=== PATIENT | male | born 1960 | race Caucasian/White ===

== ENCOUNTER 2018-06-04 06:25 | Emergency (ER) | payer OTHER, SELFPAY ==
[2018-06-04 06:26] VITALS: BP 178/87; PULSE 70; RESP 20; TEMP 36.3; O2SAT 98; BMI 39.2
--- NOTE | 2018-06-04 06:38 | RAD_ITS ---
STUDY: X-RAY CHEST REASON FOR EXAM: Male, 57 years old. Cough. TECHNIQUE: PA and lateral views of the chest. COMPARISON: Prior comparison studies are not available for review at this time. FINDINGS: There is a small dense nodule in the left upper lobe likely due to granuloma. No focal infiltrate is seen. There is mild elevation of the right hemidiaphragm. There is no demonstrated pleural abnormality. Normal size heart. Normal mediastinum and ok. Normal visualized pulmonary arteries. Normal visualized aortic arch and descending thoracic aorta. Normal visualized thoracic spine. Normal visualized ribs, clavicles, and shoulders. There is no demonstrated abnormality of the visualized soft tissue structures of the upper abdomen. RAD/Chest PA and Lateral IMPRESSION: No active pulmonary disease. Electronically Signed: Darrel Quinones MD at 8:14 EST Tel , Service support ,
--- NOTE | 2018-06-04 06:38 | EKG12_ITS ---
Test Reason : SOB Blood Pressure : / mmHG Vent. Rate : 082 BPM Atrial Rate : 082 BPM P-R Int : 144 ms QRS Dur : 100 ms QT Int : 380 ms P-R-T Axes : 060 -60 048 degrees QTc Int : 443 ms Normal sinus rhythm Left anterior fascicular block Abnormal ECG Confirmed by CLOVIS GERARDO, EVANGELINA ([id number]), editor index MARY CAMEJO ([id number]) on 06/07/2018 8:26:03 AM Referred By: EDUARD Confirmed By:EVANGELINA BRANNON MD
--- NOTE | 2018-06-04 06:42 | ED.VISSUMM ---
- ER Visit Summary Date of Service: 06/04/18 Chief Complaint: Cough, fever, drainage History of Present Illness: The patient is a 57 M presents to the emergency department with 3-4 weeks of upper respiratory infection. The patient states that he gets this almost every winter. He states that he thought it was just a virus and thought that he would be able to kick it on his own. He states on Wednesday, he went to urgent care because he was having productive sputum, chills, and sweats. He states that they placed him on doxycycline. He is been using his nebulizer with little improvement. He states that he has had no chest pain. He denies orthopnea. He has no history of pulmonary embolus. He denies any history of heart failure. His symptoms are not made worse with exertion or with laying flat. He states it is mostly just the cough that seems to make him worse. Physical Examination: Vital signs reviewed General: Well-nourished, well-developed Head: Normocephalic, atraumatic Eyes: Pupils equal and reactive, extraocular muscles intact Neck, supple, no lymphadenopathy Heart: Regular rate and rhythm Respiratory: No distress, wheezing in all mabry Abdomen: Soft, nontender, nondistended, no peritoneal signs Back: Nontender Extremities: Nontender, no edema, no cords Skin: Normal color no rash Neuro: Alert and oriented, no focal or lateralizing deficits Test Results: [] Emergency Department Course and Treatment: The patient has persistent bronchospasm and infectious symptoms. He denies any underlying history of lung disease and does not smoke. My suspicion is that this is continued inflammation and I do feel that the patient would likely benefit from steroids. Screening labs and chest x-ray will be obtained. The patient is ordered nebulized breathing treatments. I do feel that as long as his labs are unremarkable, the patient can be safely discharged with prednisone and I will change his antibiotic coverage. If there is any other abnormalities that need to be addressed, addendum will be added. Treatment Plan: [] Disposition: Pending Impression: 1. Bronchitis with bronchospasm This note was generated with [employer] software. It may contain incorrect words, spelling, and punctuation that were not noted in review of the chart prior to signing ED Disposition - Plan for ED Patient: Instructions: ED Upper Resp Infec Abx Tx Prescriptions: Prednisone [Deltasone] 40 mg PO DAILY #10 tab Cefuroxime Axetil [Cefuroxime] 500 mg PO BID #14 tab Referrals: Anette Romo MD [Primary Care Provider] -
[2018-06-04] MEDS: MethylPREDNISolone 125 MG/2 ML Vial IV (06:49)
[2018-06-04] MEDS: 0.9% Normal Saline 1,000 ML 150 ML IV (06:51)
[2018-06-04 06:55] LABS: Absolute Lymphocyte Count 1.93 X10^3/ul (0.83-4.51); Absolute Neutrophil Count 3.5 X10^3/uL (2.0-7.7); Basophil# 0.02 X10^3/uL; Basophil% 0.3 % (0-1); Eosinophil# 0.12 X10^3/uL; Eosinophils% 1.7 % (0-5); Hematocrit 48.1 % (40-54); Hemoglobin 16.3 g/dl (13.0-16.5); Lymphocyte # 1.93 X10^3/ul (4.0); Mean Corp Hgb Conc 33.9 g/gl (32-36); Mean Corpuscular Hgb 30.8 pg (27.0-32.0); Mean Corpuscular Volume 90.8 fL (80-94); Mean Platelet Vol. 11.9 fl (6.2-12.0); Monocyte# 1.31 X10^3/uL; Neutrophil # 3.49 X10^3/uL (2.7-7.7); Neutrophil % 50.7 % (47-70); Platelet Count 198 K/mm3 (150-450); RBC Distribution Width CV 13.6 % (11.6-14.6); RBC Distribution Width SD 44.4 fl (35.1-43.9); White Blood Count 6.9 K/mm3 (4.4-11.0)
[2018-06-04 06:56] LABS: POSITIVE COUNT NO; POSITIVE DIFFERENTIAL NO; POSITIVE MORPHOLOGY NO
[2018-06-04 06:59] VITALS: PULSE 84; RESP 16
[2018-06-04] MEDS: Ipratropium/Albuterol Sulfate 3 ML AMPUL.NEB INHALATION (06:59)
[2018-06-04] MEDS: Albuterol 2.5 MG/3 ML VIAL.NEB. INHALATION ×4 (06:59→08:11)
[2018-06-04 07:05] LABS: Anion Gap 10 (5-15); BUN 17 mg/dL (7-18); BUN/Creat Ratio 13.6 RATIO (10-20); Calcium,Total 8.8 mg/dL (8.5-10.1); Chloride 105 mmol/L (98-107); Creatinine, Serum 1.25 mg/dL (0.70-1.30); EST Glomerular Filtration Rate 63 mL/min (>60); Est Glom Filt Rate - Afr Amer 76 mL/min (>60); Estimated Creatinine Clearance 73.69 ml/min; Glucose 133 mg/dL (74-106); Potassium 3.9 mmol/L (3.5-5.1); Sodium Level 142 mmol/L (136-145)
[2018-06-04 07:11] VITALS: PULSE 86; RESP 13; TEMP 36.3; O2SAT 95
[2018-06-04 08:11] VITALS: PULSE 88; RESP 14
[2018-06-04 09:13] VITALS: BP 134/99; PULSE 86; RESP 14; O2SAT 94
== END 2018-06-04 09:15 | disposition home or self-care (01) ==
PROVIDERS: Emergency Provider Emergency Medicine; Family Provider Internal Medicine; PCP Internal Medicine
DX: J40 Bronchitis, not specified as acute or chronic (principal); J98.01 Acute bronchospasm; I10 Essential (primary) hypertension
CPT/HCPCS: 71046; 80048; 85025; 93005; 94640; 96361; 96374; 99285; J7030; A4216

== ENCOUNTER 2019-11-05 08:17 | Inpatient (IN) | payer OTHER, SELFPAY ==
[2019-11-05] VITALS (10 sets, daily range): BP systolic 131–152; BP diastolic 77–116; PULSE 67–138; RESP 14–26; TEMP 36.2–36.9; O2SAT 92–99; BMI 36.2; BMI 36.0
--- NOTE | 2019-11-05 08:31 | RAD_ITS ---
STUDY: X-RAY CHEST REASON FOR EXAM: Male, 59 years old. fever, cough x 3 days TECHNIQUE: Single AP portable view of the chest. COMPARISON: None. FINDINGS: The lungs are clear and expanded. There is no demonstrated pleural abnormality. Normal size heart. Normal mediastinum and ok. Normal visualized pulmonary arteries. Normal visualized aortic arch and descending thoracic aorta. Normal visualized thoracic spine. Normal visualized ribs, clavicles, and shoulders. There is no demonstrated abnormality of the visualized soft tissue structures of the upper abdomen. RAD/Chest 1 View (Portable) IMPRESSION: Normal x-ray examination of the chest. Electronically Signed: Ed Dixon MD at 9:31 EDT Tel , Service support ,
--- NOTE | 2019-11-05 08:32 | ED.DCSUM_ITS ---
History of Present Illness Chief Complaint: Cough Informant: Patient, Significant Other Onset: Days Context: Sudden Onset Timing: Continuous Quality: Upper respiratory symptoms with cough and altered taste Location: Upper respiratory Current Severity: Mild Maximum Severity: Moderate Worsened by: Nothing Relieved by: Nothing Associated Symptoms: Dyspnea, diaphoresis, subjective fever, decreased appetite Narrative: Patient is a 59-year-old male with history of hypertension, hypothyroidism, pulmonary disease and gout who presents with upper respiratory symptoms started 3 to 4 days ago. He denies rhinorrhea, congestion postnasal drainage. Denies sore throat. Does report altered taste. Cough is productive. He does report shortness of breath. He denies increased shortness of breath with activity. He does report sweats and night sweats. He reports decreased appetite. He denies vomiting or diarrhea. He denies dysuria, frequency, urgency or hematuria. He denies myalgias or arthralgias. He has not noted a rash. He does report aches. Patient denies any recent ill contacts. States he is a non-smoker. Prior similar symptoms: Yes - 1 year ago with upper respiratory infection Recent Illness/Hospitalization: No - Past Medical History (1) Hypertension Status: Chronic (2) History of gout Status: Chronic (3) History of hypothyroidism Status: Chronic (4) History of asthma Status: Chronic Past Medical History - Allergies and Home Meds Allergies/Adverse Reactions: Allergies Penicillins [PCN] Allergy (Verified 11/05/19 08:19) PT UNSURE OF REACTION Primary Care Physician: Anette Romo MD [Primary Care Provider] - Prior records reviewed: Yes Surgical History: noncontributory Lives: Spouse/ Significant Other Smoking Status: Never smoker Alcohol: None Drugs: None Review of Systems General: Reports: Chills, Malaise, Sweats. Denies: Fever Eyes: Denies: Visual changes - bilaterally ENT: Reports: Bilateral ear pain, - - Altered taste. Denies: Rhinorrhea, Sore throat Cardiovascular: Denies: Chest pain, Palpitations, Heart racing Respiratory: Reports: Dyspnea, Cough, Sputum. Denies: Dyspnea on exertion, Orthopnea, Paroxysmal nocturnal dyspnea Gastrointestinal: Denies: Abdominal pain, Nausea, Vomiting, Diarrhea Genitourinary: Denies: Dysuria, Hematuria, Frequency Musculoskeletal: Denies: Myalgias, Arthralgias, Neck pain, Back pain, Swelling, Extremity Pain Skin: Denies: Rash, Wounds Neurological: Reports: Weakness. Denies: Headache, Parasthesia, Numbness Hematologic: Denies: Easy bruising, Easy bleeding Physical Exam Vital Signs/Narrative: Vital Signs Temp Pulse Resp BP Pulse Ox 11/05/19 08:19 98.2 F 99 24 H 136/116 H 95 Inital Vital Signs reviewed: Yes General: Well nourished, Well developed, Acute Distress Eyes: Perrl, EOMI. Negative for: Pale conjunctiva, Scleral icterus ENT: Moist mucous membranes, No rhinorrhea, TM's clear Neck: Supple, Nontender, No lymphadenopathy Cardiovascular: Regular rate, Regular rhythm, No murmurs, Normal S1, Normal S2 Respiratory: Chest nontender, Rales - Scattered rales right and left with egophony on the right.. Negative for: No distress, CTA bilaterally Abdomen: Soft, Nontender, Nondistended, Normal bowel sounds, No masses Back: Nontender, Normal Inspection Extremities: Nontender, No edema Skin: Normal color, No rash, Diaphoresis. Negative for: Cyanosis, Jaundice, Pallor, Rash Neurological: Alert, Oriented x3, Cranial nerves II-XII grossly intact, Normal Strength, Normal Sensation, Normal Gait Psychological: Normal affect Diagnostic/Tx/Re-eval - EKG Follow-up EKG Interpretation: Atrial Fibrillation - Atrial fibrillation with ventricular rate of 128.. QRS duration 104 ms. QT duration 3 and 26 ms. [place] to left. There is evidence of left intrafascicular block. - Medical Decision Making With respiratory symptoms loss of taste concern patient has COVID. Patient has abnormal auscultatory findings. Chest x-ray was obtained to assess for infiltrate. Since there is egophony rales and wheezing only with forced expiration he was treated with albuterol. The COVID order set was initiated. Differential diagnosis include acute viral upper restaurant infection with exacerbation asthma, pneumonia, COVID infection Monitor reveals a fast and irregular heartbeat. Repeat EKG confirms atrial fibrillation with RVR. There is evidence of a left anterior fascicular block. QRS duration 204 ms. QT durations 326 ms with a QTC of 475 ms. [place] to left. Because there is concern for COVID head waiter/waitress was contacted regarding antidysrhythmic. Will discuss use of amiodarone and anticoagulation with Lovenox. Dr. Cronel Espinoza is on-call for cardiology. Once case discussed with head waiter/waitress will call hospitalist for admission. Case was discussed with head waiter/waitress. Recommended Cardizem IV push. Agrees with Lovenox. Hospitalist was paged for admission. 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
[2019-11-05 08:58] LABS: Absolute Lymphocyte Count 1.46 X10^3/uL (0.83-4.51); Absolute Neutrophil Count 5.2 X10^3/uL (2.0-7.7); Basophil# 0.02 X10^3/uL; Basophil% 0.3 % (0-1); Eosinophil# 0.02 X10^3/uL; Eosinophils% 0.3 % (0-5); Hematocrit 46.8 % (40-54); Hemoglobin 15.7 g/dL (13.0-16.5); Lymphocyte # 1.46 X10^3/ul (4.0); Lymphocyte % 19.9 % (19-41); Mean Corp Hgb Conc 33.5 g/dL (32-36); Mean Corpuscular Hgb 30.5 pg (27.0-32.0); Mean Corpuscular Volume 91.1 fL (80-94); Mean Platelet Vol. 11.9 fl (6.2-12.0); Monocyte# 0.63 X10^3/uL; Monocyte% 8.6 % (0-10); NRBC Flagged by Analyzer 0 % (0-5); Neutrophil # 5.18 X10^3/uL (2.7-7.7); Neutrophil % 70.5 % (47-70); Platelet Count 155 K/mm3 (150-450); RBC Distribution Width CV 12.9 % (11.6-14.6); RBC Distribution Width SD 43.3 fl (35.1-43.9); Red Blood Count 5.14 M/mm3 (4.6-6.2); White Blood Count 7.3 K/mm3 (4.4-11.0)
[2019-11-05 09:16] LABS: ALB/GLOB Ratio 0.9 RATIO (0.9-2.4); AST(SGOT) 23 U/L (15-37); Alanine Aminotransfer ALT/SGPT 33 U/L (16-61); Albumin, Serum 3.3 g/dL (3.2-5.0); Alkaline Phosphatase 51 U/L (45-117); Anion Gap 6 (5-15); BUN 19 mg/dL (7-18); BUN/Creat Ratio 15.1 RATIO (10-20); Calcium,Total 8.2 mg/dL (8.5-10.1); Chloride 104 mmol/L (98-107); Creatinine, Serum 1.26 mg/dL (0.70-1.30); EST Glomerular Filtration Rate 62 mL/min (>60); Est Glom Filt Rate - Afr Amer 75 mL/min (>60); Estimated Creatinine Clearance 75.45 ml/min; Globulin 3.6 g/dL (2.2-4.2); Glucose 103 mg/dL (74-106); Potassium 4.5 mmol/L (3.5-5.1); Protein, Total 6.9 g/dL (6.4-8.2); Sodium Level 137 mmol/L (136-145)
[2019-11-05 09:29] LABS: Lactic Acid 1.4 mmol/L (0.4-1.9)
--- NOTE | 2019-11-05 10:15 | ED.RN ---
pt rapid heart rate possible a-fib. dr aware and ekg ordered.
--- NOTE | 2019-11-05 10:15 | EKG12_ITS ---
Test Reason : Blood Pressure : / mmHG Vent. Rate : 128 BPM Atrial Rate : 258 BPM P-R Int : 000 ms QRS Dur : 104 ms QT Int : 326 ms P-R-T Axes : 000 -67 059 degrees QTc Int : 475 ms Atrial fibrillation with rapid ventricular response Left anterior fascicular block Abnormal ECG Confirmed by CLOVIS GERARDO, EVANGELINA ([id number]), newspaper editor PADMINI LINK ([id number]) on 11/06/2019 1:16:18 PM Referred By: HUEY Confirmed By:EVANGELINA BRANNON MD
[2019-11-05] MEDS: dilTIAZem 25 MG/5 ML Vial 20 MG IV BOLUS (10:55)
[2019-11-05] MEDS: Enoxaparin 120 MG/0.8 ML Syringe SC (10:55)
--- NOTE | 2019-11-05 11:02 | HP.PCM_ITS ---
Problem List (1) Gout Status: Chronic (2) Hypothyroidism Status: Chronic (3) Asthma Status: Chronic (4) Hypertension Status: Chronic (5) Atrial fibrillation with rapid ventricular response Status: Acute (6) Bronchospasm, acute Status: Acute History of Present Illness Date of Admission: 11/05/19 Chief Complaint: Low-grade fever, cough, shortness of breath. The patient is a 59 year old M with past medical history as mentioned above presented to the emergency room because of low-grade fever, cough and shortness of breath. His symptoms started 2 days ago with low-grade fever, anywhere between 99-100 Fahrenheit, intermittent, started having cough with minimal amount of yellow sputum, associated with exertional shortness of breath as well as occasional wheezing and without aggravating or relieving factors. He mentioned that the cough and the shortness of breath has been getting worse and today, he decided to come to the emergency department. He denied recent travel or sick contacts. He denied chest pain, palpitation, dizziness, lig htheadedness, syncope or presyncope. In the emergency department, patient was afebrile, he was in A. fib with RVR, blood pressure was stable, pulse ox was 95% on room air. His routine blood work was unremarkable. LFT was normal. Lactic acid was normal. PCR for COVID-19 came back positive. Chest x-ray showed no acute infiltrate or consolidation. EKG revealed A. fib with RVR, heart rate has been in 120s, no acute segment changes. He is being admitted for new onset A. fib with RVR and COVID-19. Past Medical History Past Medical History (Chronic Problems): Chronic Problems Gout (Chronic) Hypothyroidism (Chronic) Asthma (Chronic) Hypertension (Chronic) Allergies Penicillins [PCN] Allergy (Verified 11/05/19 08:19) PT UNSURE OF REACTION Home Medications: Ambulatory Orders Medication Instructions Recorded Albuterol IH (ProAir) [Proair Hfa 1 - 2 puff INHALATION Q4H PRN PRN 11/05/19 (SP)Vent Pts] Allopurinol [Zyloprim] 300 mg PO DAILY 11/05/19 Budesonide/Formoterol Fumarate 1 puff IH DAILY 11/05/19 [Symbicort 80-4.5 Mcg Inhaler] Esomeprazole Magnesium 40 mg PO DAILY 11/05/19 Levothyroxine Sodium [Levoxyl] 175 mcg PO DAILY 11/05/19 Losartan Potassium 50 mg PO DAILY 11/05/19 Surgical History: noncontributory Lives: Spouse/ Significant Other Smoking Status: Never smoker Alcohol: None, Occasional Drugs: None - *Family History Maternal History Items: No pertinent history Paternal History Items: No pertinent history Review of Systems Constitutional: Reports: Fever, Malaise. Denies: Anorexia, Chills, Weakness, Fatigue Eyes: Denies: Blurred vision, Double vision, Drainage, Redness HEENT: Denies: Difficulty Hearing, Ear Pain, Eye Pain, Nasal Congestion, Sore Throat Cardiovascular: Denies: Chest Pain, Chest Pressure, Chest Tightness, Edema, Light Headedness, Palpitations, Syncope Respiratory: Reports: Cough, Shortness of Breath, Sputum production, Wheezing Gastrointestinal: Denies: Abdominal Pain, Constipation, Diarrhea, Nausea, Vomiting Genitourinary: Denies: Dysuria, Frequency, Hematuria Musculoskeletal: Denies: Arm Pain, Back Pain, Foot Pain Skin: Denies: Dryness, Rash Neurological: Denies: Balance problems, Double vision, Change in Speech, Slurred speech, Confusion, Headaches, Incoordination, Numbness Psychiatric: Denies: Anxiety, Depression Endocrine: Denies: Change in Body Habitus, Polydipsia, Polyuria VTE Information - Inpt Only VTE Present on Admission: No VTE Mechan Device Prophylaxis: None VTE Pharm Prophylaxis ordered?: Yes Patient Problems: Active and Suspected Problems Suspected COVID-19 virus infection (Acute) Atrial fibrillation with rapid ventricular response (Acute) Bronchospasm, acute (Acute) - Physical Exam Vitals/I&O's: Vital Signs Temp Pulse Resp BP Pulse Ox 98.2 F 138 H 26 H 142/82 H 99 11/05/19 08:19 11/05/19 10:18 11/05/19 10:18 11/05/19 10:18 11/05/19 10:18 Oxygen Delivery Method Room Air Weight: 290 lb Body Mass Index (BMI) 36.2 General: Alert, Oriented x3, Cooperative, No apparent distress HEENT: Atraumatic, PERRLA, EOMI, Normocephalic Oral: Moist Mucosa, No Gingival or Mucosal Lesions/ Ulcerations Neck: Supple, No JVD, Negative Carotid Bruits, Trachea Midline, Thyroid Normal Size and Texture Lungs: No rales, Diminished, Rhonchi, Wheezes, - - Decreased breath sounds bilateral, bilateral rhonchi, occasional wheeze. Cardiovascular: Normal S1, Normal S2, No murmurs, PMI Normal, Irregular Rate, Tachycardic Abdomen: Bowel Sounds Present, Soft, Non Tender, Non-Distended, No Hepato- splenomegaly Extremities: No clubbing, No cyanosis, No edema Skin: No rashes, No breakdown Lymphatic: No Cervical, Supraclavicular, or Inguinal Adenopathy Neurological: Cranial nerves II-XII grossly intact, Motor Exam 5/5 strength throughout Psych/Mental Status: Normal Affect, Appropriate, Alert and oriented to time, place, person, mood and affect Laboratory Results 11/05/19 08:48: WBC 7.3, RBC 5.14, Hgb 15.7, Hct 46.8, MCV 91.1, MCH 30.5, MCHC 33.5, RDW Std Deviation 43.3, RDW Coeff of Geraldine 12.9, Plt Count 155, MPV 11.9, Immature Gran % (Auto) 0.400, Neut % (Auto) 70.5 H, Lymph % (Auto) 19.9, [place] % (Auto) 8.6, Eos % (Auto) 0.3, Baso % (Auto) 0.3, Absolute Neuts (auto) 5.2, Absolute Lymphs (auto) 1.46, Nucleated RBC % 0 11/05/19 08:48: Sodium 137, Potassium 4.5, Chloride 104, Carbon Dioxide 27.0, Anion Gap 6, BUN 19 H, Creatinine 1.26, Estim Creat Clear Calc 75.45, Est GFR (MDRD) Af Amer 75, Est GFR (MDRD) Non-Af 62, BUN/Creatinine Ratio 15.1, Glucose 103, Calcium 8.2 L, Total Bilirubin 0.60, AST 23, ALT 33, Alkaline Phosphatase 51, Total Protein 6.9, Albumin 3.3, Globulin 3.6, Albumin/Globulin Ratio 0.9 11/05/19 08:48: Lactic Acid 1.4 11/05/19 09:56: COVID-19 (ANALY) Pending Clinical Impression(s) from Imaging Studies Chest X-Ray 11/05/19 08:31 IMPRESSION: Normal x-ray examination of the chest. Electronically Signed: Ed Dixon MD at 9:31 EDT Tel , Service support , Assessment/Plan All Active Problems Suspected COVID-19 virus infection (Acute) Atrial fibrillation with rapid ventricular response (Acute) Bronchospasm, acute (Acute) This is a 59 years old male patient presented to the emergency because of low- grade fever, cough, sputum production and shortness of breath, found to have new onset A. fib with RVR and he is being admitted for evaluation and treatment. #1 new onset A. fib with RVR: EKG reviewed, revealed A. fib with RVR, no acute segment changes. Troponin was not done. Chest x-ray showed no acute findings. Patient denied any past cardiac history. Patient received 1 dose of IV Cardizem bolus in the ED as well as 1 dose of therapeutic Lovenox. His [id number]- VASc score for atrial fibrillation is one-point, he is at low to moderate risk for stroke and recommendation is to start antiplatelets or anticoagulation. Plan: Admit to PCU, cardiac monitoring, serial cardiac enzymes, check serum magnesium, TSH, 2D echocardiogram, start IV Cardizem drip if heart rate remained high, start therapeutic Lovenox twice daily, cardiology consult, repeat CBC and BMP tomorrow morning. #2 URTI/COVID-19: Chest x-ray showed no acute findings. Pulses maintain pulse ox on room air. Plan: Tylenol PRN, Robitussin as needed, check ESR, CRP, ferritin, d-dimer, troponin, LDH, CPK, albuterol inhaler as needed, Symbicort twice daily, infectious disease consult. #3 hypertension: Blood pressure stable, continue losartan. #4 hypothyroidism: Continue levothyroxine, will check TSH. #5 asthma: Although patient complained of shortness of breath and wheezing, his pulse ox is maintained on room air. Chest x-ray reviewed as above. Plan for albuterol inhaler as needed, Symbicort twice daily. #6 gout: Continue allopurinol. #7 DVT prophylaxis: Patient will be on therapeutic Lovenox twice daily. This note was generated with [employer] software. It may contain incorrect words, spelling, and punctuation that were not noted in checking the note before signing. Inpatient E&M: 75949 Init Hosp L3
[2019-11-05] MEDS: MethylPREDNISolone 125 MG/2 ML Vial IV (11:30)
[2019-11-05 11:33] LABS: Probe Check PASS; Specimen Processing Control PASS
--- NOTE | 2019-11-05 12:05 | ED.RN ---
pt spontaneously converted to nsr hr 82
[2019-11-05] MEDS: dilTIAZem CD 120 MG Capsule PO (12:26)
--- NOTE | 2019-11-05 12:47 | ECHOCS_ITS ---
Reason For Study: A. fib Procedure This was a 2D Doppler, Color Flow transthoracic echocardiogram. The study was technically difficult. Patient profusely coughing during test. Exam performed portable in ICU/CCU. Left Ventricle Normal LV size. Mild concentric left ventricular hypertrophy. Left ventricular systolic function is normal. The estimated ejection fraction is 65 %. Normal diastology for age. No regional wall motion abnormalities noted. Right Ventricle Normal RV size. Normal systolic function. Atria Normal left atrium. Normal right atrium. Mitral Valve Normal mitral valve. Tricuspid Valve Normal tricuspid valve. Aortic Valve The aortic valve is not well visualized. Pulmonic Valve Normal pulmonic valve. Great Vessels Normal aortic root. Pericardium/Pleural No pericardial effusion. Medication Diluted definity 2ml given slow IV push to enhance endocardial definition. MMode/2D Measurements & Calculations LVIDd: 5.2 cm IVSd: 1.3 cm Ao root diam: 3.6 cm LVIDs: 3.3 cm LVPWd: 1.3 cm FS: 35.7 % LAV(MOD-sp4): 37.0 ml LA A4 area: 15.5 cm2 LA dimension(2D): 4.2 cm RA A4 area: 14.9 cm2 Doppler Measurements & Calculations MV E max victor manuel: 80.7 cm/sec Lat Peak E' Victor Manuel: 10.3 cm/sec Med Peak E' Victor Manuel: 7.6 cm/sec MV A max victor manuel: 47.0 cm/sec E/E' lat: 7.8 E/E' med: 10.7 MV E/A: 1.7 Ao V2 max: 151.8 cm/sec LV V1 max: 101.0 cm/sec PA V2 max: 110.7 cm/sec Ao max P.2 mmHg LV V1 max P.1 mmHg Interpretation Summary Normal LV size. Mild concentric left ventricular hypertrophy. Left ventricular systolic function is normal. The estimated ejection fraction is 65 %. Contrast injection was performed. Ordering Physician: Demetri Patel Referring Physician: Anette Romo Performed By: Genesis Mcmanus RDCS
[2019-11-05] MEDS: 0.9% Normal Saline 1,000 ML 75 ML IV (13:25)
[2019-11-05 14:18] LABS: Erythrocyte Sedimentation Rate 14 mm/hr (0-20)
[2019-11-05 14:40] LABS: CPK Total, Creatine Kinase 257 U/L (39-308); Ferritin 570 ng/mL (26-388); LDH 232 U/L (87-241); Magnesium 2.2 mg/dL (1.6-2.6); Thyroid Stim Hormone (TSH) 3.34 uIU/mL (0.358-3.74)
[2019-11-05] MEDS: Enoxaparin 150 MG/ML Syringe 130 MG SC (21:46)
[2019-11-06] VITALS (8 sets, daily range): BP systolic 133–140; BP diastolic 74–84; PULSE 57–77; RESP 11–18; TEMP 35.1–37.2; O2SAT 93–97
[2019-11-06] MEDS: 0.9% Saline Lock 10 ML Syringe IV (03:05)
[2019-11-06 04:29] LABS: Absolute Lymphocyte Count 1.09 X10^3/uL (0.83-4.51); Basophil# 0.01 X10^3/uL; Basophil% 0.1 % (0-1); Eosinophil# 0.17 X10^3/uL; Eosinophils% 1.9 % (0-5); Hematocrit 47.1 % (40-54); Hemoglobin 15.7 g/dL (13.0-16.5); Lymphocyte # 1.09 X10^3/ul (4.0); Lymphocyte % 12.5 % (19-41); Mean Corp Hgb Conc 33.3 g/dL (32-36); Mean Corpuscular Hgb 30.8 pg (27.0-32.0); Mean Corpuscular Volume 92.5 fL (80-94); Mean Platelet Vol. 11.9 fl (6.2-12.0); Monocyte% 4.6 % (0-10); NRBC Flagged by Analyzer 0 % (0-5); Neutrophil # 7.04 X10^3/uL (2.7-7.7); Neutrophil % 80.4 % (47-70); POSITIVE MORPHOLOGY YES; Platelet Count 172 K/mm3 (150-450); RBC Distribution Width CV 13.1 % (11.6-14.6); RBC Distribution Width SD 44.1 fl (35.1-43.9); Red Blood Count 5.09 M/mm3 (4.6-6.2); White Blood Count 8.8 K/mm3 (4.4-11.0)
[2019-11-06 04:30] LABS: Differential Indicated SCAN CRITERIA MET
[2019-11-06 04:43] LABS: Anion Gap 9 (5-15); BUN 26 mg/dL (7-18); BUN/Creat Ratio 23.6 RATIO (10-20); Calcium,Total 8.2 mg/dL (8.5-10.1); Chloride 105 mmol/L (98-107); EST Glomerular Filtration Rate 73 mL/min (>60); Est Glom Filt Rate - Afr Amer 88 mL/min (>60); Estimated Creatinine Clearance 86.42 ml/min; Glucose 172 mg/dL (74-106); Potassium 4.4 mmol/L (3.5-5.1); Sodium Level 138 mmol/L (136-145)
[2019-11-06 04:47] LABS: Differential Comment SCANNED; Reactive Lymphocyte RARE
[2019-11-06] MEDS: Losartan Potassium 50 MG Tablet PO (08:38)
[2019-11-06] MEDS: Levothyroxine 175 MCG Tablet PO (08:38)
[2019-11-06] MEDS: Allopurinol 300 MG Tablet PO (08:38)
[2019-11-06] MEDS: Pantoprazole Sodium 40 MG Tablet PO (08:38)
[2019-11-06] MEDS: Enoxaparin 150 MG/ML Syringe 130 MG SC (08:39)
--- NOTE | 2019-11-06 11:33 | CASEMGMT ---
RN CM Assessment Note Intro role of CM to patient via phone to room. Pt is awake, alert and able to participate in assessment. States he is independent @ home and no concerns at this time re: dc planning. COVID-19 DC Planning -pt has area in home to self isolate -pt is independent at this time and able to care for self -states his has not exhibited any symptoms and has not been tested. Discussed that if this continues, pt will need to self isolate from at home and discussed she will need to wear mask, handwashing and notify her physician if any symptoms begin. -Family is available to assist with bringing groceries, medications. -Patient is currently on RA. IF oxygen needed, will discuss with patient Presentation: fever, cough, shortness of breath. Diagnosis: Afib RVR, COVID + PCP: Dr. Romo Specialists: none Insurance: [employer] Preferred Pharmacy: [facility] Prescription Benefit: yes LNOK: Living Arrangements: lives independently in home. No care needs at this time. Tranportation: family DME: none.. If oxygen is needed, [facility] Goals: Home on discharge DC Plan: anticipte home. Will follow for any home oxygen needs. Contact CM for any concerns/needs that may arise. Chiquis CARDONA RN ACM
--- NOTE | 2019-11-06 13:53 | DCINST_ITS ---
- Discharge Diagnoses Current Active Problems: Current Active and Chronic Problems Suspected COVID-19 virus infection (Acute) COVID-19 (Acute) Gout (Chronic) Hypothyroidism (Chronic) Asthma (Chronic) Atrial fibrillation with rapid ventricular response (Acute) Bronchospasm, acute (Acute) You will use the following diet at home:: No restrictions Your food should be the consistency of: Regular Your liquids should be the consistency of: Regular/Thin Discharge Activity: - - do not work for two weeks Return to work on:: 11/20/19 Weight Bearing Status: Full weight bearing Additional Instructions: maintain social distancing at home for two weeks-wear mask if possible Allergies/Adverse Reactions: Allergies Penicillins [PCN] Allergy (Verified 11/05/19 08:19) PT UNSURE OF REACTION Medications to take at Discharge Albuterol IH (ProAir) [Proair Hfa] 1 - 2 puff INHALATION Q4H PRN PRN 11/05/19 Allopurinol [Zyloprim] 300 mg PO DAILY 11/05/19 Budesonide/Formoterol Fumarate [Symbicort 80-4.5 Mcg Inhaler] 1 puff IH DAILY 11/05/19 Esomeprazole Magnesium 40 mg PO DAILY 11/05/19 Levothyroxine Sodium [Levoxyl] 175 mcg PO DAILY 11/05/19 Losartan Potassium 50 mg PO DAILY 11/05/19 Benzonatate [Tessalon Perle] 200 mg PO 4X/DAY PRN PRN #40 cap 11/06/19 Metoprolol Succinate [Toprol Xl] 25 mg PO DAILY #30 tab.er.24h 11/06/19 The following prescriptions were given: Benzonatate [Tessalon Perle] 200 mg PO 4X/DAY PRN PRN #40 cap PRN Reason: Cough Transmission Status: Pending to [facility] #30 Metoprolol Succinate [Toprol Xl] 25 mg PO DAILY #30 tab.er.24h Transmission Status: Pending to [facility] Primary Care Physician: Anette Romo MD [Primary Care Provider] - Please follow up with your Primary Care Physician in: in 2-3 weeks or sooner if having problems Test Results: Test results from this visit will be discussed in further detail at your follow- up appointment, if applicable. Please Follow Up With: Cornel Espinoza MD When: in 4 weeks
--- NOTE | 2019-11-06 16:57 | PCM.DC.SUM ---
Discharge Date and Diagnosis - Problem List Patient Problems: Active and Suspected Problems COVID-19 (Acute) Date of Admission: 11/05/19 Date of Discharge: 11/06/19 - Primary Discharge Diagnosis Acute Problems: Active Problems #1 new onset atrial fibrillation with RVR and converted to sinus rhythm #2 COVID-19 (Acute) #3 essential hypertension #4 chronic asthma - Secondary Discharge Diagnosis Chronic Problems: Chronic Problems Gout (Chronic) Hypothyroidism (Chronic) Asthma (Chronic) Hypertension (Chronic) Hospital Course and Treatment Operations: None Procedures: 2-D Echocardiogram Summary of Care Provided: The patient is a 59 year old M was seen in the emergency room at [facility] with chief complaint of cough and altered taste sensation. He also complained of rhinorrhea and nasal congestion. Work-up in the emergency room showed the patient to be in atrial fib with a rapid ventricular response at 128 bpm. Patient had a COVID test performed which was positive. Patient's chest x-ray showed no evidence of active infiltrates. Patient was given a dose of Cardizem IV in the emergency room, shortly after that he converted to normal sinus rhythm. Patient was admitted to PCU on MedSurg 2, he remained in sinus rhythm, echocardiogram was performed which showed a normal EF. No evidence of valvular disease was noted to be present. On 11/06/2019, patient was seen and examined: On examination he appeared in good health and spirits. Vital signs as documented. Skin warm and dry and without overt rashes. Neck without JVD, neck was supple, trachea midline, thyroid was normal. Lungs clear bilaterally, normal air movement was noted. Heart exam notable for regular rhythm, normal sounds and absence of murmurs, rubs or gallops. Abdomen unremarkable and without evidence of organomegaly, masses, or abdominal aortic enlargement. Bowel sounds are present, abdomen is not distended. Extremities nonedematous, no cyanosis was noted, no clubbing was noted. Neuro: Cranial nerves II through XII are grossly intact, no focal motor deficits were noted, sensation to light touch and pinprick intact, motor exam 5/5 throughout. Psych: Patient is alert and oriented x3, he does not appear anxious or depressed, he does not appear agitated. Patient was felt to be stable for discharge on 11/06/2019. Further note, I discussed the case with cardiology (Dr. Espinoza ), he did not feel that he needed to evaluate the patient and instead recommended that the patient be placed on a beta-wilberto and he recommended further that the patient follow-up with him for an office visit in approximately 3 to 4 weeks. I did not feel it was necessary for the patient be placed on anticoagulation at the time of discharge. Patient had no symptoms of thromboembolic disease such as shortness of breath or swelling of the lower extremity. Patient Problems: Active and Suspected Problems COVID-19 (Acute) - Physical Exam Vitals/I&O's: Vital Signs Temp Pulse Resp BP Pulse Ox 98.9 F 68 18 133/74 H 97 11/06/19 09:07 11/06/19 11:51 11/06/19 09:07 11/06/19 09:07 11/06/19 09:07 Oxygen Delivery Method Room Air Weight: 131.5 kg Body Mass Index (BMI) 36.0 Intake and Output for Last 24 Hours 11/04/19 11/05/19 11/06/19 23:59 23:59 23:59 Intake Total 1390.00 / 1390.00 Balance 1390.00 / 1390.00 Microbiology Past 72 Hours 11/05/19 09:56 Mucosa - Nose Respiratory Panel (PCR) - Final Laboratory Results 11/05/19 17:29: Troponin I < 0.015 11/05/19 21:15: Troponin I < 0.015 11/06/19 04:20: Sodium 138, Potassium 4.4, Chloride 105, Carbon Dioxide 24.0, Anion Gap 9, BUN 26 H, Creatinine 1.10, Estim Creat Clear Calc 86.42, Est GFR (MDRD) Af Amer 88, Est GFR (MDRD) Non-Af 73, BUN/Creatinine Ratio 23.6 H, Glucose 172 H, Calcium 8.2 L 11/06/19 04:20: WBC 8.8, RBC 5.09, Hgb 15.7, Hct 47.1, MCV 92.5, MCH 30.8, MCHC 33.3, RDW Std Deviation 44.1 H, RDW Coeff of Geraldine 13.1, Plt Count 172, MPV 11.9, Immature Gran % (Auto) 0.500, Neut % (Auto) 80.4 H, Lymph % (Auto) 12.5 L, Daniels % (Auto) 4.6, Eos % (Auto) 1.9, Baso % (Auto) 0.1, Absolute Neuts (auto) 7.0, Absolute Lymphs (auto) 1.09, Nucleated RBC % 0, Differential Comment SCANNED, Reactive Lymphocytes RARE Discharge Activity: - - do not work for two weeks Return to work on:: 11/20/19 Weight Bearing Status: Full weight bearing Home Medications: Medications to take at Discharge Albuterol IH (ProAir) [Proair Hfa] 1 - 2 puff INHALATION Q4H PRN PRN 11/05/19 Allopurinol [Zyloprim] 300 mg PO DAILY 11/05/19 Budesonide/Formoterol Fumarate [Symbicort 80-4.5 Mcg Inhaler] 1 puff IH DAILY 11/05/19 Esomeprazole Magnesium 40 mg PO DAILY 11/05/19 Levothyroxine Sodium [Levoxyl] 175 mcg PO DAILY 11/05/19 Losartan Potassium 50 mg PO DAILY 11/05/19 Benzonatate [Tessalon Perle] 200 mg PO 4X/DAY PRN PRN #40 cap 11/06/19 Metoprolol Succinate [Toprol Xl] 25 mg PO DAILY #30 tab.er.24h 11/06/19 Following Prescrptions Were Given to Patient: Benzonatate [Tessalon Perle] 200 mg PO 4X/DAY PRN PRN #40 cap PRN Reason: Cough Transmission Status: Received by [employer] [facility] Metoprolol Succinate [Toprol Xl] 25 mg PO DAILY #30 tab.er.24h Transmission Status: Received by [employer] [facility] Primary Care Physician: Anette Romo MD [Primary Care Provider] - Please follow up with your Primary Care Physician in: in 2-3 weeks or sooner if having problems Please Follow Up With: Cornel Espinoza MD When: in 4 weeks Disposition: Home Minutes spent on discharge:: 31 Patient Condition:: Stable Medical Necessity - Tobacco Use Smoking Status: Never smoker Tobacco Use: Non-smoker Meaningful Use Info Meaningful Use Diagnoses (Choose all that apply): None applicable Inpatient E&M: 08088 Disch Hosp
--- NOTE | 2019-11-08 12:59 | CASEMGMT ---
DC DATE: 11/06/2019 DC DISPOSITION: Home DC DIAGNOSIS: SARS COVID 2 Attempted call to patient's phone, no answer but messaging did have name identifier. Message left with call back information if patient had questions re: prescriptions, follow up or instructions given on discharge. Chiquis CARMICHAELN RN ACM
== END 2019-11-06 14:50 | disposition home or self-care (01) | DRG 308 ==
LOC: ED 10:27 → ICU 12:02
PROVIDERS: Admitting Provider Hospitalist; Emergency Provider Emergency Medicine; PCP Internal Medicine; Visit Provider Internal Medicine
DX: I48.91 Unspecified atrial fibrillation (principal); U07.1 COVID-19; E03.9 Hypothyroidism, unspecified; M1A.9XX0 Chronic gout, unspecified, without tophus (tophi); J06.9 Acute upper respiratory infection, unspecified; I10 Essential (primary) hypertension; J45.909 Unspecified asthma, uncomplicated; Z79.51 Long term (current) use of inhaled steroids; Z79.890 Hormone replacement therapy
CPT/HCPCS: 71045; 80048; 80053; 82550; 82728; 83605; 83615; 83735; 84443; 84484; 85025; 85379; 85652; 86140; 87633; 87635; 93005; 93306; 99283; G2023; J7030; Q9957; A4216; C8929; U0003

== ENCOUNTER → 2022-07-03 | Outpatient (CLI) | payer OTHER, SELFPAY ==
[2022-07-03 08:12] LABS: ALB/GLOB Ratio 1.2 RATIO (0.9-2.4); AST(SGOT) 36 U/L (15-37); Alanine Aminotransfer ALT/SGPT 72 U/L (16-61); Albumin, Serum 3.9 g/dL (3.2-5.0); Alkaline Phosphatase 53 U/L (45-117); Anion Gap 5 (5-15); BUN 19 mg/dL (7-18); BUN/Creat Ratio 14.5 RATIO (10-20); Calcium,Total 9.4 mg/dL (8.5-10.1); Chloride 107 mmol/L (98-107); Creatinine, Serum 1.31 mg/dL (0.70-1.30); EST Glomerular Filtration Rate 59 mL/min (>60); Est Glom Filt Rate - Afr Amer 71 mL/min (>60); Globulin 3.3 g/dL (2.2-4.2); Glucose 114 mg/dL (74-106); Potassium 4.9 mmol/L (3.5-5.1); Protein, Total 7.2 g/dL (6.4-8.2); Sodium Level 140 mmol/L (136-145); Thyroid Stim Hormone (TSH) 2.94 uIU/mL (0.358-3.74)
== END | disposition home or self-care (01) ==
LOC: LAB 07:09
PROVIDERS: PCP Internal Medicine; Referring Provider Internal Medicine; Visit Provider Internal Medicine
DX: E03.9 Hypothyroidism, unspecified (principal); I10 Essential (primary) hypertension
CPT/HCPCS: 36415; 80053; 84443

== ENCOUNTER → 2022-08-18 | Outpatient (CLI) | payer OTHER, SELFPAY ==
--- NOTE | 2022-08-18 06:20 | ECHOCS_ITS ---
Reason For Study: Abnormal EKG Procedure This was a 2D Doppler, Color Flow transthoracic echocardiogram. The study was technically difficult. Contrast injection was performed. Exam performed in department. Left Ventricle Normal LV size. Left ventricular systolic function is normal. The estimated ejection fraction is 55 %. No regional wall motion abnormalities noted. Right Ventricle Normal RV size. Normal systolic function. Atria Normal left atrium. Normal right atrium. Mitral Valve Normal mitral valve. Tricuspid Valve Normal tricuspid valve. Aortic Valve The aortic valve is not well visualized. Pulmonic Valve The pulmonic valve is not well visualized. Great Vessels Normal aortic root. The pulmonary artery is normal size. Normal inferior vena cava. Pericardium/Pleural No pericardial effusion. Medication 22 gauge I.V. with prn adaptor inserted into right arm. Diluted definity 2ml given slow IV push to enhance endocardial definition. MMode/2D Measurements & Calculations LVIDd: 5.0 cm IVSd: 1.3 cm Ao root diam: 3.8 cm LVIDs: 4.4 cm LVPWd: 1.1 cm LA dimension: 4.6 cm RVDd: 3.5 cm FS: 12.2 % LAV(MOD-bp): 70.8 ml LA A4 area: 24.1 cm2 RA A4 area: 16.0 cm2 LAV(MOD-bp) Indexed: 27.8 ml/m2 LAV(MOD-sp2): 58.4 ml LAV(MOD-sp4): 72.4 ml Doppler Measurements & Calculations MV E max janna: 90.2 cm/sec MV V2 max: 89.9 cm/sec Ao V2 max: 101.8 cm/sec MV max P.3 mmHg Ao max P.2 mmHg MV V2 mean: 49.0 cm/sec MV mean P.2 mmHg MV V2 VTI: 20.7 cm AI max janna: 463.7 cm/sec LV V1 max: 75.4 cm/sec PA V2 max: 79.3 cm/sec AI max P.0 mmHg LV V1 max P.3 mmHg PA V2 mean: 59.0 cm/sec AI dec slope: 64.6 cm/sec2 AI P1/2t: 2103 msec TR max janna: 272.7 cm/sec TR max P.7 mmHg ECHO/Echo Complete W/ Contrast Interpretation Summary Normal LV size. Left ventricular systolic function is normal. The estimated ejection fraction is 55 %. Contrast injection was performed. The study was technically difficult. Ordering Physician: Patti Dowd Referring Physician: Anette Romo Performed By: Zana Mack RCS
--- NOTE | 2022-08-19 18:13 | STRESSREP_ITS ---
Stress Test Report Exercise myocardial perfusion stress test. 62-year-old man with a history of abnormal EKG Stress protocol: Resting EKG demonstrates atrial fibrillation with a rate of 87 bpm resting blood pressure is 130/86 mmHg. The patient exercised according to the regular Fernie protocol for a total duration of 7 minutes and 30 seconds attaining a maximum heart rate of 150 bpm which was 94% of maximum predicted heart rate; the maximum workload was 10.1 metabolic equivalents. At rest there were no ST or T wave changes noted to suggest ischemia and at peak exercise upsloping ST changes only were noted which did not meet the criteria for ischemia. No clinical angina was noted the test was terminated due to the target heart rate being achieved/fat igue. The peak blood pressure was 170/74 mmHg. Rate-pressure product was 23,200. Myocardial perfusion protocol. 14.8 mCi of technetium 99m sestamibi was injected at rest. The patient exercised according to regular Fernie protocol for total duration of 7 minutes and 30 seconds and at peak exercise 44.9 mCi of technetium 99m sestamibi was injected stress images were obtained stress and rest images were reconstructed in comparing the short axis vertical long and horizontal long axis. Gated images were also obtained. Perfusion SPECT analysis: Review of the stress images demonstrate normal uptake of tracer noted in all areas of the myocardium. The resting images similarly demonstrate normal uptake of tracer noted in all areas of the myocardium. No areas of reversibility are noted to suggest ischemia no previous infarct was noted. Gated SPECT analysis: The gated ejection fraction is 57%. Conclusion: Normal exercise myocardial perfusion stress test at a high workload Preserved ejection fraction. Atrial fibrillation
== END | disposition home or self-care (01) ==
PROVIDERS: PCP Internal Medicine; Referring Provider Physician Assistant Medical; Visit Provider Physician Assistant Medical
DX: I48.91 Unspecified atrial fibrillation (principal); R94.31 Abnormal electrocardiogram [ECG] [EKG]; I10 Essential (primary) hypertension
CPT/HCPCS: 78452; 93017; 93306; A9500; Q9957; A4216; C8929

== ENCOUNTER 2022-08-31 10:34 | Day surgery (SDC) | payer OTHER, SELFPAY ==
[2022-08-26 16:39] LABS: Anion Gap 4 (5-15); BUN 22 mg/dL (7-18); BUN/Creat Ratio 17.6 RATIO (10-20); Calcium,Total 9.3 mg/dL (8.5-10.1); Chloride 107 mmol/L (98-107); Creatinine, Serum 1.25 mg/dL (0.70-1.30); EST Glomerular Filtration Rate 62 mL/min (>60); Est Glom Filt Rate - Afr Amer 75 mL/min (>60); Glucose 90 mg/dL (74-106); Potassium 5.2 mmol/L (3.5-5.1); Sodium Level 140 mmol/L (136-145)
[2022-08-28 09:51] VITALS: BMI 35.1
--- NOTE | 2022-08-31 11:01 | PCM.HP.BLA ---
History and Physical Arian Hall is a 62-year-old gentleman that presents here today for a cardioversion for persistent Afib. He was diagnosed with Afib with RVR following COVID in 2020. More recently, he was in the process of being scheduled for knee meniscus surgery.? He was initially cleared by his PCP.? He then when back to the Orthopedics and was told he needs to be seen by cardiology.? He notes that his initial EKG was done in May of 2022,? He was noted to be in Afib at that time. He was started on atenolol and ASA by his PCP.? He does not feel his Afib. Although he does feel fatigued.? He does not have any chest pain/heaviness.? He does sometimes has lightheadedness/dizziness.? He does not have any swelling.? He is still active with lifting weights and going to the gym. Did undergo a nuclear stress test which was negative for ischemia at a high workload. He was noted to be in persistent atrial fibrillation. Hedid have an echocardiogram done which demonstrated a normal ejection fraction of 55%. He was started on anticoagulation. It has been greater than 30 days since he has been anticoagulated. He will proceed with a cardioversion today. Medications albuterol sulfate 90 mcg/actuation aerosol inhaler 1 - 2 puff inhalation Q4H PRN PRN Sob &/Or Wheezing 11/05/19 [History Confirmed 07/29/22] allopurinol 300 mg tablet 300 mg PO DAILY 11/05/19 [History Confirmed 07/29/22] budesonide-formoterol HFA 80 mcg-4.5 mcg/actuation aerosol inhaler 1 puff IH DAILY 11/05/19 [History Confirmed 07/29/22] esomeprazole magnesium 40 mg capsule,delayed release 40 mg PO DAILY 11/05/19 [History Confirmed 07/29/22] levothyroxine 175 mcg tablet 175 mcg PO DAILY 11/05/19 [History Confirmed 07/29/22] losartan 50 mg tablet 50 mg PO DAILY 11/05/19 [History Confirmed 07/29/22] Blood pressure cuff #1 ea 04/30/20 [Rx Confirmed 04/30/20] apixaban 5 mg tablet (Eliquis) 5 mg PO BID #60 tabs 07/29/22 [Rx Confirmed 07/29/22] aspirin 81 mg tablet,delayed release (Adult Low Dose Aspirin) 81 mg PO DAILY 07/29/22 [History Confirmed 07/29/22] atenolol 25 mg tablet 25 mg PO DAILY 07/29/22 [History Confirmed 07/29/22] PFSH Medical History?(Updated 07/29/22 @ 12:05 by Patti CHRISTIANSON, PA) Asthma Atrial fibrillation with rapid ventricular response (11/05/19) Bronchospasm, acute COVID-19 virus detected (11/05/19) Essential hypertension Gout Hypothyroidism Vitamin D deficiency Surgical History? History of arthroscopy of right shoulder History of radial keratotomy History of vasectomy Family History? Mother Diabetes Heart disease FibromyalgiaFather Heart disease Hyperlipidemia Thyroid disorder CAD (coronary artery disease) ?? ? CABG Myocardial infarction,? Onset Age: 62 ?? ? [place]-CABGGrandfather Cancer ?? ? prostate Social History? Smoking Status:? Never smoker alcohol intake:? current substance use type:? does not use ROS Const Const: Positive for fatigue; Negative for weakness, fever(s) or headache(s) Eyes Eyes: Negative for blind spots, loss of peripheral vision or transient loss of vision ENT ENT: Negative for headache(s), dizziness, tinnitus, Nosebleed/epistaxis or balance problems Cardio Chest Pain: No Palpitations: No Edema: None Muscle aches with walking: None Resp Respiratory: Negative for SOB with activity, SOB at rest, SOB orthopnea\SOB lying down or Cough GI GI: Negative nausea, vomiting, heartburn or vomiting blood/hematemesis : Negative for hematuria Musc Musc: Positive for muscle aches/ myalgia; Negative for muscle weakness, joint pain or balance problems Neuro Neuro: Negative for dizziness, lightheadedness, near syncope, syncope, orthostatic symptoms, headache(s) or weakness Alexander Hematologic/Lymphatic: Negative for easy bleeding Endo Endo: Positive for fatigue Cardiology Exam Const Appearance: cooperative, no acute distress and well developed Orientation: alert, awake and oriented x3 Head Head: normocephalic and atraumatic Mouth: moist mucous membranes Eyes General: appearance normal, both eyes and all related structures Conjunctivae: conjunctivae normal Pupils: PERRL EOM: EOM intact bilaterally Neck Neck: normal visual inspection, no lymphadenopathy and no JVD Carotids: Negative bruit Neck Mass: Negative Neck mass Chest Chest inspection: normal inspection of the chest and symmetric chest movement Auscultation: Bilateral: Clear to Auscultation Cardio Palpation: normal PMI Rate: regular rate Rhythm: irregularly irregular Heart sounds: S1 normal and S2 normal; Negative rub, gallop or murmur GI GI: normal to inspection, soft, no hepatosplenomegaly and bowel sounds present; Negative tender Neuro General: patient alert, patient awake, patient oriented x3, CN's II-XI intact bilaterally and moves all extremities Extremities Pulses: Normal: Right Posterior Tibial Pulse, Left Posterior Tibial Pulse, Right Radial Pulse and Left Radial Pulse Lower Extremity Edema: None: Bilateral Psych Psychological: normal affect Assessment & Plan Assessment/Plan (1) Persistent atrial fibrillation: (2) Essential hypertension: PLAN: Plan Patient will undergo a cardioversion today. Follow-up will be based upon this.
--- NOTE | 2022-08-31 11:15 | HP.PCM_ITS ---
History and Physical Date of Admission: 08/31/22 Arian Hall is a 62-year-old gentleman that presents here today for a cardioversion.? He was seen in our office in April 2020 for a follow-up of post COVID atrial fibrillation with RVR.? His echocardiogram at that time demonstrated preserved ejection fraction.? It was not felt that he needed to be anticoagulated at that time.? He does have a history of hypertension. Pt is in the process of being scheduled for knee meniscus surgery.? He was initially cleared by his PCP.? He then when back to the Orthopedics and was told he needs to be seen by cardiology.? He notes that his initial EKG was done in May of 2022. He was noted to be in Afib at that time. He was started on at enolol and ASA by his PCP.? He does not feel his Afib. Although he does feel fatigued.? He does not have any chest pain/heaviness.? He does sometimes has lightheadedness/dizziness.? He does not have any swelling.? He is still active with lifting weights and going to the gym. Intake Vital Signs: See EMR Intake Visit Reasons:?[facility] Employee Relations Assistant Required: No Is patient in pain?: No Allergies Penicillins [PCN] Allergy (Verified 07/29/22 11:30) PT UNSURE OF REACTION Medications See EMR [facility] Medical History?(Updated 07/29/22 @ 12:05 by Patti CHRISTIANSON, PA) Asthma Atrial fibrillation with rapid ventricular response (11/05/19) Bronchospasm, acute COVID-19 virus detected (11/05/19) Essential hypertension Gout Hypothyroidism Vitamin D deficiency Surgical History? History of arthroscopy of right shoulder History of radial keratotomy History of vasectomy Family History? Mother Diabetes Heart disease FibromyalgiaFather Heart disease Hyperlipidemia Thyroid disorder CAD (coronary artery disease) ?? ? CABG Myocardial infarction,? Onset Age: 62 ?? ? [place]-CABGGrandfather Cancer ?? ? prostate Social History? Smoking Status:? Never smoker alcohol intake:? current substance use type:? does not use ROS Const Const: Positive for fatigue; Negative for weakness, fever(s) or headache(s) Eyes Eyes: Negative for blind spots, loss of peripheral vision or transient loss of vision ENT ENT: Negative for headache(s), dizziness, tinnitus, Nosebleed/epistaxis or balance problems Cardio Chest Pain: No Palpitations: No Edema: None Muscle aches with walking: None Resp Respiratory: Negative for SOB with activity, SOB at rest, SOB orthopnea\SOB lying down or Cough GI GI: Negative nausea, vomiting, heartburn or vomiting blood/hematemesis : Negative for hematuria Musc Musc: Positive for muscle aches/ myalgia; Negative for muscle weakness, joint pain or balance problems Neuro Neuro: Negative for dizziness, lightheadedness, near syncope, syncope, orthostatic symptoms, headache(s) or weakness Alexander Hematologic/Lymphatic: Negative for easy bleeding Endo Endo: Positive for fatigue Cardiology Exam Const Appearance: cooperative, no acute distress and well developed Orientation: alert, awake and oriented x3 Head Head: normocephalic and atraumatic Mouth: moist mucous membranes Eyes General: appearance normal, both eyes and all related structures Conjunctivae: conjunctivae normal Pupils: PERRL EOM: EOM intact bilaterally Neck Neck: normal visual inspection, no lymphadenopathy and no JVD Carotids: Negative bruit Neck Mass: Negative Neck mass Chest Chest inspection: normal inspection of the chest and symmetric chest movement Auscultation: Bilateral: Clear to Auscultation Cardio Palpation: normal PMI Rate: regular rate Rhythm: irregularly irregular Heart sounds: S1 normal and S2 normal; Negative rub, gallop or murmur GI GI: normal to inspection, soft, no hepatosplenomegaly and bowel sounds present; Negative tender Neuro General: patient alert, patient awake, patient oriented x3, CN's II-XI intact bilaterally and moves all extremities Extremities Pulses: Normal: Right Posterior Tibial Pulse, Left Posterior Tibial Pulse, Right Radial Pulse and Left Radial Pulse Lower Extremity Edema: None: Bilateral Psych Psychological: normal affect Assessment and Plan Assessment and Plan (1) Atrial fibrillation with rapid ventricular response: ?Status:?Resolved ?Plan: Patient's atrial fibrillation has returned.? He might be somewhat symptomatic with this with his fatigue.? His rate is controlled on his atenolol.? His aspirin has been changed to Eliquis.? He does currently have a [id number] of 1.? With plans of a cardioversion after he has been anticoagulated for 30 days.? He underwent stress test on 08/19/2022 that was negative at a high workload of 10.1 METS. Atrial fibrillation was noted and peak blood pressure was noted be 170/74. Echocardiogram on 08/18/2022 showed ejection unction of 55%, normal left atrium size, and normal right atrium size. He will proceed with cardioversion, depending on results, further recommendation will be made. (2) Essential hypertension: ?Status:?Chronic ?Plan: For now we will continue to monitor blood pressure.? He will continue with his atenolol and losartan.? May need to adjust based on blood pressure readings. (3) Abnormal EKG: ?Status:?Acute ? ? He will proceed with cardioversion and office follow-up.
== END 2022-08-31 13:40 | disposition home or self-care (01) ==
PROVIDERS: Physician Assistant Medical; PCP Internal Medicine; Referring Provider Internal Medicine Cardiovascular Disease; Visit Provider Internal Medicine Cardiovascular Disease
DX: I48.19 Other persistent atrial fibrillation (principal); R53.83 Other fatigue; I10 Essential (primary) hypertension; Z86.16 Personal history of COVID-19; J45.909 Unspecified asthma, uncomplicated; E03.9 Hypothyroidism, unspecified; Z82.49 Family history of ischemic heart disease and other diseases of the circulatory system
CPT/HCPCS: 36415; 80048; 84132; 92960; 93005; J7040

== ENCOUNTER → 2022-10-16 | Outpatient (CLI) | payer OTHER, SELFPAY ==
[2022-10-16 16:14] LABS: Absolute Lymphocyte Count 3.92 X10^3/uL (0.83-4.51); Absolute Neutrophil Count 4.7 X10^3/uL (2.0-7.7); Basophil# 0.05 X10^3/uL; Basophil% 0.5 % (0-1); Hematocrit 47.6 % (40-54); Hemoglobin 15.5 g/dL (13.0-16.5); Lymphocyte # 3.92 X10^3/ul (0.83-4.51); Lymphocyte % 38.7 % (19-41); Mean Corp Hgb Conc 32.6 g/dL (32-36); Mean Corpuscular Hgb 30.8 pg (27.0-32.0); Mean Corpuscular Volume 94.4 fL (80-94); Monocyte# 1.22 X10^3/uL; Monocyte% 12.1 % (0-10); NRBC Flagged by Analyzer 0 % (0-5); Neutrophil # 4.69 X10^3/uL (2.7-7.7); Neutrophil % 46.3 % (47-70); Platelet Count 194 K/mm3 (150-450); RBC Distribution Width CV 13.5 % (11.6-14.6); RBC Distribution Width SD 46.6 fl (35.1-43.9); Red Blood Count 5.04 M/mm3 (4.6-6.2); White Blood Count 10.1 K/mm3 (4.4-11.0)
[2022-10-16 16:52] LABS: Anion Gap 3 (5-15); BUN 22 mg/dL (7-18); Calcium,Total 8.7 mg/dL (8.5-10.1); Chloride 106 mmol/L (98-107); Creatinine, Serum 1.16 mg/dL (0.70-1.30); EST Glomerular Filtration Rate 68 mL/min (>60); Est Glom Filt Rate - Afr Amer 82 mL/min (>60); Glucose 96 mg/dL (74-106); Potassium 4.1 mmol/L (3.5-5.1); Sodium Level 139 mmol/L (136-145)
== END | disposition home or self-care (01) ==
LOC: LAB 15:51
PROVIDERS: PCP Internal Medicine; Visit Provider Orthopaedic Surgery
DX: Z01.818 Encounter for other preprocedural examination (principal)
CPT/HCPCS: 36415; 80048; 85025

== ENCOUNTER → 2023-06-29 | Outpatient (CLI) | payer OTHER, SELFPAY ==
--- OUTSIDE RECORDS SUMMARY | 2023-06-29 07:28 | XMS RPT_ITS | CCD ---
Author Name Unknown Address [address] [place] [address] Organization [facility] Care Team Providers Care 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 Name Role Phone Jocelyn GERARDO, Sammie Primary Care Provider JOCELYN GERARDO, DR SAMMIE Grijalva Primary Care Physician Jocelyn GERARDO, Sammie Primary Care Provider NELL GERARDO, GABRIEL Attending Unavailable JOCELYN GERARDO, DR SAMMIE Grijalva Primary Care Unavailjovi CAMEJO MD, GABRIEL Attending Unavailable JOCELYN GERARDO, DR SAMMIE Grijalva Primary Care Unavailjovi Banks MD, Sammie Grijalva Primary Care Provider GANTA, SAMMIE Primary Care Unavailable NIESHA BIGGS Attending Unavailjovi e JOCELYN, SAMMIE Primary Care Unavailable LATONYA HARDY Attending Unavailable WILLIAMS MCNAAMRA Referring Unavailable GANTA, SAMMIE Primary Care Unavailable WILLIAMS MCNAMARA Attending Unavailable GANTA, SAMMIE Primary Care Unavailable WILLIAMS MCNAMARA Admitting Unavailable WILLIAMS MCNAMARA Attending Unavailable GANTA, SAMMIE Primary Care Unavailable WILLIAMS MCNAMARA Attending Unavailable GANTA, SAMMIE Primary Care Unavailable DUDLEY DHALIWAL Attending Unavailable GANTA, SAMMIE Primary Care Unavailable GANTA, SAMMIE Primary Care Unavailable GANTA, SAMMIE Attending Unavailable GANTA, SAMMIE Primary Care Unavailable Allergies Allergy Classification Reported Allergen(s) Allergy Type Date of Onset Reaction(s) Facility (4 sources) Penicillins; Translations: [PENICILLINS] Propensity to adverse reactions 07-21-2005 [facility] Work Phone: (18 sources) Sertraline; Translations: [SERTRALINE HCL] Drug Allergy 04-20-2014 Intolerance [facility] (14 sources) Penicillins Propensity to adverse reactions 07-21-2005 [facility] Work Phone: (10 sources) Penicillins Drug Allergy 07-21-2005 [facility] (10 sources) Sertraline Drug Allergy 04-20-2014 [facility] Medications Current Medications Medication Drug Class(es) Dates Sig (Normalized) Sig (Original) apixaban 5 mg oral tablet (12 sources) Factor Xa Inhibitor Start: 07-29-2022 End: 12-05-2022 take 1 tablet by mouth twice daily apixaban (Eliquis) 5 MG tablet Take 5 mg by mouth 2 times daily. 0 07/29/2022 Active benzonatate 100 mg oral capsule (4 sources) Non-narcotic Antitussive Start: 02-21-2023 End: 03-12-2023 take 2 capsules by mouth three times daily as needed benzonatate (TESSALON PERLE) 100 mg capsule Indications: Lower resp. tract infection Take 2 capsules by mouth three times a day as needed for up to 10 days. 60 capsule 0 03/02/2023 03/12/2023 Active Completed/Discontinued Medications Medication Drug Class(es) Dates Sig (Normalized) Sig (Original) acetaminophen 325 mg oral tablet (2 sources) Start: 12-04-2022 End: 12-05-2022 take 1 tablet by mouth every four hours as needed for pain 650 mg, Oral, Every 4 hours PRN, mild pain (1-3), Fever > 100.5 F (38 C), Starting on Wed12/04/22 at 1344, [facility] Maximum dose of acetaminophen is 4000 mg from all sources in 24 hours. [id number] 200 actuat albuterol 0.09 mg/actuat metered dose inhaler (17 sources) beta2-Adrenergic Agonist Start: 11-15-2020 take 2 puff(s) by inhalation every four hours as needed for wheezing albuterol HFA (VENTOLIN HFA) 90 mcg/actuation inhaler Indications: Acute bronchitis, unspecified organism Inhale 2 Puffs as instructed every 4 hours as needed for wheezing/shortness of breath. 18 g 2 11/15/2020 Active Problems Active Problems Problem Classification Problem Date Documented Date Episodic/Chronic Asthma (20 sources) Uncomplicated mild persistent asthma; Translations: [Mild persistent asthma, uncomplicated] Onset: 09-05-2018 09-05-2018 Chronic Cardiac dysrhythmias (20 sources) Paroxysmal atrial fibrillation; Translations: [Paroxysmal atrial fibrillation] Onset: 11-05-2019 Resolved: 11-19-2022 Chronic Chronic obstructive pulmonary disease and bronchiectasis (1 source) Bronchitis; Translations: [Bronchitis, not specified as acute or chronic] Episodic Disorders of lipid metabolism (20 sources) Hyperlipidemia; Translations: [Hyperlipidemia, unspecified] Onset: 03-29-2016 03-29-2016 Chronic Esophageal disorders (20 sources) Gastroesophageal reflux disease without esophagitis; Translations: [Gastro-esophageal reflux disease without esophagitis] Onset: 10-09-2014 Chronic Essential hypertension (19 sources) Essential hypertension; Translations: [Essential (primary) hypertension] Onset: 07-09-2022 Chronic Gout and other crystal arthropathies (19 sources) Gout; Translations: [Gout, unspecified] Onset: 09-07-2008 04-21-2021 Chronic Other aftercare (1 source) Patient encounter status; Translations: [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] Episodic Other lower respiratory disease (2 sources) Lower respiratory tract infection; Translations: [Unspecified acute lower respiratory infection] 02-21-2023 Episodic Other male genital disorders (18 sources) Male erectile dysfunction, unspecified; Translations: [Impotence of organic origin] Onset: 07-28-2010 07-28-2010 Chronic Other non-traumatic joint disorders (2 sources) Pain in right knee; Translations: [Pain in joint, lower leg] Episodic Other nutritional; endocrine; and metabolic disorders (20 sources) Body mass index 30+ - obesity; Translations: [Obesity, unspecified] Onset: 10-09-2014 06-29-2018 Chronic Other nutritional; endocrine; and metabolic disorders (2 sources) Obesity, unspecified; Translations: [Obesity, unspecified] Onset: 03-11-2023 Chronic Otitis media and related conditions (1 source) Acute transudative otitis media; Translations: [Other acute nonsuppurative otitis media, bilateral] Episodic Residual codes; unclassified (14 sources) Obstructive sleep apnea syndrome; Translations: [Obstructive sleep apnea (adult) (pediatric)] Onset: 11-18-2022 11-19-2022 Chronic Residual codes; unclassified (2 sources) Obstructive sleep apnea (adult) (pediatric); Translations: [Obstructive sleep apnea (adult) (pediatric)] Onset: 11-16-2023 Chronic Sprains and strains (1 source) Sprain of knee; Translations: [Sprain of other specified parts of right knee, initial encounter] Episodic Thyroid disorders (20 sources) Hypothyroidism; Translations: [Hypothyroidism, unspecified] Onset: 11-17-2013 04-21-2021 Chronic Unclassified (2 sources) Other persistent atrial fibrillation; Translations: [Other persistent atrial fibrillation (HCC)] Onset: 12-04-2022 Past or Other Problems Problem Classification Problem Date Documented Da te Episodic/Chronic Residual codes; unclassified (18 sources) Insomnia; Translations: [Insomnia, unspecified] Onset: 09-09-2008 04-21-2021 Episodic Results Test Name Value Interpretation Reference Range Facil ity Vital Signs Date Time Vital Sign Value Performing Clinician Chantelle robles 03-24-2023 13:47-0500 Body mass index (BMI) [Ratio] 35.12 kg/m2 Latonya O'Shell CLEAT FEEDER - REGISTERED NURSE MATERNAL CHILD Work Phone: [email or web address] 03-24-2023 13:47-0500 Body weight 127.46 kg Latonya O'Shell CLEAT FEEDER - REGISTERED NURSE MATERNAL CHILD Work Phone: [email or web address] 03-24-2023 13:47-0500 Diastolic blood pressure 80 mm[Hg] Latonya O'Shell CLEAT FEEDER - REGISTERED NURSE MATERNAL CHILD Work Phone: [email or web address] 03-24-2023 13:47-0500 Heart rate 71 /min Latonya O'Shell CLEAT FEEDER - REGISTERED NURSE MATERNAL CHILD Work Phone: [email or web address] 03-24-2023 13:47-0500 SaO2% (BldA) [Mass fraction] 96 % Latonya O'Shell CLEAT FEEDER - REGISTERED NURSE MATERNAL CHILD Work Phone: [email or web address] 03-24-2023 13:47-0500 Systolic blood pressure 120 mm[Hg] Latonya O'Shell CLEAT FEEDER - REGISTERED NURSE MATERNAL CHILD Work Phone: [email or web address] 03-02-2023 15:44-0500 Body weight 126.55 kg Dudley Dhaliwal CLEAT FEEDER.CN P Work Phone: [facility] 03-02-2023 15:44-0500 Diastolic blood pressure 50 mm[Hg] Dudley Dhaliwal CLEAT FEEDER.REGISTERED NURSE MATERNAL CHILD Work Phone: [facility] 03-02-2023 15:44-0500 Heart rate 76 /min Dudley Madhuri CLEAT FEEDER.CN P Work Phone: [facility] 03-02-2023 15:44-0500 SaO2% (BldA) [Mass fraction] 96 % Dudley Madhuri CLEAT FEEDER.REGISTERED NURSE MATERNAL CHILD Work Phone: [facility] 03-02-2023 15:44-0500 Systolic blood pressure 100 mm[Hg] Dudley Madhuri CLEAT FEEDER.REGISTERED NURSE MATERNAL CHILD Work Phone: [facility] 02-21-2023 11:10-0400 Body temperature 97.5 [degF] Harriett Praisler-Wood CLEAT FEEDER.REGISTERED NURSE MATERNAL CHILD Work Phone: [facility] 02-21-2023 11:10-0400 Body weight 127.73 kg Harriett Praisler-Wood CLEAT FEEDER.REGISTERED NURSE MATERNAL CHILD Work Phone: [facility] 02-21-2023 11:10-0400 Diastolic blood pressure 80 mm[Hg] Harriett Praisler-Wood CLEAT FEEDER.REGISTERED NURSE MATERNAL CHILD Work Phone: [facility] 02-21-2023 11:10-0400 Heart rate 60 /min Harriett Praisler-Wood CLEAT FEEDER.REGISTERED NURSE MATERNAL CHILD Work Phone: [facility] 02-21-2023 11:10-0400 Respiratory rate 21 /min Harriett Praisler-Wood CLEAT FEEDER.REGISTERED NURSE MATERNAL CHILD Work Phone: [facility] 02-21-2023 11:10-0400 SaO2% (BldA) [Mass fraction] 98 % Harriett Praisler-Wood CLEAT FEEDER.REGISTERED NURSE MATERNAL CHILD Work Phone: [facility] 02-21-2023 11:10-0400 Systolic blood pressure 126 mm[Hg] Harriett Praisler-Wood CLEAT FEEDER.REGISTERED NURSE MATERNAL CHILD Work Phone: [facility] 12-17-2022 07:54-0400 Body height 190.5 cm Niesha Biggs CLEAT FEEDER - REGISTERED NURSE MATERNAL CHILD Work Phone: [facility] [email or web address] 12-17-2022 07:54-0400 Body mass index (BMI) [Ratio] 35.5 kg/m2 Niesha Biggs APRN - BRANDON Work Phone: [email or web address] 12-17-2022 07:54-0400 Body weight 128.82 kg Niesha Biggs APRN - REGISTERED NURSE MATERNAL CHILD Work Phone: [facility] [email or web address] 12-17-2022 07:54-0400 Diastolic blood pressure 88 mm[Hg] Niesha Biggs APRN - REGISTERED NURSE MATERNAL CHILD Work Phone: [facility] [email or web address] 12-17-2022 07:54-0400 Heart rate 50 /min Niesha Biggs APRN - REGISTERED NURSE MATERNAL CHILD Work Phone: [email or web address] 12-17-2022 07:54-0400 SaO2% (BldA) [Mass fraction] 98 % Niesha Biggs APRN - BRANDON Work Phone: [facility] [email or web address] 12-17-2022 07:54-0400 Systolic blood pressure 136 mm[Hg] Niesha Bgigs APRN - BRANDON Work Phone: [facility] [email or web address] 12-05-2022 05:32-0400 Body temperature 98.2 [degF] Williams Mcnamara MD Work Phone: [facility] [email or web address] 12-05-2022 05:32-0400 Diastolic blood pressure 66 mm[Hg] Williams Mcnamara MD Work Phone: [facility] [email or web address] 12-05-2022 05:32-0400 Heart rate 60 /min Williams Mcnamara MD Work Phone: [email or web address] 12-05-2022 05:32-0400 Respiratory rate 16 /min Williams Mcnamara MD Work Phone: [email or web address] 12-05-2022 05:32-0400 SaO2% (BldA) [Mass fraction] 94 % Williams Mcnamara MD Work Phone: [email or web address] 12-05-2022 05:32-0400 Systolic blood pressure 112 mm[Hg] Williams Mcnamara MD Work Phone: [email or web address] 12-04-2022 08:23-0400 Body height 190.5 cm Williams Mcnamara MD Work Phone: [facility] 12-04-2022 08:23-0400 Body mass index (BMI) [Ratio] 35 kg/m2 Williams Mcnamara MD Work Phone: [facility] 12-04-2022 08:23-0400 Body weight 127.01 kg Williams Mcnamara MD Work Phone: [facility] 11-19-2022 09:56-0400 Body weight 130.36 kg Williams Mcnamara MD Work Phone: [facility] 11-19-2022 09:56-0400 Diastolic blood pressure 90 mm[Hg] Williams Mcnamara MD Work Phone: [facility] 11-19-2022 09:56-0400 Heart rate 89 /min Williams Mcnamara MD Work Phone: [facility] 11-19-2022 09:56-0400 SaO2% (BldA) [Mass fraction] 97 % Williams Mcnamara MD Work Phone: [facility] 11-19-2022 09:56-0400 Systolic blood pressure 120 mm[Hg] Williams Mcnamara MD Work Phone: [facility] 06-18-2022 10:25-0500 Diastolic blood pressure 87 mm[Hg] Sammie Banks MD Work Phone: [facility] 06-18-2022 10:25-0500 Heart rate 65 /min Sammie Banks MD Work Phone: [facility] 06-18-2022 10:25-0500 Systolic blood pressure 143 mm[Hg] Sammie Banks MD Work Phone: [facility] 06-18-2022 10:12-0500 Body weight 132 kg Sammie Banks MD Work Phone: [facility] 06-18-2022 10:12-0500 Respiratory rate 16 /min Sammie Banks MD Work Phone: [facility] 06-18-2022 10:12-0500 SaO2% (BldA) [Mass fraction] 97 % Sammie Banks MD Work Phone: [facility] Encounters Encounter Date Encounter Type Care Provider Facility Start: 06-28-2023 Telephone encounter Sammie rust MD Work Phone: [facility] Procedures Date Procedure Procedure Detail Performing Clinician Start: 03-24-2023 Ecg routine ecg w/least 12 lds w/i&r Williams Mcnamara MD Work Phone: Start: 12-17-2022 Ecg routine ecg w/least 12 lds w/i&r Williams Mcnamara MD Work Phone: Start: 12-05-2022 Basic metabolic panel calcium total Nieshapatito Biggs CLEAT FEEDER - REGISTERED NURSE MATERNAL CHILD Work Phone: Start: 12-04-2022 Ecg routine ecg w/least 12 lds trcg only w/o i&r Niesha Biggs CLEAT FEEDER - REGISTERED NURSE MATERNAL CHILD Work Phone: Start: 12-04-2022 Electrophysiology study Wliliams Mcnamara MD Work Phone: Start: 12-04-2022 End: 12-04-2022 POCT ACT Williams Mcnamara MD Work Phone: Start: 11-19-2022 Ecg routine ecg w/least 12 lds w/i&r Williams Mcnamara MD Work Phone: Start: 10-24-2021 Radiologic exam knee complete 4/more views John Barba DO Work Phone: Start: 07-01-2021 Lipid 1996 panel - Serum or Plasma Harriett Mcgarry CLEAT FEEDER.REGISTERED NURSE MATERNAL CHILD Work Phone: Start: 03-03-2021 Colonoscopy Sammie Banks MD Work Phone: Start: 10-09-2020 Adult depression screening assessment Sammie Banks MD Work Phone: Plan of Treatment Date Care Activity Detail Author Start: 03-03-2031 Colonoscopy COLONOSCOPY [facility] Start: 03-03-2031 COLORECTAL CANCER SCREENING COLORECTAL CANCER SCREENING [facility] Start: 03-03-2031 Screening for malign ant neoplasm of colon [facility] Start: 07-01-2026 Lipid 1996 panel - S galo or Plasma Lipid Screening [facility] Start: 07-01-2026 Lipid panel Lipid Screening [facility] Start: 07-01-2026 LIPID SCREEN LIPID SCREEN [facility] Start: 03-28-2026 PROSTATE CANCER SCRE ENING DISCUSSION PROSTATE CANCER SCREENING DISCUSSION [facility] Start: 03-28-2026 Prostate specific an tigen measurement Prostate Cancer Screening Discussion [facility] Start: 12-05-2025 Diabetes Screening Diabetes Screenin g [facility] Start: 04-07-2024 BP Controlled (<130/80) BP Controlle d (<130/80) [facility] Start: 03-28-2024 DIABETES SCREEN DIABETES SCREEN [facility] Start: 03-28-2024 Diabetes Screening Diabetes Screenin g [facility] Start: 03-02-2024 Annual PCP Team Bottled Beverage Inspector roni Disease Visit Annual PCP Team Chronic Disease Visit [facility] Start: 03-02-2024 BP Controlled (<130/80) BP Controlle d (<130/80) [facility] Start: 07-10-2023 Annual PCP Team Bottled Beverage Inspector roni Disease Visit Annual PCP Team Chronic Disease Visit [facility] Start: 06-18-2023 ANNUAL PCP TEAM SAFEKEEPING CLERK RONI DISEASE VISIT ANNUAL PCP TEAM CHRONIC DISEASE VISIT [facility] Start: 06-18-2023 COVID-19 VACCINE (3 - Booster for Pfizer series) COVID-19 VACCINE (3 - Booster for Pfizer series) [facility] Immunizations Immunization Date Immunization Notes Care Provider Fa cili 02-19-2021 influenza, seasonal, injectable Sammie Banks MD Work Phone: [facility] Work Phone: 02-19-2021 influenza virus vaccine, unspecified formulation Williams Mcnamara MD Work Phone: [facility] 02-25-2016 influenza, injectabl e, quadrivalent, contains preservative Sammie Banks MD Work Phone: [facility] Work Phone: 02-24-2010 influenza virus vaccine, unspecified formulation Sammie Banks MD Work Phone: [facility] Work Phone: 01-24-2009 influenza virus vaccine, unspecified formulation Sammie Banks MD Work Phone: [facility] Work Phone: 03-08-2008 influenza virus vaccine, unspecified formulation Sammie Banks MD Work Phone: [facility] 07-21-2005 tetanus toxoid, redu taylor diphtheria toxoid, and acellular pertussis vaccine, adsorbed Sammie Banks MD Work Phone: [facility] Work Phone: Payers Date Payer Category Payer Unknown [id number] 2021 Unknown [id number] 2021 Unknown [employer] [id number] 2021-Present [phone] [address] [place] [address] PPO [id number] 1960 Unknown [id number] 1960 Unknown [id number] Social History Date Type Detail Facility Start: 01-29-2011 End: 06-18-2022 Tobacco smoking status NHIS Never smoked tobacco [facility] Work Phone: Start: 01-29-2011 End: 06-18-2022 Tobacco use and exposure Former smokeless tobacco user [facility] Work Phone: End: 04-26-2014 History of tobacco use Chews Tobacco [facility] Work Phone: Start: 07-11-2021 End: 04-07-2023 Alcohol intake Current drinker of alcohol (finding) [facility] Start: 07-11-2021 End: 05-10-2022 Alcohol intake [facility] Start: 04-10-2020 History SDOH Alcohol Frequency 4 [facility] Start: 04-10-2020 End: 04-09-2021 History SDOH Alcohol Std Drinks 2 [facility] Start: 02-17-2021 History SDOH Alcohol Comment per week [facility] Start: 04-10-2020 End: 04-09-2021 History SDOH Social Connections Druze 1 [facility] Start: 04-10-2020 History SDOH Social Connections Meetings 3 [facility] Start: 04-10-2020 History SDOH Physica l Activity DPW 5 [facility] Start: 04-10-2020 History SDOH Physica l Activity MPS 6 [facility] Start: 04-10-2020 Education 21 [facility] Start: 1960 Sex Assigned At Not on file [facility] Start: 07-01-2021 End: 12-17-2022 Exposure to SARS-CoV-2 (event) Not sure [facility] Work Phone: Tobacco smoking status No Smokin g Status Entered [facility] Sex Assigned At Male [facility] Start: 06-18-2022 Tobacco Comment none [facility] Start: 05-10-2022 End: 11-19-2022 Tobacco use panel [facility] Start: 11-19-2022 Alcohol Comment 3 or 4 days a week S [facility] Within the last year , have you been afraid of your partner or ex-partner? No [facility] Do you belong to any clubs or organizations such as nondenominational groups, unions, fraternal or athletic groups, or school groups? Yes [facility] Are you now , , , , never or living with a partner? [facility] How often to you hav e a drink containing alcohol? 4 or more times a week [facility] How many standard dr inks containing alcohol do you have on a typical day? 3 or 4 [facility] How often do you hav e 6 or more drinks on 1 occasion? Less than monthly [facility] How hard is it for y ou to pay for the very basics like food, housing, medical care, and heating Not hard at all [facility] Do you feel stress - tense, restless, nervous, or anxious, or unable to sleep at night because your mind is troubled all the time - these days [OSQ] Not at all [facility] (I/We) worried wheth er (my/our) food would run out before (I/we) got money to buy more. Never true [facility] How often to you hav e a drink containing alcohol? 2-3 time sa week [facility] Do you feel stress - tense, restless, nervous, or anxious, or unable to sleep at night because your mind is troubled all the time - these days [OSQ] To some extent [facility] Clinical Notes 03-03-2021 to 06-28-2023 Telephone Encounter - Sharla Rose RN - 06/28/2023 9:10 AM ESTAssessment & Plan Note - KEITH Clark CNP - 03/24/2023 2:30 PM KEITH Calloway CNP - 03/24/2023 2:00 PM EST Note Date & Type Note Facility 06-28-2023 Miscellaneous Notes Faxed lab orders to [facility] lab, per pt request. documented in this encounter [facility] 04-07-2023 Note HNO ID: [id number] Author: Alfredo Wolfe APRN.BRANDON Service: ? Author Type: Nurse Practitioner Type: Progress Notes Filed: 04/07/2023 5:59 PM Note Text: Subjective HPI HPI Venkat Hall is a 62 year old male who presents today for CC of cough. This started few days ago. Has tried otc medication and inhalers. Symptoms are worsened by nothing. Risk factors hx of copd. Had cough for multiple weeks, did multiple atb and steroids. .Patient presents with: Chest Congestion: cough x 6 weeks PAST MEDICAL HISTORY Diagnosis Date COPD (chronic obstructive pulmonary disease) (HCC) Esophageal reflux Gastroesophageal reflux Essential hypertension Gout High cholesterol Hypothyroidism Unspecified asthma(493.90) PAST SURGICAL HISTORY Procedure Laterality Date COLONOSCOPY FLX DX W/COLLJ SPEC WHEN PFRMD 03/04/2011 Colonoscopy-repeat in COLONOSCOPY FLX DX W/COLLJ SPEC WHEN PFRMD 03/03/2021 ESOPHAGOGASTRODUODENOSCOPY TRANSORAL DIAGNOSTIC 03/04/2011 EGD EYE SURGERY HX PAST SURGICAL HISTORY OF SHOULDER ARTHROSCOPY right RADIAL KERATOTOMY VASECTOMY UNI/BI SPX W/POSTOP SEMEN EXAMS ALLERGIES Penicillins and Zoloft [Sertraline Hcl] MEDICATIONS losartan (COZAAR) 50 mg tablet Take 0.5 tablets by mouth once daily. fluticasone (FLONASE) 50 mcg/actuation nasal spray Use 1 [place] in each nostril once daily. levothyroxine (LEVOXYL) 175 mcg tablet Take 1 tablet by mouth once daily. Take on empty stomach. For thyroid. allopurinol (ZYLOPRIM) 300 mg tablet TAKE ONE TABLET BY MOUTH EVERY DAY FOR FOR GOUT esomeprazole (NEXIUM) 40 mg capsule Take 1 capsule by mouth once daily. atenolol (TENORMIN) 25 mg tablet Take 1 tablet by mouth once daily. budesonide-formoterol (SYMBICORT) 80-4.5 mcg/actuation inhaler Inhale 2 Puffs as instructed twice daily. CPAP Initiate Auto PAP @ 5-20 cm of water with humidification. Mask (per patient preference) optional chin strap (if indicated) , filters, tubing, humidifier and lifetime supplies. albuterol HFA (VENTOLIN HFA) 90 mcg/actuation inhaler Inhale 2 Puffs as instructed every 4 hours as needed for wheezing/shortness of breath. predniSONE (DELTASONE) 10 mg tablet Take 4 tabs daily x 3 days, then 3 tabs x 3 days, 2 tabs x 3 days, then 1 tab x3 days with food. predniSONE (DELTASONE) 10 mg tablet Take 2 tabs po BID for 2 days then 1 tab po BID for 2 days then 1/2 tab po BID for 2 days then 1/2 tab daily for 2 days then stop (Patient not taking: Reported on 04/07/2023) sildenafil (VIAGRA) 50 mg tablet Take 1 to 2 pills one hour prior to sexual activity aspirin, enteric coated (ASPIRIN, ENTERIC COATED) 81 mg EC tablet Take 1 tablet by mouth once daily. (Patient not taking: Reported on 03/02/2023) FAMILY HISTORY Problem Relation Age of Onset Diabetes Mother Heart Mother other (fibramylgia) Mother Heart Father Lipids Father Thyroid Father Prostate Cancer Paternal Grandfather age 92 Social History Tobacco Use Smoking status: Never Smokeless tobacco: Former Types: Chew Quit date: 04/26/2014 Tobacco comments: none Substance Use Topics Alcohol use: Yes Alcohol/week: 10.0 standard drinks of alcohol Types: 10 Cans of Beer (12oz) per week Comment: per week Drug use: No Review of Systems Constitutional: Negative for fever. HENT: Positive for congestion. Negative for ear pain, nosebleeds and sore throat. Respiratory: Positive for cough. Negative for shortness of breath and wheezing. Musculoskeletal: Negative for neck pain. Objective Blood pressure 122/68, pulse 68, temperature 36.4 ?C (97.5 ?F), resp. rate 16, weight 129.7 kg (286 lb), SpO2 96%. Physical Exam Constitutional: General: He is not in acute distress. Appearance: He is not toxic-appearing or diaphoretic. HENT: Head: Normocephalic and atraumatic. Cardiovascular: Rate and Rhythm: Normal rate and regular rhythm. Heart sounds: Normal heart sounds, S1 normal and S2 normal. Pulmonary: Effort: Pulmonary effort is normal. Breath sounds: Normal breath sounds. Lymphadenopathy: Cervical: No cervical adenopathy. Right cervical: No superficial cervical adenopathy. Left cervical: No superficial cervical adenopathy. Neurological: Mental Status: He is alert and oriented to person, place, and time. Gait: Gait is intact. ASSESSMENT/PLAN: 1. History of COPD - ICD9: V12.69, ICD10: Z87.09 (primary diagnosis) Try steroid F/u for continued s/s - PREDNISONE 10 MG TABLET 2. Subacute cough - ICD9: 786.2, ICD10: R05.2 Suspect post viral F/u for continued or worsening s/s. Alfredo Wolfe APRN.REGISTERED NURSE MATERNAL CHILD [facility] 03-24-2023 Evaluation + Plan note Associated Problem(s): Obesity (BMI 35.0-39.9 without comorbidity) He is exercising on a regular basis. [facility] 03-24-2023 Miscellaneous Notes Associated Problem(s): Obesity (BMI 35.0-39.9 without comorbidity) He is exercising on a regular basis. Associated Problem(s): Atrial fibrillation with RVR (HCC) He is status post cryo PVI on December 04, 2022. He has had 2 episodes that he feels are likely A-fib although his rate was only in the 70s. He has a watch but it only monitors his heart rate. He is going to continue to monitor for A-fib and I have advised if he senses that he is out of rhythm and it lasts longer than 12 hours to give us a call. He wishes to follow in [facility] unless EP services are needed. Associated Problem(s): JENIFER (obstructive sleep apnea) Compliant with his CPAP. documented in this encounter [facility] 03-24-2023 Evaluation + Plan note Associated Problem(s): Atrial fibrillation with RVR (HCC) He is status post cryo PVI on December 04, 2022. He has had 2 episodes that he feels are likely A-fib although his rate was only in the 70s. He has a watch but it only monitors his heart rate. He is going to continue to monitor for A-fib and I have advised if he senses that he is out of rhythm and it lasts longer than 12 hours to give us a call. He wishes to follow in [facility] unless EP services are needed. [facility] 03-24-2023 Evaluation + Plan note Associated Problem(s): JENIFER (obstructive sleep apnea) Compliant with his CPAP. [facility] 03-24-2023 History of Presen t illness Narrative Images from the original note were not included. [facility] [address] [facility] [id number] Dept: [phone] Dept Visit type: Established : 1960 Reason for Visit: 3 Month Follow Up (PAF/PVI Cryo) Assessment and Plan 1. Atrial fibrillation with RVR (HCC) Assessment & Plan: He is status post cryo PVI on December 04, 2022. He has had 2 episodes that he feels are likely A-fib although his rate was only in the 70s. He has a watch but it only monitors his heart rate. He is going to continue to monitor for A-fib and I have advised if he senses that he is out of rhythm and it lasts longer than 12 hours to give us a call. He wishes to follow in [facility] unless EP services are needed. Orders: - ECG 12 lead - CLINIC PERFORMED 2. Essential hypertension 3. JENIFER (obstructive sleep apnea) Assessment & Plan: Compliant with his CPAP. 4. Obesity (BMI 35.0-39.9 without comorbidity) Assessment & Plan: He is exercising on a regular basis. Follow up if symptoms worsen or fail to improve. Subjective Venkat Hall is a 62 y.o. male known to Dr Mcnamara when referred for treatment of his atrial fibrillation. In 2019 he had atrial fibrillation with Covid. He tried to have knee surgery in April this year but it was canceled because of atrial fibrillation. In retrospect he had symptoms of fatigue and exercise intolerance for couple weeks prior to that diagnosis. He has been followed at the [facility]. He was placed on Eliquis and atenolol. In August he underwent cardioversion. He said he stayed in sinus rhythm about 2 weeks and then had recurrence of atrial fibrillation. When he is in atrial fibrillation he has symptoms of fatigue and shortness of breath. He had a normal stress test and echocardiogram in July. In addition he has obstructive sleep apnea and has been compliant with his CPAP for 2 years. On 12/04/2022 he underwent successful cryo PVI ablation with Dr. Mcnamara. He was seen in November by Niesha Biggs and he postprocedure and was maintaining a normal sinus rhythm. He is also had follow-up in [place] with his insole and outsole splitter. He presents today for a 3-month post procedure follow-up Venkat Hall presents for his follow-up post PVI I in November. He states that he has had 2 episodes since his ablation where his heart rate has gone from normally in the 50s up to in the 70s and he states he thought he was likely in A-fib. He states they lasted for about a day and resolved. He states the first episode was definitely related to alcohol and the second 1 he is unsure why. Otherwise he states he has been doing well. He denies chest pain, palpitations, dizziness, syncope, near syncope or shortness of breath. He is off anticoagulation and is compliant with his CPAP. His blood pressure has been well-controlled. Review of Systems Constitutional: Negative for chills, diaphoresis and fever. HENT: Negative for nosebleeds. Eyes: Negative for visual disturbance. Respiratory: Negative for chest tightness, shortness of breath and wheezing. Cardiovascular: Negative for chest pain, palpitations and leg swelling. Gastrointestinal: Negative for abdominal pain, blood in stool and diarrhea. Genitourinary: Negative for hematuria. Musculoskeletal: Negative for myalgias. Neurological: Negative for dizziness and syncope. Hematological: Does not bruise/bleed easily. Allergies Allergen Reactions Sertraline Other reaction(s): Intolerance, Other Sleepiness Penicillins Other reaction(s): PT UNSURE OF REACTION, Unknown Outpatient Medications Prior to Visit Medication Sig Dispense Refill allopurinol (Zyloprim) 300 MG tablet TAKE ONE TABLET BY MOUTH EVERY DAY FOR FOR GOUT atenolol (Tenormin) 50 MG tablet Take 50 mg by mouth in the morning. budesonide-formoterol (Symbicort) 80-4.5 MCG/ACT inhaler Inhale 2 puffs in the morning and 2 puffs in the evening. esomeprazole (NexIUM) [address] capsule Take 40 mg by mouth in the morning. fluticasone (Flonase) 50 MCG/ACT nasal spray Administer 2 sprays into each nostril Daily as needed. levothyroxine (Synthroid, Levoxyl) 175 MCG tablet Take 175 mcg by mouth in the morning. losartan (Cozaar) 50 MG tablet Take 25 mg by mouth in the morning. Misc. Devices misc Initiate Auto PAP @ 5-20 cm of water with humidification. Mask (per patient preference) optional chin strap (if indicated) , filters, tubing, humidifier and lifetime supplies. sildenafil (Viagra) 50 MG tablet Take 50 mg by mouth. apixaban (Eliquis) 5 MG tablet Take 5 mg by mouth 2 times daily. No facility-administered medications prior to visit. Past Medical History: Diagnosis Date Erectile dysfunction 07/28/2010 Essential hypertension 10/08/2022 Gastroesophageal reflux disease without esophagitis 10/09/2014 Dx: 25 years ago. Takes the ranitidine does well Had 2 upper gi. Last Assessment & Plan: Dx: 25 years ago. Takes the ranitidine does well Had 2 upper gi. Gout, unspecified 09/07/2008 Dx:20 years ago. He takes xyloric for gout, He usually stays on a good diet and does well. Last Assessment & Plan: Dx:20 years ago. He takes xyloric for gout, He usually stays on a good diet and does well. He has not stopped taking the gout medication Hypothyroidism 11/17/2013 Dx; 2013, Patient was not loosing weight, Exercising and eating well and tsh was mildly elevated, He was started on the smallest dose and then stopped when he ran out, 3 weeks ago Last Assessment & Plan: Dx; 2013, Patient was not loosing weight, Exercising and eating well Mild persistent asthma without complication 09/05/2018 JENIFER (obstructive sleep apnea) 11/18/2022 Reports CPAP compliant Persistent atrial fibrillation (HCC) Social History Tobacco Use Smoking status: Never Smokeless tobacco: Former Types: Chew Quit date: 04/26/2014 Substance Use Topics Alcohol use: Yes Alcohol/week: 10.0 standard drinks of alcohol Types: 10 Cans of beer per week Past Surgical History: Procedure Laterality Date CARDIAC ELECTROPHYSIOLOGY PROCEDURE N/A 12/04/2022 Cryoablation Performed by Williams Mcnamara MD at [facility] Cardiac Cath/EP Lab CARDIAC ELECTROPHYSIOLOGY PROCEDURE N/A 12/04/2022 Performed by Williams Mcnamara MD at [facility] Cardiac Cath/EP Lab CARDIOVERSION 08/2022 Done at [facility]; AFib recurrence 2 wks post-op; referral to [facility] IMX FL ABLATION N/A A fib paroxysmal KNEE SURGERY Right 10/2022 SHOULDER SURGERY Right Family History Problem Relation Name Age of Onset Diabetes Mother Heart disease Mother Fibromyalgia Mother Heart disease Father Hyperlipidemia Father Thyroid disease Father Coronary artery disease Father Heart Surgery Father Heart attack Father 62 Prostate cancer Paternal Grandfather Objective Vitals: 03/24/23 1347 BP: 120/80 BP Location: Right arm Patient Position: Sitting BP Cuff Size: Large adult Pulse: 71 SpO2: 96% Weight: 281 lb (127 kg) Physical Exam Constitutional: General: He is not in acute distress. Appearance: He is not diaphoretic. HENT: Head: Normocephalic. Nose: Nose normal. Mouth/Throat: Mouth: Mucous membranes are moist. Pharynx: No oropharyngeal exudate. Eyes: General: No scleral icterus. Right eye: No discharge. Left eye: No discharge. Neck: Thyroid: No thyromegaly. Vascular: No carotid bruit or JVD. Cardiovascular: Rate and Rhythm: Normal rate and regular rhythm. Pulses: Normal pulses. Heart sounds: Normal heart sounds. Pulmonary: Effort: Pulmonary effort is normal. Breath sounds: Normal breath sounds. Abdominal: General: Bowel sounds are normal. There is no distension. Palpations: There is no hepatomegaly. Tenderness: There is no abdominal tenderness. Musculoskeletal: General: Normal range of motion. Cervical back: Normal range of motion. Right lower leg: No edema. Left lower leg: No edema. Skin: General: Skin is warm and dry. Neurological: Mental Status: He is oriented to person, place, and time. Psychiatric: Mood and Affect: Mood normal. Behavior: Behavior normal. Data Reviewed and Summarized No results found for: EFBP , PLVEF , LVEFPHYS , LVEF2D , EF Review of tests/labs done/ordered within my specialty: EKG in office: NSR at 71 BPM Review of tests/labs done/ordered outside my specialty: Independent interpretation of tests: KEITH Clark CNP documented in this encounter [facility] 03-24-2023 Instructions KEITH Clark CNP - 03/24/2023 2:00 PM EST Follow with [facility] documented in this encounter [facility] 03-02-2023 Note HNO ID: [id number] Author: Dudley Dhaliwal APRN.CNP Service: ? Author Type: Nurse Practitioner Type: Progress Notes Filed: 03/02/2023 4:43 PM Note Text: SUBJECTIVE Venkat Hall is a 62 year old male here today for acute concern. Chief Complaint Patient presents with: Cough: was seen in [facility] on 02/21/2023 and treated with doxycycline and benzonatate. Had some improvement but cough had worsened in the last 2 days HPI Venkat Hall is a 62 year old male. Here today for follow up from [facility]. He was seen in our [facility] 02/21/2023 and diagnosed with lower resp tract infection. Started on tessalon and doxycycline. Symptoms of cough, some shortness of breath. History of asthma. Done with doxy but still having symptoms. Increased sputum, some shortness of breath but no chest pain or chest tightness. His medications were reviewed today and his list is now up to date. Medications Current Outpatient Medications Medication Sig losartan (COZAAR) 50 mg tablet Take 0.5 tablets by mouth once daily. fluticasone (FLONASE) 50 mcg/actuation nasal spray Use 1 [place] in each nostril once daily. levothyroxine (LEVOXYL) 175 mcg tablet Take 1 tablet by mouth once daily. Take on empty stomach. For thyroid. allopurinol (ZYLOPRIM) 300 mg tablet TAKE ONE TABLET BY MOUTH EVERY DAY FOR FOR GOUT esomeprazole (NEXIUM) 40 mg capsule Take 1 capsule by mouth once daily. sildenafil (VIAGRA) 50 mg tablet Take 1 to 2 pills one hour prior to sexual activity atenolol (TENORMIN) 25 mg tablet Take 1 tablet by mouth once daily. budesonide-formoterol (SYMBICORT) 80-4.5 mcg/actuation inhaler Inhale 2 Puffs as instructed twice daily. albuterol HFA (VENTOLIN HFA) 90 mcg/actuation inhaler Inhale 2 Puffs as instructed every 4 hours as needed for wheezing/shortness of breath. predniSONE (DELTASONE) 10 mg tablet Take 2 tabs po BID for 2 days then 1 tab po BID for 2 days then 1/2 tab po BID for 2 days then 1/2 tab daily for 2 days then stop benzonatate (TESSALON PERLE) 100 mg capsule Take 2 capsules by mouth three times a day as needed for up to 10 days. levoFLOXacin (LEVAQUIN) 500 mg tablet Take 1 tablet by mouth once daily for 7 days. aspirin, enteric coated (ASPIRIN, ENTERIC COATED) 81 mg EC tablet Take 1 tablet by mouth once daily. (Patient not taking: Reported on 03/02/2023) CPAP Initiate Auto PAP @ 5-20 cm of water with humidification. Mask (per patient preference) optional chin strap (if indicated) , filters, tubing, humidifier and lifetime supplies. No current facility-administered medications for this visit. ALLERGIES Allergen Reactions Penicillins Zoloft [Sertraline * Intolerance Sleepiness ACTIVE PROBLEM LIST Mild Persistent Asthma Without Complication - 09/05/2018 Hyperlipidemia - 03/29/2016 Gastroesophageal Reflux Disease Without Esophagitis - 10/09/2014 Comment: Dx: 25 years ago. Takes the ranitidine does well Had 2 upper gi. Obesity (Bmi 35.0-39.9 Without Comorbidity) - 10/09/2014 Hypothyroidism - 11/17/2013 Comment: Dx; 2013, Patient was not loosing weight, Exercising and eating well and tsh was mildly elevated, He was started on the smallest dose and then stopped when he ran out, 3 weeks ago Erectile Dysfunction - 07/28/2010 Insomnia, Unspecified - 09/09/2008 Comment: [facility] report reviewed August 17, 2011 Mitchell Jiang MD GOUT NOS - 09/07/2008 Comment: Dx:20 years ago. He takes xyloric for gout, He usually stays on a good diet and does well. Social History Tobacco Use Smoking status: Never Smokeless tobacco: Former Types: Chew Quit date: 04/26/2014 Tobacco comments: none Substance Use Topics Alcohol use: Yes Alcohol/week: 10.0 standard drinks of alcohol Types: 10 Cans of Beer (12oz) per week Comment: per week Drug use: No Review of Systems Respiratory: Positive for cough. Negative for chest tightness, shortness of breath and wheezing. Cardiovascular: Negative. OBJECTIVE BP 100/50 Pulse 76 Wt 279 lb (126.6kg) SpO2 96% Physical Exam Vitals and nursing note reviewed. Constitutional: General: He is awake. He is not in acute distress. Appearance: Normal appearance. He is well-developed and well-groomed. He is not ill-appearing, toxic-appearing or diaphoretic. HENT: Head: Normocephalic. Right Ear: External ear normal. Left Ear: External ear normal. Nose: Nose normal. Eyes: General: Vision grossly intact. Conjunctiva/sclera: Conjunctivae normal. Pupils: Pupils are equal, round, and reactive to light. Neck: Vascular: No JVD. Trachea: Trachea normal. Cardiovascular: Rate and Rhythm: Normal rate and regular rhythm. Pulses: Normal pulses. Heart sounds: Normal heart sounds. No murmur heard. Pulmonary: Effort: Pulmonary effort is normal. No accessory muscle usage, prolonged expiration or respiratory distress. Breath sounds: No stridor. Examination of the right-lower field reveals dec (more content not included)... [facility] 03-02-2023 History of Presen t illness Narrative SUBJECTIVE Venkat Hall is a 62 year old male here today for acute concern. Chief Complaint Patient presents with: Cough: was seen in [facility] on 02/21/2023 and treated with doxycycline and benzonatate. Had some improvement but cough had worsened in the last 2 days HPI Venkat Hall is a 62 year old male. Here today for follow up from [facility]. He was seen in our 02/21/2023 and diagnosed with lower resp tract infection. Started on tessalon and doxycycline. Symptoms of cough, some shortness of breath. History of asthma. Done with doxy but still having symptoms. Increased sputum, some shortness of breath but no chest pain or chest tightness. His medications were reviewed today and his list is now up to date. Medications Current Outpatient Medications Medication Sig losartan (COZAAR) 50 mg tablet Take 0.5 tablets by mouth once daily. fluticasone (FLONASE) 50 mcg/actuation nasal spray Use 1 [place] in each nostril once daily. levothyroxine (LEVOXYL) 175 mcg tablet Take 1 tablet by mouth once daily. Take on empty stomach. For thyroid. allopurinol (ZYLOPRIM) 300 mg tablet TAKE ONE TABLET BY MOUTH EVERY DAY FOR FOR GOUT esomeprazole (NEXIUM) 40 mg capsule Take 1 capsule by mouth once daily. sildenafil (VIAGRA) 50 mg tablet Take 1 to 2 pills one hour prior to sexual activity atenolol (TENORMIN) 25 mg tablet Take 1 tablet by mouth once daily. budesonide-formoterol (SYMBICORT) 80-4.5 mcg/actuation inhaler Inhale 2 Puffs as instructed twice daily. albuterol HFA (VENTOLIN HFA) 90 mcg/actuation inhaler Inhale 2 Puffs as instructed every 4 hours as needed for wheezing/shortness of breath. predniSONE (DELTASONE) 10 mg tablet Take 2 tabs po BID for 2 days then 1 tab po BID for 2 days then 1/2 tab po BID for 2 days then 1/2 tab daily for 2 days then stop benzonatate (TESSALON PERLE) 100 mg capsule Take 2 capsules by mouth three times a day as needed for up to 10 days. levoFLOXacin (LEVAQUIN) 500 mg tablet Take 1 tablet by mouth once daily for 7 days. aspirin, enteric coated (ASPIRIN, ENTERIC COATED) 81 mg EC tablet Take 1 tablet by mouth once daily. (Patient not taking: Reported on 03/02/2023) CPAP Initiate Auto PAP @ 5-20 cm of water with humidification. Mask (per patient preference) optional chin strap (if indicated) , filters, tubing, humidifier and lifetime supplies. No current facility-administered medications for this visit. ALLERGIES Allergen Reactions Penicillins Zoloft [Sertraline * Intolerance Sleepiness ACTIVE PROBLEM LIST Mild Persistent Asthma Without Complication - 09/05/2018 Hyperlipidemia - 03/29/2016 Gastroesophageal Reflux Disease Without Esophagitis - 10/09/2014 Comment: Dx: 25 years ago. Takes the ranitidine does well Had 2 upper gi. Obesity (Bmi 35.0-39.9 Without Comorbidity) - 10/09/2014 Hypothyroidism - 11/17/2013 Comment: Dx; 2013, Patient was not loosing weight, Exercising and eating well and tsh was mildly elevated, He was started on the smallest dose and then stopped when he ran out, 3 weeks ago Erectile Dysfunction - 07/28/2010 Insomnia, Unspecified - 09/09/2008 Comment: OARRS report reviewed August 17, 2011 Mitchell Jiang MD GOUT NOS - 09/07/2008 Comment: Dx:20 years ago. He takes xyloric for gout, He usually stays on a good diet and does well. Social History Tobacco Use Smoking status: Never Smokeless tobacco: Former Types: Chew Quit date: 04/26/2014 Tobacco comments: none Substance Use Topics Alcohol use: Yes Alcohol/week: 10.0 standard drinks of alcohol Types: 10 Cans of Beer (12oz) per week Comment: per week Drug use: No Review of Systems Respiratory: Positive for cough. Negative for chest tightness, shortness of breath and wheezing. Cardiovascular: Negative. OBJECTIVE BP 100/50 Pulse 76 Wt 279 lb (126.6kg) SpO2 96% Physical Exam Vitals and nursing note reviewed. Constitutional: General: He is awake. He is not in acute distress. Appearance: Normal appearance. He is well-developed and well-groomed. He is not ill-appearing, toxic-appearing or diaphoretic. HENT: Head: Normocephalic. Right Ear: External ear normal. Left Ear: External ear normal. Nose: Nose normal. Eyes: General: Vision grossly intact. Conjunctiva/sclera: Conjunctivae normal. Pupils: Pupils are equal, round, and reactive to light. Neck: Vascular: No JVD. Trachea: Trachea normal. Cardiovascular: Rate and Rhythm: Normal rate and regular rhythm. Pulses: Normal pulses. Heart sounds: Normal heart sounds. No murmur heard. Pulmonary: Effort: Pulmonary effort is normal. No accessory muscle usage, prolonged expiration or respiratory distress. Breath sounds: No stridor. Examination of the right-lower field reveals decreased breath sounds. Examination of the left-lower field reveals decreased breath sounds. Decreased breath sounds present. No wheezing, rhonchi or rales. Musculoskeletal: Cervical back: Neck supple. Skin: General: Skin is warm and dry. Capillary Refill: Capillary refill takes less than 2 seconds. Neurological: General: No focal deficit present. Mental Status: He is alert and oriented to person, place, and time. Mental status is at baseline. Psychiatric: Attention and Perception: Attention and perception normal. Mood and Affect: Mood and affect normal. Speech: Speech normal. Behavior: Behavior normal. Behavior is cooperative. Thought Content: Thought content normal. Cognition and Memory: Cognition and memory normal. Judgment: Judgment normal. ASSESSMENT/PLAN: 1. Lower resp. tract infection - ICD9: 519.8, ICD10: J22 (primary diagnosis) Start prednisone taper, ok to refill tessalon, Levaquin for bacterial coverage since doxy not helpful in improving symptoms. - PREDNISONE 10 MG TABLET - BENZONATATE 100 MG CAPSULE - LEVOFLOXACIN 500 MG TABLET 2. Mild persistent asthma with acute exacerbation - ICD9: 493.92, ICD10: J45.31 - Mild persistent asthma acute excacerbation without status and no respiratory distress - Albuterol 2 puffs prn - Avoidance of triggers recommended 3. Essential hypertension - ICD9: 401.9, ICD10: I10 - Controlled - Decrease losartan - Recommend home blood pressure monitoring, to bring results to next visit - Encouraged sodium restriction, DASH or Mediterranean diet - Recommend regular aerobic exercise - LOSARTAN 50 MG TABLET Portions of this note have been entered by ancillary staff. I have reviewed and when necessary edited, so that they are an adequate record of my encounter with this patient Please note that parts of this document were created using voice recognition software and therefore may contain grammatical errors. Patient verbalizes understanding of instructions from today's visit and in agreement with treatment plan. Questions answered. Agrees to call the office if questions, concerns of issues with acute symptoms not improving or if they worsen. See diagnoses and orders for additional plan(s). Allergies and medications were reviewed, list was updated, and refills given if needed. Past medical, surgical, social, and family history reviewed and updated as appropriate. Encouraged proper diet & exercise as well as compliance with taking medications. Age-appropriate health preventative measures were discussed. Return in about 4 months (around 07/01/2023) for Follow up on chronic conditions and medications.. LARRY Dee documented in this encounter [facility] 03-02-2023 Miscellaneous Notes Noted. Patient calls and states that he has been on antibiotics since 2 Sundays ago. Patient states that normally when he gets like this Dr. Banks normally orders him a steroid. Patient was seen in [facility] on 02/21/2023. Patient asking if provider can order a steroid? Patient scheduled with Dudley today to discuss. Amanda Jon RN documented in this encounter [facility] 02-21-2023 Note HNO ID: [id number] Author: Harriett Mcgarry APRN.REGISTERED NURSE MATERNAL CHILD Service: ? Author Type: Nurse Practitioner Type: Progress Notes Filed: 02/21/2023 11:46 AM Note Text: Subjective Cough Associated symptoms include shortness of breath. Pertinent negatives include no chills and no myalgias. Venkat Hall is a 62 year old male who presents with cough x 2 weeks. He has a history of asthma and has been using his inhalers. He denies fever or night sweats or fatigue. He states he gets this once or twice a year and if it is not treated he ends up in ER. Cough is slightly productive. Review of Systems Constitutional: Negative for chills and fever. HENT: Negative. Respiratory: Positive for cough, sputum production and shortness of breath. Cardiovascular: Negative. Musculoskeletal: Negative for myalgias. BP 126/80 Pulse 60 Temp 36.4 ?C (97.5 ?F) Resp 21 Wt 127.7 kg (281 lb 9.6 oz) SpO2 98% BMI 35.20 kg/m? PAST MEDICAL HISTORY Diagnosis Date COPD (chronic obstructive pulmonary disease) (HCC) Esophageal reflux Gastroesophageal reflux Essential hypertension Gout High cholesterol Hypothyroidism Unspecified asthma(493.90) PAST SURGICAL HISTORY Procedure Laterality Date COLONOSCOPY FLX DX W/COLLJ SPEC WHEN PFRMD 03/04/2011 Colonoscopy-repeat in COLONOSCOPY FLX DX W/COLLJ SPEC WHEN PFRMD 03/03/2021 ESOPHAGOGASTRODUODENOSCOPY TRANSORAL DIAGNOSTIC 03/04/2011 EGD EYE SURGERY HX PAST SURGICAL HISTORY OF SHOULDER ARTHROSCOPY right RADIAL KERATOTOMY VASECTOMY UNI/BI SPX W/POSTOP SEMEN EXAMS ALLERGIES Penicillins and Zoloft [Sertraline Hcl] MEDICATIONS fluticasone (FLONASE) 50 mcg/actuation nasal spray Use 1 [place] in each nostril once daily. levothyroxine (LEVOXYL) 175 mcg tablet Take 1 tablet by mouth once daily. Take on empty stomach. For thyroid. losartan (COZAAR) 50 mg tablet Take 1 tablet by mouth once daily. allopurinol (ZYLOPRIM) 300 mg tablet TAKE ONE TABLET BY MOUTH EVERY DAY FOR FOR GOUT esomeprazole (NEXIUM) 40 mg capsule Take 1 capsule by mouth once daily. sildenafil (VIAGRA) 50 mg tablet Take 1 to 2 pills one hour prior to sexual activity atenolol (TENORMIN) 25 mg tablet Take 1 tablet by mouth once daily. budesonide-formoterol (SYMBICORT) 80-4.5 mcg/actuation inhaler Inhale 2 Puffs as instructed twice daily. aspirin, enteric coated (ASPIRIN, ENTERIC COATED) 81 mg EC tablet Take 1 tablet by mouth once daily. CPAP Initiate Auto PAP @ 5-20 cm of water with humidification. Mask (per patient preference) optional chin strap (if indicated) , filters, tubing, humidifier and lifetime supplies. albuterol HFA (VENTOLIN HFA) 90 mcg/actuation inhaler Inhale 2 Puffs as instructed every 4 hours as needed for wheezing/shortness of breath. doxycycline hyclate (VIBRAMYCIN) 100 mg capsule Take 1 capsule by mouth two times a day for 10 days. benzonatate (TESSALON PERLE) 100 mg capsule Take 2 capsules by mouth three times a day as needed for up to 10 days. FAMILY HISTORY Problem Relation Age of Onset Diabetes Mother Heart Mother other (fibramylgia) Mother Heart Father Lipids Father Thyroid Father Prostate Cancer Paternal Grandfather age 92 Social History Tobacco Use Smoking status: Never Smokeless tobacco: Former Types: Chew Quit date: 04/26/2014 Tobacco comments: none Substance Use Topics Alcohol use: Yes Alcohol/week: 10.0 standard drinks of alcohol Types: 10 Cans of Beer (12oz) per week Comment: per week Drug use: No Objective Physical Exam Vitals and nursing note reviewed. Constitutional: General: He is not in acute distress. Appearance: Normal appearance. He is not ill-appearing. Cardiovascular: Rate and Rhythm: Normal rate and regular rhythm. Heart sounds: Normal heart sounds. Pulmonary: Effort: Pulmonary effort is normal. No respiratory distress. Breath sounds: Wheezing (few, scattered) present. No rales. Skin: General: Skin is warm and dry. Findings: No erythema or rash. Neurological: Mental Status: He is alert. ASSESSMENT/PLAN: 1. Lower resp. tract infection - ICD9: 519.8, ICD10: J22 - DOXYCYCLINE HYCLATE 100 MG CAPSULE - BENZONATATE 100 MG CAPSULE - may also take mucinex - continue asthma medications as prescribed. - Follow-up with your PCP in 3-5 days if symptoms have not improved or sooner if symptoms worsen - Discussed red flags and need for immediate medical evaluation if any occur. - Discussed supportive care treatment with fluids, rest and analgesia. - Discussed expected course of illness Harriett Mcgarry APRN.[facility] 02-21-2023 History of Presen t illness Narrative Subjective Cough Associated symptoms include shortness of breath. Pertinent negatives include no chills and no myalgias. Venkat Hall is a 62 year old male who presents with cough x 2 weeks. He has a history of asthma and has been using his inhalers. He denies fever or night sweats or fatigue. He states he gets this once or twice a year and if it is not treated he ends up in ER. Cough is slightly productive. Review of Systems Constitutional: Negative for chills and fever. HENT: Negative. Respiratory: Positive for cough, sputum production and shortness of breath. Cardiovascular: Negative. Musculoskeletal: Negative for myalgias. BP 126/80 Pulse 60 Temp 36.4 C (97.5 F) Resp 21 Wt 127.7 kg (281 lb 9.6 oz) SpO2 98% BMI 35.20 kg/m PAST MEDICAL HISTORY Diagnosis Date COPD (chronic obstructive pulmonary disease) (HCC) Esophageal reflux Gastroesophageal reflux Essential hypertension Gout High cholesterol Hypothyroidism Unspecified asthma(493.90) PAST SURGICAL HISTORY Procedure Laterality Date COLONOSCOPY FLX DX W/COLLJ SPEC WHEN PFRMD 03/04/2011 Colonoscopy-repeat in COLONOSCOPY FLX DX W/COLLJ SPEC WHEN PFRMD 03/03/2021 ESOPHAGOGASTRODUODENOSCOPY TRANSORAL DIAGNOSTIC 03/04/2011 EGD EYE SURGERY HX PAST SURGICAL HISTORY OF SHOULDER ARTHROSCOPY right RADIAL KERATOTOMY VASECTOMY UNI/BI SPX W/POSTOP SEMEN EXAMS ALLERGIES Penicillins and Zoloft [Sertraline Hcl] MEDICATIONS fluticasone (FLONASE) 50 mcg/actuation nasal spray Use 1 [place] in each nostril once daily. levothyroxine (LEVOXYL) 175 mcg tablet Take 1 tablet by mouth once daily. Take on empty stomach. For thyroid. losartan (COZAAR) 50 mg tablet Take 1 tablet by mouth once daily. allopurinol (ZYLOPRIM) 300 mg tablet TAKE ONE TABLET BY MOUTH EVERY DAY FOR FOR GOUT esomeprazole (NEXIUM) 40 mg capsule Take 1 capsule by mouth once daily. sildenafil (VIAGRA) 50 mg tablet Take 1 to 2 pills one hour prior to sexual activity atenolol (TENORMIN) 25 mg tablet Take 1 tablet by mouth once daily. budesonide-formoterol (SYMBICORT) 80-4.5 mcg/actuation inhaler Inhale 2 Puffs as instructed twice daily. aspirin, enteric coated (ASPIRIN, ENTERIC COATED) 81 mg EC tablet Take 1 tablet by mouth once daily. CPAP Initiate Auto PAP @ 5-20 cm of water with humidification. Mask (per patient preference) optional chin strap (if indicated) , filters, tubing, humidifier and lifetime supplies. albuterol HFA (VENTOLIN HFA) 90 mcg/actuation inhaler Inhale 2 Puffs as instructed every 4 hours as needed for wheezing/shortness of breath. doxycycline hyclate (VIBRAMYCIN) 100 mg capsule Take 1 capsule by mouth two times a day for 10 days. benzonatate (TESSALON PERLE) 100 mg capsule Take 2 capsules by mouth three times a day as needed for up to 10 days. FAMILY HISTORY Problem Relation Age of Onset Diabetes Mother Heart Mother other (fibramylgia) Mother Heart Father Lipids Father Thyroid Father Prostate Cancer Paternal Grandfather age 92 Social History Tobacco Use Smoking status: Never Smokeless tobacco: Former Types: Chew Quit date: 04/26/2014 Tobacco comments: none Substance Use Topics Alcohol use: Yes Alcohol/week: 10.0 standard drinks of alcohol Types: 10 Cans of Beer (12oz) per week Comment: per week Drug use: No Objective Physical Exam Vitals and nursing note reviewed. Constitutional: General: He is not in acute distress. Appearance: Normal appearance. He is not ill-appearing. Cardiovascular: Rate and Rhythm: Normal rate and regular rhythm. Heart sounds: Normal heart sounds. Pulmonary: Effort: Pulmonary effort is normal. No respiratory distress. Breath sounds: Wheezing (few, scattered) present. No rales. Skin: General: Skin is warm and dry. Findings: No erythema or rash. Neurological: Mental Status: He is alert. ASSESSMENT/PLAN: 1. Lower resp. tract infection - ICD9: 519.8, ICD10: J22 - DOXYCYCLINE HYCLATE 100 MG CAPSULE - BENZONATATE 100 MG CAPSULE - may also take mucinex - continue asthma medications as prescribed. - Follow-up with your PCP in 3-5 days if symptoms have not improved or sooner if symptoms worsen - Discussed red flags and need for immediate medical evaluation if any occur. - Discussed supportive care treatment with fluids, rest and analgesia. - Discussed expected course of illness Harriett Mcgarry APRN.CNP documented in this encounter [facility] 02-21-2023 Instructions Harriett Mcgarry APRN.CNP - 02/21/2023 11:22 AM EDT ASSESSMENT/PLAN: 1. Lower resp. tract infection - ICD9: 519.8, ICD10: J22 - DOXYCYCLINE HYCLATE 100 MG CAPSULE - BENZONATATE 100 MG CAPSULE - may also take mucinex - continue asthma medications as prescribed. - Follow-up with your PCP in 3-5 days if symptoms have not improved or sooner if symptoms worsen - Discussed red flags and need for immediate medical evaluation if any occur. - Discussed supportive care treatment with fluids, rest and analgesia. - Discussed expected course of illness Harriett Mcgarry APRN.REGISTERED NURSE MATERNAL CHILD documented in this encounter [facility] 12-17-2022 History of Presen t illness Narrative Images from the original note were not included. [facility] [address] [address] Dept: [phone] Dept Visit type: Established : 1960 Reason for Visit: Follow-up (Ablation 2 weeks ago) Assessment and Plan 1. Persistent atrial fibrillation (HCC) - ECG 12 lead - CLINIC PERFORMED 2. JENIFER (obstructive sleep apnea) - ECG 12 lead - CLINIC PERFORMED 3. Essential hypertension - ECG 12 lead - CLINIC PERFORMED He is status post successful cryoablation on 12/04/[address] Mcnamara. He will continue Eliquis 5 mg twice a day for anticoagulation for stroke for two months post procedure. Continue atenolol and losartan daily. He is compliant with CPAP therapy. Blood pressure stable. He was seen by his [facility] outsole splitter last week and following up in a year. He is contacting his insurance to inquire if a smart watch is covered. Follow-up [address] Mcnamara. Follow up in about 11 weeks (around 03/04/2023) for Follow up three months Dr Mcnamara. Tiffanie Hall is a 62 y.o. male was referred to Dr Mcnamara for treatment of his atrial fibrillation. In 2019 he had atrial fibrillation with Covid.He tried to have knee surgery this year and couldn't because of atrial fibrillation in April. In retrospect he had symptoms of fatigue and exercise intolerance for couple weeks prior to that diagnosis. He has been followed at the [facility] since that time and seen last week. He was placed on Eliquis and atenolol. In August he underwent cardioversion. He said he stayed in sinus rhythm about 2 weeks and then had recurrence of atrial fibrillation. When the A-fib comes back he still noticed the fatigue and shortness of breath again. He did have a normal stress test and echocardiogram in July. He does wear his CPAP for sleep apnea for the last 2 years. Two weeks ago, he underwent successful cryoablation with Dr. Mcnamara on 12/04/22 who presents for two week follow up SIGNIFICANT DIAGNOSTIC STUDIES: Successful pulmonary vein isolation procedure. Successful cardioversion of atrial fibrillation and the patient remained in sinus rhythm after the ablation was completed He monitors via [employer] with heart rates 50-60s. He is walking daily about 10,000 steps per day. He reports no recurrence of atrial fibrillation. Denies any signs of bleeding Venkat Hall Review of Systems Constitutional: Negative for activity change, chills, fatigue and fever. HENT: Negative for congestion, nosebleeds, sore throat and trouble swallowing. Eyes: Negative for visual disturbance. Respiratory: Negative for cough, chest tightness, shortness of breath and wheezing. Cardiovascular: Negative for chest pain, palpitations and leg swelling. Gastrointestinal: Negative for abdominal distention, blood in stool, nausea and vomiting. Genitourinary: Negative for difficulty urinating and hematuria. Musculoskeletal: Negative for arthralgias and gait problem. Neurological: Negative for dizziness, syncope, speech difficulty and headaches. Hematological: Does not bruise/bleed easily. Psychiatric/Behavioral: Negative for agitation and confusion. The patient is not nervous/anxious. Allergies Allergen Reactions Sertraline Other reaction(s): Intolerance, Other Sleepiness Penicillins Other reaction(s): PT UNSURE OF REACTION, Unknown Outpatient Medications Prior to Visit Medication Sig Dispense Refill allopurinol (Zyloprim) 300 MG tablet TAKE ONE TABLET BY MOUTH EVERY DAY FOR FOR GOUT apixaban (Eliquis) 5 MG tablet Take 5 mg by mouth 2 times daily. atenolol (Tenormin) 25 MG tablet Take 50 mg by mouth in the morning. budesonide-formoterol (Symbicort) 80-4.5 MCG/ACT inhaler Inhale 2 puffs in the morning and 2 puffs in the evening. esomeprazole (NexIUM) [address] capsule Take 40 mg by mouth in the morning. fluticasone (Flonase) 50 MCG/ACT nasal spray Administer 2 sprays into each nostril Daily as needed. levothyroxine (Synthroid, Levoxyl) 175 MCG tablet Take 175 mcg by mouth in the morning. losartan (Cozaar) 50 MG tablet Take 50 mg by mouth in the morning. Misc. Devices misc Initiate Auto PAP @ 5-20 cm of water with humidification. Mask (per patient preference) optional chin strap (if indicated) , filters, tubing, humidifier and lifetime supplies. sildenafil (Viagra) 50 MG tablet Take 50 mg by mouth. No facility-administered medications prior to visit. Past Medical History: Diagnosis Date JENIFER on CPAP Persistent atrial fibrillation (HCC) Primary hypertension Social History Tobacco Use Smoking status: Never Smokeless tobacco: Former Types: Chew Substance Use Topics Alcohol use: Yes Comment: 3 or 4 days a week Past Surgical History: Procedure Laterality Date CARDIAC ELECTROPHYSIOLOGY PROCEDURE N/A 12/04/2022 Performed by Williams Mcnamara MD at [facility] Cardiac Cath/EP Lab CARDIAC ELECTROPHYSIOLOGY PROCEDURE N/A 12/04/2022 Performed by Williams Mcnamara MD at [facility] Cardiac Cath/EP Lab IMGHX FL ABLATION N/A A fib paroxysmal KNEE SURGERY Right 10/2022 SHOULDER SURGERY Right Family History Problem Relation Name Age of Onset Diabetes Mother Heart disease Mother Fibromyalgia Mother Heart disease Father Hyperlipidemia Father Thyroid disease Father Coronary artery disease Father Heart Surgery Father Heart attack Father 62 Prostate cancer Paternal Grandfather Objective Vitals: 12/17/22 0754 BP: 136/88 BP Location: Right arm Patient Position: Sitting BP Cuff Size: Adult Pulse: 50 SpO2: 98% Weight: 284 lb (129 kg) Height: 6' 3 (1.905 m) Physical Exam Vitals reviewed. Constitutional: General: He is not in acute distress. Appearance: Normal appearance. He is obese. He is not ill-appearing. HENT: Head: Normocephalic and atraumatic. Eyes: General: No scleral icterus. Right eye: No discharge. Left eye: No discharge. Cardiovascular: Rate and Rhythm: Normal rate and regular rhythm. Heart sounds: No murmur heard. No gallop. Pulmonary: Effort: Pulmonary effort is normal. No respiratory distress. Breath sounds: Normal breath sounds. No wheezing or rales. Abdominal: General: Bowel sounds are normal. Palpations: Abdomen is soft. Musculoskeletal: General: No deformity. Normal range of motion. Cervical back: Normal range of motion and neck supple. Skin: General: Skin is warm and dry. Findings: No bruising. Comments: Bilateral groins no hematomas, but ecchymosis bilaterally. Neurological: General: No focal deficit present. Mental Status: He is alert and oriented to person, place, and time. Gait: Gait normal. Psychiatric: Mood and Affect: Mood normal. Behavior: Behavior normal. Data Reviewed and Summarized No results found for: EFBP, PLVEF, LVEFPHYS, LVEF2D, EF Review of tests/labs done/ordered within my specialty: EKG in office: [id number] Score for Atrial Fibrillation Stroke Risk Risk Factors C CHF No, 0 H HTN Yes, 1 A2 Age >= 75 No, 0 D DM No, 0 S2 Prior Stroke/TIA No, 0 V Vascular Disease No, 0 A Age 65-74 No, 0 Sc Sex Male, 0 [id number] Score 1 Calculator: [id number] risk stratification score for estimation of stroke risk for nonvalvular atrial fibrillation in adults - UpToDate Atrial fibrillation in adults: Use of oral anticoagulants - UpToDate Review of tests/labs done/ordered outside my specialty: Independent interpretation of tests: NieshaKEITH Gutierrez CNP documented in this encounter [facility] 12-05-2022 Note Discharge Summary Venkat Hall : 1960 ADMIT DATE: 12/04/2022 DISCHARGE DATE: 12/05/2022 PRIMARY CARE PHYSICIAN: Sammie Banks VISIT STATUS: Observation CODE STATUS: Full Code DISCHARGE DIAGNOSES: Principal Problem: Atrial fibrillation with RVR (CMS/HCC) (HCC) Active Problems: Atrial fibrillation (CMS/HCC) (HCC) HOSPITAL COURSE: Venkat Hall is a 62 y.o. male was referred for treatment of his atrial fibrillation. About 3 years ago he had knee surgery and afterwards they noted atrial fibrillation that converted spontaneously. Since that time he had no recurrence until April. In April he was in for routine visit and noted to be in atrial fibrillation. In retrospect he had symptoms of fatigue and exercise intolerance for couple weeks prior to that diagnosis. He has been followed at the [facility] since that time. He was placed on Eliquis and atenolol. In August he underwent cardioversion. He said he stayed in sinus rhythm about 2 weeks and then had recurrence of atrial fibrillation. When the A-fib comes back he still noticed the fatigue and shortness of breath again. He has had no chest pain, dizziness or syncope. He did have a normal stress test and echocardiogram in July. He does wear his CPAP for sleep apnea for thelast 2 years. He states his blood pressures at home have been controlled well. He has had no other bleeding issues on the anticoagulation. He underwent successful cryoablation with Dr. Mcnamara on 12/04/22. Today, telemetry shows sinus rhythm. Bilateral groins stable without hematoma. Sutures removed. Labs stable. He feels well without complaints this morning and has ambulated without issue. No changes to medications. He is stable and appropriate for discharge home. SIGNIFICANT DIAGNOSTIC STUDIES: Successful pulmonary vein isolation procedure. Successful cardioversion of atrial fibrillation and the patient remained in sinus rhythm after the ablation was completed. CONSULTANTS: None RECOMMENDED NEXT STEPS: Follow up with Niesha Biggs APRN, 12/17/22 DISCHARGE MEDICATIONS: Medication List CONTINUE taking these medications allopurinol 300 MG tablet Commonly known as: Zyloprim apixaban 5 MG tablet Commonly known as: Eliquis atenolol 25 MG tablet Commonly known as: Tenormin budesonide-formoterol 80-4.5 MCG/ACT inhaler Commonly known as: Symbicort esomeprazole [address] capsule Commonly known as: NexIUM fluticasone 50 MCG/ACT nasal spray Commonly known as: Flonase levothyroxine 175 MCG tablet Commonly known as: Synthroid, Levoxyl losartan 50 MG tablet Commonly known as: Cozaar Misc. Devices misc sildenafil 50 MG tablet Commonly known as: Viagra DIET: Adult diet Regular ACTIVITY: No heavy lifting x 7 days. COMPLEXITY OF FOLLOW UP: [x] Moderate Complexity: follow up within 7-14 calendar days (93011) [] Severe Complexity: follow up within 7 calendar days (14848) FOLLOW UP TESTING, PENDING RESULTS OR REFERRALS AT TRANSITIONAL CARE VISIT: [] Yes [] No PENDING STUDIES: NOne DISPOSITION: Home FACILITY/HOME CARE AGENCY NAME: N/A Follow up with KEITH Casiano CNP [address] [place] [address] Follow up on 12/17/2022 Time 8:00 INSTRUCTIONS TO MA/SW: Please call patient on day after discharge (must document patient contacted within 2 business days of discharge). FOLLOW UP QUESTIONS FOR MA/SW: 1. Did you get medications filled and taking them as instructed from discharge? 2. Are you following your discharge instructions from your hospital stay? 3. Please confirm patient is scheduled for a follow up appointment within the above time frame. DISCHARGE TIME: < 30 minutes SIGNED: KEITH Bryant CNP 12/05/2022, 8:08 AM [facility] 12-05-2022 Nurse Note Discharge paperwork reviewed with pt. [place] miguel is on the way. [facility] 12-05-2022 Nurse Note Discharge paperwork reviewed with pt. Pt lamont is on the way. documented in this encounter [facility] 12-05-2022 Hospital course Narrative Discharge Summary Venkat Hall : 1960 ADMIT DATE: 12/04/2022 DISCHARGE DATE: 12/05/2022 PRIMARY CARE PHYSICIAN: Sammie Banks VISIT STATUS: Observation CODE STATUS: Full Code DISCHARGE DIAGNOSES: Principal Problem: Atrial fibrillation with RVR (CMS/HCC) (HCC) Active Problems: Atrial fibrillation (CMS/HCC) (HCC) HOSPITAL COURSE: Venkat Hall is a 62 y.o. male was referred for treatment of his atrial fibrillation. About 3 years ago he had knee surgery and afterwards they noted atrial fibrillation that converted spontaneously. Since that time he had no recurrence until April. In April he was in for routine visit and noted to be in atrial fibrillation. In retrospect he had symptoms of fatigue and exercise intolerance for couple weeks prior to that diagnosis. He has been followed at the [facility] since that time. He was placed on Eliquis and atenolol. In August he underwent cardioversion. He said he stayed in sinus rhythm about 2 weeks and then had recurrence of atrial fibrillation. When the A-fib comes back he still noticed the fatigue and shortness of breath again. He has had no chest pain, dizziness or syncope. He did have a normal stress test and echocardiogram in July. He does wear his CPAP for sleep apnea for the last 2 years. He states his blood pressures at home have been controlled well. He has had no other bleeding issues on the anticoagulation. He underwent successful cryoablation with Dr. Mcnamara on 12/04/22. Today, telemetry shows sinus rhythm. Bilateral groins stable without hematoma. Sutures removed. Labs stable. He feels well without complaints this morning and has ambulated without issue. No changes to medications. He is stable and appropriate for discharge home. SIGNIFICANT DIAGNOSTIC STUDIES: Successful pulmonary vein isolation procedure. Successful cardioversion of atrial fibrillation and the patient remained in sinus rhythm after the ablation was completed. CONSULTANTS: None RECOMMENDED NEXT STEPS: Follow up with Niesha Biggs APRN, 12/17/22 DISCHARGE MEDICATIONS: Medication List CONTINUE taking these medications allopurinol 300 MG tablet Commonly known as: Zyloprim apixaban 5 MG tablet Commonly known as: Eliquis atenolol 25 MG tablet Commonly known as: Tenormin budesonide-formoterol 80-4.5 MCG/ACT inhaler Commonly known as: Symbicort esomeprazole [address] capsule Commonly known as: NexIUM fluticasone 50 MCG/ACT nasal spray Commonly known as: Flonase levothyroxine 175 MCG tablet Commonly known as: Synthroid, Levoxyl losartan 50 MG tablet Commonly known as: Cozaar Misc. Devices misc sildenafil 50 MG tablet Commonly known as: Viagra DIET: Adult diet Regular ACTIVITY: No heavy lifting x 7 days. COMPLEXITY OF FOLLOW UP: [x] Moderate Complexity: follow up within 7-14 calendar days (32013) [] Severe Complexity: follow up within 7 calendar days (27663) FOLLOW UP TESTING, PENDING RESULTS OR REFERRALS AT TRANSITIONAL CARE VISIT: [] Yes [] No PENDING STUDIES: NOne DISPOSITION: Home FACILITY/HOME CARE AGENCY NAME: N/A Follow up with Niesha Biggs APRN - [place] [phone] Follow up on 12/17/2022 Time 8:00 INSTRUCTIONS TO MA/SW: Please call patient on day after discharge (must document patient contacted within 2 business days of discharge). FOLLOW UP QUESTIONS FOR MA/SW: 1. Did you get medications filled and taking them as instructed from discharge? 2. Are you following your discharge instructions from your hospital stay? 3. Please confirm patient is scheduled for a follow up appointment within the above time frame. DISCHARGE TIME: < 30 minutes SIGNED: KEITH Bryant CNP 12/05/2022, 8:08 AM documented in this encounter [facility] 12-04-2022 Note Successful pulmonary vein isolation procedure. Successful cardioversion of atrial fibrillation and the patient remained in sinus rhythm after the ablation was completed. Procedure Details Following informed consent the patient was prepped and draped in usual sterile manner. He was sedated by anesthesia. An esophageal temperature probe was placed. 2% lidocaine with 0.5% bupivacaine used for local anesthesia. Using the modified Seldinger technique an 8 and a 7 Niuean sheath were placed in the right femoral vein and a 6 and long 9 Niuean sheath in the left femoral vein. A decapolar cath was placed in the coronary sinus. A quadripolar cath was placed in the RV apex. An intracardiac echocardiography catheter was advanced through the 9 Niuean sheath into the right atrium. A versa cross wire was advanced through the 8 Niuean sheath into the superior vena cava. Half the heparin bolus was given and the second half was given after the transseptal. The ACT was kept greater than 300 seconds. The versa cross transseptal dilator was advanced over the wire. This was withdrawn until prolapsed into the fossa ovalis was visualized on fluoroscopy and ice imaging. The wire was inserted across the septum into the left superior pulmonary vein. The versa cross transseptal sheath was exchanged for the cryoablation sheath. A Penta ray cath was advanced through the sheath and used to obtain a three-dimensional electroanatomic map of the left atrium and pulmonary veins. The Penta ray was removed. The cryoablation catheter was advanced through the sheath with and achieve spiral catheter in place. The achieve catheter would cannulate the pulmonary vein and allow access of the cryoablation catheter. The balloon was inflated and contrast injected to ensure proper positioning of the balloon. Cryoablation lesions were performed while continuously monitoring the esophageal temperature. 1 ablation was performed in the right-sided pulmonary veins continuous pacing of the phrenic nerve was performed and the CMAP recorded. Following the final lesion the patient was cardioverted to sinus rhythm. At the completion of the procedure the spiral was placed into all the pulmonary veins and exit and entrance block confirmed. The sheath was withdrawn into the right atrium. Heparin was reversed with protamine. Sheaths were removed and hemostasis obtained with manual compression and the use of a pursestring suture. The patient left the lab in stable condition. Ablation 1 Maximum temperature achieved: 36 C Average temperature maintained: -37 C Maximum power delivered: 0 w Average power delivered: 0 w Maximum impedance: 0 ohms Average impedance: 0 ohms Duration of energy delivered: 179 s Ablation 2 Maximum temperature achieved: 34 C Average temperature maintained: -40 C Maximum power delivered: 0 w Average power delivered: 0 w Maximum impedance: 0 ohms Average impedance: 0 ohms Duration of energy delivered: 178 s Ablation 3 Maximum temperature achieved: 31 C Average temperature maintained: -40 C Maximum power delivered: 0 w Average power delivered: 0 w Maximum impedance: 0 ohms Average impedance: 0 ohms Duration of energy delivered: 179 s Ablation 4 Maximum temperature achieved: 31 C Average temperature maintained: -46 C Maximum power delivered: 0 w Average power delivered: 0 w Maximum impedance: 0 ohms Average impedance: 0 ohms Duration of energy delivered: 238 s Ablation 5 Maximum temperature achieved: 32 C Average temperature maintained: -44 C Maximum power delivered: 0 w Average power delivered: 0 w Maximum impedance: 0 ohms Average impedance: 0 ohms Duration of energy delivered: 141 s Ablation 6 Maximum temperature achieved: 30 C Average temperature maintained: -39 C Maximum power delivered: 0 w Average power delivered: 0 w Maximum impedance: 0 ohms Average impedance: 0 ohms Duration of energy delivered: 179 s Ablation 7 Maximum temperature achieved: 32 C Average temperature maintained: -38 C Maximum power delivered: 0 w Average power delivered: 0 w Maximum impedance: 0 ohms Average impedance: 0 ohms Duration of energy delivered: 218 s Ablation 8 Maximum temperature achieved: 35 C Average temperature maintained: -35 C Maximum power delivered: 0 w Average power delivered: 0 w Maximum impedance: 0 ohms Average impedance: 0 ohms Duration of energy delivered: 179 s Ablation 9 Maximum temperature achieved: 33 C Average temperature maintained: -33 C Maximum power delivered: 0 w Average power delivered: 0 w Maximum impedance: 0 ohms Average impedance: 0 ohms Duration of energy delivered: 179 s Ablation 10 Maximum temperature achieved: 32 C Average temperature maintained: -43 C Maximum power delivered: 0 w Average power delivered: 0 w Maximum impedance: 0 ohms Average impedance: 0 ohms Duration of energy delivered: 178 s Ablation 11 Maximum temperature achieved: 32 C Average (more content not included)... CV [facility]EMO 12-04-2022 Note Patient: Venkat harrington Procedure Summary Date: 12/04/22 Room / Location: [facility] EP LAB 1 / [facility] Cardiac Cath Labs Anesthesia Start: 951 Anesthesia Stop: 1206 Procedures: Ablation a-fib paroxysmal Cardioversion Diagnosis: Atrial fibrillation with RVR (CMS/HCC) (HCC) (Atrial fibrillation with RVR (CMS/HCC) (HCC) [I48.91]) Providers: Williams Mcnamara MD Responsible Provider: Peter Barrera MD Anesthesia Type: general ASA Status: 3 Anesthesia Type: general Vitals Value Taken Time BP 116/75 12/04/22 1300 Temp 36.1 ?C (97 ?F) 12/04/22 1205 Pulse 69 12/04/22 1303 Resp 16 12/04/22 1205 SpO2 98 % 12/04/22 1303 Vitals shown include unvalidated device data. Anesthesia Post Evaluation Patient location during evaluation: PACU Patient participation: complete - patient participated Level of consciousness: awake and alert Pain management: satisfactory to patient Airway patency: patent Dental Injury: no Cardiovascular status: acceptable, blood pressure returned to baseline and hemodynamically stable Respiratory status: acceptable and spontaneous ventilation Hydration status: euvolemic Nausea/Vomiting: controlled No notable events documented. Patient can be discharged once all PACU criteria has been met. [facility] 12-04-2022 Note Patient: Venkat harrington Procedure Summary Date: 12/04/22 Room / Location: [facility] EP LAB / [facility] Cardiac Cath Labs Anesthesia Start: 951 Anesthesia Stop: 1206 Procedures: Ablation a-fib paroxysmal Cardioversion Diagnosis: Atrial fibrillation with RVR (CMS/HCC) (HCC) (Atrial fibrillation with RVR (CMS/HCC) (HCC) [I48.91]) Providers: Williams Mcnamara MD Responsible Provider: Peter Barrera MD Anesthesia Type: general ASA Status: 3 Anesthesia Type: general Vitals Value Taken Time BP 116/75 12/04/22 1300 Temp 36.1 ?C (97 ?F) 12/04/22 1205 Pulse 69 12/04/22 1303 Resp 16 12/04/22 1205 SpO2 98 % 12/04/22 1303 Vitals shown include unvalidated device data. Anesthesia Post Evaluation Patient location during evaluation: PACU Patient participation: complete - patient participated Level of consciousness: awake and alert Pain management: satisfactory to patient Multimodal analgesia pain management approach Airway patency: patent Two or more strategies used to mitigate risk of obstructive sleep apnea Cardiovascular status: acceptable and hemodynamically stable Respiratory status: acceptable Hydration status: acceptable Comments: Patient received an inhalational anesthetic Patient exhibits three or more risk factors for PONV Patient received at leaset 2 prophylactic Rx PONV anti-emetic agents of different classes preop and/or intraop Anesthesia time was 60 minutes or longer Anesthesai administered was General (inhalational or TIVA) or Neuraxial block At least one body temperature greater than 95.8F/35.5C achieved within the 30 mins immediately prior to or the 15 minutes immediately following anesthesia end time Patient was administered multimodal pain management (two or more drugs and/or interventions excluding systemic opioids) in the periopeartive period occurring at some time between 6 hours prior to anesthesia start time until discharged from PACU No notable events documented. MIPS #[id number] PONV Patient received an inhalational anesthetic (4554F) MIPS # [id number] Perioperative Temperature Management Anesthesia time was 60 minutes or longer (4255F) MIPS #477 Multimodal Pain Management Not emergent case MIPS #404 Anesthesiology Smoking Abstinence The patient is not a current smoker (e.g. cigarette, cigar, pipe, e-cigarette/vaping/marijuana) If no stop here (G9644) I completed my handoff to the receiving clinician during which we: 1. Identified the patient 2. Identified the responsible provider 3. Reviewed the pertinent medical history 4. Discussed the surgical course 5. Reviewed intra-op anesthesia management and issues during anesthesia 6. Set expectations for post-procedure period 7. Allowed opportunity for questions and acknowledgement of understanding. [facility] [email or web address] [facility] 12-04-2022 Miscellaneous Notes Updated documented in this encounter [facility] 12-04-2022 Note Formatting of this n ote might be different from the original. Updated [facility] 12-04-2022 Note Formatting of this n ote might be different from the original. Updated [facility] 12-04-2022 Note Airway Date/Time: 12/04/2022 10:11 AM Urgency: scheduled General Information and Staff Patient location during procedure: Procedural Resident/DIRECTOR OF MATERIALS MANAGEMENT: KEITH Morales CRNA Performed: DIRECTOR OF MATERIALS MANAGEMENT Performed by: KEITH Morales CRNA Authorized by: KEITH Morales CRNA Indications and Patient Condition Indications for airway management: anesthesia Sedation level: Asleep and Modify RSI Preoxygenated: yes Patient position: sniffing Mask difficulty assessment: 0 - not attempted Final Airway Details Final airway type: endotracheal airway Successful airway: ETT Cuffed: yes Successful intubation technique: direct laryngoscopy Facilitating devices/methods: intubating stylet Endotracheal tube insertion site: oral Blade: Camejo Blade size: #2 ETT size (mm): 8.0 Cormack-Lehane Classification: grade I - full view of glottis Placement verified by: chest auscultation and capnometry Measured from: lips ETT to lips (cm): 23 Number of attempts at approach: 1 Additional Comments Atraumatic placement of ETT, dentition intact [facility] 12-04-2022 Hospital Discharg e instructions KEITH Bryant CNP - 12/04/2022 11:50 AM EDT Post Pulmonary Vein Isolation Ablation Discharge Instructions Observe groin site for swelling, redness, warmth, or bleeding. If these occur, notify your doctor. 2. If you develop shortness of breath, cough and/or swelling please call you doctor's office or seek emergency care for severe symptoms. 3. You may develop mild chest discomfort with taking a deep breath post procedure which typically peaks after 3 days and then improves. If discomfort worsens please call the office. If it becomes severe please seek emergency care. 4. No driving for the next 3 days. 5. Do not lift anything over 10 pounds for the next 7 days. You may resume your usual exercise routine after your two week follow up appointment. 6. Slight swelling or bruising is expected. For oozing, apply pressure for 10-15 minutes 7. For brisk bleeding that does not stop, or if your foot or leg becomes cold, come to the Emergency department 8. Keep groin site covered for 5 days. Change bandage daily. 9. No soaking in water. Showers only for the next 5 days. 10. Resume pre-procedure diet 11. Take all medications as prescribed by your doctor documented in this encounter [facility] [email or web address] 12-04-2022 Note Patient: Venkat harrington Procedure Information Date/Time: 12/04/22 1000 Procedure: Ablation a-fib paroxysmal Location: [facility] EP LAB / [facility] Cardiac Cath Labs Providers: Williams Mcnamara MD per HPI: About 3 years ago he had knee surgery and afterwards they noted atrial fibrillation that converted spontaneously. Since that time he had no recurrence until April. In April he was in for routine visit and noted to be in atrial fibrillation. In retrospect he had symptoms of fatigue and exercise intolerance for couple weeks prior to that diagnosis. He has been followed at the [facility] since that time. He was placed on Eliquis and atenolol. In August he underwent cardioversion. He said he stayed in sinus rhythm about 2 weeks and then had recurrence of atrial fibrillation. When the A-fib comes back he still noticed the fatigue and shortness of breath again. He has had no chest pain, dizziness or syncope. He did have a normal stress test and echocardiogramin July. He does wear his CPAP for sleep apnea for the last 2 years. He states his blood pressures at home have been controlled well. He has had no other bleeding issues on the anticoagulation. Relevant Problems Anesthesia (+) JENIFER (obstructive sleep apnea) Cardio neg strees test in july echo-ef55% (+) Atrial fibrillation with RVR (CMS/HCC) (HCC) (+) Essential hypertension (+) Hyperlipidemia Endo (+) Hypothyroidism Pulmonary (+) JENIFER (obstructive sleep apnea) Past Medical History: Past Medical History: No date: JENIFER on CPAP No date: Persistent atrial fibrillation (HCC) No date: Primary hypertension Past Surgical History: Past Surgical History: 10/2022: KNEE SURGERY; Right No date: SHOULDER SURGERY; Right Social History: TOBACCO: reports that he has never smoked. He has quit using smokeless tobacco. His smokeless tobacco use included chew. ETOH: reports current alcohol use. Social History Substance and Sexual Activity Drug Use Never Comment: 2 cups of coffee a day Family History: Family History Problem Relation Name Age of Onset ? Diabetes Mother ? Heart disease Mother ? Fibromyalgia Mother ? Heart disease Father ? Hyperlipidemia Father ? Thyroid disease Father ? Coronary artery disease Father ? Heart Surgery Father ? Heart attack Father 62 ? Prostate cancer Paternal Grandfather Screening: unknown Clinical information reviewed: Allergies Meds Physical Exam Airway Mallampati: III TM distance: >3 FB Neck ROM: full Mouth Open: within normal limits Cardiovascular - normal exam Dental dentition normal Pulmonary - normal exam Abdominal - normal exam Anesthesia Plan patient is NPO appropriate Any family history or previous problems with anesthesia no ASA 3 general Any family history or previous problems with anesthesia no The patient is not a current smoker. Anesthetic plan and risks discussed with patient. JENIFER Screening Labs: Lab Results Component Value Date WBC 12.3 (H) 11/19/2022 HGB 17.0 11/19/2022 HCT 52.1 (H) 11/19/2022 MCV 94.9 11/19/2022 PLT 208 11/19/2022 Lab Results Component Value Date NA 135 11/19/2022 K 4.6 11/19/2022 CL 101 11/19/2022 CO2 28 11/19/2022 BUN 23 (H) 11/19/2022 CREATININE 1.00 11/19/2022 GLUCOSE 92 11/19/2022 CALCIUM 9.3 11/19/2022 EGFR 85.1 11/19/2022 No echocardiogram results found for the past 14 days 11/19/22 ECG 12-LEAD 11/19/2022 10:39 AM (Final) Narrative Atrial fibrillation -irregular conduction -Left axis -anterior fascicular block. -Nonspecific T-abnormality. ABNORMAL Signed by: Williams Mcnamara MD on 11/19/2022 10:39 AM [facility] 11-24-2022 Note Office Visit 11/19/2022 [facility] Cardiology Williams Mcnamara MD Cardiology JENIFER (obstructive sleep apnea) +2 more Dx New Patient Reason for Visit Progress Notes Williams Mcnamara MD (Physician) Cardiology Expand All Collapse All [facility] Cardiology [facility] CARDIOLOGY [address] [facility] [address] Dept: [phone] Dept Visit type: Established : 1960 Chief Complaint: Chief Complaint Patient presents with New Patient History of Present Illness: Venkat Hall is a 62 y.o. male was referred for treatment of his atrial fibrillation. About 3 years ago he had knee surgery and afterwards they noted atrial fibrillation that converted spontaneously. Since that time he had no recurrence until April. In April he was in for routine visit and noted to be in atrial fibrillation. In retrospect he had symptoms of fatigue and exercise intolerance for couple weeks prior to that diagnosis. He has been followed at the [facility] since that time. He was placed on Eliquis and atenolol. In August he underwent cardioversion. He said he stayed in sinus rhythm about 2 weeks and then had recurrence of atrial fibrillation. When the A-fib comes back he still noticed the fatigue and shortness of breath again. He has had no chest pain, dizziness or syncope. He did have a normal stress test and echocardiogram in July. He does wear his CPAP for sleep apnea for thelast 2 years. He states his blood pressures at home have been controlled well. He has had no other bleeding issues on the anticoagulation. Past Medical History: Medical History No past medical history on file. Past Surgical History Surgical History Past Surgical History: Procedure Laterality Date KNEE SURGERY Right 10/2022 SHOULDER SURGERY Right Family History Family History Family History Problem Relation Name Age of Onset Diabetes Mother Heart disease Mother Fibromyalgia Mother Heart disease Father Hyperlipidemia Father Thyroid disease Father Coronary artery disease Father Heart Surgery Father Heart attack Father 62 Prostate cancer Paternal Grandfather Social History Social History Tobacco Use Smoking status: Never Smokeless tobacco: Former Types: Chew Substance Use Topics Alcohol use: Yes Comment: 3 or 4 days a week Drug use: Never Comment: 2 cups of coffee a day Allergies: Allergies Allergen Reactions Sertraline Other reaction(s): Intolerance, Other Sleepiness Penicillins Other reaction(s): PT UNSURE OF REACTION, Unknown Medications: Current Outpatient Medications: allopurinol (Zyloprim) 300 MG tablet, TAKE ONE TABLET BY MOUTH EVERY DAY FOR FOR GOUT, Disp: , Rfl: apixaban (Eliquis) 5 MG tablet, Take 5 mg by mouth 2 times daily., Disp: , Rfl: atenolol (Tenormin) 25 MG tablet, Take 50 mg by mouth in the morning., Disp: , Rfl: budesonide-formoterol (Symbicort) 80-4.5 MCG/ACT inhaler, Inhale 2 puffs in the morning and 2 puffs in the evening., Disp: , Rfl: esomeprazole (NexIUM) [address] capsule, Take 40 mg by mouth in the morning., Disp: , Rfl: fluticasone (Flonase) 50 MCG/ACT nasal spray, Administer 2 sprays into each nostril Daily as needed., Disp: , Rfl: levothyroxine (Synthroid, Levoxyl) 175 MCG tablet, Take 175 mcg by mouth in the morning., Disp: , Rfl: losartan (Cozaar) 50 MG tablet, Take 50 mg by mouth in the morning., Disp: , Rfl: Misc. Devices misc, Initiate Auto PAP @ 5-20 cm of water with humidification. Mask (per patient preference) optional chin strap (if indicated) , filters, tubing, humidifier and lifetime supplies., Disp: , Rfl: sildenafil (Viagra) 50 MG tablet, Take 50 mg by mouth., Disp: , Rfl: Review of Systems: Review of Systems Constitutional: Positive for fatigue. Negative for activity change and unexpected weight change. HENT: Negative. Eyes: Negative. Respiratory: Positive for apnea (compliant with cpap). Negative for shortness of breath. Cardiovascular: Positive for palpitations (no awareness). Negative for chest pain and leg swelling. DCC 2 months ago Endocrine: Positive for cold intolerance (cold and clammy). Genitourinary: Negative. Musculoskeletal: Recent right knee surgery - torn meniscus 7.21 held Eliquis x 3 days Allergic/Immunologic: Negative. Neurological: Positive for light-headedness (tunnel vision at times). Negative for dizziness and syncope. Hematological: Bruises/bleeds easily. Psychiatric/Behavioral: Negative. Physical Examination: Vitals: Vitals Vitals: 11/19/22 0956 BP: (!) 120/90 BP Location: Right arm Patient Position: Sitting BP Cuff Size: Large adult Pulse: 89 SpO2: 97% Weight: 287 lb 6.4 oz (130 kg) There is no height or weight on file to calculate BMI. Physical Exam Constitutional: General: He is not in acute distress. Appearance: Normal appearance. He is obese. He (more content not included)... [facility] 11-24-2022 Note Office Visit 11/19/2022 [facility] Cardiology Williams Mcnamara MD Cardiology JENIFER (obstructive sleep apnea) +2 more Dx New Patient Reason for Visit Progress Notes Williams Mcnamara MD (Physician) Cardiology Expand All Collapse All [facility] Cardiology [facility] CARDIOLOGY [address] [facility] [address] Dept: [phone] Dept Visit type: Established : 1960 Chief Complaint: Chief Complaint Patient presents with New Patient History of Present Illness: Venkat Hall is a 62 y.o. male was referred for treatment of his atrial fibrillation. About 3 years ago he had knee surgery and afterwards they noted atrial fibrillation that converted spontaneously. Since that time he had no recurrence until April. In April he was in for routine visit and noted to be in atrial fibrillation. In retrospect he had symptoms of fatigue and exercise intolerance for couple weeks prior to that diagnosis. He has been followed at the [facility] since that time. He was placed on Eliquis and atenolol. In August he underwent cardioversion. He said he stayed in sinus rhythm about 2 weeks and then had recurrence of atrial fibrillation. When the A-fib comes back he still noticed the fatigue and shortness of breath again. He has had no chest pain, dizziness or syncope. He did have a normal stress test and echocardiogram in July. He does wear his CPAP for sleep apnea for thelast 2 years. He states his blood pressures at home have been controlled well. He has had no other bleeding issues on the anticoagulation. Past Medical History: Medical History No past medical history on file. Past Surgical History Surgical History Past Surgical History: Procedure Laterality Date KNEE SURGERY Right 10/2022 SHOULDER SURGERY Right Family History Family History Family History Problem Relation Name Age of Onset Diabetes Mother Heart disease Mother Fibromyalgia Mother Heart disease Father Hyperlipidemia Father Thyroid disease Father Coronary artery disease Father Heart Surgery Father Heart attack Father 62 Prostate cancer Paternal Grandfather Social History Social History Tobacco Use Smoking status: Never Smokeless tobacco: Former Types: Chew Substance Use Topics Alcohol use: Yes Comment: 3 or 4 days a week Drug use: Never Comment: 2 cups of coffee a day Allergies: Allergies Allergen Reactions Sertraline Other reaction(s): Intolerance, Other Sleepiness Penicillins Other reaction(s): PT UNSURE OF REACTION, Unknown Medications: Current Outpatient Medications: allopurinol (Zyloprim) 300 MG tablet, TAKE ONE TABLET BY MOUTH EVERY DAY FOR FOR GOUT, Disp: , Rfl: apixaban (Eliquis) 5 MG tablet, Take 5 mg by mouth 2 times daily., Disp: , Rfl: atenolol (Tenormin) 25 MG tablet, Take 50 mg by mouth in the morning., Disp: , Rfl: budesonide-formoterol (Symbicort) 80-4.5 MCG/ACT inhaler, Inhale 2 puffs in the morning and 2 puffs in the evening., Disp: , Rfl: esomeprazole (NexIUM) [address] capsule, Take 40 mg by mouth in the morning., Disp: , Rfl: fluticasone (Flonase) 50 MCG/ACT nasal spray, Administer 2 sprays into each nostril Daily as needed., Disp: , Rfl: levothyroxine (Synthroid, Levoxyl) 175 MCG tablet, Take 175 mcg by mouth in the morning., Disp: , Rfl: losartan (Cozaar) 50 MG tablet, Take 50 mg by mouth in the morning., Disp: , Rfl: Misc. Devices misc, Initiate Auto PAP @ 5-20 cm of water with humidification. Mask (per patient preference) optional chin strap (if indicated) , filters, tubing, humidifier and lifetime supplies., Disp: , Rfl: sildenafil (Viagra) 50 MG tablet, Take 50 mg by mouth., Disp: , Rfl: Review of Systems: Review of Systems Constitutional: Positive for fatigue. Negative for activity change and unexpected weight change. HENT: Negative. Eyes: Negative. Respiratory: Positive for apnea (compliant with cpap). Negative for shortness of breath. Cardiovascular: Positive for palpitations (no awareness). Negative for chest pain and leg swelling. DCC 2 months ago Endocrine: Positive for cold intolerance (cold and clammy). Genitourinary: Negative. Musculoskeletal: Recent right knee surgery - torn meniscus 7.21 held Eliquis x 3 days Allergic/Immunologic: Negative. Neurological: Positive for light-headedness (tunnel vision at times). Negative for dizziness and syncope. Hematological: Bruises/bleeds easily. Psychiatric/Behavioral: Negative. Physical Examination: Vitals: Vitals Vitals: 11/19/22 0956 BP: (!) 120/90 BP Location: Right arm Patient Position: Sitting BP Cuff Size: Large adult Pulse: 89 SpO2: 97% Weight: 287 lb 6.4 oz (130 kg) There is no height or weight on file to calculate BMI. Physical Exam Constitutional: General: He is not in acute distress. Appearance: Normal appearance. He is obese. He (more content not included)... [employer] [facility] 11-24-2022 Telephone encounter Note Prep Proc Done [employer] Work Phone: 11-24-2022 Miscellaneous Notes Prep Proc Done I will work on this. Thanks PVI scheduled 12/04/22 at 8:30 with [facility] Case # [id number] Auth started 2 wk post 12/17 at 8:00 with SM Procedure: PVI Date: 12.04.22 NKA to Iodine base contrast Hold 2 doses of Eliquis Last dose on 8.10 AM Pre-procedure instructions provided @ OV with [facility] 11.19.22 NPO at midnight prior to procedure Hold all AM medications day of procedure Use [employer] parking or [address] Deck Enter the hospital @ [address] Take E Elevators to the Central Lounge to check in Designated wheat combine driver needed post procedure Be prepared to spend the night Bring CPAP machine Will need a designated wheat combine driver at next day discharge. Pending: CBC & BMP to be completed today at [address] Prep/proc orders 2 week FU with Niesha 12.17.22 @ 8 am documented in this encounter [facility] 11-24-2022 History and physical note Images from the original note were not included. Office Visit 11/19/2022 [facility] Cardiology Williams Mcnamara MD Cardiology JENIFER (obstructive sleep apnea) +2 more Dx New Patient Reason for Visit Progress Notes Williams Mcnamara MD (Physician) Cardiology Expand All Collapse All [facility] Cardiology [facility] C[facility]IOLOG[facility] [address] [facility] [address] Dept: [phone] Dept Visit type: Established : 1960 Chief Complaint: Chief Complaint Patient presents with New Patient History of Present Illness: Venkat Hall is a 62 y.o. male was referred for treatment of his atrial fibrillation. About 3 years ago he had knee surgery and afterwards they noted atrial fibrillation that converted spontaneously. Since that time he had no recurrence until April. In April he was in for routine visit and noted to be in atrial fibrillation. In retrospect he had symptoms of fatigue and exercise intolerance for couple weeks prior to that diagnosis. He has been followed at the [facility] since that time. He was placed on Eliquis and atenolol. In August he underwent cardioversion. He said he stayed in sinus rhythm about 2 weeks and then had recurrence of atrial fibrillation. When the A-fib comes back he still noticed the fatigue and shortness of breath again. He has had no chest pain, dizziness or syncope. He did have a normal stress test and echocardiogram in July. He does wear his CPAP for sleep apnea for the last 2 years. He states his blood pressures at home have been controlled well. He has had no other bleeding issues on the anticoagulation. Past Medical History: Medical History No past medical history on file. Past Surgical History Surgical History Past Surgical History: Procedure Laterality Date KNEE SURGERY Right 10/2022 SHOULDER SURGERY Right Family History Family History Family History Problem Relation Name Age of Onset Diabetes Mother Heart disease Mother Fibromyalgia Mother Heart disease Father Hyperlipidemia Father Thyroid disease Father Coronary artery disease Father Heart Surgery Father Heart attack Father 62 Prostate cancer Paternal Grandfather Social History Social History Tobacco Use Smoking status: Never Smokeless tobacco: Former Types: Chew Substance Use Topics Alcohol use: Yes Comment: 3 or 4 days a week Drug use: Never Comment: 2 cups of coffee a day Allergies: Allergies Allergen Reactions Sertraline Other reaction(s): Intolerance, Other Sleepiness Penicillins Other reaction(s): PT UNSURE OF REACTION, Unknown Medications: Current Outpatient Medications: allopurinol (Zyloprim) 300 MG tablet, TAKE ONE TABLET BY MOUTH EVERY DAY FOR FOR GOUT, Disp: , Rfl: apixaban (Eliquis) 5 MG tablet, Take 5 mg by mouth 2 times daily., Disp: , Rfl: atenolol (Tenormin) 25 MG tablet, Take 50 mg by mouth in the morning., Disp: , Rfl: budesonide-formoterol (Symbicort) 80-4.5 MCG/ACT inhaler, Inhale 2 puffs in the morning and 2 puffs in the evening., Disp: , Rfl: esomeprazole (NexIUM) [address] capsule, Take 40 mg by mouth in the morning., Disp: , Rfl: fluticasone (Flonase) 50 MCG/ACT nasal spray, Administer 2 sprays into each nostril Daily as needed., Disp: , Rfl: levothyroxine (Synthroid, Levoxyl) 175 MCG tablet, Take 175 mcg by mouth in the morning., Disp: , Rfl: losartan (Cozaar) 50 MG tablet, Take 50 mg by mouth in the morning., Disp: , Rfl: Misc. Devices misc, Initiate Auto PAP @ 5-20 cm of water with humidification. Mask (per patient preference) optional chin strap (if indicated) , filters, tubing, humidifier and lifetime supplies., Disp: , Rfl: sildenafil (Viagra) 50 MG tablet, Take 50 mg by mouth., Disp: , Rfl: Review of Systems: Review of Systems Constitutional: Positive for fatigue. Negative for activity change and unexpected weight change. HENT: Negative. Eyes: Negative. Respiratory: Positive for apnea (compliant with cpap). Negative for shortness of breath. Cardiovascular: Positive for palpitations (no awareness). Negative for chest pain and leg swelling. DCC 2 months ago Endocrine: Positive for cold intolerance (cold and clammy). Genitourinary: Negative. Musculoskeletal: Recent right knee surgery - torn meniscus 7.21 held Eliquis x 3 days Allergic/Immunologic: Negative. Neurological: Positive for light-headedness (tunnel vision at times). Negative for dizziness and syncope. Hematological: Bruises/bleeds easily. Psychiatric/Behavioral: Negative. Physical Examination: Vitals: Vitals Vitals: 11/19/22 0956 BP: (!) 120/90 BP Location: Right arm Patient Position: Sitting BP Cuff Size: Large adult Pulse: 89 SpO2: 97% Weight: 287 lb 6.4 oz (130 kg) There is no height or weight on file to calculate BMI. Physical Exam Constitutional: General: He is not in acute distress. Appearance: Normal appearance. He is obese. He is not ill-appearing. HENT: Head: Normocephalic and atraumatic. Nose: Nose normal. Eyes: General: No scleral icterus. Conjunctiva/sclera: Conjunctivae normal. Neck: Vascular: No carotid bruit or JVD. Cardiovascular: Rate and Rhythm: Normal rate and regular rhythm. Heart sounds: Normal heart sounds. No murmur heard. Pulmonary: Effort: Pulmonary effort is normal. Breath sounds: No wheezing or rales. Musculoskeletal: General: No deformity. Right lower leg: No edema. Left lower leg: No edema. Skin: General: Skin is warm and dry. Neurological: General: No focal deficit present. Mental Status: He is alert. Motor: No weakness. Gait: Gait normal. Psychiatric: Mood and Affect: Mood normal. Thought Content: Thought content normal. Nuclear stress test July 2022 was normal Transthoracic echocardiogram July 2022 showed no valvular heart disease and normal left ventricular function Assessment and Plan: 1. Atrial fibrillation with RVR (CMS/HCC) (HCC) 2. Essential hypertension The patient has persistent atrial fibrillation. He is symptomatic despite rate control. We discussed the options of antiarrhythmic drug versus pulmonary vein isolation. He would prefer the pulmonary vein isolation. I emphasized the need for him to continue to monitor his blood pressure, wear his CPAP and set a goal for minimum of 10% weight loss. I informed him this would help reduce the recurrence rate after the ablation. The risk and benefits of the pulmonary vein isolation were discussed and he agrees to proceed. H+ P copied to chart from Dr Williams Mcnamara progress note dated 11/19/[address] Williams Mcnamara [facility] [email or web address] Work Phone: 11-24-2022 History and physical note Images from the original note were not included. Office Visit 11/19/2022 [facility] Cardiology Williams Mcnamara MD Cardiology JENIFER (obstructive sleep apnea) +2 more Dx New Patient Reason for Visit Progress Notes Williams Mcnamara MD (Physician) Cardiology Expand All Collapse All [facility] Cardiology [facility] CARDIOLOGY [address] [place] [address] Dept: [phone] Dept Visit type: Established : 1960 Chief Complaint: Chief Complaint Patient presents with New Patient History of Present Illness: Venkat Hall is a 62 y.o. male was referred for treatment of his atrial fibrillation. About 3 years ago he had knee surgery and afterwards they noted atrial fibrillation that converted spontaneously. Since that time he had no recurrence until April. In April he was in for routine visit and noted to be in atrial fibrillation. In retrospect he had symptoms of fatigue and exercise intolerance for couple weeks prior to that diagnosis. He has been followed at the [facility] since that time. He was placed on Eliquis and atenolol. In August he underwent cardioversion. He said he stayed in sinus rhythm about 2 weeks and then had recurrence of atrial fibrillation. When the A-fib comes back he still noticed the fatigue and shortness of breath again. He has had no chest pain, dizziness or syncope. He did have a normal stress test and echocardiogram in July. He does wear his CPAP for sleep apnea for the last 2 years. He states his blood pressures at home have been controlled well. He has had no other bleeding issues on the anticoagulation. Past Medical History: Medical History No past medical history on file. Past Surgical History Surgical History Past Surgical History: Procedure Laterality Date KNEE SURGERY Right 10/2022 SHOULDER SURGERY Right Family History Family History Family History Problem Relation Name Age of Onset Diabetes Mother Heart disease Mother Fibromyalgia Mother Heart disease Father Hyperlipidemia Father Thyroid disease Father Coronary artery disease Father Heart Surgery Father Heart attack Father 62 Prostate cancer Paternal Grandfather Social History Social History Tobacco Use Smoking status: Never Smokeless tobacco: Former Types: Chew Substance Use Topics Alcohol use: Yes Comment: 3 or 4 days a week Drug use: Never Comment: 2 cups of coffee a day Allergies: Allergies Allergen Reactions Sertraline Other reaction(s): Intolerance, Other Sleepiness Penicillins Other reaction(s): PT UNSURE OF REACTION, Unknown Medications: Current Outpatient Medications: allopurinol (Zyloprim) 300 MG tablet, TAKE ONE TABLET BY MOUTH EVERY DAY FOR FOR GOUT, Disp: , Rfl: apixaban (Eliquis) 5 MG tablet, Take 5 mg by mouth 2 times daily., Disp: , Rfl: atenolol (Tenormin) 25 MG tablet, Take 50 mg by mouth in the morning., Disp: , Rfl: budesonide-formoterol (Symbicort) 80-4.5 MCG/ACT inhaler, Inhale 2 puffs in the morning and 2 puffs in the evening., Disp: , Rfl: esomeprazole (NexIUM) [address] capsule, Take 40 mg by mouth in the morning., Disp: , Rfl: fluticasone (Flonase) 50 MCG/ACT nasal spray, Administer 2 sprays into each nostril Daily as needed., Disp: , Rfl: levothyroxine (Synthroid, Levoxyl) 175 MCG tablet, Take 175 mcg by mouth in the morning., Disp: , Rfl: losartan (Cozaar) 50 MG tablet, Take 50 mg by mouth in the morning., Disp: , Rfl: Misc. Devices misc, Initiate Auto PAP @ 5-20 cm of water with humidification. Mask (per patient preference) optional chin strap (if indicated) , filters, tubing, humidifier and lifetime supplies., Disp: , Rfl: sildenafil (Viagra) 50 MG tablet, Take 50 mg by mouth., Disp: , Rfl: Review of Systems: Review of Systems Constitutional: Positive for fatigue. Negative for activity change and unexpected weight change. HENT: Negative. Eyes: Negative. Respiratory: Positive for apnea (compliant with cpap). Negative for shortness of breath. Cardiovascular: Positive for palpitations (no awareness). Negative for chest pain and leg swelling. DCC 2 months ago Endocrine: Positive for cold intolerance (cold and clammy). Genitourinary: Negative. Musculoskeletal: Recent right knee surgery - torn meniscus 7.21 held Eliquis x 3 days Allergic/Immunologic: Negative. Neurological: Positive for light-headedness (tunnel vision at times). Negative for dizziness and syncope. Hematological: Bruises/bleeds easily. Psychiatric/Behavioral: Negative. Physical Examination: Vitals: Vitals Vitals: 11/19/22 0956 BP: (!) 120/90 BP Location: Right arm Patient Position: Sitting BP Cuff Size: Large adult Pulse: 89 SpO2: 97% Weight: 287 lb 6.4 oz (130 kg) There is no height or weight on file to calculate BMI. Physical Exam Constitutional: General: He is not in acute distress. Appearance: Normal appearance. He is obese. He is not ill-appearing. HENT: Head: Normocephalic and atraumatic. Nose: Nose normal. Eyes: General: No scleral icterus. Conjunctiva/sclera: Conjunctivae normal. Neck: Vascular: No carotid bruit or JVD. Cardiovascular: Rate and Rhythm: Normal rate and regular rhythm. Heart sounds: Normal heart sounds. No murmur heard. Pulmonary: Effort: Pulmonary effort is normal. Breath sounds: No wheezing or rales. Musculoskeletal: General: No deformity. Right lower leg: No edema. Left lower leg: No edema. Skin: General: Skin is warm and dry. Neurological: General: No focal deficit present. Mental Status: He is alert. Motor: No weakness. Gait: Gait normal. Psychiatric: Mood and Affect: Mood normal. Thought Content: Thought content normal. Nuclear stress test July 2022 was normal Transthoracic echocardiogram July 2022 showed no valvular heart disease and normal left ventricular function Assessment and Plan: 1. Atrial fibrillation with RVR (CMS/HCC) (HCC) 2. Essential hypertension The patient has persistent atrial fibrillation. He is symptomatic despite rate control. We discussed the options of antiarrhythmic drug versus pulmonary vein isolation. He would prefer the pulmonary vein isolation. I emphasized the need for him to continue to monitor his blood pressure, wear his CPAP and set a goal for minimum of 10% weight loss. I informed him this would help reduce the recurrence rate after the ablation. The risk and benefits of the pulmonary vein isolation were discussed and he agrees to proceed. H+ P copied to chart from Dr Williams Mcnamara progress note dated 11/19/[address] Williams Mcnamara documented in this encounter [facility] 11-20-2022 Telephone encounter Note I will work on this. Thanks [facility] 11-20-2022 Telephone encounter Note PVI scheduled 12/04/22 at 8:30 with [facility] Case # [id number] Auth started 2 wk post 12/17 at 8:00 with SM [facility] 11-19-2022 Note Procedure: PVI Date: 12.04.22 NKA to Iodine base contrast Hold 2 doses of Eliquis Last dose on 8.10 AM Pre-procedure instructions provided @ OV with [facility] 7.27.23 NPO at midnight prior to procedure Hold all AM medications day of procedure Use [employer] parking or [address] Deck Enter the hospital @ [address] Take E Elevators to the Central Lounge to check in Designated wheat combine driver needed post procedure Be prepared to spend the night Bring CPAP machine Will need a designated wheat combine driver at next day discharge. 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 Pending: CBC & BMP to be completed today at [address] Prep/proc orders 2 week FU with Niesha 8.24.23 @ 8 am [facility] 11-19-2022 History of Presen t illness Narrative [facility] Cardiology [facility] CARDIOLOGY [address] [facility] [address] Dept: [phone] Dept Visit type: Established : 1960 Chief Complaint: Chief Complaint Patient presents with New Patient History of Present Illness: Venkat Hall is a 62 y.o. male was referred for treatment of his atrial fibrillation. About 3 years ago he had knee surgery and afterwards they noted atrial fibrillation that converted spontaneously. Since that time he had no recurrence until April. In April he was in for routine visit and noted to be in atrial fibrillation. In retrospect he had symptoms of fatigue and exercise intolerance for couple weeks prior to that diagnosis. He has been followed at the [facility] since that time. He was placed on Eliquis and atenolol. In August he underwent cardioversion. He said he stayed in sinus rhythm about 2 weeks and then had recurrence of atrial fibrillation. When the A-fib comes back he still noticed the fatigue and shortness of breath again. He has had no chest pain, dizziness or syncope. He did have a normal stress test and echocardiogram in July. He does wear his CPAP for sleep apnea for the last 2 years. He states his blood pressures at home have been controlled well. He has had no other bleeding issues on the anticoagulation. Past Medical History: No past medical history on file. Past Surgical History Past Surgical History: Procedure Laterality Date KNEE SURGERY Right 10/2022 SHOULDER SURGERY Right Family History Family History Problem Relation Name Age of Onset Diabetes Mother Heart disease Mother Fibromyalgia Mother Heart disease Father Hyperlipidemia Father Thyroid disease Father Coronary artery disease Father Heart Surgery Father Heart attack Father 62 Prostate cancer Paternal Grandfather Social History Social History Tobacco Use Smoking status: Never Smokeless tobacco: Former Types: Chew Substance Use Topics Alcohol use: Yes Comment: 3 or 4 days a week Drug use: Never Comment: 2 cups of coffee a day Allergies: Allergies Allergen Reactions Sertraline Other reaction(s): Intolerance, Other Sleepiness Penicillins Other reaction(s): PT UNSURE OF REACTION, Unknown Medications: Current Outpatient Medications: allopurinol (Zyloprim) 300 MG tablet, TAKE ONE TABLET BY MOUTH EVERY DAY FOR FOR GOUT, Disp: , Rfl: apixaban (Eliquis) 5 MG tablet, Take 5 mg by mouth 2 times daily., Disp: , Rfl: atenolol (Tenormin) 25 MG tablet, Take 50 mg by mouth in the morning., Disp: , Rfl: budesonide-formoterol (Symbicort) 80-4.5 MCG/ACT inhaler, Inhale 2 puffs in the morning and 2 puffs in the evening., Disp: , Rfl: esomeprazole (NexIUM) [address] capsule, Take 40 mg by mouth in the morning., Disp: , Rfl: fluticasone (Flonase) 50 MCG/ACT nasal spray, Administer 2 sprays into each nostril Daily as needed., Disp: , Rfl: levothyroxine (Synthroid, Levoxyl) 175 MCG tablet, Take 175 mcg by mouth in the morning., Disp: , Rfl: losartan (Cozaar) 50 MG tablet, Take 50 mg by mouth in the morning., Disp: , Rfl: Misc. Devices misc, Initiate Auto PAP @ 5-20 cm of water with humidification. Mask (per patient preference) optional chin strap (if indicated) , filters, tubing, humidifier and lifetime supplies., Disp: , Rfl: sildenafil (Viagra) 50 MG tablet, Take 50 mg by mouth., Disp: , Rfl: Review of Systems: Review of Systems Constitutional: Positive for fatigue. Negative for activity change and unexpected weight change. HENT: Negative. Eyes: Negative. Respiratory: Positive for apnea (compliant with cpap). Negative for shortness of breath. Cardiovascular: Positive for palpitations (no awareness). Negative for chest pain and leg swelling. DCC 2 months ago Endocrine: Positive for cold intolerance (cold and clammy). Genitourinary: Negative. Musculoskeletal: Recent right knee surgery - torn meniscus 7.21 held Eliquis x 3 days Allergic/Immunologic: Negative. Neurological: Positive for light-headedness (tunnel vision at times). Negative for dizziness and syncope. Hematological: Bruises/bleeds easily. Psychiatric/Behavioral: Negative. Physical Examination: Vitals: Vitals: 11/19/22 0956 BP: (!) 120/90 BP Location: Right arm Patient Position: Sitting BP Cuff Size: Large adult Pulse: 89 SpO2: 97% Weight: 287 lb 6.4 oz (130 kg) There is no height or weight on file to calculate BMI. Physical Exam Constitutional: General: He is not in acute distress. Appearance: Normal appearance. He is obese. He is not ill-appearing. HENT: Head: Normocephalic and atraumatic. Nose: Nose normal. Eyes: General: No scleral icterus. Conjunctiva/sclera: Conjunctivae normal. Neck: Vascular: No carotid bruit or JVD. Cardiovascular: Rate and Rhythm: Normal rate and regular rhythm. Heart sounds: Normal heart sounds. No murmur heard. Pulmonary: Effort: Pulmonary effort is normal. Breath sounds: No wheezing or rales. Musculoskeletal: General: No deformity. Right lower leg: No edema. Left lower leg: No edema. Skin: General: Skin is warm and dry. Neurological: General: No focal deficit present. Mental Status: He is alert. Motor: No weakness. Gait: Gait normal. Psychiatric: Mood and Affect: Mood normal. Thought Content: Thought content normal. Nuclear stress test July 2022 was normal Transthoracic echocardiogram July 2022 showed no valvular heart disease and normal left ventricular function Assessment and Plan: 1. Atrial fibrillation with RVR (CMS/HCC) (HCC) 2. Essential hypertension The patient has persistent atrial fibrillation. He is symptomatic despite rate control. We discussed the options of antiarrhythmic drug versus pulmonary vein isolation. He would prefer the pulmonary vein isolation. I emphasized the need for him to continue to monitor his blood pressure, wear his CPAP and set a goal for minimum of 10% weight loss. I informed him this would help reduce the recurrence rate after the ablation. The risk and benefits of the pulmonary vein isolation were discussed and he agrees to proceed. documented in this encounter [facility] 07-09-2022 Note HNO ID: [id number] Author: Sammie Banks MD Service: ? Author Type: Physician Type: Progress Notes Filed: 07/09/2022 1:21 PM Note Text: Reason for Visit Patient presents with: Recheck: Pre-op clearance Venkat Hall is a 62 year old male who presents here today for Above Complaints.. Health Maintenance PNEUMOCOCCAL(1 - PCV) SPIROMETRY BP CONTROLLED (<130/80) SHINGRIX VACCINE(1 of 2) DTAP,TDAP,TD(2 - Td or Tdap) HPI Patient is here for preop clearance and seems anxious to get his meniscal arthroscopic surgery done. This is because he is unable to move and it is not helping his overall activity and weight. He saw me at 2 3 weeks ago for preoperative clearance. Afib: His CHADS VASC 2 has a score of 1 for hypertension. The score of 1 is not for age so the benefits of anticoagulation are not very clear. He prefers not to be anticoagulated at this point, his risk is only 0.6 percent to have embolic event. We did start him on beta-wilberto for paroxysmal afib.today he notes he is he is tired and sleepy with the atenolol , takes it at night and gets a good 9 hour sleep. Has been compliant with the sleep machine. We have repeat labs because of minor abnormalities in his lab last time and he had lab work done at [facility] I have the records. Tsh is normal, his glucose is a little on the higher side. After stopping the creatinine supplements his creatinine is better a little and the potassium is in the normal range. Last visit we also started him on blood pressure medication because his blood pressure tended to be a little bit on the higher side and today his true BP was at 131 x 83. Walk indoors, such as around the house (1.75 METs): YES Do light work around the house, such as dusting or washing dishes (2.70 METs): YES Take care of self; that is eating, dressing, bathing, using the toilet (2.75 METs): YES Walk a block or two on level ground (2.75 METs): YES Do moderate work around the house such as vacuuming, sweeping floors, or carrying in groceries (3.50 METs): YES Do yardwork, such as raking leaves, weeding,or pushing a power mower (4.50 METs): YES Climb a flight of stairs or walk up a hill (5.50 METs): YES Participate in moderate recreational activities, such as golf, bowling, dancing, doubles tennis, or throwing a baseball or football (6.00 METs): yes. No problem-specific Assessment AND Plan notes found for this encounter. PAST MEDICAL HISTORY Diagnosis Date COPD (chronic obstructive pulmonary disease) (HCC) Esophageal reflux Gastroesophageal reflux Essential hypertension Gout High cholesterol Hypothyroidism Unspecified asthma(493.90) PAST SURGICAL HISTORY Procedure Laterality Date COLONOSCOPY FLX DX W/COLLJ SPEC WHEN PFRMD 03/04/2011 Colonoscopy-repeat in COLONOSCOPY FLX DX W/COLLJ SPEC WHEN PFRMD 03/03/2021 ESOPHAGOGASTRODUODENOSCOPY TRANSORAL DIAGNOSTIC 03/04/2011 EGD EYE SURGERY HX PAST SURGICAL HISTORY OF SHOULDER ARTHROSCOPY right RADIAL KERATOTOMY VASECTOMY UNI/BI SPX W/POSTOP SEMEN EXAMS FAMILY HISTORY Problem Relation Age of Onset Diabetes Mother Heart Mother other (fibramylgia) Mother Heart Father Lipids Father Thyroid Father Prostate Cancer Paternal Grandfather age 92 Social History Tobacco Use Smoking status: Never Smokeless tobacco: Former Types: Chew Quit date: 04/26/2014 Tobacco comments: none Substance Use Topics Alcohol use: Yes Alcohol/week: 10.0 standard drinks Types: 10 Cans of Beer (12oz) per week Comment: per week Drug use: No Past medical history, appointments, medications, allergies reviewed. Pertinent Lab/Diagnostic Studies are reviewed and discussed today Current Outpatient Medications: fluticasone (FLONASE) 50 mcg/actuation nasal spray levothyroxine (LEVOXYL) 175 mcg tablet losartan (COZAAR) 50 mg tablet allopurinol (ZYLOPRIM) 300 mg tablet esomeprazole (NEXIUM) 40 mg capsule sildenafil (VIAGRA) 50 mg tablet atenolol (TENORMIN) 25 mg tablet budesonide-formoterol (SYMBICORT) 80-4.5 mcg/actuation inhaler aspirin, enteric coated (ASPIRIN, ENTERIC COATED) 81 mg EC tablet CPAP albuterol HFA (VENTOLIN HFA) 90 mcg/actuation inhaler Review of Systems CONSTITUTIONAL: No fevers, chills night sweats, unintended weight loss CARDIOVASCULAR: No chest pain, dyspnea, palpitations, orthopnea, PND, ankle edema. PULM: No dyspnea, unexplained cough. GI: No dysphagia/odynophagia, problematic reflux, constipation, diarrhea, changes in stool habits, hematochezia, melena. : No new urinary complaints, including dysuria, gross hematuria or pyuria. NEURO: No new balance problems, peripheral weakness/paresthesias or numbness of concern. Physical Exam BP 144/92 Pulse (!) 59 Temp 36.7 ?C (98 ?F) (Temporal) Resp 16 Wt 132.9 kg (293 lb) SpO2 97% BMI 36.62 kg/m? General appearance: Well appearing, alert, in no acute distress, well nouris (more content not included)... [facility] 07-03-2022 Note HNO ID: [id number] Author: Grace Esqueda LPN Service: ? Author Type: ? Type: Progress Notes Filed: 07/03/2022 11:25 AM Note Text: Scan on 07/03/2022 8:20 AM by External Provider: Miscellaneous Lab Erendira Esqueda LPN [facility] 07-03-2022 History of Presen t illness Narrative Scan on 07/03/2022 8:20 AM by External Provider: Miscellaneous Lab Erendira Esqueda LPN documented in this encounter [facility] 06-19-2022 Miscellaneous Notes Spouse (Akila) calls to request labs be faxed to [facility]. Faxed to [phone] per request. Kristie Ward RN documented in this encounter [facility] 06-18-2022 History of Presen t illness Narrative Reason for Visit Patient presents with: Pre-Op Exam: Right knee Arthroscopy medial meniscus repair. Surgery date to be determined Venkat Hall is a 61 year old male who presents here today for Above Complaints.. Health Maintenance PNEUMOCOCCAL(1 - PCV) SPIROMETRY SHINGRIX VACCINE(1 of 2) DTAP,TDAP,TD(2 - Td or Tdap) DEPRESSION ASSESSMENT HPI Here for pre op Surgery: meniscal tear: he played golf 2 years ago [place], he started having pain after that , it since resolved recurred as he continued to play. Had 2 cortisone shot and it did not work well. Dr Gabriel Camejo is doing it. His labs and ekg was concerning. His creat was high and so his gfr was low, also had potassium elevation. Patient takes daily creatinine supplements. Stop supplements for 2 weeks and get blood work Ekg showed afib. His CHADS2 had only 1 point for Hypertension. Not based on age, he prefers not to be anticoagulated at this point, his risk is only 0.6 percent. He would benefit from a bblocker Pre operative clearance. Cardiac: Pulm: METS: Walk indoors, such as around the house (1.75 METs): YES Do light work around the house, such as dusting or washing dishes (2.70 METs): YES Take care of self; that is eating, dressing, bathing, using the toilet (2.75 METs): YES Walk a block or two on level ground (2.75 METs): YES Do moderate work around the house such as vacuuming, sweeping floors, or carrying in groceries (3.50 METs): YES Do yardwork, such as raking leaves, weeding,or pushing a power mower (4.50 METs): YES Climb a flight of stairs or walk up a hill (5.50 METs): YES Participate in moderate recreational activities, such as golf, bowling, dancing, doubles tennis, or throwing a baseball or football (6.00 METs): yes. No problem-specific Assessment & Plan notes found for this encounter. PAST MEDICAL HISTORY Diagnosis Date COPD (chronic obstructive pulmonary disease) (HCC) Esophageal reflux Gastroesophageal reflux Essential hypertension Gout High cholesterol Hypothyroidism Unspecified asthma(493.90) PAST SURGICAL HISTORY Procedure Laterality Date COLONOSCOPY FLX DX W/COLLJ SPEC WHEN PFRMD 03/04/2011 Colonoscopy-repeat in COLONOSCOPY FLX DX W/COLLJ SPEC WHEN PFRMD 03/03/2021 ESOPHAGOGASTRODUODENOSCOPY TRANSORAL DIAGNOSTIC 03/04/2011 EGD EYE SURGERY HX PAST SURGICAL HISTORY OF SHOULDER ARTHROSCOPY right RADIAL KERATOTOMY VASECTOMY UNI/BI SPX W/POSTOP SEMEN EXAMS FAMILY HISTORY Problem Relation Age of Onset Diabetes Mother Heart Mother other (fibramylgia) Mother Heart Father Lipids Father Thyroid Father Prostate Cancer Paternal Grandfather age 92 Social History Tobacco Use Smoking status: Never Smokeless tobacco: Former Types: Chew Quit date: 04/26/2014 Tobacco comments: none Substance Use Topics Alcohol use: Yes Alcohol/week: 10.0 standard drinks Types: 10 Cans of Beer (12oz) per week Comment: per week Drug use: No Past medical history, appointments, medications, allergies reviewed. Pertinent Lab/Diagnostic Studies are reviewed and discussed today Current Outpatient Medications: CPAP sildenafil (VIAGRA) 50 mg tablet esomeprazole (NEXIUM) 40 mg capsule allopurinol (ZYLOPRIM) 300 mg tablet losartan (COZAAR) 50 mg tablet levothyroxine (LEVOXYL) 175 mcg tablet fluticasone (FLONASE) 50 mcg/actuation nasal spray budesonide-formoterol (SYMBICORT) 80-4.5 mcg/actuation inhaler albuterol HFA (VENTOLIN HFA) 90 mcg/actuation inhaler Review of Systems CONSTITUTIONAL: No fevers, chills night sweats, unintended weight loss CARDIOVASCULAR: No chest pain, dyspnea, palpitations, orthopnea, PND, ankle edema. PULM: No dyspnea, unexplained cough. GI: No dysphagia/odynophagia, problematic reflux, constipation, diarrhea, changes in stool habits, hematochezia, melena. : No new urinary complaints, including dysuria, gross hematuria or pyuria. NEURO: No new balance problems, peripheral weakness/paresthesias or numbness of concern. Physical Exam BP 143/87 (BP Site: Right Arm) Pulse 65 Resp 16 Wt 132 kg (291 lb) SpO2 97% BMI 36.37 kg/m General appearance: Well appearing, alert, in no acute distress, well nourished. Skin: Skin color, texture, turgor normal, no suspicious rashes or lesions Head: Normocephalic, no masses, lesions, tenderness or abnormalities Eyes: Anicteric sclera. Pupils are equally round and reactive to light. Extraocular movements are intact. Lungs: Lungs clear to auscultation. No wheezing, rhonchi, rales Heart: RRR without murmur, gallop, or rubs. Extremities: No deformities, edema, skin discoloration, clubbing or cyanosis. Good capillary refill. ASSESSMENT/PLAN: 1. Pre-operative clearance - ICD9: V72.84, ICD10: Z01.818 (primary diagnosis) Started b wilberto due to afib and uncontrolled Hypertension, patient is hesitant and as his age is not really not in the 1 point , in 4 years he needs to start on the medication Stop the creat supplementss and recheck gfr Also recheck potassium 2. Acute LUCILLE (middle ear effusion), bilateral - ICD9: 381.00, ICD10: H65.193 - FLUTICASONE PROPIONATE 50 MCG/ACTUATION NASAL SPRAY,SUSPENSION 3. Hypothyroidism, unspecified type - ICD9: 244.9, ICD10: E03.9 - LEVOTHYROXINE 175 MCG TABLET - TSH BLD 4. Essential hypertension - ICD9: 401.9, ICD10: I10 Uncontrolled - LOSARTAN 50 MG TABLET - COMP METABOLIC PANEL 5. Gout, unspecified cause, unspecified chronicity, unspecified site - ICD9: 274.9, ICD10: M10.9 - ALLOPURINOL 300 MG TABLET 6. Gastroesophageal reflux disease without esophagitis - ICD9: 530.81, ICD10: K21.9 - ESOMEPRAZOLE MAGNESIUM 40 MG CAPSULE,DELAYED RELEASE 7. Moderate persistent asthma with exacerbation - ICD9: 493.92, ICD10: J45.41 For cost reason wants to quit this medication but would stagger start as he has other medication changes. - BUDESONIDE-FORMOTEROL HFA 80 MCG-4.5 MCG/ACTUATION AEROSOL INHALER 8. Paroxysmal A-fib (HCC) - ICD9: 427.31, ICD10: I48.0 - ECG COMPLETE - ASPIRIN 81 MG TABLET,DELAYED RELEASE Spent 40 mins with patient face to face coming up with the plan, reviewing previous documentation etc Sammie Banks MD documented in this encounter [facility] 06-17-2022 Miscellaneous Notes Noted Bethany Fragoso APRN.CNP Phoned patient and advised him that he is needing an appointment. Patient stated that he needs EKG for surgery with Christos Rey. Patient was then advised that we need an appointment for a preop clearance to be cleared for surgery. Patient has h/o afib. Appt made for tomorrow at 06/18/22 at 9:40 am with . Pricila Meier LPN Please request EKG from [facility] and place on providers desk for review. Lso patient has not been seen in almost a year needs appointment scheduled. Thank you Bethany Fragoso APRN.BRANDON EKG results not received at this time. Patient calls to request EKG results. Patient reports completed at [facility]. No orders noted from PCP. Patient didn't specify who ordered the EKG just that Christos Rey was sending results for PCP to review. Kristie Ward RN Pt reports he was supposed to have ortho surgery tomorrow but is was cancelled by Christos Rey because of something seen on EKG. Pt reports he had EKG done at [facility] in [place]. Pt reports Christos Rey said they were going to fax EKG to pcp. Pt is asking what the EKG results are. Please review and advise. [place] LPN documented in this encounter [facility] 04-08-2022 Miscellaneous Notes Faxed as requested. I printed order Please fax as requested Regards, Sammie Banks MD Patient's calling to say she spoke with [facility] and was told that patient can order his CPAP equipment/supplies from [facility]. Please fax CPAP script, test results, and clinical notes to . Usha Graham RN Pt's Mara calling. Mara states pt previously had [place] [employer], he now has [employer] [place]. Pt had home sleep test & got supplies while he had [place]. He is now getting charged the full amount for the monthly use of CPAP use since his insurance changed. Pt told by [employer] that he did not have a prior auth for the cpap supplies. Pt was told to have his pcp call [employer], the company that handles prior auths & such. [employer]: [phone] or [phone] ID# [id number] Group # [id number] Insurance is under pt's spouse Sara Hall. Latonya Zuniga LPN documented in this encounter [facility] 10-24-2021 Instructions John Barba V, DO - 10/24/2021 11:51 AM EDT Thank you for choosing the [facility] for your acute care needs. [facility] treats minor infections, rashes and injuries. It is our mission for our patients to be healthy. A primary care relationship with the physician allows for continuity of care, counseling, and maintenance of preventive health care needs. [facility] does not replace the relationship or need for a primary care physician. For information about establishing with a primary care physician or booking an appointment, please call [phone] or speak with any Patient Rn Enterostomal. Hours: Wednesday through Wednesday 7:30 am to 7:00 pm. Wednesday and Wednesday: 8:00 am to 2:30 pm. documented in this encounter [facility] 10-24-2021 History of Presen t illness Narrative Venkat Hall presents with pain, swelling and painful movement in the right knee. Associated symptoms are, stiffness. Symptoms began 3 weeks ago and since then have been present daily. Denies specific mechanism of injury, but does play golf and notices symptoms with golf swing, walking. Similar injury 5 yrs ago, responded well to cortisone injection. PAST MEDICAL HISTORY Diagnosis Date COPD (chronic obstructive pulmonary disease) (HCC) Esophageal reflux Gastroesophageal reflux Essential hypertension Gout High cholesterol Hypothyroidism Unspecified asthma(493.90) PAST SURGICAL HISTORY Procedure Laterality Date COLONOSCOPY FLX DX W/COLLJ SPEC WHEN PFRMD 03/04/2011 Colonoscopy-repeat in COLONOSCOPY FLX DX W/COLLJ SPEC WHEN PFRMD 03/03/2021 ESOPHAGOGASTRODUODENOSCOPY TRANSORAL DIAGNOSTIC 03/04/2011 EGD EYE SURGERY HX PAST SURGICAL HISTORY OF SHOULDER ARTHROSCOPY right RADIAL KERATOTOMY VASECTOMY UNI/BI SPX W/POSTOP SEMEN EXAMS Current Outpatient Medications on File Prior to Visit Medication Sig sildenafil (VIAGRA) 50 mg tablet Take 1 to 2 pills one hour prior to sexual activity esomeprazole (NEXIUM) 40 mg capsule Take 1 capsule by mouth once daily. allopurinol (ZYLOPRIM) 300 mg tablet TAKE ONE TABLET BY MOUTH EVERY DAY FOR FOR GOUT losartan (COZAAR) 50 mg tablet Take 1 tablet by mouth once daily. levothyroxine (LEVOXYL) 175 mcg tablet Take 1 tablet by mouth once daily. Take on empty stomach. For thyroid. fluticasone (FLONASE) 50 mcg/actuation nasal spray Use 1 [place] in each nostril once daily. CPAP Initiate Auto PAP @ 5-20 cm of water with humidification. Mask (per patient preference) optional chin strap (if indicated) , filters, tubing, humidifier and lifetime supplies. budesonide-formoterol (SYMBICORT) 80-4.5 mcg/actuation inhaler Inhale 2 Puffs as instructed twice daily. albuterol HFA (VENTOLIN HFA) 90 mcg/actuation inhaler Inhale 2 Puffs as instructed every 4 hours as needed for wheezing/shortness of breath. No current facility-administered medications on file prior to visit. Physical Exam Findings: General exam: Normal, Extremeties right knee effusion. TTP over medial joint line. Pain with Amina. No laxity with varus, valgus or drawer test. Assessment: medial knee sprain Plan: 1. Patient Instructions: apply ice and elevate 2. Physical exam reviewed there are no apparent changes since last visit. Risks, benefits, alternatives and personnel discussed with patient who consents to proceed. Patient wished to proceed. 6mg celestone with 4cc, 1% lidocaine and 4cc .5% marcaine was injected. Injection was carried out under sterile conditions through a LATERAL PARAPATELLAR site into the knee joint. Patient had no immediate complications and tolerated the procedure well. documented in this encounter [facility] 10-24-2021 History of Presen t illness Narrative Radiology Service Progress Note PATIENT NAME: Venkat Hall DATE OF SERVICE: October 24, 2021 TIME: 10:56 AM PATIENT IDENTITY VERIFICATION COMPLETED USING TWO (2) IDENTIFIERS: Name and Date of confirmed by patient verbally. FALL SCREENING: Has the patient had 2 falls in the last year or 1 fall with injury or currently using an Ambulatory Assistive Device (Walker, Cane, Wheelchair, Crutches, etc.)? No PATIENT GENDER DATA: Male PATIENT RELEVANT IMPLANT DATA REVIEWED: Not Applicable RADIOLOGY DEPARTMENT: General X-ray: Exam(s) Completed: Lower Extremity X-Ray(s): Knee, AP / Lat / Tunne / Merchant Right and Wt. Bearing PERIPHERAL IV DATA: Not applicable SIGNED BY: RT Joaquina(R) October 24, 2021 10:56 AM documented in this encounter [facility] 10-02-2021 Miscellaneous Notes Patient has been identified by name and date of : Yes Spouse phones for refill(s): Pending Prescriptions Disp Refills SILDENAFIL 50 MG TABLET 30 tablet 2 Sig: Take 1 to 2 pills one hour prior to sexual activity LAURO: No Date of last office visit in primary care: 07/01/2021, has appt 01/16/2022 Last 2 Encounter Wt Readings: Date: Wt: 07/11/2021 133.4 kg (294 lb) 07/01/2021 135 kg (297 lb 9.6 oz) Previous labs/tests for medication: Not applicable Please advise. Thank you. Gaby Syed LPN documented in this encounter [facility] 08-27-2021 Miscellaneous Notes Patient's called they filled the medication already. A Pharmacy can fill less but not more; quantity will be banked. Last seen pcp 07/01/21 Next appt with pcp 01/16/22. 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 LAURO: No RX INSTRUCTIONS: Patient aware RX will be sent to pharmacy. No need to notify patient. Mary Ellen Mello Pss documented in this encounter [facility] 07-31-2021 Miscellaneous Notes Noted and thanks Patient returned call and went over notes below from Dr Banks with understanding. Patient had picked up the rx's already. Patient has chosen [facility] for DME. Patient said he will call back after he completes rx's to get lung testing appts set up. Called and left a voicemail for the Patient to call back and ask for a nurse to receive the providers message. Rachelle Babulski, RN Which DME did he choose for his cpap? Last year I had asked him to get xome lung volumes and spirometry. He did not get them done, I would like for him to get them done For now I will give some prednisone and doxy Patient reports pcp treated him with AB a month ago for cough and advised him to call her if symptoms return. Reports he is having a productive cough- green in the morning, white in the afternoon. Reports the last AB helped for a short time, then cough returned. Never completely went away. Reports he is using a house humidifier, taking nyquil at night, which helps him sleep. Reports he has not received his CPAP yet. Using nebulizer, which helps. States these symptoms are probably r/t his COPD. Noted patient had constant nagging cough while talking to this nurse. Asking pcp to advise. Should he take another AB or prednisone? AILEEN Sher documented in this encounter [facility] documented as of this encounter (statuses as of 08/27/2021) [facility] History of Past illness Narrative* Problem Noted Date Resolved Date Screening for colon cancer 03/03/202103/03 Esophageal reflux 07/21/2005 04/10/2020 HYPERLIPIDEMIA NEC/NOS 07/21/2005 5 documented as of this encounter (statuses as of 10/03/2021) [facility] History of Past illness Narrative* Problem Noted Date Resolved Date Screening for colon cancer 03/03/202103/03 Esophageal reflux 07/21/2005 04/10/2020 HYPERLIPIDEMIA NEC/NOS 07/21/2005 5 documented as of this encounter (statuses as of 10/10/2021) [facility] History of Past illness Narrative* Problem Noted Date Resolved Date Screening for colon cancer 03/03/202103/03 Esophageal reflux 07/21/2005 04/10/2020 HYPERLIPIDEMIA NEC/NOS 07/21/2005 5 documented as of this encounter (statuses as of 10/21/2021) [facility] History of Past illness Narrative* Problem Noted Date Resolved Date Screening for colon cancer 03/03/202103/03 Esophageal reflux 07/21/2005 04/10/2020 HYPERLIPIDEMIA NEC/NOS 07/21/2005 5 documented as of this encounter (statuses as of 10/24/2021) [facility] History of Past illness Narrative* Problem Noted Date Resolved Date Screening for colon cancer 03/03/202103/03 Esophageal reflux 07/21/2005 04/10/2020 HYPERLIPIDEMIA NEC/NOS 07/21/2005 5 documented as of this encounter (statuses as of 10/25/2021) [facility] History of Past illness Narrative* Problem Noted Date Resolved Date Screening for colon cancer 03/03/202103/03 Esophageal reflux 07/21/2005 04/10/2020 HYPERLIPIDEMIA NEC/NOS 07/21/2005 5 documented as of this encounter (statuses as of 04/08/2022) [facility] History of Past illness Narrative* Problem Noted Date Resolved Date Screening for colon cancer 03/03/202103/03 Esophageal reflux 07/21/2005 04/10/2020 HYPERLIPIDEMIA NEC/NOS 07/21/2005 5 documented as of this encounter (statuses as of 06/18/2022) [facility] History of Past illness Narrative* Problem Noted Date Resolved Date Screening for colon cancer 03/03/202103/03 Esophageal reflux 07/21/2005 04/10/2020 HYPERLIPIDEMIA NEC/NOS 07/21/2005 5 documented as of this encounter (statuses as of 06/18/2022) [facility] History of Past illness Narrative* Problem Noted Date Resolved Date Screening for colon cancer 03/03/202103/03 Esophageal reflux 07/21/2005 04/10/2020 HYPERLIPIDEMIA NEC/NOS 07/21/2005 5 documented as of this encounter (statuses as of 06/19/2022) [address]08-2021 History of Past illness Narrative* Problem Noted Date Resolved Date Screening for colon cancer 03/03/202103/03 Esophageal reflux 07/21/2005 04/10/2020 HYPERLIPIDEMIA NEC/NOS 07/21/2005 5 documented as of this encounter (statuses as of 06/26/2022) [facility] History of Past illness Narrative* Problem Noted Date Resolved Date Screening for colon cancer 03/03/202103/03 Esophageal reflux 07/21/2005 04/10/2020 HYPERLIPIDEMIA NEC/NOS 07/21/2005 5 documented as of this encounter (statuses as of 07/03/2022) [facility] History of Past illness Narrative* Problem Noted Date Diagnosed Date Resolved Date Screening for colon cancer 03/03/2021 1 05/03/2020 Esophageal reflux 07/21/2005 04/10/2020 HYPERLIPIDEMIA NEC/NOS 07/21/200510/09 documented as of this encounter (statuses as of 02/21/2023) [facility] History of Past illness Narrative* Problem Noted Date Diagnosed Date Resolved Date Screening for colon cancer 03/03/2021 1 05/03/2020 Esophageal reflux 07/21/2005 04/10/2020 HYPERLIPIDEMIA NEC/NOS 07/21/200510/09 documented as of this encounter (statuses as of 03/03/2023) [facility] History of Past illness Narrative* Problem Noted Date Diagnosed Date Resolved Date Screening for colon cancer 03/03/2021 1 05/03/2020 Esophageal reflux 07/21/2005 04/10/2020 HYPERLIPIDEMIA NEC/NOS 07/21/200510/09 documented as of this encounter (statuses as of 03/03/2023) [address] [address] History of Past illness Narrative* Problem Noted Date Diagnosed Date Resolved Date Screening for colon cancer 03/03/2021 1 05/03/2020 Esophageal reflux 07/21/2005 04/10/2020 HYPERLIPIDEMIA NEC/NOS 07/21/200510/09 documented as of this encounter (statuses as of 04/10/2023) [facility]11-08-2021 History of Past illness Narrative* Problem Noted Date Diagnosed Date Resolved Date Screening for colon cancer 03/03/2021 1 05/03/2020 Esophageal reflux 07/21/2005 04/10/2020 HYPERLIPIDEMIA NEC/NOS 07/21/200510/09 documented as of this encounter (statuses as of 06/28/2023) [facility] + Plan note No data available for this section [facility] Evaluation note* Diagnosis Gastroesophageal reflux disease without esophagitis Esophageal reflux documented in this encounter [facility] note* Diagnosis Bronchitis- Primary Bronchitis, not specified as acute or chronic documented in this encounter [facility] note* Diagnosis Right knee pain, unspecified chronicity- Primary documented in this encounter [facility] note* Diagnosis Sprain of medial meniscus of right knee, initial encounter- Primary documented in this encounter [facility] note* Diagnosis Right knee pain, unspecified chronicity documented in this encounter [facility] note* Diagnosis Pre-operative clearance- Primary Preoperative examination, unspecified Acute LUCILLE (middle ear effusion), bilateral Hypothyroidism, unspecified type Essential hypertension Unspecified essential hypertension Gout, unspecified cause, unspecified chronicity, unspecified site Gastroesophageal reflux disease without esophagitis Esophageal reflux Moderate persistent asthma with exacerbation Unspecified asthma, with exacerbation Paroxysmal A-fib (HCC) Atrial fibrillation documented in this encounter [facility] note* Diagnosis Obesity (BMI 35.0-39.9 without comorbidity) Obesity, unspecified Hyperlipidemia Other and unspecified hyperlipidemia Medication management Encounter for long-term (current) use of other medications documented in this encounter [facility] note* Diagnosis JENIFER (obstructive sleep apnea)- Primary Obstructive sleep apnea (adult) (pediatric) Atrial fibrillation with RVR (CMS/HCC) (HCC) Essential hypertension Unspecified essential hypertension documented in this encounter [facility] note* Diagnosis Preop cardiovascular exam- Primary Pre-operative cardiovascular examination Atrial fibrillation with RVR (CMS/HCC) (HCC) Atrial fibrillation with RVR (CMS/HCC) (HCC)- Primary Atrial fibrillation with RVR (CMS/HCC) (HCC) documented in this encounter [facility] note* Diagnosis Atrial fibrillation with RVR (CMS/HCC) (HCC)- Primary Atrial fibrillation (CMS/HCC) (HCC) Atrial fibrillation Atrial fibrillation with RVR (CMS/HCC) (HCC) documented in this encounter [facility] note* Diagnosis Persistent atrial fibrillation (HCC)- Primary Atrial fibrillation JENIFER (obstructive sleep apnea) Obstructive sleep apnea (adult) (pediatric) Essential hypertension Unspecified essential hypertension documented in this encounter [facility] note* Diagnosis Encounter for preprocedural cardiovascular examination- Primary Unspecified atrial fibrillation (HCC) documented in this encounter [facility] note* Diagnosis Lower resp. tract infection- Primary Other diseases of respiratory system, not elsewhere classified documented in this encounter [facility] note* Diagnosis Lower resp. tract infection- Primary Other diseases of respiratory system, not elsewhere classified Mild persistent asthma with acute exacerbation Unspecified asthma, with exacerbation Essential hypertension Unspecified essential hypertension documented in this encounter [facility] note* Diagnosis Atrial fibrillation with RVR (HCC)- Primary Essential hypertension Unspecified essential hypertension JENIFER (obstructive sleep apnea) Obstructive sleep apnea (adult) (pediatric) Obesity (BMI 35.0-39.9 without comorbidity) documented in this encounter [facility] Discharge instructions No data available for this section [facility] Progress note No data available for this section [facility] Reason for referral (narrative)* Diagnostic Procedure Only (Routine) - Pending Review Specialty Diagnoses / Procedures Referred By Maribell t Referred To Contact XR IMAGING Diagnoses Right knee pain, unspecified chronicity Procedures XR KNEE GENERAL 4V AP BOTH/PA BOTH/LAT/MERC RIGHT RADIOLOGIC EXAM KNEE COMPLETE 4/MORE VIEWS John Barba V, DO [address] [place] [address] Xr Imaging Referral ID Status Reason Start Date Expiration Date Visits Requested Visits Authorized [id number] Pending Review Auto-Generat ed Referral 10/21/2021 11/20/2022 1 1 [facility] for referral (narrative)* Diagnostic Procedure Only (Routine) - Closed Specialty Diagnoses / Procedures Referred By Contac t Referred To Contact XR IMAGING Diagnoses Right knee pain, unspecified chronicity Procedures XR KNEE GENERAL 4V AP BOTH/PA BOTH/LAT/MERC RIGHT RADIOLOGIC EXAM KNEE COMPLETE 4/MORE VIEWS John Barba V DO [address] [place] [address] Xr Imaging Referral ID Status Reason Start Date Expiration Date V isits Requested Visits Authorized [id number] Closed Auto-Generate d Referral 10/21/2021 11/20/2022 1 1 [facility] for referral (narrative)* Outpatient Procedure (Routine) - Pending Review Specialty Diagnoses / Procedures Referred By Contac t Referred To Contact [facility] Diagnoses Paroxysmal A-fib (HCC) Procedures ECG COMPLETE ECG ROUTINE ECG W/LEAST 12 LDS W/I&R Sammie Banks MD [address] [place] [address] [facility] [address] [place] [address] Referral ID Status Reason Start Date Expiration Date Visits Requested Visits Authorized [id number] Pending Review Auto-Generat ed Referral 06/18/2022 06/18/2023 1 1 [facility] for visit Narrative* Diagnostic Procedure Only (Routine) - Closed Specialty Diagnoses / Procedures Referred By Contac t Referred To Contact XR IMAGING Diagnoses Right knee pain, unspecified chronicity Procedures XR KNEE GENERAL 4V AP BOTH/PA BOTH/LAT/MERC RIGHT RADIOLOGIC EXAM KNEE COMPLETE 4/MORE VIEWS John Barba V DO [address] [place] [address] Xr Imaging Referral ID Status Reason Start Date Expiration Date V isits Requested Visits Authorized [id number] Closed Auto-Generate d Referral 10/21/2021 11/20/2022 1 1 [facility] Advance Directives No Advanced Directives Records FoundDocuments on File Type Date 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 Advance Directive(s) Advance Directive(s) 02/19/2021 9:23 AM Documents on File Type Date Recorded 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 Advance Directive(s) Advance Directive(s) 02/19/2021 9:23 AM Latest Code Status on File Code Status Date Activated Date Inactivated Comments Full Code 12/04/2022 8:16 AM 12/05/2022 12:56 PM Latest Code Status on File Code Status Date Activated Date Inactivated Comments Full Code 12/04/2022 8:16 AM 12/05/2022 12:56 PM Medications Administered Section Inactive Administered Medications - up to 3 most recent administrations Medication Order MAR Action Action Date Dose Rate Site betamethasone acetate-betamethasone sodium phosphate 6 mg injection (CELESTONE) 6 mg, OTHER, ONCE, 1 dose, On Wed10/24/21 at 1200, Intra-Articular Protect From Light. Given 10/24/2021 11:48 AM EDT 6 mg Summary Purpose Family History No Family History Records FoundNo Family History Records FoundNo Family History Records Found Additional Source Comments Source Comments (unrecognize d section and content) In the event this informatio n is protected by the Federal Confidentiality of Alcohol and Drug Abuse Patient Records regulations: The Federal rules restrict any use of the information to criminally investigate or prosecute any alcohol or drug abuse patient.[facility] the event this information is protected by the Federal Confidentiality of Alcohol and Drug Abuse Patient Records regulations: The Federal rules restrict any use of the information to criminally investigate or prosecute any alcohol or drug abuse patient.[facility] System[facility] the event this information is protected by the Federal Confidentiality of Alcohol and Drug Abuse Patient Records regulations: The Federal rules restrict any use of the information to criminally investigate or prosecute any alcohol or drug abuse patient.[facility] System[facility] the event this information is protected by the Federal Confidentiality of Alcohol and Drug Abuse Patient Records regulations: The Federal rules restrict any use of the information to criminally investigate or prosecute any alcohol or drug abuse patient.[facility] System[facility] the event this information is protected by the Federal Confidentiality of Alcohol and Drug Abuse Patient Records regulations: The Federal rules restrict any use of the information to criminally investigate or prosecute any alcohol or drug abuse patient.[facility] System[facility] the event this information is protected by the Federal Confidentiality of Alcohol and Drug Abuse Patient Records regulations: The Federal rules restrict any use of the information to criminally investigate or prosecute any alcohol or drug abuse patient.[facility] System[facility] the event this information is protected by the Federal Confidentiality of Alcohol and Drug Abuse Patient Records regulations: The Federal rules restrict any use of the information to criminally investigate or prosecute any alcohol or drug abuse patient.[facility] System[facility] the event this information is protected by the Federal Confidentiality of Alcohol and Drug Abuse Patient Records regulations: The Federal rules restrict any use of the information to criminally investigate or prosecute any alcohol or drug abuse patient.[facility] System[facility] the event this information is protected by the Federal Confidentiality of Alcohol and Drug Abuse Patient Records regulations: The Federal rules restrict any use of the information to criminally investigate or prosecute any alcohol or drug abuse patient.[facility] System[facility] the event this information is protected by the Federal Confidentiality of Alcohol and Drug Abuse Patient Records regulations: The Federal rules restrict any use of the information to criminally investigate or prosecute any alcohol or drug abuse patient.[facility] System[facility] the event this information is protected by the Federal Confidentiality of Alcohol and Drug Abuse Patient Records regulations: The Federal rules restrict any use of the information to criminally investigate or prosecute any alcohol or drug abuse patient.[facility] System[facility] the event this information is protected by the Federal Confidentiality of Alcohol and Drug Abuse Patient Records regulations: The Federal rules restrict any use of the information to criminally investigate or prosecute any alcohol or drug abuse patient.[facility] System[facility] the event this information is protected by the Federal Confidentiality of Alcohol and Drug Abuse Patient Records regulations: The Federal rules restrict any use of the information to criminally investigate or prosecute any alcohol or drug abuse patient.[facility] System[facility] the event this information is protected by the Federal Confidentiality of Alcohol and Drug Abuse Patient Records regulations: The Federal rules restrict any use of the information to criminally investigate or prosecute any alcohol or drug abuse patient.[facility] System[facility] the event this information is protected by the Federal Confidentiality of Alcohol and Drug Abuse Patient Records regulations: The Federal rules restrict any use of the information to criminally investigate or prosecute any alcohol or drug abuse patient.[facility] SystemIn the event this information is protected by the Federal Confidentiality of Alcohol and Drug Abuse Patient Records regulations: The Federal rules restrict any use of the information to criminally investigate or prosecute any alcohol or drug abuse patient.[facility] System[facility] the event this information is protected by the Federal Confidentiality of Alcohol and Drug Abuse Patient Records regulations: The Federal rules restrict any use of the information to criminally investigate or prosecute any alcohol or drug abuse patient.[facility] Reason for Visit (unrecogniz ed section and content) Reason Onset Date Comments Refill Request 10/02/2021 Reason Comments Advice on returning symptoms Reason Comments New Patient Right Knee Pain Reason Comments Insurance Problem Reason Comments EKG results Reason Comments Pre-Op Exam Right knee Arthrosco py medial meniscus repair. Surgery date to be determined Reason Comments Orders Reason Comments Outside Labs-[facility] Ordered Reason Comments New Patient Reason Onset Date Comments Procedure 11/19/2022 PVI pre-procedur e instructions Specialty Diagnoses / Procedures Referred By Maribell t Referred To Contact Diagnoses Atrial fibrillation with RVR (CMS/HCC) (HCC) Atrial fibrillation with RVR (CMS/HCC) (HCC) [I48.91] Procedures Ablation a-fib paroxysmal Williams Mcnamara MD [address] [address] [facility] Cardiac Cath/Ep Lab [address] [place] [address] Referral ID Status Reason Start Date Expiration Date Visits Re quested Visits Authorized [id number] 1 1 Reason Comments Follow-up Ablation 2 weeks ago Reason Comments Cough X 2 weeks Reason Comments Patient Update Reason Comments Cough was seen in [facility] on 02/21/2023 and treated with doxycycline and benzonatate. 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 Start Date End Date Sammie Banks MD [address] [place] [address] PCP - General Internal Medicine 10/09/14 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 Start Date End Date Sammie Banks MD [address] [place] [address] PCP - General Internal Medicine 10/09/14 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 Start Date End Date Sammie Banks MD [address] [place] [address] PCP - General Internal Medicine 10/09/14 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 Start Date End Date Sammie Banks MD [address] [place] [address] PCP - General Internal Medicine 10/09/14 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 Start Date End Date Sammie Banks MD [address] [place] [address] PCP - General Internal Medicine 10/09/14 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 Start Date End Date Sammie Banks MD [address] [place] [address] PCP - General Internal Medicine 10/09/14 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 Start Date End Date Sammie Banks MD [address] [place] [address] PCP - General Internal Medicine 10/09/14 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 Start Date End Date Sammie Banks MD [address] [place] [address] PCP - General Internal Medicine 11/19/22 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 Start Date End Date Sammie Banks MD [address] [place] [address] PCP - General Internal Medicine 11/19/22 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 Start Date End Date Sammie Banks MD [address] [place] [address] PCP - General Internal Medicine 11/19/22 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 Start Date End Date Sammie Banks MD [address] [facility] [place] [address] PCP - General Internal Medicine 11/19/22 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 Start Date End Date Sammie Banks MD [address] [facility] [place] [address] PCP - General Internal Medicine 11/19/22 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 Start Date End Date Sammie Banks MD [address] [facility] [place] [address] PCP - General Internal Medicine 11/19/22 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 Start Date End Date Sammie Banks MD [address] [facility] [place] [address] PCP - General Internal Medicine 11/19/22 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 Start Date End Date Sammie Banks MD [address] [facility] [place] [address] PCP - General Internal Medicine 10/09/14 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 Start Date End Date Sammie Banks MD [address] [facility] [place] [address] PCP - General Internal Medicine 10/09/14 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 Start Date End Date Sammie Banks MD [address] [facility] [place] [address] PCP - General Internal Medicine 10/09/14 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 Start Date End Date Sammie aBnks MD [address] [facility] [place] [address] PCP - General Internal Medicine 11/19/22 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 Start Date End Date Sammie Banks MD [address] [place] [address] PCP - General Internal Medicine 10/09/14 Care Team (unrecognized sect ion and content) Care Team Personnel Name: SAMMIE BANKS MD Member Role: Primary Care Physician Address: Address: [address] [place] [address]- [place] (unrecognized sect ion and content) No Status Records FoundNo Status Records FoundNo Status Records Found INFORMATION SOURCE (unrecogn ized section and content) DATE CREATED AUTHOR AUTHOR'S ORGANIZ ATION 03/27/2023 [facility] DATE CREATED AUTHOR AUTHOR'S ORGANIZ ATION 06/28/2023 [facility] Scheduled Active and Recently Administ ered Medications (unrecognized section and content) PRN Medication Order 12/03/2022 12/04/2022 12/05/2022 acetaminophen (Tylenol) tablet 650 mg 650 mg, Oral, Every 4 hours PRN, mild pain (1-3), Fever > 100.5 F (38 C), Starting on Wed12/04/22 at 1344, Recovery & On Unit, Maximum dose of acetaminophen is 4000 mg from all sources in 24 hours. bupivacaine PF (Marcaine) 0.5 % injection (CANCELED) As needed, Starting on Wed12/04/22 at 1015, Intraprocedure 1015 (Given - Provider: Williams Mcnamara MD) bupivacaine PF (Marcaine) 0.5 % injection (CANCELED) As needed, Starting on Wed12/04/22 at 1016, Intraprocedure 1016 (Given - Provider: Williams Mcnamara MD) heparin injection (CANCELED) IntraVENous, As needed, Starting on Wed12/04/22 at 1028, Intraprocedure 1028 (Given - Provider: Brigid Aviles)1031 (Given - Provider: Brigid Aviles)1137 (Given - Provider: Brigid Aviles) heparin injection (CANCELED) IntraVENous, As needed, Starting on Wed12/04/22 at 1104, Intraprocedure 1104 (Given - Provider: Latasha Herr RN) HYDROmorphone (Dilaudid) injection 0.25 mg (CANCELED) 0.25 mg, IntraVENous, Every 5 min PRN, moderate pain (4-6), Starting on Wed12/04/22 at 1208, For 4 doses, Recovery (only), Phase I and Phase II- Initial therapy for moderate pain (4-6). Restricted to a 90 minute time frame starting when the patient can verbally state their pain score. If after 2 doses the pain score does not decrease by more than one point, then call the provider. If oral meds are utilized, do not return to initial therapy medications. 1232 (Given - Provider: Chanelle Moreno, RN)1243 (Given - Provider: Chanelle Moreno RN) iopamidol (Isovue-300) 61 % injection (CANCELED) As needed, Starting on Wed12/04/22 at 1151, Intraprocedure 1151 (Given - Provider: Williams Mcnamara MD) lidocaine (Xylocaine) 1 % injection (CANCELED) Infiltration, As needed, Starting on Wed12/04/22 at 1015, Intraprocedure 1015 (Given - Provider: Williams Mcnamara MD) lidocaine (Xylocaine) 1 % injection (CANCELED) Infiltration, As needed, Starting on Wed12/04/22 at 1017, Intraprocedure 1017 (Given - Provider: Williams Mcnamara MD) sodium chloride 0.9 % infusion (CANCELED) 5-250 mL/hr, IntraVENous, PRN, if patient receiving piggyback infusions and maintenance fluids are not ordered OR KVO fluids to protect IV site / prevent frequent line interruptions / long duration, Starting on Wed12/04/22 at 0816, Preprocedure, For piggyback infusion, administer at same rate as piggyback for a total of 25 mL. Enter 25 mL into dose field and piggyback rate into rate field of order. If piggyback is infusing at a rate less than 100 mL/hr, enter 25 mL into dose field and 100 mL/hr into rate field of order. For KVO fluids, enter rate of 20 mL/hr or less into rate field of order. 0951 (New Bag - Provider: Eyal Archer APRN - JULIAN)1115 (Anesthesia Volume Adjustment - Provider: Eyal Siesel, CLEAT FEEDER - DIRECTOR OF MATERIALS MANAGEMENT)1149 (Anesthesia Volume Adjustment - Provider: Eyal Archer, CLEAT FEEDER - JULIAN) FOR RECORDS PERTAINING TO PATIENTS WHO ARE OR HAVE BEEN ENROLLED IN A CHEMICAL DEPENDENCY/SUBSTANCEABUSE PROGRAM, SOME INFORMATION MAY BE OMITTED. This clinical summary was aggregated from multiple sources. Caution should be exercised in using it in the provision of clinical care. This summary normalizes information from multiple sources, and as a consequence, information in this document may materially change the coding, format and clinical context of patient data. In addition, data may be omitted in some cases. CLINICAL DECISIONS SHOULD BE BASED ON THE PRIMARY CLINICAL RECORDS. [facility] [facility]. provides no warranty or guarantee of the accuracy or completeness of information in this document.
[2023-06-29 08:19] LABS: Absolute Lymphocyte Count 2.33 X10^3/uL (0.83-4.51); Absolute Neutrophil Count 3.8 X10^3/uL (2.0-7.7); Basophil# 0.03 X10^3/uL; Basophil% 0.4 % (0-1); Eosinophil# 0.17 X10^3/uL; Eosinophils% 2.4 % (0-5); Hematocrit 47.8 % (40-54); Lymphocyte # 2.33 X10^3/ul (0.83-4.51); Lymphocyte % 33.2 % (19-41); Mean Corp Hgb Conc 33.5 g/dL (32-36); Mean Corpuscular Hgb 31.3 pg (27.0-32.0); Mean Corpuscular Volume 93.5 fL (80-94); Mean Platelet Vol. 12.2 fl (6.2-12.0); Monocyte# 0.68 X10^3/uL; Monocyte% 9.7 % (0-10); NRBC Flagged by Analyzer 0 % (0-5); Neutrophil # 3.78 X10^3/uL (2.7-7.7); Platelet Count 187 K/mm3 (150-450); RBC Distribution Width CV 12.7 % (11.6-14.6); RBC Distribution Width SD 43.9 fl (35.1-43.9); Red Blood Count 5.11 M/mm3 (4.6-6.2)
[2023-06-29 09:07] LABS: ALB/GLOB Ratio 1.2 RATIO (0.9-2.4); AST(SGOT) 31 U/L (15-37); Alanine Aminotransfer ALT/SGPT 45 U/L (16-61); Albumin, Serum 3.7 g/dL (3.2-5.0); Alkaline Phosphatase 43 U/L (45-117); Anion Gap 3 (5-15); BUN 21 mg/dL (7-18); BUN/Creat Ratio 19.4 RATIO (10-20); Calcium,Total 9.4 mg/dL (8.5-10.1); Chloride 107 mmol/L (98-107); Cholesterol 243 mg/dL (200); Creatinine, Serum 1.08 mg/dL (0.70-1.30); EST Glomerular Filtration Rate 73 mL/min (>60); Est Glom Filt Rate - Afr Amer 89 mL/min (>60); Globulin 3.2 g/dL (2.2-4.2); Glucose 112 mg/dL (74-106); High Density Lipoprotein 55 mg/dL; Potassium 4.5 mmol/L (3.5-5.1); Protein, Total 6.9 g/dL (6.4-8.2); Sodium Level 138 mmol/L (136-145); Triglycerides 118 mg/dL; Very Low Density Lipoprotein 24 mg/dL (5-40)
[2023-06-29 09:49] LABS: Hemoglobin A1c 5.6 % (3.8-5.6)
== END | disposition home or self-care (01) ==
LOC: LAB 07:17
PROVIDERS: PCP Internal Medicine; Referring Provider Pharmacist Pharmacist Clinician (PhC)/ Clinical Pharmacy Specialist; Visit Provider Pharmacist Pharmacist Clinician (PhC)/ Clinical Pharmacy Specialist
DX: R73.01 Impaired fasting glucose (principal); I48.0 Paroxysmal atrial fibrillation; E78.2 Mixed hyperlipidemia; G47.33 Obstructive sleep apnea (adult) (pediatric); R74.8 Abnormal levels of other serum enzymes
CPT/HCPCS: 36415; 80053; 80061; 83036; 84443; 85025

== ENCOUNTER 2025-03-31 09:12 | Emergency (ER) | payer OTHER, SELFPAY ==
[2025-03-31 09:13] VITALS: BP 141/82; PULSE 64; RESP 16; TEMP 36.9; O2SAT 98; BMI 35.2
--- NOTE | 2025-03-31 09:35 | RAD_ITS ---
PROCEDURE: CHEST 1 VIEW (PORTABLE) 03/31/2025 REASON FOR EXAM: COUGH. Feels like plastic stuck in throat. TECHNIQUE: Frontal view of the chest. COMPARISON: 11/05/2019 FINDINGS: LUNGS AND PLEURA: The lungs are clear. No pleural effusion or pneumothorax. HEART AND MEDIASTINUM: The heart size and mediastinal contours are normal. BONES: No acute osseous abnormality. RAD/Chest 1 View (Portable) IMPRESSION: No Acute Findings. Reading Location: [id number]
--- NOTE | 2025-03-31 09:36 | EX.ED.DYSGE1 ---
HPI History of Present Illness Chief Complaint: Sore Throat Detail of Chief Complaint: Foreign body sensation in sore Informant: patient Narrative Narrative: Patient presents with foreign body sensation in his throat. States he ate a waterski in the about a week ago and after taking the recreation officer with a candy in his mouth and felt like something scratched the back of his throat and that he may be swallowed a wrapper piece of plastic. Started having a cough 2 days later. Has had some sinus congestion. Cough is productive of some clear phlegm. Today he had some sweats. He is able to eat and drink normally. [facility] Medical History (Updated 03/31/25 @ 10:[address] Jacinto Villatoro, DO) Paroxysmal atrial fibrillation Chondromalacia patellae of right knee Synovial cyst of popliteal space [Fofana], right knee Unilateral primary osteoarthritis, right knee Complex tear of medial meniscus as current injury Right knee pain Obesity (BMI 35.0-39.9 without comorbidity) Erectile dysfunction Insomnia Hyperlipidemia Hypothyroidism Sleep apnea Gout COPD (chronic obstructive pulmonary disease) Asthma GERD without esophagitis COVID-19 virus detected (11/05/19) Vitamin D deficiency Essential hypertension Gout Hypothyroidism Asthma Bronchospasm, acute Atrial fibrillation with rapid ventricular response (11/05/19) Home Medications ?Medication ?Instructions ?Recorded ?Last Taken ?Type esomeprazole magnesium 40 mg 40 mg PO DAILY 06/04/18 03/30/25 History capsule,delayed release (Nexium) losartan 50 mg tablet 50 mg PO DAILY 06/04/18 03/31/25 History albuterol sulfate 90 mcg/actuation 1 - 2 puff inhalation Q4H PRN PRN 11/05/19 Unknown History aerosol inhaler Sob &/Or Wheezing allopurinol 300 mg tablet 300 mg PO DAILY 11/05/19 03/30/25 History levothyroxine 175 mcg tablet 175 mcg PO MOTUWETHFRSA 11/05/19 03/30/25 History Blood pressure cuff #1 ea 04/30/20 Unknown Rx budesonide-formoterol HFA 80 2 puff inhalation BID PRN 07/20/22 03/30/25 History mcg-4.5 mcg/actuation aerosol Shortness Of Breath inhaler (Symbicort) fluticasone propionate 50 2 spray intranasal DAILY 07/20/22 03/30/25 History mcg/actuation nasal spray,suspension sildenafil 50 mg tablet (Viagra) 50 mg PO DAILY PRN ED 02/03/24 Unknown History atenolol 50 mg tablet 50 mg PO DAILY #90 tabs 11/20/24 03/30/25 Rx acetaminophen 500 mg capsule 1,000 mg PO Q6H PRN fever or pain 03/31/25 03/30/25 History levothyroxine 175 mcg tablet 262.5 mcg PO CHAVEZ 03/31/25 03/25/25 History (Synthroid) Allergy/AdvReac Type Severity Reaction Status Date / Time Penicillins (PCN) Allergy PT UNSURE Verified 03/31/25 09:15 OF REACTION sertraline (From Zoloft) AdvReac Intermediate Other Verified 03/31/25 09:15 Family History Mother Diabetes Heart disease Fibromyalgia Father Heart disease Hyperlipidemia Thyroid disorder CAD (coronary artery disease) CABG Myocardial infarction, Onset Age: 62 CT-CABG Grandfather Cancer prostate Father Arthritis Hypertension Mother Diabetes Arthritis Surgical History History of cardiac radiofrequency ablation (12/04/22) History of arthroscopy of knee History of arthroscopy of left shoulder (~1999) History of arthroscopy of right shoulder History of radial keratotomy History of vasectomy Social History Smoking Status: Never smoker Smokeless tobacco user: chewing tobacco how long ago did patient quit smokin alcohol intake: current alcohol intake frequency: a few times a week substance use type: does not use ROS ROS ED Review of Systems ROS Unobtainable: other Constitutional Constitutional ED: Reports lethargy; Denies chills, fever(s), sweats or weight loss Eyes Eyes: Denies blurry vision, change in vision or diplopia ENT ENT ED: Reports sore throat; Denies rhinorrhea Cardiovascular Cardiovascular: Denies chest pain, orthopnea or racing heartbeat Respiratory/Chest Respiratory/Chest: Reports cough, dyspnea and dyspnea on exertion; Denies orthopnea or sputum Gastrointestinal Gastrointestinal: Denies abdominal pain, diarrhea, nausea or vomiting Genitourinary Genitourinary ED: Denies dysuria, hematuria or urinary frequency Musculoskeletal Musculoskeletal: Denies arthralgias, back pain, myalgias or neck pain Integumentary Denies abscess, Abrasions or rash Neurologic Neurologic: Denies headache(s) or weakness Psychiatric Psychiatric: Denies anxiety, depression or suicidal thoughts Endocrine Endocrinology: Denies polydipsia, polyphagia or polyuria Hematologic/Lymphatic Hematologic/Lymphatic: Denies easy bleeding, easy bruising or lymphadenopathy Allergic/Immunologic Allergic/Immunologic ED: Denies mouth swelling, tongue swelling or urticaria EXAM Physical Exam Const Vital Signs: 03/31/25 09:13 Temperature 98.5 F Temperature Source Oral Pulse Rate 64 Respiratory Rate 16 Blood Pressure 141/82 H Blood Pressure Mean 101 Pulse Ox 98 Oxygen Delivery Method Room Air MDM MDM MDM Narrative Medical decision making narrative: Patient presents with concern for possible foreign body in his throat. Also has a little bit of a cough. He attributes the cough and his symptoms and sinus congestion to possible foreign body in his throat that he thinks may have occurred a week ago. He is able to eat and drink normally. Exam unremarkable. No evidence for strep. I do not see any foreign bodies to the oropharynx on inspection. Patient had a CT scan of the soft tissue neck without contrast that did not show any foreign bodies or abnormalities. 1 view chest x-ray also unremarkable. This point we will refer patient to ENT if symptoms persist. He understands he may also be coming down with a viral upper respiratory infection. He did not want testing for COVID flu or RSV. Lab Data Attestation: I reviewed the patient's lab results. Radiography Diagnostic Testing: Clinical Impression(s) from Imaging Studies Soft Tissue Neck CT 03/31/25 10:00 IMPRESSION: No evidence of acute findings. No foreign bodies. Reading Location: [facility] 1 view chest x-ray obtained interpreted by myself as no evidence of infiltrate or pneumothorax or foreign body or acute process. Discharge Plan Triage Chief Complaint: Sore Throat ED Provider: Jacinto Villatoro Dx/Rx/DC Orders Clinical Impression: Foreign body sensation in throat, Viral URI Instructions: ED Pain, Acute, Uncertain Cause, ED URI, Viral, No Abx (Adult) Prescriptions: No Action (DME) Blood pressure cuff See Rx Instructions .Route .MEDSUPPLY Qty: 1 0RF Rx Instructions: As directed fluticasone propionate 50 mcg/actuation spray,suspension 2 spray intranasal DAILY Rx Instructions: administer into each nostril budesonide-formoterol [Symbicort] 80-4.5 mcg/actuation HFA aerosol inhaler 2 puff inhalation BID PRN (Reason: Shortness Of Breath) sildenafil [Viagra] 50 mg tablet 50 mg PO DAILY PRN (Reason: ED) Rx Instructions: administer 30 minutes to 4 hours before activity losartan 50 MG tablet 50 mg PO DAILY esomeprazole magnesium [Nexium] 40 MG capsule 40 mg PO DAILY levothyroxine 175 MCG tablet 175 mcg PO MOTUWETHFRSA allopurinol 300 MG tablet 300 mg PO DAILY albuterol sulfate 1 PUFF inhaler 1 - 2 puff inhalation Q4H PRN PRN (Reason: Sob &/Or Wheezing) levothyroxine [Synthroid] 175 mcg tablet 262.5 mcg PO CHAVEZ acetaminophen 500 mg capsule 1,000 mg PO Q6H PRN (Reason: fever or pain) atenolol 50 mg tablet 50 mg PO DAILY Qty: 90 3RF Primary Care Provider: Anette Romo Referrals: Anette Romo MD [Primary Care Provider, Internal Medicine] Cristi Espinoza MD [Med Staff - Active Staff, Ear Nose Throat (ENT)] - 5-7 Days Print Language: Slovak Disposition Disposition: Home, Self Care
--- NOTE | 2025-03-31 10:00 | CT_ITS ---
PROCEDURE: SOFT TISSUE NECK WITHOUT CONTR 03/31/2025 REASON FOR EXAM: FOREIGN BODY SENSATION TECHNIQUE: Procedure Code: CTNE Modality: CT Procedure: SOFT TISSUE NECK WITHOUT CONTR CONTRAST: Isovue 370 VOLUME: 75 mL One or more dose reduction techniques were used (e.g., Automated exposure control, adjustment of the mA and/or kV according to patient size, use of iterative reconstruction technique). RADIATION DOSE SUMMARY: CTDlvol: 19.74 mGy DLP: 636.2 mGycm COMPARISON: None. FINDINGS: Airway: Patent. Salivary glands: Unremarkable. Lymph nodes: No lymphadenopathy. Thyroid: Unremarkable. Vasculature: No aneurysm. Orbits: Unremarkable. Paranasal sinuses and mastoids: Clear. Lung apices: Clear. Upper mediastinum: Unremarkable. Bones: No acute bony abnormalities. CT/Soft Tissue Neck without Contr IMPRESSION: No evidence of acute findings. No foreign bodies. Reading Location: [id number]
--- OUTSIDE RECORDS SUMMARY | 2025-03-31 10:13 | XMS RPT_ITS | CCD ---
Author Organization [facility] Care Team Providers Care Shingle Trimmer Name Role Phone Sammie Banks MD Primary Care Provider DR SAMMIE BANKS MD Primary Care Physician Sammie Banks MD Primary Care Provider GABRIEL GIBSON MD Attending Unavailable DR SAMMIE BANKS MD Primary Care UnavailGABRIEL Rhodes MD Attending Unavailable DR SAMMIE BANKS MD Primary Care UnavailDr. Sammie Garcia Primary Care Provider Dr. Sammie Banks Referring Provider SAMMY William Attending Provider Dr. Cornel Espinoza Attending Provider SAMMY William Referring Provider SAMMY William Other Provider Patti Mercado Attending Provider Unavailable Dr. Cornel Espinoza Referring Provider Dr. Cornel Espinoza Other Provider Dr. Fernie Candelaria Attending Provider Dr. Fernie Candelaria Referring Provider Sammie Banks MD Primary Care Provider SAMMIE BANKS Primary Care Unavailable NIESHA BIGGS Attending UnavailSAMMIE Garcia Primary Care Unavailable LATONYA REYES Attending Unavailable WILLIAMS MCNAMARA Referring Unavailable SAMMIE BANKS Primary Care Unavailable WILLIAMS MCNAMARA Attending Unavailable SAMMIE BANKS Primary Care Unavailable WILLIAMS MCNAMARA Admitting Unavailable WILLIAMS MCNAMARA Attending Unavailable GANTA, SAMMIE Primary Care Unavailable WILLIAMS MCNAMARA Attending Unavailable Sammie Banks MD Primary Care Provider Aashish Tanner PA-C Unavailable [phone] 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 Sammie Banks MD Primary Care Physician Dr. Sammie Banks MD Referring Provider Roof FRONT DESK COORDINATORAbhi Lopez Attending Physician GANTA, SAMMIE Attending Unavailable GANTA, SAMMIE Primary Care Unavailable GANTA, SAMMIE Primary Care Unavailable GANTA, SAMMIE Primary Care Unavailable GANTA, SAMMIE Primary Care Unavailable OLDER, BETHANY Referring Unavailable GANTA, SAMMIE Primary Care Unavailable GANTA, SAMMIE Primary Care Unavailable GANTA, SAMMIE Primary Care Unavailable ABEREGG, KRISLYN P Referring Unavailable GANTA, SAMMIE Referring Unavailable GANTA, SAMMIE Primary Care Unavailable GANTA, SAMMIE Primary Care Unavailable MONIQUE GOMEZ Referring Unavailable GANTA, SAMMIE Primary Care Unavailable OLDER, BETHANY Referring Unavailable GANTA, SAMMIE Primary Care Unavailable CRISTI FARRIS Attending Unavailable GANTA, SAMMIE Primary Care Unavailable GANTA, SAMMIE Referring Unavailable OLDER, BETHANY Attending Unavailable GANTA, SAMMIE Primary Care Unavailable OLDER, BETHANY Referring Unavailable GANTA, SAMMIE Primary Care Unavailable OLDER, BETHANY Referring Unavailable GANTA, SAMMIE Primary Care Unavailable ABEREGG, KRISLYN P Referring Unavailable GANTA, SAMMIE Primary Care Unavailable ABEREGG, KRISLYN P Referring Unavailable GANTA, SAMMIE Primary Care Unavailable ABEREGG, KRISLYN P Referring Unavailable MONIQUE GOMEZ Attending Unavailable GANTA, SAMMIE Primary Care Unavailable OLDER, BETHANY Referring Unavailable GANTA, SAMMIE Referring Unavailable GANTA, SAMMIE Primary Care Unavailable Allergies Allergy Classification Reported Allergen(s) Allergy Type Date of Onset Reaction(s) Facility (7 sources) Penicillins; Translations: [PENICILLINS] Propensity to adverse reactions 6 [facility] Work Phone: (20 sources) Sertraline; Translations: [SERTRALINE HCL] Drug Allergy 4 Intolerance [facility] (20 sources) Penicillins Propensity to adverse reactions 6 [facility] Work Phone: (4 sources) Penicillins Allergy to substance 3 PT UNSURE OF REACTION [facility] (14 sources) Sertraline Drug Allergy 4 Other [facility] Comment on above: intolerance (10 sources) Penicillins Drug Allergy 6 [facility] (12 sources) Penicillins Propensity to adverse reactions 6 [facility] Work Phone: (1 source) Penicillins Drug allergy (disorder) 5 [facility] Repository (1 source) Sertraline Drug Allergy 5 [facility] Repository Medications Current Medications Medication Drug Class(es) Dates Sig (Normalized) Sig (Original) [id number] 200 actuat albuterol 0.09 mg/actuat metered dose inhaler (20 sources) beta2-Adrenergic Agonist Start: 07-20-2022 take 1 puff(s) by inhalation every six hours Albuterol Sulfate Active 2 PUFF INHALATION EVERY 6 HOURS July 20, 2022 12:00am Start: 11-15-2020 take 2 puff(s) by in halation every four hours as needed for wheezing albuterol HFA (VENTOLIN HFA) 90 mcg/actuation inhaler Indications: Acute bronchitis, unspecified organism Inhale 2 Puffs as instructed every 4 hours as needed for wheezing/shortness of breath. 18 g 2 11/15/2020 Active Start: 11-05-2019 Albuterol Sulf ate 1 PUFF inhaler Active 1 - 2 NMA INHALATION EVERY 4 HOURS NEEDED as needed for Sob &/Or Wheezing November 05, 2019 12:00am Complies with drug therapy Start: 11-05-2019 take 1 puff(s) by in halation every four hours as needed Albuterol Sulfate Active 1 - 2 PUFF INHALATION EVERY 4 HOURS NEEDED November 04, 2019 11:00pm Comment on above: Inhale 2 Puffs as in structed every 4 hours as needed for wheezing/shortness of breath. allopurinol 300 mg oral tablet (20 sources) Xanthine Oxidase Inhibitor Start: 08-29-19 End: 10-10-19 take 1 tablet by mouth once daily allopurinol (ZYLOPRIM) 100 mg tablet Take 1 tablet by mouth once daily. 90 tablet 1 08/28/2024 10/09/2024 Discontinued Start: 03-10-2015 End: 10-09-2024 take 1 tablet by mouth once daily Allopurinol 300 MG tablet Active 300 mg PO DAILY November 05, 2019 12:00am Complies with drug therapy Comment on above: TAKE ONE TABLET BY M OUTH EVERY DAY FOR FOR GOUT apixaban 5 mg oral tablet (19 sources) Factor Xa Inhibitor Start: 07-29-2022 End: 02-01-2025 take 1 tablet by mouth twice daily as needed Apixaban (Eliquis) 5 mg tablet Active 5 mg PO TWICE A DAY as needed for Fax to [facility] 60 February 01, 2025 3:23pm Complies with drug therapy atenolol 50 mg oral tablet (20 sources) beta-Adrenergic Wilberto Start: 02-28-2024 take 0.5 tablet by mouth once daily atenolol (TENORMIN) 25 mg tablet Take 0.5 tablets by mouth once daily. 45 tablet 3 02/28/2024 Active Start: 06-18-2022 End: 11-20-2024 take 1 tablet by mouth once daily Atenolol 50 mg tablet Active 50 mg PO DAILY 90 3 November 20, 2024 12:05pm Complies with drug therapy Start: 06-18-2022 End: 02-28-2024 take 1 tablet by mouth once daily Atenolol 25 mg tablet Discontinued 25 mg PO DAILY July 29, 2022 12:00am September 11, 2022 11:02am Start: 06-18-2022 take 2 tablets by mo uth in the morning atenolol (Tenormin) 25 MG tablet Take 50 mg by mouth in the morning. 0 06/18/2022 Active Comment on above: Take 1 tablet by damir th once daily. benzonatate 100 mg oral capsule (14 sources) Non-narcotic Antitussive Start: End: take 2 capsules by mouth three times daily as needed benzonatate (TESSALON PERLE) 100 mg capsule Indications: Viral URI with cough Take 2 capsules by mouth three times a day as needed for up to 10 days. 60 capsule 04/20/2024 04/30/2024 Active Start: 02-21-2023 End: 03-12-2023 take 2 capsules by mouth three times daily as needed benzonatate (TESSALON PERLE) 100 mg capsule Indications: Lower resp. tract infection Take 2 capsules by mouth three times a day as needed for up to 10 days. 60 capsule 0 03/02/2023 03/12/2023 Active Start: 11-06-2019 End: 12-27-2019 take 2 capsules by mouth four times daily as needed for cough Benzonatate 100 MG capsule Discontinued 200 mg PO 4 TIMES DAILY NEEDED as needed for Cough 40 0 November 06, 2019 12:00am December 27, 2019 9:42am Start: 11-06-2019 End: 12-27-2019 take 200 mg by mouth four times daily as needed Benzonatate Discontinued 200 MG PO 4 TIMES DAILY NEEDED 40 November 05, 2019 11:00pm December 27, 2019 8:42am Start: 06-04-2018 End: 07-20-2022 take 1 capsule by mouth three times daily as needed for cough Benzonatate 100 MG capsule Discontinued 100 mg PO 3 TIMES DAILY NEEDED as needed for Cough June 04, 2018 1:00am July 20, 2022 5:28pm Comment on above: Take 2 capsules by m outh three times a day as needed for up to 10 days. Blood pressure cuff (4 sources) Start: 04-30-2020 Blood pressure cuff Active 0 .Route .MEDSUPPLY 1 0 April 30, 2020 1:00am hypertension As directed Start: 04-30-2020 Blood pressure cuff Active 0 .Route .MEDSUPPLY April 30, 2020 12:00am As directed Start: 04-30-2020 Blood pressure cuff Active 0 .Route .MEDSUPPLY April 30, 2020 1:00am As directed Budesonide / formoterol (20 sources) Corticosteroid, beta2-Adrenergic Agonist Start: 09-29-2024 take 2 puff(s) by inhalation twice daily budesonide-formoterol (SYMBICORT) 160-4.5 mcg/actuation inhaler Inhale 2 puffs as instructed two times a day. 1 each 09/29/2024 Active Start: 08-28-2024 End: 09-29-2024 take 2 puff(s) by inhalation twice daily budesonide-formoterol (SYMBICORT) 80-4.5 mcg/actuation inhaler Indications: Asthma without acute exacerbation (HCC) Inhale 2 puffs as instructed two times a day. 10.2 g 3 08/28/2024 09/29/2024 Discontinued (Changing Therapy/Dosage Form) Start: 08-28-2024 End: 11-26-2024 take 2 puff(s) by inhalation twice daily budesonide-formoterol (SYMBICORT) 80-4.5 mcg/actuation inhaler Indications: Asthma without acute exacerbation (HCC) Inhale 2 puffs as instructed two times a day. 10.2 g 3 08/28/2024 11/26/2024 Active Start: 02-28-2024 End: 08-28-2024 take 2 puff(s) by inhalation twice daily budesonide-formoterol (SYMBICORT) 80-4.5 mcg/actuation inhaler Indications: Asthma without acute exacerbation (HCC) Inhale 2 Puffs as instructed two times a day. 10.2 g 3 02/28/2024 08/28/2024 Discontinued Start: 02-28-2024 take 2 puff(s) by in halation twice daily budesonide-formoterol (SYMBICORT) 80-4.5 mcg/actuation inhaler Indications: Asthma without acute exacerbation (HCC) Inhale 2 Puffs as instructed two times a day. 10.2 g 3 02/28/2024 Active Start: 02-28-2024 take 2 puff(s) by in halation twice daily budesonide-formoterol (SYMBICORT) 80-4.5 mcg/actuation inhaler Indications: Asthma without acute exacerbation Inhale 2 Puffs as instructed two times a day. 10.2 g 3 02/28/2024 Active Start: 02-28-2024 End: 05-28-2024 take 2 puff(s) by inhalation twice daily budesonide-formoterol (SYMBICORT) 80-4.5 mcg/actuation inhaler Indications: Asthma without acute exacerbation Inhale 2 Puffs as instructed two times a day. 10.2 g 3 02/28/2024 05/28/2024 Active Start: 02-14-2024 End: 02-28-2024 take 2 puff(s) by inhalation twice daily budesonide-formoterol (SYMBICORT) 80-4.5 mcg/actuation inhaler Indications: Moderate persistent asthma with exacerbation Inhale 2 Puffs as instructed two times a day. 10.2 g 5 02/14/2024 02/28/2024 Discontinued Start: 02-14-2024 take 2 puff(s) by in halation twice daily budesonide-formoterol (SYMBICORT) 80-4.5 mcg/actuation inhaler Indications: Moderate persistent asthma with exacerbation Inhale 2 Puffs as instructed two times a day. 10.2 g 5 02/14/2024 Active Start: 07-20-2022 Budesonide-For moterol (Symbicort) 80-4.5 mcg/actuation HFA aerosol inhaler Active 2 NMA INHALATION TWICE A DAY as needed for Shortness Of Breath July 20, 2022 12:00am Complies with drug therapy Start: 07-20-2022 take 1 puff(s) by in halation twice daily Budesonide-Formoterol (Symbicort) 80-4.5 mcg/actuation HFA aerosol inhaler Active 2 PUFF INHALATION TWICE A DAY July 19, 2022 11:00pm Start: 07-20-2022 take 1 puff(s) by in halation twice daily Budesonide-Formoterol (Symbicort) 80-4.5 mcg/actuation HFA aerosol inhaler Active 2 PUFF INHALATION TWICE A DAY July 20, 2022 12:00am Start: 06-18-2022 End: 02-12-2024 take 2 puff(s) by inhalation twice daily budesonide-formoterol (SYMBICORT) 80-4.5 mcg/actuation inhaler Indications: Moderate persistent asthma with exacerbation Inhale 2 Puffs as instructed twice daily. 10.2 g 5 06/18/2022 02/12/2024 Discontinued Start: 06-18-2022 take 2 puff(s) by in halation in the morning budesonide-formoterol (Symbicort) 80-4.5 MCG/ACT inhaler Inhale 2 puffs in the morning and 2 puffs in the evening. 0 06/18/2022 Active Start: 06-18-2022 take 2 puff(s) by in halation twice daily budesonide-formoterol (SYMBICORT) 80-4.5 mcg/actuation inhaler Indications: Moderate persistent asthma with exacerbation Inhale 2 Puffs as instructed twice daily. 10.2 g 5 06/18/2022 Active Start: 04-23-2021 End: 06-18-2022 take 2 puff(s) by inhalation twice daily budesonide-formoterol (SYMBICORT) 80-4.5 mcg/actuation inhaler Indications: Moderate persistent asthma with exacerbation Inhale 2 Puffs as instructed twice daily. 10.2 g 5 04/23/2021 06/18/2022 Discontinued Start: 04-23-2021 take 2 puff(s) by in halation twice daily budesonide-formoterol (SYMBICORT) 80-4.5 mcg/actuation inhaler Indications: Moderate persistent asthma with exacerbation Inhale 2 Puffs as instructed twice daily. 10.2 g 5 04/23/2021 Active Start: 11-05-2019 take 1 puff(s) by in halation once daily Budesonide-Formoterol Active 1 PUFF IH DAILY November 05, 2019 12:00am Comment on above: Inhale 2 Puffs as in structed twice daily. colchicine 0.6 mg oral tablet (3 sources) Start: 10-09-2024 take 1 tablet by mouth twice daily colchicine 0.6 mg tablet Take 1 tablet by mouth two times a day. 6 tablet 1 10/09/2024 Active CPAP (20 sources) Start: 04-02-2022 CPAP Initiate Auto PAP @ 5-20 cm of water with humidification. Mask (per patient preference) optional chin strap (if indicated) , filters, tubing, humidifier and lifetime supplies. 1 Each 1 04/02/2022 Active Start: 07-11-2021 End: 04-02-2022 CPAP Initiate Auto PAP @ 5-2 0 cm of water with humidification. Mask (per patient preference) optional chin strap (if indicated) , filters, tubing, humidifier and lifetime supplies. 1 Each 1 07/11/2021 04/02/2022 Discontinued Start: 07-11-2021 CPAP Initiate Auto PAP @ 5-20 cm of water with humidification. Mask (per patient preference) optional chin strap (if indicated) , filters, tubing, humidifier and lifetime supplies. 1 Each 1 07/11/2021 Active Comment on above: Initiate Auto PAP @ 5-20 cm of water with humidification. Mask (per patient preference) optional chin strap (if indicated) , filters, tubing, humidifier and lifetime supplies. doxycycline hyclate 100 mg oral tablet (11 sources) Tetracycline-class Drug Start: 06-01-19 End: 06-08-19 take 1 tablet by mouth twice daily doxycycline (VIBRA-TABS) 100 mg tablet Take 1 tablet by mouth two times a day for 7 days. 14 tablet 06/01/2024 06/08/2024 Active Start: 04-20-2024 End: 04-27-2024 take 1 tablet by mouth twice daily doxycycline (VIBRA-TABS) 100 mg tablet Indications: Bacterial sinusitis Take 1 tablet by mouth two times a day for 7 days. 14 tablet 04/20/2024 04/27/2024 Active Start: 02-21-2023 End: 03-03-2023 take 1 capsule by mouth twice daily doxycycline hyclate (VIBRAMYCIN) 100 mg capsule Indications: Lower resp. tract infection Take 1 capsule by mouth two times a day for 10 days. 20 capsule 0 02/21/2023 03/02/2023 Discontinued Start: 07-29-2021 End: 08-08-2021 take 1 tablet by mouth twice daily doxycycline (VIBRA-TABS) 100 mg tablet Indications: Bronchitis Take 1 tablet by mouth twice daily for 10 days. 20 tablet 0 07/29/2021 08/08/2021 Start: 06-04-2018 End: 07-20-2022 take 1 capsule by mouth twice daily Doxycycline Monohydrate 100 MG capsule Discontinued 100 mg PO TWICE A DAY June 04, 2018 1:00am July 20, 2022 5:28pm Comment on above: Take 1 tablet by damir twice daily for 10 days. Take 1 capsule by mo [facility] two times a day for 10 days. esomeprazole 40 mg delayed release oral capsule (20 sources) Proton Pump Inhibitor Start: 06-04-19 End: 06-23-19 take 1 capsule by mouth once daily Esomeprazole Magnesium (Nexium) 40 MG capsule Active 40 mg PO DAILY June 04, 2018 1:00am Complies with drug therapy Comment on above: Take 1 capsule by mo [facility] once daily. fluticasone propionate 0.05 mg/actuat metered dose nasal spray (20 sources) Corticosteroid Start: 07-21-19 take 2 spray(s) nasal route once daily as needed fluticasone (Flonase) 50 MCG/ACT nasal spray Administer 2 sprays into each nostril Daily as needed. 0 07/20/2022 Active Start: 07-20-2022 take 1 spray(s) nasa l route once daily Fluticasone Propionate Active 2 SPRAY INTRANASAL DAILY July 19, 2022 11:00pm administer into each nostril Start: 07-11-2021 End: 06-18-2022 take 1 spray(s) nasal route once daily fluticasone (FLONASE) 50 mcg/actuation nasal spray Indications: Acute LUCILLE (middle ear effusion), bilateral Use 1 [place] in each nostril once daily. 16 g 1 06/18/2022 Active Comment on above: Use 1 [place] in each nostril once daily. levoFLOXacin 500 mg oral tablet (1 source) Quinolone Antimicrobial Start: 03-02-20 End: 03-09-20 take 1 tablet by mouth once daily levoFLOXacin (LEVAQUIN) 500 mg tablet Indications: Lower resp. tract infection Take 1 tablet by mouth once daily for 7 days. 7 tablet 0 03/02/2023 03/09/2023 Active Comment on above: Take [address] [facility] once daily for 7 days. levothyroxine sodium 0.175 mg oral tablet (20 sources) l-Thyroxine Start: 07-21-19 take 175 ug by mouth once daily Levothyroxine Active 175 MCG PO DAILY July 20, 2022 12:00am Start: 11-05-2019 End: 04-11-2024 take 1 tablet by mouth once daily Levothyroxine 175 MCG tablet Active 175 ug PO DAILY November 05, 2019 12:00am Complies with drug therapy Start: 06-04-2018 End: 07-20-2022 take 1 tablet by mouth once daily Levothyroxine 50 MCG tablet Discontinued 50 ug PO DAILY June 04, 2018 1:00am July 20, 2022 5:24pm Comment on above: Take 1 tablet by damir th once daily. Take on empty stomach. For thyroid. losartan potassium 50 mg oral tablet (20 sources) Angiotensin 2 Receptor Wilberto Start: End: take 0.5 tablet by mouth once daily losartan (COZAAR) 50 mg tablet Indications: Essential hypertension Take 0.5 tablets by mouth once daily. 45 tablet 3 08/28/2024 Active Start: 03-02-2023 End: 02-12-2024 take 0.5 tablet by mouth once daily losartan (COZAAR) 50 mg tablet Indications: Essential hypertension Take 0.5 tablets by mouth once daily. 90 tablet 09/11/2023 02/12/2024 Discontinued Start: 06-18-2022 losartan (Coza ar) 50 MG tablet Take 25 mg by mouth in the morning. 0 06/18/2022 Active Start: 06-04-2018 End: 03-02-2023 take 1 tablet by mouth once daily Losartan 50 MG tablet Active 50 mg PO DAILY June 04, 2018 1:00am Complies with drug therapy Comment on above: Take 1 tablet by damir th once daily. Take 0.5 tablets by mouth once daily. Misc. Devices misc (10 sources) Start: 04-02-2022 Misc. Devices misc Initiate Auto PAP @ 5-20 cm of water with humidification. Mask (per patient preference) optional chin strap (if indicated) , filters, tubing, humidifier and lifetime supplies. 0 04/02/2022 Active predniSONE 10 mg oral tablet (13 sources) Start: 08-17-2024 End: 08-26-2024 predniSONE (DELTASONE) 10 mg tablet Indications: COPD with exacerbation (HCC) Take 4 tabs daily for 3 days, then 2 tabs daily for 3 days, then 1 tab daily for 3 days with food. 21 tablet 08/17/2024 08/26/2024 Active Start: 06-27-2024 End: 07-06-2024 predniSONE (DELTASONE) 10 mg tablet Take 4 tabs daily for 3 days, then 2 tabs daily for 3 days, then 1 tab daily for 3 days with food. 21 tablet 06/27/2024 07/06/2024 Active Start: 06-01-2024 End: 06-10-2024 predniSONE (DELTASONE) 10 mg tablet Take 4 tabs daily for 3 days, then 2 tabs daily for 3 days, then 1 tab daily for 3 days with food. 21 tablet 06/01/2024 06/10/2024 Active Start: 04-23-2024 End: 04-28-2024 take 1 tablet by mouth twice daily predniSONE (DELTASONE) 20 mg tablet Indications: Persistent cough Take 1 tablet by mouth two times a day for 5 days. 10 tablet 04/23/2024 04/28/2024 Active Start: 04-07-2023 End: 04-19-2023 predniSONE (DELTASONE) 10 mg tablet Indications: History of COPD Take 4 tabs daily x 3 days, then 3 tabs x 3 days, 2 tabs x 3 days, then 1 tab x3 days with food. 30 tablet 0 04/07/2023 04/19/2023 Active Start: 03-02-2023 End: 07-05-2023 predniSONE (DELTASONE) 10 mg tablet Indications: Lower resp. tract infection Take 2 tabs po BID for 2 days then 1 tab po BID for 2 days then 1/2 tab po BID for 2 days then 1/2 tab daily for 2 days then stop 15 tablet 0 03/02/2023 07/05/2023 Discontinued Start: 06-04-2018 End: 07-20-2022 take 2 tablets by mouth once daily at mealtime Prednisone 20 MG tablet Discontinued 40 mg PO DAILY June 04, 2018 1:00am July 20, 2022 5:28pm With food Start: 06-04-2018 End: 07-20-2022 take 40 mg by mouth once daily at mealtime Prednisone Discontinued 40 MG PO DAILY June 04, 2018 12:00am July 20, 2022 4:28pm With food Comment on above: Take 2 tabs po BID f or 2 days then 1 tab po BID for 2 days then 1/2 tab po BID for 2 days then 1/2 tab daily for 2 days then stop Take 4 tabs daily x 3 days, then 3 tabs x 3 days, 2 tabs x 3 days, then 1 tab x3 days with food. Semaglutide (Weight Loss) (1 source) Start: 02-01-2025 Semaglutide (Weight Loss) (Wegovy) 0.25 mg/0.5 mL pen injector Active 0.25 mg SC EVERY WEEK 2 0 February 01, 2025 12:00am administer weeks 1 through 4 of therapy Complies with drug therapy sildenafil 50 mg oral tablet (20 sources) Phosphodiesterase 5 Inhibitor Start: 06-18-2022 End: 02-03-2024 Sildenafil (Viagra) 50 mg tablet Active 50 mg PO DAILY as needed February 03, 2024 3:18pm administer 30 minutes to 4 hours before activity Complies with drug therapy Start: 04-10-2020 End: 08-28-2024 sildenafil (VIAGRA) 50 mg ta blet Take 1 to 2 pills one hour prior to sexual activity 30 tablet 2 08/28/2024 Active Comment on above: Take 1 to 2 pills on e hour prior to sexual activity triamcinolone acetonide 1 mg/ml topical cream (1 source) Corticosteroid Start: 01-28-2024 End: 02-04-2024 triamcinolone acetonide (KENALOG) 0.1 % cream Apply 1 application to affected area two times a day for 7 days. Apply to affected area. Use sparingly. 15 g 01/28/2024 02/04/2024 Active Completed/Discontinued Medications Medication Drug Class(es) Dates [...] mg from all sources in 24 hours. aspirin 81 mg delayed release oral tablet (16 sources) Platelet Aggregation Inhibitor, Nonsteroidal Anti-inflammatory Drug Start: 06-18-2022 End: 07-05-2023 Aspirin (Adult Low Dose Aspirin) 81 mg tablet,delayed release (DR/EC) Discontinued 81 mg PO DAILY July 29, 2022 12:00am September 14, 2022 3:04pm Comment on above: Take 1 tablet by damir once daily. betamethasone 3 mg/ml / betamethasone acetate 3 mg/ml injectable suspension (1 source) Corticosteroid Start: 10-24-2021 End: 10-24-2021 betamethasone acetate-betamethas one sodium phosphate 6 mg injection (CELESTONE) Start: 10-24-2021 End: 10-24-2021 betamethasone acetate-betame thasone sodium phosphate 6 mg injection (CELESTONE) cefuroxime 500 mg oral tablet (4 sources) Cephalosporin Antibacterial Start: 06-04-2018 End: 07-20-2022 take 1 tablet by mouth twice daily Cefuroxime Axetil 500 MG tablet Discontinued 500 mg PO TWICE A DAY 14 0 June 04, 2018 1:00am July 20, 2022 5:28pm cholecalciferol 0.125 mg oral tablet (8 sources) Vitamin D Start: 04-30-2020 End: 07-29-2022 take 1 tablet by mouth once daily Cholecalciferol (Vitamin D3) 125 mcg (5,000 unit) tablet Discontinued 125 ug PO DAILY April 30, 2020 1:00am July 29, 2022 11:35am Start: 12-27-2019 End: 04-30-2020 take 1 capsule by mouth once daily Cholecalciferol (Vitamin D3) 25 mcg (1,000 unit) capsule Discontinued 25 ug PO DAILY December 27, 2019 12:00am April 30, 2020 9:35am flecainide acetate 100 mg oral tablet (3 sources) Antiarrhythmic Start: 09-11-2022 End: 09-11-2022 take 1 tablet by mouth every twelve hours Flecainide 100 mg tablet Discontinued 100 mg PO Q12H 60 September 11, 2022 12:00am September 11, 2022 11:02am 60 actuat formoterol fumarate 0.005 mg/actuat / mometasone furoate 0.1 mg/actuat metered dose inhaler (2 sources) Corticosteroid, beta2-Adrenergic Agonist Start: 12-04-2022 End: 12-05-2022 take 2 puff(s) by mouth twice daily 2 puff, Inhalation, 2 times daily, First dose on Wed12/04/22 at 1500 Rinse mouth with water after use to reduce aftertaste and incidence of candidiasis. Do not swallow. 1 ml HYDROmorphone hydrochloride 1 mg/ml cartridge (2 sources) Opioid Agonist Start: 12-04-2022 End: 12-04-2022 HYDROmorphone (Dilaudid) injection 0.25 mg methylPREDNISolone (1 source) Corticosteroid Start: 07-29-2021 End: 08-04-2021 methylPREDNISolone (MEDROL, KASI,) 4 mg Dose-Pack Indications: Bronchitis Follow dosing instructions, take with food. 1 Package 0 07/29/2021 08/04/2021 Comment on above: Follow dosing instru ctions, take with food. 24 hr metoprolol succinate 25 mg extended release oral tablet (4 sources) beta-Adrenergic Wilberto Start: 11-06-2019 End: 07-29-2022 take 1 tablet by mouth once daily Metoprolol Succinate 25 MG tablet extended release 24 hr Discontinued 25 mg PO DAILY 30 November 06, 2019 12:00am July 29, 2022 11:34am pantoprazole 40 mg delayed release oral tablet (2 sources) Proton Pump Inhibitor Start: 12-05-2022 End: 12-05-2022 take 40 mg by mouth once daily before breakfast 40 mg, Oral, Daily before breakfast, First dose on 12/05/22 at 0700 Substituted for esomeprazole (Nexium). Do not crush, chew, or split. traMADol hydrochloride 50 mg oral tablet (5 sources) Opioid Agonist Start: 07-20-2022 End: 11-19-2022 traMADol (Ultram) 50 MG tablet Take 50 mg by mouth. 0 07/20/2022 11/19/2022 Discontinued Start: 07-20-2022 End: 02-03-2024 take 1-2 tablets by mouth every four to six hours as needed for pain Tramadol 50 mg tablet Discontinued 50 mg PO Q4H as needed for pain July 20, 2022 12:00am February 03, 2024 3:18pm may take 1-2 tabs Q4-6h PRN Problems Active Problems Problem Classification Problem Date Documented Date Episodic/Chronic Asthma (20 sources) Uncomplicated mild persistent asthma; Translations: [Mild persistent asthma, uncomplicated] Onset: 09-05-2018 09-05-2018 Chronic Cardiac dysrhythmias (20 sources) Paroxysmal atrial fibrillation; Translations: [Paroxysmal atrial fibrillation] Onset: 11-05-2019 Resolved: 11-19-2022 Chronic Comment on above: S/p ablation on 12/04 at [facility]; Chronic obstructive pulmonary disease and bronchiectasis (5 sources) Acute exacerbation of chronic obstructive airways disease; Translations: [Chronic obstructive pulmonary disease with (acute) exacerbation] Onset: 08-17-2024 06-01-2024 Chronic Chronic obstructive pulmonary disease and bronchiectasis (1 source) Bronchitis; Translations: [Bronchitis, not specified as acute or chronic] Episodic Diabetes mellitus without complication (3 sources) Increased glucose level; Translations: [Other abnormal glucose] Onset: 03-29-2024 03-09-2024 Episodic Disorders of lipid metabolism (20 sources) Hyperlipidemia; Translations: [Hyperlipidemia, unspecified] Onset: 07-21-2005 Resolved: 10-09-2014 03-29-2016 Chronic Esophageal disorders (20 sources) Gastroesophageal reflux disease without esophagitis; Translations: [Gastro-esophageal reflux disease without esophagitis] Onset: 07-21-2005 Resolved: 04-10-2020 Chronic Essential hypertension (20 sources) Essential hypertension; Translations: [Essential (primary) hypertension] Onset: 10-08-2022 Chronic Gout and other crystal arthropathies (20 sources) Gout; Translations: [Gout, unspecified] Onset: 09-07-2008 04-21-2021 Chronic Immunizations and screening for infectious disease (2 sources) Needs influenza immunization; Translations: [Encounter for immunization] Onset: 02-28-2025 02-28-2024 Episodic Malaise and fatigue (1 source) Other fatigue; Translations: [Fatigue, unspecified type] Onset: 02-28-2025 Episodic Other and unspecified benign neoplasm (1 source) Lipoma of trunk; Translations: [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] 08-28-2024 Episodic Other circulatory disease (1 source) Personal history of other diseases of the circulatory system; Translations: [H/O atrial fibrillation without current medication] Onset: 02-28-2025 Episodic Other connective tissue disease (1 source) H/O: gout; Translations: [Personal history of other diseases of the musculoskeletal system and connective tissue] 08-28-2024 Episodic Other lower respiratory disease (2 sources) Lower respiratory tract infection; Translations: [Unspecified acute lower respiratory infection] 02-21-2023 Episodic Other lower respiratory disease (1 source) Persistent cough; Translations: [Persistent cough] 04-23-2024 Episodic Other lower respiratory disease (2 sources) Cough; Translations: [Subacute cough] 06-27-2024 Episodic Other male genital disorders (20 sources) Male erectile dysfunction, unspecified; Translations: [Impotence of organic origin] Onset: 07-28-2010 07-28-2010 Chronic Other nervous system disorders (1 source) Anesthesia of skin; Translations: [Numbness and tingling] Onset: 02-28-2025 Episodic Other nervous system disorders (1 source) Paresthesia of skin; Translations: [Numbness and tingling] Onset: 02-28-2025 Episodic Other non-traumatic joint disorders (2 sources) Pain in right knee; Translations: [Pain in joint, lower leg] Episodic Other nutritional; endocrine; and metabolic disorders (20 sources) Body mass index 30+ - obesity; Translations: [Obesity, unspecified] Onset: 10-09-2014 06-29-2018 Chronic Other nutritional; endocrine; and metabolic disorders (2 sources) Obesity, unspecified; Translations: [Obesity, unspecified] Onset: 03-11-2023 Chronic Other nutritional; endocrine; and metabolic disorders (1 source) Obese class I; Translations: [Class 1 obesity] 09-29-2024 Chronic Other nutritional; endocrine; and metabolic disorders (2 sources) Obesity; Translations: [Obesity, unspecified] 02-01-2025 Chronic Other nutritional; endocrine; and metabolic disorders (1 source) Abnormal weight gain; Translations: [Weight gain] Onset: 02-28-2025 Episodic Other skin disorders (3 sources) Mass of back; Translations: [Localized swelling, mass and lump, trunk] 08-28-2024 Episodic Other upper respiratory infections (2 sources) Bacterial sinusitis; Translations: [Chronic sinusitis, unspecified] 04-20-2024 Chronic Other upper respiratory infections (1 source) Viral upper respiratory tract infection; Translations: [Acute upper respiratory infection, unspecified] 04-20-2024 Episodic Otitis media and related conditions (1 source) Acute transudative otitis media; Translations: [Other acute nonsuppurative otitis media, bilateral] Episodic Residual codes; unclassified (17 sources) Obstructive sleep apnea syndrome; Translations: [Obstructive sleep apnea (adult) (pediatric)] Onset: 11-18-2022 11-19-2022 Chronic Residual codes; unclassified (3 sources) Obstructive sleep apnea (adult) (pediatric); Translations: [Obstructive sleep apnea (adult) (pediatric)] Onset: 03-11-2023 Chronic Residual codes; unclassified (2 sources) Sleep apnea; Translations: [Sleep apnea, unspecified] 02-01-2025 Chronic Comment on above: CPAP therapy; Sprains and strains (1 source) Sprain of knee; Translations: [Sprain of other specified parts of right knee, initial encounter] Episodic Thyroid disorders (20 sources) Hypothyroidism; Translations: [Hypothyroidism, unspecified] Onset: 11-17-2013 04-21-2021 Chronic Unclassified (2 sources) Other persistent atrial fibrillation; Translations: [Other persistent atrial fibrillation (HCC)] Onset: 12-04-2022 Unclassified (1 source) Class 1 obesity; Translations: [Class 1 obesity] Onset: 09-29-2024 Unclassified (1 source) Subacute cough; Translations: [Subacute cough] Onset: 06-27-2024 Past or Other Problems Problem Classification Problem Date Documented Date Episodic/Chronic Allergic reactions (3 sources) Allergic contact dermatitis caused by plant material; Translations: [Allergic contact dermatitis due to plants, except food] Onset: 09-29-2024 01-28-2024 Episodic Other aftercare (20 sources) Patient encounter status; Translations: [Other bed bug exterminator (current) drug therapy] Onset: 03-03-2021 Resolved: 03-03-2021 Episodic Other and unspecified benign neoplasm (1 source) 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; Translations: [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] Onset: 08-28-2024 Episodic Other connective tissue disease (1 source) Personal history of other diseases of the musculoskeletal system and connective tissue; Translations: [Personal history of gout] Onset: 08-28-2024 Episodic Other lower respiratory disease (3 sources) Chronic cough; Translations: [Chronic cough] Onset: 09-29-2024 09-29-2024 Episodic Other screening for suspected conditions (not mental disorders or infectious disease) (9 sources) Electrocardiogram abnormal; Translations: [Abnormal electrocardiogram [ECG] [EKG]] Onset: 03-29-2024 07-29-2022 Episodic Other skin disorders (1 source) Localized swelling, mass and lump, trunk; Translations: [Mass on back] Onset: 08-28-2024 Episodic Residual codes; unclassified (20 sources) Insomnia; Translations: [Insomnia, unspecified] Onset: 09-09-2008 04-21-2021 Episodic Viral infection (4 sources) COVID-19; Translations: [Severe acute respiratory syndrome coronavirus 2 (SARS-CoV-2) detected] Onset: 11-05-2019 12-26-2019 Episodic Results Test Name Value Interpretation Reference Range Facility CNOVon 02-28-2025 CNOV Office Visit (INTMWS ) NORMA OZUNA ([id number]) 1960 M Date Time Provider Department 02/28/25 8:00 AM SAMMIE BANKS INTSharlaWS During your visit today, we recorded the following information about you: Pulse Respiration Blood pressure Weight 56/minute 16/minute 126/80 131.1 kg Sammie Banks MD 02/28/2025 8:48 AM Signed We discussed your atrial fibrillation (AFib): - You had an ablation procedure about a year ago, which has helped your symptoms and improved your breathing and energy. - You are not currently taking a blood thinner, as your risk for an embolic event is low. Please follow up with your heart doctor to clarify your current medication plan, as discussed. - I have updated your record to reflect your history of atrial fibrillation. We discussed your gout and uric acid levels: - Your uric acid levels have been stable, but you have noticed tingling in your feet and occasional symptoms of gout. - We will increase your allopurinol dose to 300 mg in the morning and 300 mg in the evening. I am sending a prescription for 180 pills for 3 months to your pharmacy. - You should continue to use colchicine for 3 days as needed if you have a gout flare. - We will check your uric acid and vitamin B12 levels today with blood work, and repeat these labs in 3 months. We discussed tingling and burning in your feet: - We will check your vitamin B12 level today, as low B12 can cause nerve symptoms. - If increasing your allopurinol does not help with the tingling, we can discuss further nerve testing at your next visit. We discussed your weight and possible weight loss medication: - Your heart doctor has recommended weight loss medication, and you are interested in starting this. - I support starting semaglutide or a similar medication if your insurance approves it. Please continue to work with your heart doctor and let me know if you need a prescription from me. - If you choose to use a compounding pharmacy, semaglutide can be obtained at a lower cost. We discussed your sleep apnea and CPAP use: - You are using your CPAP machine regularly. Your prescription is active. - Please contact your equipment provider to ensure your machine is collecting data. If it is not, let me know so we can arrange for a new machine if needed. - You may send your home sleep test results to your insurance company if they request it for medication approval. We discussed your exercise routine: - You are walking 8,000 to 10,000 steps a day and doing light weight lifting. Please continue your current exercise routine. We discussed vaccinations: - You will receive a flu shot. Follow-up: - We will repeat your uric acid and vitamin B12 labs in 3 months. - Please follow up with your heart doctor to clarify your medication plan and discuss weight loss medication. - If you have any new or worsening symptoms, or if you have questions about your medications or test results, please contact our office. Sammie Banks MD 03/02/2025 12:15 PM Incomplete Revision Reason for Visit Follow up HPI Elia Ozuna is a 64-year-old male with HTN, pre-diabetes, gout, JENIFER, obesity, asthma, and paroxysmal atrial fibrillation presenting for follow-up. Elia was diagnosed with paroxysmal atrial fibrillation approximately 2 years ago during a pre-op evaluation for knee surgery. He underwent a single cardioversion that maintained sinus rhythm for about 1 week, followed by a catheter ablation just over a year ago. Since the ablation, he reports significant improvement in symptoms, including better sleep, improved breathing, and resolution of previously unexplained dyspnea with exertion. He continues to experience occasional episodes of elevated heart rate lasting about a day, which his train gateman has reassured him are normal. He denies palpitations. He reports two prior episodes of syncope: one while sitting on a barstool with minimal alcohol intake, and another while walking up a steep hill during golf, requiring 30 minutes to recover. He is not currently on anticoagulation and is following up with his train gateman for medication clarification. He was evaluated by pulmonology last winter after 3 urgent care visits for cough requiring steroids. He was diagnosed with asthma and started on a twice-daily inhaler. He reports improved symptoms and has not required urgent care visits this summer. He continues to use CPAP nightly for JENIFER, but his current machine does not collect data. He inquires about newer technologies for JENIFER management. He reports daily tingling and occasional burning in both feet, top and bottom, present upon waking and throughout the day. This has been occurring for the past 6-8 months. He also experiences intermittent severe pain in individual toes. He notes the symptoms are less bothersome with increased a (more content not included)... Normal [facility] Methylmalonate SerPl-sCncon 02-28-2025 Methylmalonate [Moles/Vol] 0.17 umol/L Normal <=0.40 [facility] Comment on above: Order Comment: Nilo roper Type: BLOOD SPECIMEN Ordering Facility: [facility] Address: [address] [place] [address] Result Comment: This test was developed, and its performance characteristics determined by the [facility] Department of Pathology and Laboratory Medicine. It has not been cleared or approved by the FDA. The [facility] Department of Pathology and Laboratory Medicine is regulated under CLIA as qualified to perform high-complexity testing. This test is used for clinical purposes. It should not be regarded as investigational or for research. Performed By: #### 5 5454-3 #### [facility] CLIA [id number] [address] [place] [address] [place] TSH SerPl-aCncon 02-28-2025 TSH Qn 3.250 m[IU]/L Normal 0.270-4.200 [facility] Comment on above: Order Comment: Nilo roper Type: BLOOD SPECIMENOrdering Facility: [facility] Address: [address] [place] [address] Performed By: #### 3 016-3, 2131-12 ####[facility] [id number] [place] [address] [place] Vit B12 [facility] 11-05-2 025 Cobalamin (Vitamin B12) [Mass/Vol] 572 pg/mL Normal 232-1245 [facility] Comment on above: Order Comment: Speci men Type: BLOOD SPECIMENOrdering Facility: [facility] Address: [address] [place] [address] Performed By: #### 3 016-3, 2131-12 ####[facility] LAB[facility]IA [id number] [place] [address] [place] CBC W Auto Differential pane l (Bld)on 02-23-2025 Basophils (Bld) [#/Vol] 0.05 10*3/uL Normal <0.11 [facility] Comment on above: Order Comment: Speci men Type: BLOOD SPECIMEN Ordering Facility: [facility] Address: [address] [place] [address] Performed By: #### 5 5454-3 #### [facility] CLIA [id number] [address] [place] [address] [place] Basophils/100 WBC (Bld) 0.6 % Normal [facility] Comment on above: Order Comment: Speci men Type: BLOOD SPECIMEN Ordering Facility: [facility] Address: [address] [place] [address] Performed By: #### 5 5454-3 #### [facility] CLIA [id number] [address] [place] [address] [place] Differential cell count method Nom (Bld) Auto Normal [facility] Comment on above: Order Comment: Speci men Type: BLOOD SPECIMEN Ordering Facility: [facility] Address: [address] [place] [address] Performed By: #### 5 5454-3 #### [facility] CLIA [id number] [address] [place] [address] [place] Eosinophils (Bld) [#/Vol] 0.27 10*3/uL Normal <0.46 [facility] Comment on above: Order Comment: Speci men Type: BLOOD SPECIMEN Ordering Facility: [facility] Address: [address] [place] [address] Performed By: #### 5 5454-3 #### [facility] CLIA [id number] [address] [place] [address] [place] Eosinophils/100 WBC (Bld) 3.4 % Normal [facility] Comment on above: Order Comment: Speci men Type: BLOOD SPECIMEN Ordering Facility: [facility] Address: [address] [place] [address] Performed By: #### 5 5454-3 #### [facility] CLIA [id number] [address] [place] [address] [place] Erythrocyte distribution width (RBC) [Ratio] 12.9 % Normal 11.5-15.0 [facility] Comment on above: Order Comment: Speci men Type: BLOOD SPECIMEN Ordering Facility: [facility] Address: [address] [place] [address] Performed By: #### 5 5454-3 #### [facility] CLIA [id number] [address] [place] [address] [place] Hematocrit (Bld) [Volume fraction] 48.5 % Normal 39.0-51.0 [facility] Comment on above: Order Comment: Speci men Type: BLOOD SPECIMEN Ordering Facility: [facility] Address: [address] [place] [address] Performed By: #### 5 5454-3 #### [facility] CLIA [id number] [address] [place] [address] [place] Hemoglobin (Bld) [Mass/Vol] 16.4 g/dL Normal 13.0-17.0 [facility] Comment on above: Order Comment: Speci men Type: BLOOD SPECIMEN Ordering Facility: [facility] Address: [address] [place] [address] Performed By: #### 5 5454-3 #### [facility] CLIA [id number] [address] [place] [address] [place] Immature granulocytes (Bld) [#/Vol] 0.05 10*3/uL Normal <0.10 [facility] Comment on above: Order Comment: Speci men Type: BLOOD SPECIMEN Ordering Facility: [facility] Address: [address] [place] [address] Performed By: #### 5 5454-3 #### [facility] CLIA [id number] [address] [place] [address] [place] Immature granulocytes/100 WBC (Bld) 0.6 % Normal [facility] Comment on above: Order Comment: Speci men Type: BLOOD SPECIMEN Ordering Facility: [facility] Address: [address] [place] [address] Performed By: #### 5 5454-3 #### [facility] CLIA [id number] [address] [place] [address] [place] Lymphocytes (Bld) [#/Vol] 2.48 10*3/uL Normal 1.00-4.00 [facility] Comment on above: Order Comment: Speci men Type: BLOOD SPECIMEN Ordering Facility: [facility] Address: [address] [place] [address] Performed By: #### 5 5454-3 #### [facility] CLIA [id number] [address] [place] [address] [place] Lymphocytes/100 WBC (Bld) 31.0 % Normal [facility] Comment on above: Order Comment: Speci men Type: BLOOD SPECIMEN Ordering Facility: [facility] Address: [address] [place] [address] Performed By: #### 5 5454-3 #### [facility] CLIA [id number] [address] [place] [address] [place] MCH (RBC) [Entitic mass] 31.6 pg Normal 26.0-34.0 [facility] Comment on above: Order Comment: Speci men Type: BLOOD SPECIMEN Ordering Facility: [facility] Address: [address] [place] [address] Performed By: #### 5 5454-3 #### [facility] CLIA [id number] [address] [place] [address] [place] MCHC (RBC) [Mass/Vol] 33.8 g/dL Normal 30.5-36.0 [facility] Comment on above: Order Comment: Speci men Type: BLOOD SPECIMEN Ordering Facility: [facility] Address: [address] [place] [address] Performed By: #### 5 5454-3 #### [facility] CLIA [id number] [address] [place] [address] [place] MCV (RBC) [Entitic vol] 93.4 fL Normal 80.0-100.0 [facility] Comment on above: Order Comment: Speci men Type: BLOOD SPECIMEN Ordering Facility: [facility] Address: [address] [place] [address] Performed By: #### 5 5454-3 #### [facility] CLIA [id number] [address] [place] [address] [place] Monocytes (Bld) [#/Vol] 0.75 10*3/uL Normal <0.87 [facility] Comment on above: Order Comment: Speci men Type: BLOOD SPECIMEN Ordering Facility: [facility] Address: [address] [place] [address] Performed By: #### 5 5454-3 #### [facility] CLIA [id number] [address] [place] [address] [place] Monocytes/100 WBC (Bld) 9.4 % Normal [facility] Comment on above: Order Comment: Speci men Type: BLOOD SPECIMEN Ordering Facility: [facility] Address: [address] [place] [address] Performed By: #### 5 5454-3 #### [facility] CLIA [id number] [address] [place] [address] [place] Neutrophils (Bld) [#/Vol] 4.39 10*3/uL Normal 1.45-7.50 [facility] Comment on above: Order Comment: Speci men Type: BLOOD SPECIMEN Ordering Facility: [facility] Address: [address] [place] [address] Performed By: #### 5 5454-3 #### [facility] CLIA [id number] [address] [place] [address] [place] Neutrophils/100 WBC (Bld) 55.0 % Normal [facility] Comment on above: Order Comment: Speci men Type: BLOOD SPECIMEN Ordering Facility: [facility] Address: [address] [place] [address] Performed By: #### 5 5454-3 #### [facility] CLIA [id number] [address] [place] [address] [place] Nucleated RBC (Bld) [#/Vol] 10*3/uL Normal <0.01 [facility] Comment on above: Order Comment: Speci men Type: BLOOD SPECIMEN Ordering Facility: [facility] Address: [address] [place] [address] Performed By: #### 5 5454-3 #### [facility] CLIA [id number] [address] [place] [address] [place] Nucleated RBC/100 WBC (Bld) [Ratio] 0.0 /100 WBC Normal [facility] Comment on above: Order Comment: Speci men Type: BLOOD SPECIMEN Ordering Facility: [facility] Address: [address] [place] [address] Performed By: #### 5 5454-3 #### [facility] CLIA [id number] [address] [place] [address] [place] Platelet mean volume (Bld) [Entitic vol] 12.1 fL Normal 9.0-12.7 [facility] Comment on above: Order Comment: Speci men Type: BLOOD SPECIMEN Ordering Facility: [facility] Address: [address] [place] [address] Performed By: #### 5 5454-3 #### [facility] CLIA [id number] [address] [place] [address] [place] Platelets (Bld) [#/Vol] 194 10*3/uL Normal 150-400 [facility] Comment on above: Order Comment: Speci men Type: BLOOD SPECIMEN Ordering Facility: [facility] Address: [address] [place] [address] Performed By: #### 5 5454-3 #### [facility] CLIA [id number] [address] [place] [address] [place] RBC (Bld) [#/Vol] 5.19 10*6/uL Normal 4.20-6.00 [facility] Comment on above: Order Comment: Speci men Type: BLOOD SPECIMEN Ordering Facility: [facility] Address: [address] [place] [address] Performed By: #### 5 5454-3 #### [facility] CLIA [id number] [address] [place] [address] [place] WBC (Bld) [#/Vol] 7.99 10*3/uL Normal 3.70-11.00 [facility] Comment on above: Order Comment: Speci men Type: BLOOD SPECIMEN Ordering Facility: [facility] Address: [address] [place] [address] Performed By: #### 5 5454-3 #### [facility] CLIA [id number] [address] [place] [address] [place] Comprehensive metabolic 2000 panelon 02-23-2025 Albumin [Mass/Vol] 4.4 g/dL Normal 3.9-4.9 [facility] Comment on above: Order Comment: Speci men Type: BLOOD SPECIMEN Ordering Facility: [facility] Address: [address] [place] [address] Performed By: #### 5 5454-3 #### [facility] CLIA [id number] [address] [place] [address] [place] ALP [Catalytic activity/Vol] 50 U/L Normal 38-113 [facility] Comment on above: Order Comment: Speci men Type: BLOOD SPECIMEN Ordering Facility: [facility] Address: [address] [place] [address] Performed By: #### 5 5454-3 #### [facility] CLIA [id number] [address] [place] [address] [place] ALT [Catalytic activity/Vol] 52 U/L Normal 10-54 [facility] Comment on above: Order Comment: Speci men Type: BLOOD SPECIMEN Ordering Facility: [facility] Address: [address] [place] [address] Performed By: #### 5 5454-3 #### [facility] CLIA [id number] [address] [place] [address] [place] Anion gap [Moles/Vol] 10 mmol/L Normal 8-15 [facility] Comment on above: Order Comment: Speci men Type: BLOOD SPECIMEN Ordering Facility: [facility] Address: [address] [place] [address] Performed By: #### 5 5454-3 #### [facility] CLIA [id number] [address] [place] [address] [place] AST [Catalytic activity/Vol] 34 U/L Normal 14-40 [facility] Comment on above: Order Comment: Speci men Type: BLOOD SPECIMEN Ordering Facility: [facility] Address: [address] [place] [address] Performed By: #### 5 5454-3 #### [facility] CLIA [id number] [address] [place] [address] [place] Bilirubin [Mass/Vol] 0.5 mg/dL Normal 0.2-1.3 [facility] Comment on above: Order Comment: Speci men Type: BLOOD SPECIMEN Ordering Facility: [facility] Address: [address] [place] [address] Performed By: #### 5 5454-3 #### [facility] CLIA [id number] [address] [place] [address] [place] Calcium [Mass/Vol] 9.5 mg/dL Normal 8.5-10.2 [facility] Comment on above: Order Comment: Speci men Type: BLOOD SPECIMEN Ordering Facility: [facility] Address: [address] [place] [address] Performed By: #### 5 5454-3 #### [facility] CLIA [id number] [address] [place] [address] [place] Chloride [Moles/Vol] 102 mmol/L Normal 98-107 [facility] Comment on above: Order Comment: Speci men Type: BLOOD SPECIMEN Ordering Facility: [facility] Address: [address] [place] [address] Performed By: #### 5 5454-3 #### [facility] CLIA [id number] [address] [place] [address] [place] CO2 [Moles/Vol] 25 mmol/L Normal 22-30 [facility] Comment on above: Order Comment: Speci men Type: BLOOD SPECIMEN Ordering Facility: [facility] Address: [address] [place] [address] Performed By: #### 5 5454-3 #### [facility] CLIA [id number] [address] [place] [address] [place] Creatinine [Mass/Vol] 1.12 mg/dL Normal 0.73-1.22 [facility] Comment on above: Order Comment: Speci men Type: BLOOD SPECIMEN Ordering Facility: [facility] Address: [address] [place] [address] Performed By: #### 5 5454-3 #### [facility] CLIA [id number] [address] [place] [address] [place] eGFRcr SerPlBld CKD-EPI 2021 73 mL/min/1.73m??? Normal >=60 [facility] Comment on above: Order Comment: Speci men Type: BLOOD SPECIMEN Ordering Facility: [facility] Address: [address] [place] [address] Result Comment: Evelyn mated Glomerular Filtration Rate (eGFR) is calculated using the 2020 CKD-EPI creatinine equation. This equation utilizes serum creatinine, sex, and age as parameters. The creatinine assay has traceable calibration to isotope dilution-mass spectrometry. Refer to KDIGO guidelines for clinical interpretation. In patients with unstable renal function, e.g. those with acute kidney injury, the eGFR may not accurately reflect actual GFR. Performed By: #### 5 5454-3 #### [facility] CLIA [id number] [address] [place] [address] [place] Glucose [Mass/Vol] 99 mg/dL Normal 74-99 [facility] Comment on above: Order Comment: Nilo roper Type: BLOOD SPECIMEN Ordering Facility: [facility] Address: [address] [place] [address] Result Comment: The [place] Diabetes Association (ADA) provides guidance for cutoff values for fasting glucose and random glucose. The ADA defines fasting as no caloric intake for at least 8 hours. Fasting plasma glucose results between 100 to 125 mg/dL indicate increased risk for diabetes (prediabetes). Fasting plasma glucose results greater than or equal to 126 mg/dL meet the criteria for diagnosis of diabetes. In the absence of unequivocal hyperglycemia, results should be confirmed by repeat testing. In a patient with classic symptoms of hyperglycemia or hyperglycemic crisis, random plasma glucose results greater than or equal to 200 mg/dL meet the criteria for diagnosis of diabetes. Reference: Standards of Medical Care in Diabetes 2016, [place] Diabetes Association. Diabetes Care. 2016.39(Suppl 1). Performed By: #### 5 5454-3 #### [facility] CLIA [id number] [address] [place] [address] [place] Potassium [Moles/Vol] 4.6 mmol/L Normal 3.7-5.1 [facility] Comment on above: Order Comment: Nilo roper Type: BLOOD SPECIMEN Ordering Facility: [facility] Address: [address] [place] [address] Performed By: #### 5 5454-3 #### [facility] CLIA [id number] [address] [place] [address] [place] Protein [Mass/Vol] 6.9 g/dL Normal 6.3-8.0 [facility] Comment on above: Order Comment: Speci men Type: BLOOD SPECIMEN Ordering Facility: [facility] Address: [address] [place] [address] Performed By: #### 5 5454-3 #### [facility] CLIA [id number] [address] [place] [address] [place] Sodium [Moles/Vol] 137 mmol/L Normal 136-144 [facility] Comment on above: Order Comment: Speci men Type: BLOOD SPECIMEN Ordering Facility: [facility] Address: [address] [place] [address] Performed By: #### 5 5454-3 #### [facility] CLIA [id number] [address] [place] [address] [place] Urea nitrogen [Mass/Vol] 15 mg/dL Normal 9-24 [facility] Comment on above: Order Comment: Speci men Type: BLOOD SPECIMEN Ordering Facility: [facility] Address: [address] [place] [address] Performed By: #### 5 5454-3 #### [facility] CLIA [id number] [address] [place] [address] [place] HbA1c (Bld)on 02-23-2025 Average glucose Estimated from glycated hemoglobin (Bld) [Mass/Vol] 117 mg/dL Normal [facility] Comment on above: Order Comment: Speci men Type: BLOOD SPECIMEN Ordering Facility: [facility] Address: [address] [place] [address] Result Comment: eAG: (Estimated average glucose) is a calculated value from HgbA1c and is claims service representative of the average blood glucose level in the last 2-3 month period. Performed By: #### 5 5454-3 #### [facility] CLIA [id number] [address] [place] [address] [place] HbA1c (Bld) [Mass fraction] 5.7 % High 4.3-5.6 [facility] Comment on above: Order Comment: Nilo men Type: BLOOD SPECIMEN Ordering Facility: [facility] Address: [address] [place] [address] Result Comment: [place] Diabetes Association guidelines indicate that patients with HgbA1c in the range 5.7-6.4% are at increased risk for development of diabetes, and intervention by lifestyle modification may be beneficial. HgbA1c greater or equal to 6.5% is considered diagnostic of diabetes. Performed By: #### 5 5454-3 #### [facility] CLIA [id number] [address] [place] [address] [place] Lipid 1996 panelon 5 Cholesterol [Mass/Vol] 249 mg/dL High <200 [facility] Comment on above: Order Comment: Nilo roper Type: BLOOD SPECIMEN Ordering Facility: [facility] Address: [address] [place] [address] Result Comment: <200 mg/dL, Desirable 200-239 mg/dL, Borderline high >239 mg/dL, High Performed By: #### 5 5454-3 #### [facility] CLIA [id number] [address] [place] [address] [place] Cholesterol in HDL [Mass/Vol] 47 mg/dL Normal >39 [facility] Comment on above: Order Comment: Nilo roper Type: BLOOD SPECIMEN Ordering Facility: [facility] Address: [address] [place] [address] Result Comment: 40-5 9 mg/dL, Acceptable >59 mg/dL, High: Negative risk factor for coronary heart disease <40 mg/dL, Low: Positive risk factor for coronary heart disease Performed By: #### 5 5454-3 #### [facility] CLIA [id number] [address] [place] [address] [place] Cholesterol in LDL [Mass/Vol] 181 mg/dL High <100 [facility] Comment on above: Order Comment: Nilo roper Type: BLOOD SPECIMEN Ordering Facility: [facility] Address: [address] [place] [address] Result Comment: <100 mg/dL, Optimal 100-129 mg/dL, Near optimal/above optimal 130-159 mg/dL, Borderline high 160-189 mg/dL, High >189 mg/dL, Very high Secondary prevention optimal LDL Cholesterol levels are recommended to be <70 mg/dL LDL cholesterol is calculated using the Gottlieb-NIH equation. Performed By: #### 5 5454-3 #### [facility] CLIA [id number] [address] [place] [address] [place] Cholesterol in LDL/Cholesterol in HDL [Mass ratio] 3.85 {ratio} High <2.54 [facility] Comment on above: Order Comment: Nilo roper Type: BLOOD SPECIMEN Ordering Facility: [facility] Address: [address] [place] [address] Result Comment: Alex peoples: 1. National Cholesterol Education Program ATP III Guideline At-A-Glance Quick Desk Reference: National Heart, Lung, and Blood [place]. National Institutes of Health. 2001: NIH Publication No. 01-3305. 2. An International Atherosclerosis Society position paper: global recommendations for the management of dyslipidemia: executive summary, Atherosclerosis. 2014: 232(2):410-413. Performed By: #### 5 5454-3 #### [facility] CLIA [id number] [address] [place] [address] [place] Cholesterol in VLDL [Mass/Vol] 24 mg/dL Normal <30 [facility] Comment on above: Order Comment: Nilo roper Type: BLOOD SPECIMEN Ordering Facility: [facility] Address: [address] [place] [address] Performed By: #### 5 5454-3 #### [facility] CLIA [id number] [address] [place] [address] [place] Cholesterol non HDL [Mass/Vol] 202 mg/dL High <130 [facility] Comment on above: Order Comment: Nilo roper Type: BLOOD SPECIMEN Ordering Facility: [facility] Address: [address] [place] [address] Result Comment: <130 mg/dL, Optimal 130-159 mg/dL, Near optimal/above optimal 160-189 mg/dL, Borderline high 190-219 mg/dL, High >219 mg/dL, Very high Secondary prevention optimal non HDL Cholesterol levels are recommended to be <100 mg/dL Performed By: #### 5 5454-3 #### [facility] CLIA [id number] [address] [place] [address] [place] Cholesterol.total/Chol esterol in HDL [Mass ratio] 5.30 {ratio} High <5.10 [facility] Comment on above: Order Comment: Speci men Type: BLOOD SPECIMEN Ordering Facility: [facility] Address: [address] [place] [address] Performed By: #### 5 5454-3 #### [facility] CLIA [id number] [address] [place] [address] [place] FASTING TIME 15 hrs Normal [facility] Comment on above: Order Comment: Speci men Type: BLOOD SPECIMEN Ordering Facility: [facility] Address: [address] [place] [address] Performed By: #### 5 5454-3 #### [facility] CLIA [id number] [address] [place] [address] [place] Triglyceride [Mass/Vol] 119 mg/dL Normal <150 [facility] Comment on above: Order Comment: Speci men Type: BLOOD SPECIMEN Ordering Facility: [facility] Address: [address] [place] [address] Result Comment: <150 mg/dL, Normal 150-199 mg/dL, Borderline high 200-499 mg/dL, High >499 mg/dL, Very high Performed By: #### 5 5454-3 #### [facility] CLIA [id number] [address] [place] [address] [place] Urate SerPl-ncon 5 Urate [Mass/Vol] 5.1 mg/dL Normal 4.0-8.1 [facility] Comment on above: Order Comment: Speci men Type: BLOOD SPECIMEN Ordering Facility: [facility] Address: [address] [place] [address] Performed By: #### 5 5454-3 #### [facility] CLIA [id number] [address] [place] [address] [place] Cardiology Visit Reporton Cardiology Visit Report [facility] [address] [place] [address] OFFICE VISIT Date of Service: 02/01/25 MR#: [id number] Acct: [id number] Name: NORMA OZUNA Rep #: [id number] : 1960 Provider: EDWAR abebe Age/Sex: 64/M Location: [facility] Status: Signed HPI HPI History of Present Illness Details: Arian Ozuna is a 64-year-old gentleman that presents here today for a cardiovascular follow up.??? He has a hx of post COVID atrial fibrillation with RVR (04/2020).??? His echocardiogram at that time demonstrated preserved ejection fraction.??? It was not felt that he needed to be anticoagulated at that time.??? He does have a history of hypertension. In May of 2022, he was in the process of being scheduled for knee meniscus surgery.??? He was initially cleared by his PCP.??? He then when back to the Orthopedics and was told he needs to be seen by cardiology.??? He notes that his initial EKG was done in May of 2022. He was noted to be in Afib at that time. He was started on atenolol and ASA by his PCP.??? He did undergo a stress test in July of 2022 which was negative for ischemia at a high workload. Echocardiogram demonstrated an EF of 55% with normal atrium. He did undergo a cardioversion after he was anticoagulated for 30 days. Unfortunately he did not maintain sinus rhythm. He was seen at [facility] with Dr. Mcnamara and underwent successful pulmonary vein isolation procedure and cardioversion on 12/04/2022. He denies chest, arm, jaw, or neck discomfort. He states palpitations. He denies bilateral lower extremity edema. He denies claudication. He denies shortness of breath with activity, shortness of breath at rest, orthopnea, or PND. He denies chronic cough. He denies significant, sudden weight gain. He denies lightheadedness, dizziness, near-syncope, or syncope. He denies blood in urine, blood in stool, or epistaxis. He denies fever with chills. He denies myalgia. He denies fatigue. His exercise level has remained stable. Intake Vital Signs 02/03/24 15:16 02/01/25 11:33 Height 6 ft 3 in 6 ft 3 in Weight: 290 lb BMI 36.2 BP 156/90 H Blood Pressure Location Lt brachial Position Sitting Respiration 18 Pulse 59 L Pulse Source Monitor Pulse Oximetry (%) 96 Intake Visit Reasons: 1 Y FU Belt Maker Required: No Is patient in pain?: No Allergies Penicillins (PCN) Allergy (Verified 02/01/25 14:42) PT UNSURE OF REACTION sertraline (From Zoloft) Adverse Reaction (Intermediate, Verified 02/01/25 14:42) Other Medications ???Medication ???Instructions ???Recorded ???Confirmed ???Type esomeprazole magnesium 40 mg 40 mg PO DAILY 06/04/18 02/01/25 H istory capsule,delayed release (Nexium) losartan 50 mg tablet 50 mg PO DAILY 06/04/18 02/01/25 H istory albuterol sulfate 90 mcg/actuation 1 - 2 puff inhalation Q4H PRN ND N 11/05/19 02/01/25 History aerosol inhaler Sob /Or Wheezing allopurinol 300 mg tablet 300 mg PO DAILY 11/05/19 02/01/25 History levothyroxine 175 mcg tablet 175 mcg PO DAILY 11/05/19 02/01/25 History Blood pressure cuff #1 ea 04/30/20 02/01/25 Rx budesonide-formoterol HFA 80 2 puff inhalation BID PRN 07/20/22 02/01/25 History mcg-4.5 mcg/actuation aerosol Shortness Of Breath inhaler (Symbicort) fluticasone propionate 50 2 spray intranasal DAILY 07/20/22 02/01/25 History mcg/actuation nasal spray,suspension sildenafil 50 mg tablet (Viagra) 50 mg PO DAILY PRN 02/03/24 History atenolol 50 mg tablet 50 mg PO DAILY #90 tabs 11/20/24 1 Rx apixaban 5 mg tablet (Eliquis) 5 mg PO BID PRN Fax to 02/01/25 Rx Taptica #60 tabs semaglutide (weight loss) 0.25 0.25 mg (0.5 mL) subcut QWEEK #2 m L 02/01/25 02/01/25 Rx mg/0.5 mL subcutaneous pen injector (Wegovy) Ejection fraction %: 55 Have you fallen in the past year?: No [facility] Medical History (Updated 02/01/25 @ 15:34 by Abhi Avalos FRONT DESK COORDINATOR, FRONT DESK COORDINATOR-C) Paroxysmal atrial fibrillation Chondromalacia patellae of right knee Synovial cyst of popliteal space [Fofana], right knee Unilateral primary osteoarthritis, right knee Complex tear of medial meniscus as current injury Right knee pain Obesity (BMI 35.0-39.9 without comorbidity) Erectile dysfunction Insomnia Hyperlipidemia Hypothyroidism Sleep apnea Gout COPD (chronic obstructive pulmonary disease) Asthma GERD without esophagitis COVID-19 virus detected (11/05/19) Vitamin D deficiency Essential hypertension Gout Hypothyroidism Asthma Bronchospasm, acute Atrial fibrillation with rapid ventricular response (11/05/19) Surgical History History of cardiac radiofrequency ablation (12/04/22) (more content not included)... Normal [facility] Urate [facility] 5 Urate [Mass/Vol] 5.6 mg/dL Normal 4.0-8.1 [facility] Comment on above: Order Comment: Speci men Type: BLOOD SPECIMEN Ordering Facility: [facility] Address: [address] [place] [address] Performed By: #### 5 5454-3 #### [facility] CLIA [id number] [address] [place] [address] [place] Leonard 10-09-2024 JEANNA Telephone (INTMWS) NORMA OZUNA ([id number]) 1960 M Date Time Provider Department 10/09/24 SAMMIE BANKS During your visit today, we recorded the following information about you: Ginette Callahan RN 10/09/2024 11:13 AM Signed Pt's called in to report general sx's pt was having. This nurse informed that this nurse would call patient to gain further specific information from him. During call, pt states he believes he is having a gout flare-up in his left foot. Pt takes allopurinol. Pt saw Yun Fragoso CNP on 08/28/24 and due to no recent gout flares and normal recent uric acid level, he was advised to reduce it to a lower dose of 100 mg daily, which he did about 3-4 weeks ago. Reports last week he noticed his left foot exhibiting his usual gout sx's. Reports some of his toes are red and swollen and he can feel the flare into his left ankle as well, which he states is typical of his past gout flare-ups. Pt asking if provider would advise him, and also prescribe other gout medication for his flare. Call patient at [phone] ERIKA Whitley Joy, APRN.BRANDON 10/09/2024 1:38 PM Signed Colchicine ordered. Take 2 tablets received then 1 tablet twice a day until gone. Follow up if no improvement or wrosening symptoms in case this is not gout and something else. Once resolved restart the 300mg dose of allopurinol. He got his answer and needs to continue this medication unfortunately. I reordered for his uric acid to be rechecked. Thank you Bethany Fragoso APRN.ENGINEERING SPECIALIST Susana Duval MA 10/09/2024 4:15 PM Signed Left detailed message on [employer]. Allergies As of Date: 10/09/2024 Noted Allergy Reaction PENICILLINS 07/21/2005 ZOLOFT (SERTRALINE HCL) 04/20/2014 5 - Intolerance Comments: Sleepiness Date Reviewed: 09/29/2024 Reviewed by: Monique Gomez MD - Fully Assessed Reason for Visit: Patient Update [1234] Medication Request [138] Primary Visit Diagnosis:Gout, unspecified cause, unspecified chronicity, unspecified site [M10.9] Order(s):colchicine 0.6 mg tabletTake 1 tablet by mouth two times a day.Disp: 6 tabletRfl: 1 URIC ACID [SQURIC] Order #: [id number] FUTURE allopurinol (ZYLOPRIM) 300 mg tabletTAKE ONE TABLET BY MOUTH EVERY DAY FOR FOR GOUTDisp: 90 tabletRfl: 3 Prescriptions as of 10/09/2024 - colchicine 0.6 mg tablet Take 1 tablet by mouth two times a day. - allopurinol (ZYLOPRIM) 300 mg tablet TAKE ONE TABLET BY MOUTH EVERY DAY FOR FOR GOUT - budesonide-formoterol (SYMBICORT) 160-4.5 mcg/actuation inhaler Inhale 2 puffs as instructed two times a day. - losartan (COZAAR) 50 mg tablet Take 0.5 tablets by mouth once daily. - sildenafil (VIAGRA) 50 mg tablet Take 1 to 2 pills one hour prior to sexual activity - esomeprazole (NEXIUM) 40 mg capsule Take 1 capsule by mouth once daily. - levothyroxine (LEVOXYL) 175 mcg tablet Take 1 tablet by mouth once daily. Except take 1.5 tablets on Sundays. Take on empty stomach. For thyroid. - atenolol (TENORMIN) 25 mg tablet Take 0.5 tablets by mouth once daily. - fluticasone (FLONASE) 50 mcg/actuation nasal spray Use 1 [place] in each nostril once daily. - CPAP Initiate Auto PAP @ 5-20 cm of water with humidification. Mask (per patient preference) optional chin strap (if indicated) , filters, tubing, humidifier and lifetime supplies. - albuterol HFA (VENTOLIN HFA) 90 mcg/actuation inhaler Inhale 2 Puffs as instructed every 4 hours as needed for wheezing/shortness of breath. Problem List As Of Date 10/09/2024 Noted Resolved Esophageal reflux [K21.9] 07/21/2005 04/10/2020 HYPERLIPIDEMIA NEC/NOS [E78.5] 07/21/2005 10/09/2014 GOUT NOS [M10.9] 09/07/2008 Insomnia, unspecified [G47.00] 09/09/2008 Erectile dysfunction [N52.9] 07/28/2010 Hypothyroidism [E03.9] 11/17/2013 Gastroesophageal reflux disease without esophag*10/09/2014 Obesity (BMI 35.0-39.9 without comorbidity) [E6*10/09/2014 Hyperlipidemia [E78.5] 03/29/2016 Mild persistent asthma without complication [J4*09/05/2018 Screening for colon cancer [Z12.11] 03/03/2021 03/03/2021 Prescriptions ordered this encounter Disp Refills Start End COLCHICINE 0.6 MG TABLET 6 ta* 1 10/09/2024 Route: PO Sig: Take 1 tablet by mouth two times a day. ALLOPURINOL 300 MG TABLET 90 t* 3 10/09/2024 Sig: TAKE ONE TABLET BY MOUTH EVERY DAY FOR FOR GOUT Medications Discontinued During This Encounter Prescriptions - allopurinol (ZYLOPRIM) 100 mg tablet (Discontinued) Reported on 09/29/2024 - allopurinol (ZYLOPRIM) 300 mg tablet (Discontinued) Reported on 09/29/2024 Encounter Status:Closed by SUSANA DUVAL on 10/09/24 [facility] CNOVon 09-29-2024 CNOV Office Visit (PULMWS ) NORMA OZUNA ([id number]) 1960 M Date Time Provider Department 09/29/24 8:45 AM MONIQUE GOMEZ PULANT During your visit today, we recorded the following information about you: Pulse Respiration Blood pressure Weight 55/minute 17/minute 118/66 126.1 kg Monique Gomez MD 09/29/2024 9:16 AM [facility] . Respiratory [place] Note Patient name: Norma Ozuna PCP: Sammie Banks MD Referring Physician: Jatin Shaffer PA-C Consultation requested by Jatin Shaffer for an opinion regarding cough. My final recommendations will be communicated back to the requesting physician by way of shared Medical record or letter to requesting physician via US mail. Recording using [employer] software for draft documentation of the visit was discussed with the patient/authorized claims service representative; all questions welcomed and answered. Patient/authorized claims service representative agreed to proceed CC: Cough HPI: Norma Ozuna 64 year old male non-smoker with PMH significant for obesity, history of asthma with COPD (no PFTs on file), GERD, HTN, HLD, AF s/p ablation being seen for evaluation of chronic cough. Elia reports a chronic cough and dyspnea that have been ongoing for several years. He is currently using Symbicort 80/4.5 once daily in the morning. He denies any history of oral thrush. Elia describes his cough as persistent, with increased sputum production in the mornings. He notes that his cough is more pronounced in the mornings and sputum is slightly discolored. He has SOB that is exacerbated by physical exertion. He also experiences occasional wheezing. He denies any nocturnal awakenings due to cough or SOB. He reports that his symptoms worsen during the winter months, particularly when he contracts a URI, stating, I cannot get rid of it. He underwent three courses of steroids this past winter. He denies any exacerbation of symptoms with exposure to cold air, heat, humidity, strong odors, fumes, smoke, or cleaning chemicals. His current respiratory issues worsened after COVID infection. He has a history of allergies and received allergy shots for several years in the remote past. He denies any family history of asthma, allergies, or eczema or personal history of childhood asthma. Patient has known acid reflux disease but reports that his GERD is well-controlled with medication and denies any late-night snacking. DATA: SERVICE DATE: 09/29/2024 SERVICE TIME: 8:18 AM Oral Exhaled Nitric Oxide measurement: 21.0 (ppb) PFT: Mild obstruction that improves with bronchodilator. Diffusion is normal Labs: Component Ref Range AND Units 6 mo ago 3 yr ago 6 yr ago WBC 3.70 - 11.00 k/uL 8.48 10.58 7.97 RBC 4.20 - 6.00 m/uL 4.97 5.78 5.30 Hemoglobin 13.0 - 17.0 g/dL 15.5 17.6 High 15.7 Hematocrit 39.0 - 51.0 % 47.3 53.7 High 48.2 MCV 80.0 - 100.0 fL 95.2 92.9 90.9 MCH 26.0 - 34.0 pg 31.2 30.4 R 29.6 R MCHC 30.5 - 36.0 g/dL 32.8 32.8 32.6 RDW-CV 11.5 - 15.0 % 12.8 12.6 13.0 Platelet Count 150 - 400 k/uL 205 254 234 MPV 9.0 - 12.7 fL 12.3 13.0 High 12.2 Neutrophils % % 55.5 53.0 56.4 Abs Neut 1.45 - 7.50 k/uL 4.70 5.61 4.49 Lymphocytes % % 32.4 33.9 30.4 Abs Lymph 1.00 - 4.00 k/uL 2.75 3.59 2.42 Monocytes % % 8.8 10.6 11.5 Abs Steele <0.87 k/uL 0.75 1.12 High 0.92 High Eosinophils % % 2.2 1.7 1.1 Abs Eosin <0.46 k/uL 0.19 0.18 0.09 Basophils % % 0.7 0.8 0.6 Abs Baso <0.11 k/uL 0.06 0.08 0.05 Immature Granulocytes % % 0.4 Abs Immature Gran <0.10 k/uL 0.03 NRBC /100 WBC 0.0 Absolute nRBC <0.01 k/uL <0.01 <0.01 <0.01 Diff Type Auto Imaging / Diagnostic Studies: DATE OF EXAM: Jun 27 2024 6:15PM WOX 5291 - XR CHEST 2V FRONTAL/LAT / PROCEDURE REASON: Subacute cough EXAM DATE/TIME: 06/27/2024 6:15 PM COMPARISON: No relevant prior studies available. RESULT: Lines, tubes, and devices: None. Lungs and pleura: No consolidation. No lung mass. No pleural effusion. No pneumothorax. Cardiomediastinal silhouette: Normal cardiomediastinal silhouette. Bones and soft tissues: Degenerative changes are present within the thoracic spine. DISH is noted in the thoracic spine. Chest xray reviewed and is unremarkable PAST MEDICAL HISTORY Diagnosis Date COPD (chronic obstructive pulmonary disease) (HCC) Esophageal reflux Gastroesophageal reflux Essential hypertension Gout High cholesterol Hypothyroidism Unspecified asthma(493.90) ALLERGIES Allergen Reactions Penicillins Zoloft [Sertraline * Intolerance Sleepiness budesonide-formoterol (SYMBICORT) 80-4.5 mcg/actuation inhaler Inhale 2 puffs as instructed two times a day. losartan (COZAAR) 50 mg tablet Take 0.5 tablets by mouth once daily. sildenafil (VIAGRA) 50 mg tablet Take 1 to 2 pills one hour prior to sexual (more content not included)... Normal [facility] LUNG DIFFUSION CAPACITY (EVELINE O)on 09-29-2024 LUNG DIFFUSION CAPACITY (DLCO) [facility] [place] [address] [place] [address] Test Date: 2024-09-29 Pat Name: NORMA OZUNA Department: Room: Gender: Male Sports Nutritionist: : 1960 Requested By: Order Number: [id number] Reading MD: Monique Gomez MD Interpretive Statements PRE AND POST BD: Current ATS/ERS acceptability and repeatability standards for spirometry met. Start of test and EOFE criteria met. Medications and Allergies were reviewed for possible drug interactions per policy. No contraindications or sensitivities were noted. Meds taken: Symbicort taken 24 hours before testing. 4 puffs Albuterol (360 mcg) delivered by MDI via holding chamber. HR pre = 57/min, HR post =56/min. Current ATS/ERS acceptability and repeatability standards for DLCO met with 2 acceptable maneuvers.//LC IMPRESSION: Spirometry indicates mild obstruction. Positive bronchodilator response. The diffusion capacity (uncorrected for hemoglobin) is normal. Electronically Signed On 09-29-2024 16:06:08 EDT by Monique Gomez MD ID: [id number] Name: NORMA OZUNA Race: White Ht: 73.54 in Wt: 278.10 lbs Age: 64 Gender: Male : 1960 Dx: Mild persistent asthma, uncomplicated Smoking Hx: Non-smoker Doctor: MONIQUE GOMEZ Test Date: 09/29/2024 Site: WO Tech: German Art PRE-BRONCH POST-BRONCH Ellis LLN Pred ULN %Pred ZScore Ellis %Pred %Chg ZScore SPIROMETRY FVC 4.74 3.62 4.83 6.07 98 -0.12 5.22 108 9 0.52 FEV1 2.91 2.70 3.66 4.57 79 -1.29 3.43 93 14 -0.41 FEV1/FVC 0.61 0.64 0.77 0.87 80 -1.95 0.66 85 7 -1.46 FEFMax 8.28 7.15 9.71 12.26 85 -0.92 8.87 91 7 -0.54 FEF50 1.64 2.76 4.88 7.01 33 -2.51 2.82 57 72 -1.60 FIF50 6.76 6.98 3 FEF50/FIF50 0.24 90-100 0.40 66 FIVC 4.64 5.04 8 YGF08-98 1.34 1.40 2.98 5.17 45 -1.71 2.36 79 75 -0.57 ExpiredTime 14.82 14.78 0 TimeToFEFMax 0.10 0.08 -20 KRIS 0.15 0.11 -27 VolExtrap% 3 2 -33 LUNG DIFFUSION DLCOunc 31.10 22.07 29.67 38.67 104 0.28 DLCOStdPB 30.50 22.07 29.67 38.67 102 0.16 VA 7.39 5.92 7.33 8.85 100 0.08 Kco 4.12 3.06 4.07 5.18 101 0.08 Comments: PRE AND POST BD: Current ATS/ERS acceptability and repeatability standards for spirometry met. Start of test and EOFE criteria met. Medications and Allergies were reviewed for possible drug interactions per policy. No contraindications or sensitivities were noted. Meds taken: Symbicort taken 24 hours before testing. 4 puffs Albuterol (360 mcg) delivered by MDI via holding chamber. HR pre = 57/min, HR post =56/min. Current ATS/ERS acceptability and repeatability standards for DLCO met with 2 acceptable maneuvers.//LC Normal [facility] No Panel Informationon 09-29 German Atr, NAT 09/29/2024 8:18 AM RESPIRATORY THERAPY ORAL EXHALED NITRIC OXIDE SERVICE DATE: 09/29/2024 SERVICE TIME: 8:18 AM Oral Exhaled Nitric Oxide measurement: 21.0 (ppb) Normal: Adult <25 ppb, pediatric (<12 years) <20 ppb High Normal / Increased: Adult 25-50 ppb, pediatric (<12 years) 20-35 ppb Moderately raised exhaled Nitric Oxide may indicate underlying inflammation, but note that: Cold and influenza can raise exhaled Nitric Oxide and some patients have higher baseline exhaled Nitric Oxide levels than others. High: Adult >50 ppb, pediatric (<12 years) >35 ppb Indicative of ongoing eosinophilic inflammation. Symptomatic patient likely to respond to steroids. Possible causes (if already on steroids): Poor compliance, recent allergen exposure, steroid dose inadequate, and steroid resistance. Note that not all patients with high exhaled nitric oxide levels display symptoms. 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 Start of test and EOFE criteria met. Medications and Allergies were reviewed for possible drug interactions per policy. No contraindications or sensitivities were noted. Meds taken: Symbicort taken 24 hours before testing. 4 puffs Albuterol (360 mcg) delivered by MDI via holding chamber. HR pre = 57/min, HR post =56/min. Current ATS/ERS acceptability and repeatability standards for DLCO met with 2 acceptable maneuvers.//LC IMPRESSION: Spirometry indicates mild obstruction. Positive bronchodilator response. The diffusion capacity (uncorrected for hemoglobin) is normal. Electronically Signed On 09-29-2024 16:06:08 EDT by Monique Gomez MD ID: [id number] Name: NORMA OZUNA Race: White Ht: 73.54 in Wt: 278.10 lbs Age: 64 Gender: Male : 1960 Dx: Mild persistent asthma, uncomplicated Smoking Hx: Non-smoker Doctor: MONIQUE GOMEZ Test Date: 09/29/2024 Site: Tech: German Art PRE-BRONCH POST-BRONCH Ellis LLN Pred ULN %Pred ZScore Ellis %Pred %Chg ZScore SPIROMETRY FVC 4.74 3.62 4.83 6.07 98 -0.12 5.22 108 9 0.52 FEV1 2.91 2.70 3.66 4.57 79 -1.29 3.43 93 14 -0.41 FEV1/FVC 0.61 0.64 0.77 0.87 80 -1.95 0.66 85 7 -1.46 FEFMax 8.28 7.15 9.71 12.26 85 -0.92 8.87 91 7 -0.54 FEF50 1.64 2.76 4.88 7.01 33 -2.51 2.82 57 72 -1.60 FIF50 6.76 6.98 3 FEF50/FIF50 0.24 90-100 0.40 66 FIVC 4.64 5.04 8 UQN00-58 1.34 1.40 2.98 5.17 45 -1.71 2.36 79 75 -0.57 ExpiredTime 14.82 14.78 0 TimeToFEFMax 0.10 0.08 -20 KRIS 0.15 0.11 -27 VolExtrap% 3 2 -33 LUNG DIFFUSION DLCOunc 31.10 22.07 29.67 38.67 104 0.28 DLCOStdPB 30.50 22.07 29.67 38.67 102 0.16 VA 7.39 5.92 7.33 8.85 100 0.08 Kco 4.12 3.06 4.07 5.18 101 0.08 Comments: PRE AND POST BD: Current ATS/ERS acceptability and repeatability standards for spirometry met. Start of test and EOFE criteria met. Medications and Allergies were reviewed for possible drug interactions per policy. No contraindications or sensitivities were noted. Meds taken: Symbicort taken 24 hours before testing. 4 puffs Albuterol (360 mcg) delivered by MDI via holding chamber. HR pre = 57/min, HR post =56/min. Current ATS/ERS acceptability and repeatability standards for DLCO met with 2 acceptable maneuvers.//LC FVC_PRE (L) : 4.74 L FVC_POST (L) : 5.22 L FVC_PRED (L) : 4.83 L FVC_LLN (L) : 3.62 L FVC_ULN (L) : 6.07 L FEV1_PRE (L) : 2.91 L FEV1_POST (L) : 3.43 L FEV1_PRED (L) : 3.66 L FEV1_LLN (L) : 2.70 L FEV1_ULN (L) : 4.57 L FEV1/FVC_PRE (%) : 61 % FEV1/FVC_POST (%) : 66 % FEV1/FVC_PRED (%) : 77 % FEV1/FVC_LLN (%) : 64 % GOZ77_HLR (L/S) : 4.65 L/S KPZ92_TBHB (L/S) : 6.45 L/S MVI28_ZZM (L/S) : 0.41 L/S TQL23_XVVG (L/S) : 0.94 L/S GDF89_YIQW (L/S) : 0.89 L/S DQG77_ROL (L/S) : 0.34 L/S OUP89_NDP (L/S) : 2.16 L/S TPV00-45%_PRE (L/S) : 1.34 L/S UUJ58-80%_POST (L/S) : 2.36 L/S LQB19-60%_PRED (L/S) : 2.98 L/S ZFN44-54%_LLN (L/S) : 1.40 L/S PEF_PRE (L/S) : 8.28 L/S PEF_POST (L/S) : 8.87 L/S PEFMAX_LLN (L/S) : 7.15 L/S PEFMAX_ULN (L/S) : 12.26 L/S SVC_PRED (L) : 4.83 L/S SVC_LLN (L) : 3.62 L/S SVC_ULN (L/S) : 6.07 L/S IC_PRED (L) : 3.22 L/S ERV_PREDICTED (L) : 1.61 L/S DLCO (ML/MIN/MMHG) : 31.10 ml/min/mmHg DLCO_PRED (ML/MIN/MMHG) : 29.67 ml/min/mmHg DLCO_LLN(ML/MIN/MMHG) : 22.07 ml/min/mmHg DLCO_ULN (ML/MIN/MMHG) : 38.67 ml/min/mmHg FET_PRE (S) : 14.82 S FET_POST (S) : 14.78 S VA (L) : 7.39 L VA_PRD (L) : 7.33 L DLCO/VA (ML/MIN/MMHG/L) : 0.04 ml/min/mmHg/L DLCO_VA_PRED (L) : 0.04 ml/min/mmHg/L DLCOCOR (ML/MIN/MMHG) : 30.50 ml/min/mmHg DLCOCOR_PRED (ML/MIN/MMHG) : 29.67 ml/min/mmHg DLCO/VACOR (ML/MIN/MMHG/L) : 0.04 ml/min/mmHg/L Normal [facility] US CHEST WALL/SOFT TISSUEon 09-11-2024 US CHEST WALL/SOFT TISSUE * * *Final Report* * * DATE OF EXAM: Sep 11 2024 7:17AM [facility] 1047 - US CHEST WALL/SOFT TISSUE / PROCEDURE REASON: Mass on back * * * * Physician Interpretation * * * * SOFT TISSUE ULTRASOUND HISTORY: Mass on back . Palpable abnormality in region of right back TECHNIQUE: Grayscale and color Doppler images. Images were obtained and stored in a permanent archive. Soft tissue ultrasound of the right back COMPARISON: None. RESULT: Ultrasound examination of the right back at the site of palpable abnormality shows a lesion measuring 2.4 x 1 x 2.3 cm. The lesion is slightly hypoechoic with thin linear echogenic areas and no perceptible vascularity. - IMPRESSION: Lesion has features compatible with lipoma. Track Superintendent: JAY Transcribe Date/Time: Sep 14 2024 5:58A Dictated by : DORINA POOL MD This examination was interpreted and the report reviewed and electronically signed by: DORINA POOL MD on Sep 14 2024 6:00AM EST [id number] Normal [facility] Basic metabolic 2000 panelon 08-28-2024 Anion gap [Moles/Vol] 9 mmol/L Normal 8-15 [facility] Comment on above: Order Comment: Speci men Type: BLOOD SPECIMENOrdering Facility: [facility] Address: [address] [place] [address] Performed By: #### 2 4331-1, 28724-4, 3015-3 ####[facility] [id number] [place] [address] [place] Calcium [Mass/Vol] 9.1 mg/dL Normal 8.5-10.2 [facility] Comment on above: Order Comment: Speci men Type: BLOOD SPECIMENOrdering Facility: [facility] Address: [address] [place] [address] Performed By: #### 2 4331-1, 46381-5, 3015-3 ####[facility] [id number] [place] [address] [place] Chloride [Moles/Vol] 102 mmol/L Normal 98-107 [facility] Comment on above: Order Comment: Speci men Type: BLOOD SPECIMENOrdering Facility: [facility] Address: [address] [place], [place] [id number] Performed By: #### 2 4331-1, 37943-9, 3015-3 ####[facility] [id number] [address] [address] [place] CO2 [Moles/Vol] 28 mmol/L Normal 22-30 [facility] Comment on above: Order Comment: Speci men Type: BLOOD SPECIMENOrdering Facility: [facility] Address: [address] [place], [place] [address] Performed By: #### 2 4331-1, 70674-9, 3016-3 ####[facility] [id number] [address] [address] [place] Creatinine [Mass/Vol] 1.07 mg/dL Normal 0.73-1.22 [facility] Comment on above: Order Comment: Nilo roper Type: BLOOD SPECIMENOrdering Facility: [facility] Address: [address] [place] [address] Performed By: #### 2 4331-1, 04637-5, 3015-3 ####[facility] [id number] [address] [address] [place] Creatinine and Glomerular filtration rate.predicted panel (S/P/Bld) 77 mL/min/1.73m??? Normal >=60 [facility] Comment on above: Order Comment: Nilo roper Type: BLOOD SPECIMENOrdering Facility: [facility] Address: [address] [place] [address] Result Comment: Evelyn mated Glomerular Filtration Rate (eGFR) is calculated using the 2020 CKD-EPI creatinine equation. This equation utilizes serum creatinine, sex, and age as parameters. The creatinine assay has traceable calibration to isotope dilution-mass spectrometry. Refer to KDIGO guidelines for clinical interpretation. In patients with unstable renal function, e.g. those with acute kidney injury, the eGFR may not accurately reflect actual GFR. Performed By: #### 2 4331-1, 50021-9, 3 ####[facility] [id number] [address] [address] [place] Glucose [Mass/Vol] 102 mg/dL High 74-99 [facility] Comment on above: Order Comment: Nilo roper Type: BLOOD SPECIMENOrdering Facility: [facility] Address: [address] [place] [address] Result Comment: The [place] Diabetes [employer] (ADA) provides guidance for cutoff values for fasting glucose and random glucose. The ADA defines fasting as no caloric intake for at least 8 hours. Fasting plasma glucose results between 100 to 125 mg/dL indicate increased risk for diabetes (prediabetes). Fasting plasma glucose results greater than or equal to 126 mg/dL meet the criteria for diagnosis of diabetes. In the absence of unequivocal hyperglycemia, results should be confirmed by repeat testing. In a patient with classic symptoms of hyperglycemia or hyperglycemic crisis, random plasma glucose results greater than or equal to 200 mg/dL meet the criteria for diagnosis of diabetes. Reference: Standards of Medical Care in Diabetes 2016, [place] [employer] Association. Diabetes Care. 2016.39(Suppl 1). Performed By: #### 2 4331-1, 41140-9, 6-3 ####[facility] [id number] [address] [address] [place] Potassium [Moles/Vol] 4.8 mmol/L Normal 3.7-5.1 [facility] Comment on above: Order Comment: Speci men Type: BLOOD SPECIMENOrdering Facility: [facility] Address: [address] [place], [place] [address] Performed By: #### 2 4331-1, 80986-7, 3015-3 ####[facility] [id number] [address] [address] [place] Sodium [Moles/Vol] 139 mmol/L Normal 136-144 [facility] Comment on above: Order Comment: Speci men Type: BLOOD SPECIMENOrdering Facility: [facility] Address: [address] [place], [place] [address] Performed By: #### 2 4331-1, 36787-2, 3015-3 ####[facility] [id number] [address] [address] [place] Urea nitrogen [Mass/Vol] 18 mg/dL Normal 9-24 [facility] Comment on above: Order Comment: Speci men Type: BLOOD SPECIMENOrdering Facility: [facility] Address: [address] [place], [place] [address] Performed By: #### 2 4331-1, 16620-1, 6-3 ####[facility] [id number] [address] [address] [facility] CNOVon 08-28-2024 CNOV Office Visit (INTMWS ) NORMA OZUNA ([id number]) 1960 Date Time Provider Department 08/28/24 7:20 AM BETHANY FRAGOSO During your visit today, we recorded the following information about you: Pulse Respiration Blood pressure Weight 60/minute 16/minute 118/80 129.3 kg Bethany Fragoso APRN.ENGINEERING SPECIALIST 08/28/2024 8:03 AM Signed CC: Patient presents with: Recheck: 6 month follow up HPI Norma Sueingham is a 64 year old male who presents today for routine follow up. Recording using [employer] software for draft documentation of the visit was discussed with the patient/authorized claims service representative; all questions welcomed and answered. Patient/authorized claims service representative agreed to proceed Hypothyroidism: - Last TSH check was in March; Elia did not complete the most recent order. - Taking levothyroxine 175 mcg daily, 1.5 tablets on Sundays. - Denies changes in weight, energy, hair, or skin. Hyperlipidemia: - Last LDL was 170 in February. Not on statin therapy - Denies chest pain or dyspnea with exercise. Walks for exercise. - Adheres to a low-fat, low-salt diet. Paroxysmal Atrial Fibrillation: - One episode of arrhythmia approximately one month ago, with heart rate reaching 160 bpm. Was symptomatic - Episode occurred after eating; associated with palpitations and dyspnea. - Denies other palpitations, abnormal sweating, or headaches. - Denies dyspnea or chest pressure during exercise. - Taking atenolol as prescribed. - Episode occurred while on prednisone. Hypertension: - Blood pressure reportedly well-controlled. - Takes losartan as prescribed. - Checks blood pressure at home occasionally with good readings. Obstructive Sleep Apnea: - Uses CPAP nightly when not sick, for 5-8 hours. Gets restful sleep with use. - Recent illness with chest congestion prevented CPAP use. Gout: - No recent episodes. - Taking allopurinol 300 mg daily. - Considering discontinuing allopurinol since he has not had a flare up in years COPD and asthma: - Recent exacerbations; seen at [facility] 3-4 times since March for sinus issues and COPD exacerbations. Last episode required prednisone usage which caused an episode of his a-fib - Denies current cough, wheezing, fever, or chills. Lipoma: - Noticed soreness in the area of a previously removed lipoma on the back about a month ago. - Denies known trauma or drainage. - Unsure if the lipoma is getting larger but is very tender. REVIEW OF SYSTEMS See HPI PAST MEDICAL HISTORY Diagnosis Date COPD (chronic obstructive pulmonary disease) (HCC) Esophageal reflux Gastroesophageal reflux Essential hypertension Gout High cholesterol Hypothyroidism Unspecified asthma(493.90) PAST SURGICAL HISTORY Procedure Laterality Date COLONOSCOPY FLX DX W/COLLJ SPEC WHEN PFRMD 03/04/2011 Colonoscopy-repeat in COLONOSCOPY FLX DX W/COLLJ SPEC WHEN PFRMD 03/03/2021 ESOPHAGOGASTRODUODENO SCOPY TRANSORAL DIAGNOSTIC 03/04/2011 EGD EYE SURGERY HX PAST SURGICAL HISTORY OF SHOULDER ARTHROSCOPY right RADIAL KERATOTOMY VASECTOMY UNI/BI SPX W/POSTOP SEMEN EXAMS ALLERGIES Penicillins and Zoloft [Sertraline Hcl] MEDICATIONS budesonide-formoterol (SYMBICORT) 80-4.5 mcg/actuation inhaler Inhale 2 puffs as instructed two times a day. losartan (COZAAR) 50 mg tablet Take 0.5 tablets by mouth once daily. sildenafil (VIAGRA) 50 mg tablet Take 1 to 2 pills one hour prior to sexual activity allopurinol (ZYLOPRIM) 100 mg tablet Take 1 tablet by mouth once daily. esomeprazole (NEXIUM) 40 mg capsule Take 1 capsule by mouth once daily. levothyroxine (LEVOXYL) 175 mcg tablet Take 1 tablet by mouth once daily. Except take 1.5 tablets on Sundays. Take on empty stomach. For thyroid. atenolol (TENORMIN) 25 mg tablet Take 0.5 tablets by mouth once daily. allopurinol (ZYLOPRIM) 300 mg tablet TAKE ONE TABLET BY MOUTH EVERY DAY FOR FOR GOUT fluticasone (FLONASE) 50 mcg/actuation nasal spray Use 1 [place] in each nostril once daily. CPAP Initiate Auto PAP @ 5-20 cm of water with humidification. Mask (per patient preference) optional chin strap (if indicated) , filters, tubing, humidifier and lifetime supplies. albuterol HFA (VENTOLIN HFA) 90 mcg/actuation inhaler Inhale 2 Puffs as instructed every 4 hours as needed for wheezing/shortness of breath. FAMILY HISTORY Problem Relation Age of Onset [...] week Comment: per week Drug use: No PHYSICAL EXAM (more content not included)... Normal [facility] Lipid 1996 panelon 5 Cholesterol [Mass/Vol] 193 mg/dL Normal <200 Cl [facility] Comment on above: Order Comment: Speci men Type: BLOOD SPECIMENOrdering Facility: [facility] Address: [address] [place] [address] Result Comment: <200 mg/dL, Desirable 200-239 mg/dL, Borderline high >239 mg/dL, High Performed By: #### 2 4331-1, 71256-8, 3 ####[facility] [id number] [address] [address] [place] Cholesterol in HDL [Mass/Vol] 50 mg/dL Normal >39 [facility] Comment on above: Order Comment: Speci men Type: BLOOD SPECIMENOrdering Facility: [facility] Address: [address] [place] [address] Result Comment: 40-5 9 mg/dL, Acceptable >59 mg/dL, High: Negative risk factor for coronary heart disease <40 mg/dL, Low: Positive risk factor for coronary heart disease Performed By: #### 2 4331-1, 33791-0, 3015-3 ####[facility] [id number] [address] [address] [place] Cholesterol in LDL [Mass/Vol] 120 mg/dL High <100 [facility] Comment on above: Order Comment: Speci men Type: BLOOD SPECIMENOrdering Facility: [facility] Address: [address] [place] [address] Result Comment: <100 mg/dL, Optimal 100-129 mg/dL, Near optimal/above optimal 130-159 mg/dL, Borderline high 160-189 mg/dL, High >189 mg/dL, Very high Secondary prevention optimal LDL Cholesterol levels are recommended to be <70 mg/dL LDL cholesterol is calculated using the Gottlieb-NIH equation. Performed By: #### 2 4331-1, 29042-3, 3015-3 ####[facility] [id number] [address] [place] Cholesterol in LDL/Cholesterol in HDL [Mass ratio] 2.40 {ratio} Normal <2.54 [facility] Comment on above: Order Comment: Nilo men Type: BLOOD SPECIMENOrdering Facility: [facility] Address: [address] [place] [address] Result Comment: Refe rence: 1. National Cholesterol Education Program ATP III Guideline At-A-Glance Quick Desk Reference: National Heart, Lung, and Blood [place]. National Institutes of Health. 2001: NIH Publication No. 01-3305. 2. An International Atherosclerosis Society position paper: global recommendations for the management of dyslipidemia: executive summary, Atherosclerosis. 2014: 232(2):410-413. Performed By: #### 2 4331-1, 26176-5, 3015-3 ####[facility] [id number] [place] [id number] [place] Cholesterol in VLDL [Mass/Vol] 22 mg/dL Normal <30 [facility] Comment on above: Order Comment: Nilo roper Type: BLOOD SPECIMENOrdering Facility: [facility] Address: [address] [place] [address] Performed By: #### 2 4331-1, 19564-6, 3015-3 ####[facility] [id number] [address] [place] [address] [place] Cholesterol non HDL [Mass/Vol] 143 mg/dL High <130 [facility] Comment on above: Order Comment: Speci men Type: BLOOD SPECIMENOrdering Facility: [facility] Address: [address] [place] [id number] Result Comment: <130 mg/dL, Optimal 130-159 mg/dL, Near optimal/above optimal 160-189 mg/dL, Borderline high 190-219 mg/dL, High >219 mg/dL, Very high Secondary prevention optimal non HDL Cholesterol levels are recommended to be <100 mg/dL Performed By: #### 2 4331-1, 71687-8, 6-3 ####[facility] [id number] [address] [address] [place] Cholesterol.total/Chol esterol in HDL [Mass ratio] 3.86 {ratio} Normal <5.10 [facility] Comment on above: Order Comment: Speci men Type: BLOOD SPECIMENOrdering Facility: [facility] Address: [address] [place], [place] [id number] Performed By: #### 2 4331-1, 55877-6, 6-3 ####[facility] [id number] [place] [id number] [place] FASTING TIME 12 hrs Normal [facility] Comment on above: Order Comment: Speci men Type: BLOOD SPECIMENOrdering Facility: [facility] Address: [address] [place], [place] [id number] Performed By: #### 2 4331-1, 12979-5, 6-3 ####[facility] [id number] [place] [id number] [place] Triglyceride [Mass/Vol] 130 mg/dL Normal <150 [facility] Comment on above: Order Comment: Speci men Type: BLOOD SPECIMENOrdering Facility: [facility] Address: [address] [place], [place] [address] Result Comment: <150 mg/dL, Normal 150-199 mg/dL, Borderline high 200-499 mg/dL, High >499 mg/dL, Very high Performed By: #### 2 4331-1, 86251-5, 3016-3 ####[facility] [id number] [place] [id number] [facility] TSH SerPl-aCncon 08-28-2024 TSH Qn 3.020 m[IU]/L Normal 0.270-4.200 [facility] Comment on above: Order Comment: Speci men Type: BLOOD SPECIMENOrdering Facility: [facility] Address: [address] [place] [address] Performed By: #### 2 4331-1, 43919-5, 301-3 ####[facility] [id number] [address] CNOVon 08-17-2024 [facility] SULMANORMA Hobbs ([id number]) 1960 M Date Time Provider Department 08/17/24 7:15 AM CRISTI FARRIS [facility] During your visit today, we recorded the following information about you: Temperature Pulse Respiration Blood pressure 97.4 degrees 53/minute 18/minute 136/87 Weight 128.8 kg Cristi Farris MD 08/17/2024 7:29 AM Signed [facility] Subjective Norma Hobbs Sulma is a 64 year old male. Patient presents with: Cough: Chest congestion x3 weeks Patient presents with 3 weeks of chest congestion. He has had cough, wheezing, shortness of breath, and production with his cough. He denies fever, chills, chest pain, nasal congestion, rhinorrhea. Symptoms are similar to multiple exacerbations he has had (March, May, and June). He has been using Symbicort and Mucinex. He denies a preceding viral illness and suspects his COPD was exacerbated by environmental allergies. Cough Review of Systems Respiratory: Positive for cough. Objective BP 136/87 Pulse (!) 53 Temp 36.3 ?C (97.4 ?F) Resp 18 Wt 128.8 kg (283 lb 15.2 oz) SpO2 97% BMI 35.49 kg/m? Physical Exam Constitutional: General: He is not in acute distress. Appearance: He is not ill-appearing. HENT: Right Ear: Tympanic membrane and ear canal normal. Left Ear: Tympanic membrane and ear canal normal. Nose: Congestion present. Mouth/Throat: Pharynx: Posterior oropharyngeal erythema present. No oropharyngeal exudate. Eyes: Extraocular Movements: Extraocular movements intact. Conjunctiva/sclera: Conjunctivae normal. Pupils: Pupils are equal, round, and reactive to light. Cardiovascular: Rate and Rhythm: Normal rate and regular rhythm. Heart sounds: No murmur heard. Pulmonary: Effort: No respiratory distress. Breath sounds: No wheezing, rhonchi or rales. Musculoskeletal: Cervical back: Neck supple. Lymphadenopathy: Cervical: No cervical adenopathy. Neurological: Mental Status: He is alert. {ASSESSMENT/PLAN: 1. COPD with exacerbation (HCC) - ICD9: 491.21, ICD10: J44.1 Treat COPD exacerbation with prednisone which has been effective. - PREDNISONE 10 MG TABLET 9-day taper (reports 5-day taper was insufficient at his initial visit in March). Chest x-ray was performed 06/27/2024 with no acute findings. He has not scheduled consult with pulmonology but has follow-up with internal medicine in a week and a half and will discuss adjustments to COPD medications then. Cristi Farris MD History and Record Review External record(s) reviewed: prior outpatient record. Findings from review of outpatient records: Office visit and chest x-ray 06/27/2024 Differential Diagnoses - COPD exacerbation is more likely for the following reason(s): suggested by HANDP Procedures Allergies As of Date: 08/17/2024 Noted Allergy Reaction PENICILLINS 07/21/2005 ZOLOFT (SERTRALINE HCL) 04/20/2014 5 - Intolerance Comments: Sleepiness Date Reviewed: 08/17/2024 Reviewed by: Tory Adams MA - Fully Assessed Reason for Visit: Cough [28] Cmt: Chest congestion x3 weeks Primary Visit Diagnosis:COPD with exacerbation (HCC) [J44.1] Order(s):predniSONE (DELTASONE) 10 mg tabletTake 4 tabs daily for 3 days, then 2 tabs daily for 3 days, then 1 tab daily for 3 days with food.Disp: 21 tabletRfl: 0 Prescriptions as of 08/17/2024 - predniSONE (DELTASONE) 10 mg tablet Take 4 tabs daily for 3 days, then 2 tabs daily for 3 days, then 1 tab daily for 3 days with food. - esomeprazole (NEXIUM) 40 mg capsule Take 1 capsule by mouth once daily. - levothyroxine (LEVOXYL) 175 mcg tablet Take 1 tablet by mouth once daily. Except take 1.5 tablets on Sundays. Take on empty stomach. For thyroid. - atenolol (TENORMIN) 25 mg tablet Take 0.5 tablets by mouth once daily. - budesonide-formoterol (SYMBICORT) 80-4.5 mcg/actuation inhaler Inhale 2 Puffs as instructed two times a day. - losartan (COZAAR) 50 mg tablet Take 0.5 tablets by mouth once daily. - sildenafil (VIAGRA) 50 mg tablet Take 1 to 2 pills one hour prior to sexual activity - allopurinol (ZYLOPRIM) 300 mg tablet TAKE ONE TABLET BY MOUTH EVERY DAY FOR FOR GOUT - fluticasone (FLONASE) 50 mcg/actuation nasal spray Use 1 [place] in each nostril once daily. - CPAP Initiate Auto PAP @ 5-20 cm of water with humidification. Mask (per patient preference) optional chin strap (if indicated) , filters, tubing, humidifier and lifetime supplies. - albuterol HFA (VENTOLIN HFA) 90 mcg/actuation inhaler Inhale 2 Puffs as instructed every 4 hours as needed for wheezing/shortness of breath. Problem List As Of Date 08/17/2024 Noted Resolved Esophageal reflux [K21.9] 07/21/2005 04/10/2020 HYPERLIPIDEMIA NEC/NOS [E78.5] 07/21/2005 10/09/2014 GOUT NOS [M10.9] 09/07/2008 Insomnia, unspecified [G47.00] 09/09/2008 Erectile dysfunct (more content not included)... Normal [facility] CNOVon 06-27-2024 CNOV Office Visit ([facility] ) NORMA OZUNA ([id number]) 1960 M Date Time Provider Department 06/27/24 6:00 PM JATIN SHAFFER [facility] During your visit today, we recorded the following information about you: Temperature Pulse Respiration Blood pressure 97.7 degrees 76/minute 16/minute 132/84 Weight 130.7 kg Jatin Sahffer PA 06/27/2024 6:27 PM Signed [facility] Subjective Norma Ozuna is a 64 year old male. HPI 64-year-old male with PMH of COPD presents for cough. Patient states he has had a cough on and off for the past 3 months. He was seen here back in March, given antibiotic and steroid which helped with symptoms. Symptoms returned last month. He was given a prednisone taper which resolved symptoms. Patient states that he started getting a cough again about a week ago. He is coughing up thick green phlegm. States he does not usually have a cough at baseline with his COPD, but states he feels like his COPD is flared up. He denies any chest pain. He does have some shortness of breath and wheezing. He is on Symbicort daily and also has albuterol, but this has not really been helping with symptoms. He thinks he needs prednisone again. he denies any fevers. He has never seen pulmonology in the past. No other complaint. PAST MEDICAL HISTORY Diagnosis Date COPD (chronic obstructive pulmonary disease) (HCC) Esophageal reflux Gastroesophageal reflux Essential hypertension Gout High cholesterol Hypothyroidism Unspecified asthma(493.90) PAST SURGICAL HISTORY Procedure Laterality Date COLONOSCOPY FLX DX W/COLLJ SPEC WHEN PFRMD 03/04/2011 Colonoscopy-repeat in COLONOSCOPY FLX DX W/COLLJ SPEC WHEN PFRMD 03/03/2021 ESOPHAGOGASTRODUODENO SCOPY TRANSORAL DIAGNOSTIC 03/04/2011 EGD EYE SURGERY HX PAST SURGICAL HISTORY OF SHOULDER ARTHROSCOPY right RADIAL KERATOTOMY VASECTOMY UNI/BI SPX W/POSTOP SEMEN EXAMS ALLERGIES Penicillins and Zoloft [Sertraline Hcl] MEDICATIONS esomeprazole (NEXIUM) 40 mg capsule Take 1 capsule by mouth once daily. levothyroxine (LEVOXYL) 175 mcg tablet Take 1 tablet by mouth once daily. Except take 1.5 tablets on Sundays. Take on empty stomach. For thyroid. atenolol (TENORMIN) 25 mg tablet Take 0.5 tablets by mouth once daily. budesonide-formoterol (SYMBICORT) 80-4.5 mcg/actuation inhaler Inhale 2 Puffs as instructed two times a day. losartan (COZAAR) 50 mg tablet Take 0.5 tablets by mouth once daily. sildenafil (VIAGRA) 50 mg tablet Take 1 to 2 pills one hour prior to sexual activity allopurinol (ZYLOPRIM) 300 mg tablet TAKE ONE TABLET BY MOUTH EVERY DAY FOR FOR GOUT fluticasone (FLONASE) 50 mcg/actuation nasal spray Use 1 [place] in each nostril once daily. CPAP Initiate Auto PAP @ 5-20 cm of water with humidification. Mask (per patient preference) optional chin strap (if indicated) , filters, tubing, humidifier and lifetime supplies. albuterol HFA (VENTOLIN HFA) 90 mcg/actuation inhaler Inhale 2 Puffs as instructed every 4 hours as needed for wheezing/shortness of breath. FAMILY HISTORY Problem Relation Age of Onset [...] No Review of Systems Constitutional: Negative for chills and fever. HENT: Negative for congestion and sore throat. Respiratory: Positive for cough, shortness of breath and wheezing. Gastrointestinal: Negative for diarrhea and vomiting. Objective BP 132/84 Pulse 76 Temp 36.5 ?C (97.7 ?F) Resp 16 Wt 130.7 kg (288 lb 2.3 oz) SpO2 97% BMI 36.02 kg/m? Physical Exam Vitals and nursing note reviewed. Constitutional: General: He is not in acute distress. Appearance: Normal appearance. He is not toxic-appearing. HENT: Right Ear: Tympanic membrane and ear canal normal. Left Ear: Tympanic membrane and ear canal normal. Nose: Nose normal. Mouth/Throat: Mouth: Mucous membranes are moist. Eyes: Conjunctiva/sclera: Conjunctivae normal. Cardiovascular: Rate and Rhythm: Normal rate and regular rhythm. Pulmonary: Effort: Pulmonary effort is normal. Breath sounds: Wheezing (Mild) present. Skin: General: Skin is warm and dry. Neurological: Mental Status: He is alert. Assessment and Plan History and Record Review External record(s) reviewed: prior outpatient record. Findings from review of outpatient records: Seen in March, given antibiotic and prednisone burst. Seen 06/01/2024, given prednisone taper. Differential Di (more content not included)... Normal [facility] XR CHEST 2V FRONTAL/LATon XR CHEST 2V FRONTAL/LAT * * *Final Report* * * DATE OF EXAM: Jun 27 2024 6:15PM WOX [id number] - XR CHEST 2V FRONTAL/LAT / PROCEDURE REASON: Subacute cough * * * * Physician Interpretation * * * * EXAMINATION: CHEST RADIOGRAPH (2 VIEW FRONTAL and LATERAL) CLINICAL HISTORY: Subacute cough MQ: XC2_6 EXAM DATE/TIME: 06/27/2024 6:15 PM COMPARISON: No relevant prior studies available. RESULT: Lines, tubes, and devices: None. Lungs and pleura: No consolidation. No lung mass. No pleural effusion. No pneumothorax. Cardiomediastinal silhouette: Normal cardiomediastinal silhouette. Bones and soft tissues: Degenerative changes are present within the thoracic spine. DISH is noted in the thoracic spine. IMPRESSION: No acute radiographic abnormality. Track Superintendent: JAY Transcribe Date/Time: Jun 27 2024 6:18P Dictated by : YVROSE DESHPANDE MD This examination was interpreted and the report reviewed and electronically signed by: YVROSE DESHPANDE MD on Jun 27 2024 6:22PM EST [id number] Normal [facility] XR Chest PA and Lateralon IMPRESSION: No acute radiographic abnormality. Track Superintendent: AJY Transcribe Date/Time: Jun 27 2024 6:18P Dictated by : YVROSE DESHPANDE MD This examination was interpreted and the report reviewed and electronically signed by: YVROSE DESHPANDE MD on Jun 27 2024 6:22PM EST DIVISION OF RADIOLOGY * * *Final Report* * * DATE OF EXAM: Jun 27 2024 6:15PM [id number] - XR CHEST 2V FRONTAL/LAT / PROCEDURE REASON: Subacute cough * * * * Physician Interpretation * * * * EXAMINATION: CHEST RADIOGRAPH (2 VIEW FRONTAL & LATERAL) CLINICAL HISTORY: Subacute cough MQ: XC2_6 EXAM DATE/TIME: 06/27/2024 6:15 PM COMPARISON: No relevant prior studies available. RESULT: Lines, tubes, and devices: None. Lungs and pleura: No consolidation. No lung mass. No pleural effusion. No pneumothorax. Cardiomediastinal silhouette: Normal cardiomediastinal silhouette. Bones and soft tissues: Degenerative changes are present within the thoracic spine. DISH is noted in the thoracic spine. DIVISION OF RADIOLOGY Provider, [facility] - 06/27/2024 * * *Final Report* * * DATE OF EXAM: Jun 27 2024 6:15PM WOX [id number] - XR CHEST 2V FRONTAL/LAT / PROCEDURE REASON: Subacute cough * * * * Physician Interpretation * * * * EXAMINATION: CHEST RADIOGRAPH (2 VIEW FRONTAL & LATERAL) CLINICAL HISTORY: Subacute cough MQ: XC2_6 EXAM DATE/TIME: 06/27/2024 6:15 PM COMPARISON: No relevant prior studies available. RESULT: Lines, tubes, and devices: None. Lungs and pleura: No consolidation. No lung mass. No pleural effusion. No pneumothorax. Cardiomediastinal silhouette: Normal cardiomediastinal silhouette. Bones and soft tissues: Degenerative changes are present within the thoracic spine. DISH is noted in the thoracic spine. IMPRESSION IMPRESSION: No acute radiographic abnormality. Track Superintendent: JAY Transcribe Date/Time: Jun 27 2024 6:18P Dictated by : YVROSE DESHPANDE MD This examination was interpreted and the report reviewed and electronically signed by: YVROSE DESHPANDE MD on Jun 27 2024 6:22PM EST [facility] Radiology Study observation (narrative) [facility] XR Chest PA and LateralOrder ed By: [facility] Provider on 06-27-2024 [facility] CNOVon 06-01-2024 CNOV Office Visit ([facility] ) NORMA OZUNA ([id number]) 1960 M Date Time Provider Department 06/01/24 3:30 PM JATIN SHAFFER [facility] During your visit today, we recorded the following information about you: Temperature Pulse Respiration Blood pressure 97.7 degrees 75/minute 18/minute 129/78 Weight 130.3 kg Jatin Shaffer, SAMMY 06/01/2024 3:40 PM Signed This note was created using [employer]. Subjective Norma Ozuna is a 63 year old male. HPI 63-year-old male presents for cough, chest congestion, wheezing, nasal congestion, sinus pressure, sinus pain fevers for about a week and a half. Patient states he started getting sick a little over a week ago. He does have history of COPD. He states he has daily inhalers. He does not typically have a daily cough at baseline, but has had a cough for the past few weeks. Cough is productive. He has nasal congestion, sinus pressure, sinus pain. He was sick at the end of March and was given prednisone which helped with symptoms. He was also given an antibiotic at that time, but he did not notice much difference with the antibiotic. No other complaint. PAST MEDICAL HISTORY Diagnosis Date COPD (chronic obstructive pulmonary disease) (HCC) Esophageal reflux Gastroesophageal reflux Essential hypertension Gout High cholesterol Hypothyroidism Unspecified asthma(493.90) PAST SURGICAL HISTORY Procedure Laterality Date COLONOSCOPY FLX DX W/COLLJ SPEC WHEN PFRMD 03/04/2011 Colonoscopy-repeat in 11-2021 COLONOSCOPY FLX DX W/COLLJ SPEC WHEN PFRMD 03/03/2021 ESOPHAGOGASTRODUODENO SCOPY TRANSORAL DIAGNOSTIC 03/04/2011 EGD EYE SURGERY HX PAST SURGICAL HISTORY OF SHOULDER ARTHROSCOPY right RADIAL KERATOTOMY VASECTOMY UNI/BI SPX W/POSTOP SEMEN EXAMS ALLERGIES Penicillins and Zoloft [Sertraline Hcl] MEDICATIONS levothyroxine (LEVOXYL) 175 mcg tablet Take 1 tablet by mouth once daily. Except take 1.5 tablets on Sundays. Take on empty stomach. For thyroid. atenolol (TENORMIN) 25 mg tablet Take 0.5 tablets by mouth once daily. losartan (COZAAR) 50 mg tablet Take 0.5 tablets by mouth once daily. sildenafil (VIAGRA) 50 mg tablet Take 1 to 2 pills one hour prior to sexual activity allopurinol (ZYLOPRIM) 300 mg tablet TAKE ONE TABLET BY MOUTH EVERY DAY FOR FOR GOUT esomeprazole (NEXIUM) 40 mg capsule Take 1 capsule by mouth once daily. fluticasone (FLONASE) 50 mcg/actuation nasal spray Use 1 [place] in each nostril once daily. CPAP Initiate Auto PAP @ 5-20 cm of water with humidification. Mask (per patient preference) optional chin strap (if indicated) , filters, tubing, humidifier and lifetime supplies. albuterol HFA (VENTOLIN HFA) 90 mcg/actuation inhaler Inhale 2 Puffs as instructed every 4 hours as needed for wheezing/shortness of breath. predniSONE (DELTASONE) 10 mg tablet Take 4 tabs daily for 3 days, then 2 tabs daily for 3 days, then 1 tab daily for 3 days with food. doxycycline (VIBRA-TABS) 100 mg tablet Take 1 tablet by mouth two times a day for 7 days. budesonide-formoterol (SYMBICORT) 80-4.5 mcg/actuation inhaler Inhale 2 Puffs as instructed two times a day. FAMILY HISTORY Problem Relation Age of Onset [...] Drug use: No Review of Systems Constitutional: Positive for fever. Negative for chills. HENT: Positive for congestion, sinus pressure and sinus pain. Negative for sore throat. Respiratory: Positive for cough and wheezing. Negative for shortness of breath. Gastrointestinal: Negative for diarrhea and vomiting. Objective BP 129/78 Pulse 75 Temp 36.5 ?C (97.7 ?F) Resp 18 Wt 130.3 kg (287 lb 4.2 oz) SpO2 96% BMI 35.90 kg/m? Physical Exam Vitals and nursing note reviewed. Constitutional: General: He is not in acute distress. Appearance: Normal appearance. He is not toxic-appearing. HENT: Right Ear: Tympanic membrane and ear canal normal. Left Ear: Tympanic membrane and ear canal normal. Nose: Mucosal edema and congestion present. Mouth/Throat: Mouth: Mucous membranes are moist. Eyes: Conjunctiva/sclera: Conjunctivae normal. Cardiovascular: Rate and Rhythm: Normal rate and regular rhythm. Pulmonary: Effort: Pulmonary effort is normal. Breath sounds: Normal breath sounds. No wheezing, rhonchi or rales. Skin: General: Skin is warm and dry. Neurological: Mental Status: He is alert. Assessment and Plan ASSESSMENT/PLAN: 1. Bacterial sinusitis - I (more content not included)... Normal [facility] CNOVon 04-23-2024 CNOV Office Visit ([facility] ) NORMA OZUNA ([id number]) 1960 M Date Time Provider Department 04/23/24 9:00 AM BERNADETTE CHAPA [facility] During your visit today, we recorded the following information about you: Temperature Pulse Respiration Blood pressure 97.8 degrees 71/minute 16/minute 141/86 Weight 128 kg Berandette Chapa PA-C 04/23/2024 9:18 AM Signed This note was created using NoteWriter. Subjective Norma Hobbs Sulma is a 63 year old male. Patient is a 63-year-old male who complains of ongoing dry, nonproductive cough that he has been experiencing for the past 1 week. Patient denies fever, chills or myalgia. Patient reports no congestion, sinus pressure, ear pain or sore throat. Patient has no history of asthma but does have a history of mild COPD and does not smoke. Patient was seen and evaluated at this facility on 20 April 2024 at which time he was diagnosed with a sinus infection and prescribed doxycycline 100 mg and Tessalon 100 mg. Patient states he is taking the medication as directed. Patient reports that with his history of COPD he typically also requires prednisone which has worked well in the past. Patient denies acute episodes of wheezing, dyspnea or shortness of breath but states that he does have a current albuterol MDI. Cough Review of Systems Respiratory: Positive for cough. All other systems reviewed and are negative. Objective BP 141/86 Pulse 71 Temp 36.6 ?C (97.8 ?F) (Left Tympanic) Resp 16 Wt 128 kg (282 lb 3 oz) SpO2 95% BMI 35.27 kg/m? Physical Exam Vitals and nursing note reviewed. Constitutional: Appearance: Normal appearance. He is normal weight. HENT: Head: Normocephalic and atraumatic. Right Ear: Tympanic membrane, ear canal and external ear normal. Left Ear: Tympanic membrane, ear canal and external ear normal. Nose: Nose normal. Mouth/Throat: Mouth: Mucous membranes are moist. Pharynx: Oropharynx is clear. Eyes: Extraocular Movements: Extraocular movements intact. Conjunctiva/sclera: Conjunctivae normal. Pupils: Pupils are equal, round, and reactive to light. Cardiovascular: Rate and Rhythm: Normal rate and regular rhythm. Pulses: Normal pulses. Heart sounds: Normal heart sounds. Pulmonary: Effort: Pulmonary effort is normal. Breath sounds: Normal breath sounds. Musculoskeletal: Cervical back: Normal range of motion and neck supple. Skin: General: Skin is warm and dry. Capillary Refill: Capillary refill takes less than 2 seconds. Neurological: General: No focal deficit present. Mental Status: He is alert and oriented to person, place, and time. Psychiatric: Mood and Affect: Mood normal. Behavior: Behavior normal. Thought Content: Thought content normal. Judgment: Judgment normal. Assessment and Plan Physical exam findings as noted above. Patient was provided with a prescription for prednisone 20 mg and advised to continue the additional medication as directed. Patient verbalizes excellent understanding of the instructions. CLINICAL IMPRESSION: Persistent Cough; COPD; Acute Sinusitis ASSESSMENT/PLAN: 1. Persistent cough - ICD9: 786.2, ICD10: R05.3 - PREDNISONE 20 MG TABLET Bernadette SPIKE Chapa Allergies As of Date: 04/23/2024 Noted Allergy Reaction PENICILLINS 07/21/2005 ZOLOFT (SERTRALINE HCL) 04/20/2014 5 - Intolerance Comments: Sleepiness Date Reviewed: 04/23/2024 Reviewed by: Taylor Hines MA - Fully Assessed Reason for Visit: Cough [28] Cmt: Persisting x 4 days Primary Visit Diagnosis:Persistent cough [R05.3] Order(s):predniSONE (DELTASONE) 20 mg tabletTake 1 tablet by mouth two times a day for 5 days.Disp: 10 tabletRfl: 0 Prescriptions as of 04/23/2024 - predniSONE (DELTASONE) 20 mg tablet Take 1 tablet by mouth two times a day for 5 days. - doxycycline (VIBRA-TABS) 100 mg tablet Take 1 tablet by mouth two times a day for 7 days. - benzonatate (TESSALON PERLE) 100 mg capsule Take 2 capsules by mouth three times a day as needed for up to 10 days. - levothyroxine (LEVOXYL) 175 mcg tablet Take 1 tablet by mouth once daily. Except take 1.5 tablets on Sundays. Take on empty stomach. For thyroid. - atenolol (TENORMIN) 25 mg tablet Take 0.5 tablets by mouth once daily. - budesonide-formoterol (SYMBICORT) 80-4.5 mcg/actuation inhaler Inhale 2 Puffs as instructed two times a day. - losartan (COZAAR) 50 mg tablet Take 0.5 tablets by mouth once daily. - sildenafil (VIAGRA) 50 mg tablet Take 1 to 2 pills one hour prior to sexual activity - allopurinol (ZYLOPRIM) 300 mg tablet TAKE ONE TABLET BY MOUTH EVERY DAY FOR FOR GOUT - esomeprazole (NEXIUM) 40 mg capsule Take 1 capsule by mouth once daily. - fluticasone (FLONASE) 50 mcg/actuation nasal spray Use 1 [place] in each nostril once daily. - CPAP Initiate Auto PAP @ 5-20 cm of water with humidification. Mask (per (more content not included)... Normal [facility] CNOVon 04-20-2024 CNOV Office Visit (UCWSTR ) NORMA OZUNA ([id number]) 1960 M Date Time Provider Department 04/20/24 8:30 AM HARRIETT MCGARRY [facility] During your visit today, we recorded the following information about you: Temperature Pulse Respiration Blood pressure 98.3 degrees 82/minute 16/minute 126/76 Weight 128.2 kg Harriett Mcgarry APRN.ENGINEERING SPECIALIST 04/20/2024 9:10 AM Signed Subjective HPI Norma Ozuna is a 63 year old male who presents with cough, chest and nasal congestion, and feeling feverish for the past week. He states he had body aches and chills and headache so figured he had a fever. It seems like the fever has broke today He has been taking tylenol and tessalon perles for symptoms. Review of Systems Constitutional: Positive for chills. Negative for fever and malaise/fatigue. HENT: Positive for congestion. Negative for ear pain and sore throat. Respiratory: Positive for cough, sputum production and shortness of breath. Cardiovascular: Negative for chest pain. Gastrointestinal: Negative for diarrhea, nausea and vomiting. Musculoskeletal: Positive for myalgias. Neurological: Positive for headaches. BP 126/76 Pulse 82 Temp 36.8 ?C (98.3 ?F) Resp 16 Wt 128.2 kg (282 lb 10.1 oz) SpO2 96% BMI 35.33 kg/m? PAST MEDICAL HISTORY Diagnosis Date COPD (chronic obstructive pulmonary disease) (HCC) Esophageal reflux Gastroesophageal reflux Essential hypertension Gout High cholesterol Hypothyroidism Unspecified asthma(493.90) PAST SURGICAL HISTORY Procedure Laterality Date COLONOSCOPY FLX DX W/COLLJ SPEC WHEN PFRMD 03/04/2011 Colonoscopy-repeat in 11-2021 COLONOSCOPY FLX DX W/COLLJ SPEC WHEN PFRMD 03/03/2021 ESOPHAGOGASTRODUODENO SCOPY TRANSORAL DIAGNOSTIC 03/04/2011 EGD EYE SURGERY HX PAST SURGICAL HISTORY OF SHOULDER ARTHROSCOPY right RADIAL KERATOTOMY VASECTOMY UNI/BI SPX W/POSTOP SEMEN EXAMS ALLERGIES Penicillins and Zoloft [Sertraline Hcl] MEDICATIONS levothyroxine (LEVOXYL) 175 mcg tablet Take 1 tablet by mouth once daily. Except take 1.5 tablets on Sundays. Take on empty stomach. For thyroid. atenolol (TENORMIN) 25 mg tablet Take 0.5 tablets by mouth once daily. budesonide-formoterol (SYMBICORT) 80-4.5 mcg/actuation inhaler Inhale 2 Puffs as instructed two times a day. losartan (COZAAR) 50 mg tablet Take 0.5 tablets by mouth once daily. sildenafil (VIAGRA) 50 mg tablet Take 1 to 2 pills one hour prior to sexual activity allopurinol (ZYLOPRIM) 300 mg tablet TAKE ONE TABLET BY MOUTH EVERY DAY FOR FOR GOUT esomeprazole (NEXIUM) 40 mg capsule Take 1 capsule by mouth once daily. fluticasone (FLONASE) 50 mcg/actuation nasal spray Use 1 [place] in each nostril once daily. CPAP Initiate Auto PAP @ 5-20 cm of water with humidification. Mask (per patient preference) optional chin strap (if indicated) , filters, tubing, humidifier and lifetime supplies. albuterol HFA (VENTOLIN HFA) 90 mcg/actuation inhaler Inhale 2 Puffs as instructed every 4 hours as needed for wheezing/shortness of breath. doxycycline (VIBRA-TABS) 100 mg tablet Take 1 tablet by mouth two times a day for 7 days. benzonatate (TESSALON PERLE) 100 mg capsule [...] Appearance: Normal appearance. He is not ill-appearing. HENT: Right Ear: Tympanic membrane, ear canal and external ear normal. Left Ear: Tympanic membrane, ear canal and external ear normal. Nose: Mucosal edema, congestion and rhinorrhea present. Mouth/Throat: Pharynx: Uvula midline. No oropharyngeal exudate or posterior oropharyngeal erythema. Cardiovascular: Rate and Rhythm: Normal rate and regular rhythm. Heart sounds: Normal heart sounds. Pulmonary: Effort: Pulmonary effort is normal. No respiratory distress. Breath sounds: Normal breath sounds. No wheezing or rales. Musculoskeletal: Cervical back: Neck supple. Lymphadenopathy: Cervical: No cervical adenopathy. Skin: General: Skin is warm and dry. Findings: No erythema or rash. Neurological: Mental Status: He is alert. ASSESSMENT/PLAN: 1. Bacterial sinusitis - ICD9: 473.9, 041.9, ICD10: J32.9, B96.89 (primary diagnosis) - Will begin treatment with as per antibio (more content not included)... [facility] ([id number]) 1960 M Date Time Provider Department 04/11/24 SAMMIE BANKS INTWS During your visit today, we recorded the following information about you: Ginette Callahan RN 04/11/2024 2:12 PM Signed Patient calling in and states his pharmacy[facility], states they did not receive his prescription for levothyroxine 175 mcg on 03/30/24. Pharmacy asking for provider to resend it please. Pended. Thank you. Allergies As of Date: 04/11/2024 Noted Allergy Reaction PENICILLINS 07/21/2005 ZOLOFT (SERTRALINE HCL) 04/20/2014 5 - Intolerance Comments: Sleepiness Date Reviewed: 02/28/2024 Reviewed by: Bethany Fragoso APRN.ENGINEERING SPECIALIST - Fully Assessed Reason for Visit: Medication Request [138] Visit Diagnosis:Hypothyroid ism, unspecified type [E03.9] Order(s):levothyroxin e (LEVOXYL) 175 mcg tabletTake 1 tablet by mouth once daily. Except take 1.5 tablets on Sundays. Take on empty stomach. For thyroid.Disp: 90 tabletRfl: 3 Prescriptions as of 04/12/2024 - levothyroxine (LEVOXYL) 175 mcg tablet Take 1 tablet by mouth once daily. Except take 1.5 tablets on Sundays. Take on empty stomach. For thyroid. - atenolol (TENORMIN) 25 mg tablet Take 0.5 tablets by mouth once daily. - budesonide-formoterol (SYMBICORT) 80-4.5 mcg/actuation inhaler Inhale 2 Puffs as instructed two times a day. - losartan (COZAAR) 50 mg tablet Take 0.5 tablets by mouth once daily. - sildenafil (VIAGRA) 50 mg tablet Take 1 to 2 pills one hour prior to sexual activity - allopurinol (ZYLOPRIM) 300 mg tablet TAKE ONE TABLET BY MOUTH EVERY DAY FOR FOR GOUT - esomeprazole (NEXIUM) 40 mg capsule Take 1 capsule by mouth once daily. - fluticasone (FLONASE) 50 mcg/actuation nasal spray Use 1 [place] in each nostril once daily. - CPAP Initiate Auto PAP @ 5-20 cm of water with humidification. Mask (per patient preference) optional chin strap (if indicated) , filters, tubing, humidifier and lifetime supplies. - albuterol HFA (VENTOLIN HFA) 90 mcg/actuation inhaler Inhale 2 Puffs as instructed every 4 hours as needed for wheezing/shortness of breath. Problem List As Of Date 04/11/2024 Noted Resolved Esophageal reflux [K21.9] 07/21/2005 04/10/2020 HYPERLIPIDEMIA NEC/NOS [E78.5] 07/21/2005 10/09/2014 GOUT NOS [M10.9] 09/07/2008 Insomnia, unspecified [G47.00] 09/09/2008 Erectile dysfunction [N52.9] 07/28/2010 Hypothyroidism [E03.9] 11/17/2013 Gastroesophageal reflux disease without esophag*10/09/2014 Obesity (BMI 35.0-39.9 without comorbidity) [E6*10/09/2014 Hyperlipidemia [E78.5] 03/29/2016 Mild persistent asthma without complication [J4*09/05/2018 Screening for colon cancer [Z12.11] 03/03/2021 03/03/2021 Prescriptions ordered this encounter Disp Refills Start End LEVOTHYROXINE 175 MCG TABLET 90 t* 3 04/12/2024 Route: ORAL Sig: Take 1 tablet by mouth once daily. Except take 1.5 tablets on Sundays. Take on empty stomach. For thyroid. Medications Discontinued During This Encounter Prescriptions - levothyroxine (LEVOXYL) 175 mcg tablet (Discontinued) Take 1 tablet by mouth once daily. Except take 1.5 tablets on Sundays. Take on empty stomach. For thyroid. Encounter Status:Closed by BETHANY FRAGOSO on 04/12/24 [facility] NORMA O[facility]NA ([id number]) 1960 Date Time Provider Department 03/30/24 BETHANY FRAGOSO During your visit today, we recorded the following information about you: Bethany Fragoso APRN.BRANDON 03/30/2024 7:29 AM Signed Thyroid stimulating hormone continues to increase. I recommend we slightly increase levothyroxine to 1 tablet daily except take 1.5 tablets on Sundays. Recheck level in 4-6 weeks. HgbA1c is also in prediabetic range but stable. Regular exercise, healthy well balanced diet, and weight loss will help improve this. Thank you Bethany Fragoso APRN.Catia Linares LPN 03/30/2024 8:41 AM Signed Called and updated patient, voiced understanding. Catia Minor LPN March 30, 2024 8:41 AM Allergies As of Date: 03/30/2024 Noted Allergy Reaction PENICILLINS 07/21/2005 ZOLOFT (SERTRALINE HCL) 04/20/2014 5 - Intolerance Comments: Sleepiness Date Reviewed: 02/28/2024 Reviewed by: Bethany Fragoso APRN.ENGINEERING SPECIALIST - Fully Assessed Reason for Visit: Results [95] Primary Visit Diagnosis:Hypothyroid ism, unspecified type [E03.9] Other Visit Diagnosis:Medication management [Z79.899] Order(s):THYROID STIMULATING HORMONE [SQTS] Order #: [id number] FUTURE levothyroxine (LEVOXYL) 175 mcg tabletTake 1 tablet by mouth once daily. Except take 1.5 tablets on Sundays. Take on empty stomach. For thyroid.Disp: 90 tabletRfl: 3 Prescriptions as of 03/30/2024 - levothyroxine (LEVOXYL) 175 mcg tablet Take 1 tablet by mouth once daily. Except take 1.5 tablets on Sundays. Take on empty stomach. For thyroid. - atenolol (TENORMIN) 25 mg tablet Take 0.5 tablets by mouth once daily. - budesonide-formoterol (SYMBICORT) 80-4.5 mcg/actuation inhaler Inhale 2 Puffs as instructed two times a day. - losartan (COZAAR) 50 mg tablet Take 0.5 tablets by mouth once daily. - sildenafil (VIAGRA) 50 mg tablet Take 1 to 2 pills one hour prior to sexual activity - allopurinol (ZYLOPRIM) 300 mg tablet TAKE ONE TABLET BY MOUTH EVERY DAY FOR FOR GOUT - esomeprazole (NEXIUM) 40 mg capsule Take 1 capsule by mouth once daily. - fluticasone (FLONASE) 50 mcg/actuation nasal spray Use 1 [place] in each nostril once daily. - CPAP Initiate Auto PAP @ 5-20 cm of water with humidification. Mask (per patient preference) optional chin strap (if indicated) , filters, tubing, humidifier and lifetime supplies. - albuterol HFA (VENTOLIN HFA) 90 mcg/actuation inhaler Inhale 2 Puffs as instructed every 4 hours as needed for wheezing/shortness of breath. Problem List As Of Date 03/30/2024 Noted Resolved Esophageal reflux [K21.9] 07/21/2005 04/10/2020 HYPERLIPIDEMIA NEC/NOS [E78.5] 07/21/2005 10/09/2014 GOUT NOS [M10.9] 09/07/2008 Insomnia, unspecified [G47.00] 09/09/2008 Erectile dysfunction [N52.9] 07/28/2010 Hypothyroidism [E03.9] 11/17/2013 Gastroesophageal reflux disease without esophag*10/09/2014 Obesity (BMI 35.0-39.9 without comorbidity) [E6*10/09/2014 Hyperlipidemia [E78.5] 03/29/2016 Mild persistent asthma without complication [J4*09/05/2018 Screening for colon cancer [Z12.11] 03/03/2021 03/03/2021 Prescriptions ordered this encounter Disp Refills Start End LEVOTHYROXINE 175 MCG TABLET 90 t* 3 03/30/2024 Class: Med Update Route: ORAL Sig: Take 1 tablet by mouth once daily. Except take 1.5 tablets on Sundays. Take on empty stomach. For thyroid. Medications Discontinued During This Encounter Prescriptions - levothyroxine (LEVOXYL) 175 mcg tablet (Discontinued) Take 1 tablet by mouth once daily. Take on empty stomach. For thyroid. Encounter Status:Closed by CATIA MINOR on 03/30/24 Normal [facility] HbA1c (Bld)on 03-29-2024 Average glucose Estimated from glycated hemoglobin (Bld) [Mass/Vol] 117 mg/dL Normal [facility] Comment on above: Order Comment: Nilo roper Type: BLOOD SPECIMEN Ordering Facility: [facility] Address: [address] [place] [address] Result Comment: eAG: (Estimated average glucose) is a calculated value from HgbA1c and is claims service representative of the average blood glucose level in the last 2-3 month period. Performed By: #### 5 5454-3 #### [facility] CLIA [id number] [address] [place] [address] [place] HbA1c (Bld) [Mass fraction] 5.7 % High 4.3-5.6 [facility] Comment on above: Order Comment: Nilo roper Type: BLOOD SPECIMEN Ordering Facility: [facility] Address: [address] [place] [address] Result Comment: Amer [place] Diabetes Association guidelines indicate that patients with HgbA1c in the range 5.7-6.4% are at increased risk for development of diabetes, and intervention by lifestyle modification may be beneficial. HgbA1c greater or equal to 6.5% is considered diagnostic of diabetes. Performed By: #### 5 5454-3 #### [facility] [id number] [address] [place] [address] [place] T3Free SerPl-mCncon 03-29-20 24 Free T3 [Mass/Vol] 2.5 pg/mL Normal 2.3-4.1 [facility] Comment on above: Order Comment: Speci men Type: BLOOD SPECIMENOrdering Facility: [facility] Address: [address] [place] [address] Performed By: #### 3 051-0, 3024-7, 3015-3 ####[facility] [id number] [place] [address] [place] T4 Free SerPl-mCncon 024 Free T4 [Mass/Vol] 1.2 ng/dL Normal 0.9-1.7 [facility] Comment on above: Order Comment: Speci men Type: BLOOD SPECIMENOrdering Facility: [facility] Address: [address] [place] [address] Performed By: #### 3 051-0, 3024-7, 6-3 ####[facility] [id number] [place] [address] [place] TSH SerPl-aCncon 03-29-2024 TSH Qn 6.140 m[IU]/L High 0.270-4.200 [facility] Comment on above: Order Comment: Speci men Type: BLOOD SPECIMENOrdering Facility: [facility] Address: [address] [place] [address] Performed By: #### 3 051-0, 3024-7, 6-3 ####[facility] [id number] [place] [id number] [facility] 03-08-2024 JEANNA Telephone (INTSharlaWS) SULMANORMA Hobbs ([id number]) 1960 M Date Time Provider Department 03/08/24 BETHANY FRAGOOS During your visit today, we recorded the following information about you: Bethany Fragoso APRN.CNP 03/08/2024 3:25 PM Signed Was this a fasting sample? Her glucose and cholesterol were higher then usual. Thank you SUE Sanchez Krystle, RN 03/08/2024 4:24 PM Signed Lab notes say fasting for 12 hours. Call to patient and verified that he was fasting for 12 hours. ERIKA Love Joy, APRN.CNP 03/09/2024 7:20 AM Signed We need to check a HgbA1c to further evaluate the elevated glucose. Cholesterol is too high which has increased his risk of heart attack and stroke. To lower this risk, I recommend starting a cholesterol lowering medication like simvastatin. Number one side effect is muscle aches but we will start at lowest dose and increase as needed. Also, Thyroid level was slightly off. I would like to recheck this plus other thyroid hormone levels in 4 weeks. Thank you Bethany Fragoso APRN.BRANDON The 10-year ASCVD risk score (Drake DK, et al., 2019) is: 13.3% Values used to calculate the score: Age: 63 years Sex: Male Is Non- : No Diabetic: No Tobacco smoker: No Systolic Blood Pressure: 118 mmHg Is BP treated: Yes HDL Cholesterol: 46 mg/dL Total Cholesterol: 237 mg/dL Catia Minor LPN 03/09/2024 10:36 AM Signed Patient updated via MyChart. Catia Minor LPN March 09, 2024 10:36 AM Allergies As of Date: 03/08/2024 Noted Allergy Reaction PENICILLINS 07/21/2005 ZOLOFT (SERTRALINE HCL) 04/20/2014 5 - Intolerance Comments: Sleepiness Date Reviewed: 02/28/2024 Reviewed by: Bethany Fragoso APRN.ENGINEERING SPECIALIST - Fully Assessed Reason for Visit: Results [95] Primary Visit Diagnosis:Elevated glucose [R73.09] Other Visit Diagnosis:Abnormal TSH [R79.89] Order(s):HEMOGLOBIN A1C [XAVAF1L] Order #: [id number] FUTURE THYROID STIMULATING HORMONE [SQTSH] Order #: [id number] FUTURE T3, FREE [SQFREET3] Order #: [id number] FUTURE T4 FREE/FREE THYROXINE [SQFT4] Order #: [id number] FUTURE Prescriptions as of 03/09/2024 - atenolol (TENORMIN) 25 mg tablet Take 0.5 tablets by mouth once daily. - levothyroxine (LEVOXYL) 175 mcg tablet Take 1 tablet by mouth once daily. Take on empty stomach. For thyroid. - budesonide-formoterol (SYMBICORT) 80-4.5 mcg/actuation inhaler Inhale 2 Puffs as instructed two times a day. - losartan (COZAAR) 50 mg tablet Take 0.5 tablets by mouth once daily. - sildenafil (VIAGRA) 50 mg tablet Take 1 to 2 pills one hour prior to sexual activity - allopurinol (ZYLOPRIM) 300 mg tablet TAKE ONE TABLET BY MOUTH EVERY DAY FOR FOR GOUT - esomeprazole (NEXIUM) 40 mg capsule Take 1 capsule by mouth once daily. - fluticasone (FLONASE) 50 mcg/actuation nasal spray Use 1 [place] in each nostril once daily. - CPAP Initiate Auto PAP @ 5-20 cm of water with humidification. Mask (per patient preference) optional chin strap (if indicated) , filters, tubing, humidifier and lifetime supplies. - albuterol HFA (VENTOLIN HFA) 90 mcg/actuation inhaler Inhale 2 Puffs as instructed every 4 hours as needed for wheezing/shortness of breath. Problem List As Of Date 03/08/2024 Noted Resolved Esophageal reflux [K21.9] 07/21/2005 04/10/2020 HYPERLIPIDEMIA NEC/NOS [E78.5] 07/21/2005 10/09/2014 GOUT NOS [M10.9] 09/07/2008 Insomnia, unspecified [G47.00] 09/09/2008 Erectile dysfunction [N52.9] 07/28/2010 Hypothyroidism [E03.9] 11/17/2013 Gastroesophageal reflux disease without esophag*10/09/2014 Obesity (BMI 35.0-39.9 without comorbidity) [E6*10/09/2014 Hyperlipidemia [E78.5] 03/29/2016 Mild persistent asthma without complication [J4*09/05/2018 Screening for colon cancer [Z12.11] 03/03/2021 03/03/2021 Encounter Status:Closed by CATIA MINOR on 03/09/24 Normal [facility] CBC W Auto Differential pane l (Bld)on 03-07-2024 Basophils (Bld) [#/Vol] 0.06 10*3/uL Normal <0.11 [facility] Comment on above: Order Comment: Speci men Type: BLOOD SPECIMENOrdering Facility: [facility] Address: [address] [place] [address] Performed By: #### 5 7021-8 ####[facility] [id number] [place] [address] [place] Basophils/100 WBC (Bld) 0.7 % Normal [facility] Comment on above: Order Comment: Speci men Type: BLOOD SPECIMENOrdering Facility: [facility] Address: [address] [place] [address] Performed By: #### 5 7021-8 ####[facility] [id number] [place] [address] [place] Differential cell count method Nom (Bld) Auto Normal [facility] Comment on above: Order Comment: Speci men Type: BLOOD SPECIMENOrdering Facility: [facility] Address: [address] [place] [address] Performed By: #### 5 7021-8 ####[facility] [id number] [place] [address] [place] Eosinophils (Bld) [#/Vol] 0.19 10*3/uL Normal <0.46 [facility] Comment on above: Order Comment: Speci men Type: BLOOD SPECIMENOrdering Facility: [facility] Address: [address] [place] [address] Performed By: #### 5 7021-8 ####[facility] [id number] [place] [address] [place] Eosinophils/100 WBC (Bld) 2.2 % Normal [facility] Comment on above: Order Comment: Speci men Type: BLOOD SPECIMENOrdering Facility: [facility] Address: [address] [place] [address] Performed By: #### 5 7021-8 ####[facility] [id number] [place] [address] [place] Erythrocyte distribution width (RBC) [Ratio] 12.8 % Normal 11.5-15.0 [facility] Comment on above: Order Comment: Speci men Type: BLOOD SPECIMENOrdering Facility: [facility] Address: [address] [place] [address] Performed By: #### 5 7021-8 ####[facility] [id number] [place] [address] [place] Hematocrit (Bld) [Volume fraction] 47.3 % Normal 39.0-51.0 [facility] Comment on above: Order Comment: Speci men Type: BLOOD SPECIMENOrdering Facility: [facility] Address: [address] [place] [address] Performed By: #### 5 7021-8 ####[facility] [id number] [place] [address] [place] Hemoglobin (Bld) [Mass/Vol] 15.5 g/dL Normal 13.0-17.0 [facility] Comment on above: Order Comment: Speci men Type: BLOOD SPECIMENOrdering Facility: [facility] Address: [address] [place] [address] Performed By: #### 5 7021-8 ####[facility] [id number] [place] [address] [place] Immature granulocytes (Bld) [#/Vol] 0.03 10*3/uL Normal <0.10 [facility] Comment on above: Order Comment: Speci men Type: BLOOD SPECIMENOrdering Facility: [facility] Address: [address] [place] [address] Performed By: #### 5 7021-8 ####[facility] [id number] [place] [address] [place] Immature granulocytes/100 WBC (Bld) 0.4 % Normal [facility] Comment on above: Order Comment: Speci men Type: BLOOD SPECIMENOrdering Facility: [facility] Address: [address] [place] [address] Performed By: #### 5 7021-8 ####[facility] [id number] [place] [address] [place] Lymphocytes (Bld) [#/Vol] 2.75 10*3/uL Normal 1.00-4.00 [facility] Comment on above: Order Comment: Speci men Type: BLOOD SPECIMENOrdering Facility: [facility] Address: [address] [place] [address] Performed By: #### 5 7021-8 ####[facility] [id number] [place] [address] [place] Lymphocytes/100 WBC (Bld) 32.4 % Normal [facility] Comment on above: Order Comment: Speci men Type: BLOOD SPECIMENOrdering Facility: [facility] Address: [address] [place] [address] Performed By: #### 5 7021-8 ####[facility] [id number] [place] [address] [place] MCH (RBC) [Entitic mass] 31.2 pg Normal 26.0-34.0 [facility] Comment on above: Order Comment: Speci men Type: BLOOD SPECIMENOrdering Facility: [facility] Address: [address] [place] [address] Performed By: #### 5 7021-8 ####[facility] [id number] [place] [address] [place] MCHC (RBC) [Mass/Vol] 32.8 g/dL Normal 30.5-36.0 [facility] Comment on above: Order Comment: Speci men Type: BLOOD SPECIMENOrdering Facility: [facility] Address: [address] [place] [address] Performed By: #### 5 7021-8 ####[facility] [id number] [place] [address] [place] MCV (RBC) [Entitic vol] 95.2 fL Normal 80.0-100.0 [facility] Comment on above: Order Comment: Speci men Type: BLOOD SPECIMENOrdering Facility: [facility] Address: [address] [place] [address] Performed By: #### 5 7021-8 ####[facility] [id number] [place] [address] [place] Monocytes (Bld) [#/Vol] 0.75 10*3/uL Normal <0.87 [facility] Comment on above: Order Comment: Speci men Type: BLOOD SPECIMENOrdering Facility: [facility] Address: [address] [place] [address] Performed By: #### 5 7021-8 ####[facility] [id number] [place] [address] [place] Monocytes/100 WBC (Bld) 8.8 % Normal [facility] Comment on above: Order Comment: Speci men Type: BLOOD SPECIMENOrdering Facility: [facility] Address: [address] [place] [address] Performed By: #### 5 7021-8 ####[facility] [id number] [place] [address] [place] Neutrophils (Bld) [#/Vol] 4.70 10*3/uL Normal 1.45-7.50 [facility] Comment on above: Order Comment: Speci men Type: BLOOD SPECIMENOrdering Facility: [facility] Address: [address] [place] [address] Performed By: #### 5 7021-8 ####[facility] [id number] [place] [address] [place] Neutrophils/100 WBC (Bld) 55.5 % Normal [facility] Comment on above: Order Comment: Speci men Type: BLOOD SPECIMENOrdering Facility: [facility] Address: [address] [place] [address] Performed By: #### 5 7021-8 ####[facility] [id number] [place] [address] [place] Nucleated RBC (Bld) [#/Vol] 10*3/uL Normal <0.01 [facility] Comment on above: Order Comment: Speci men Type: BLOOD SPECIMENOrdering Facility: [facility] Address: [address] [place] [address] Performed By: #### 5 7021-8 ####[facility] [id number] [place] [address] [place] Nucleated RBC/100 WBC (Bld) [Ratio] 0.0 /100 WBC Normal [facility] Comment on above: Order Comment: Speci men Type: BLOOD SPECIMENOrdering Facility: [facility] Address: [address] [place] [address] Performed By: #### 5 7021-8 ####[facility] [id number] [address] [address] [place] Platelet mean volume (Bld) [Entitic vol] 12.3 fL Normal 9.0-12.7 [facility] Comment on above: Order Comment: Speci men Type: BLOOD SPECIMENOrdering Facility: [facility] Address: [address] [place] [address] Performed By: #### 5 7021-8 ####[facility] [id number] [place] [address] [place] Platelets (Bld) [#/Vol] 205 10*3/uL Normal 150-400 [facility] Comment on above: Order Comment: Speci men Type: BLOOD SPECIMENOrdering Facility: [facility] Address: [address] [place] [address] Performed By: #### 5 7021-8 ####[facility] [id number] [place] [address] [place] RBC (Bld) [#/Vol] 4.97 10*6/uL Normal 4.20-6.00 [facility] Comment on above: Order Comment: Speci men Type: BLOOD SPECIMENOrdering Facility: [facility] Address: [address] [place] [address] Performed By: #### 5 7021-8 ####[facility] [id number] [place] [address] [place] WBC (Bld) [#/Vol] 8.48 10*3/uL Normal 3.70-11.00 [facility] Comment on above: Order Comment: Speci men Type: BLOOD SPECIMENOrdering Facility: [facility] Address: [address] [place] [address] Performed By: #### 5 7021-8 ####[facility] [id number] [place] [address] [place] Comprehensive metabolic 2000 panelon 03-07-2024 Albumin [Mass/Vol] 4.2 g/dL Normal 3.9-4.9 [facility] Comment on above: Order Comment: Speci men Type: BLOOD SPECIMEN [facility] Address: [address] [place] [address] Performed By: #### 5 5454-3 #### [facility] CLIA [id number] [address] [place] [address] [place] ALP [Catalytic activity/Vol] 47 U/L Normal 38-113 [facility] Comment on above: Order Comment: Speci men Type: BLOOD SPECIMEN [facility] Address: [address] [place] [address] Performed By: #### 5 5454-3 #### [facility] CLIA [id number] [address] [place] [address] [place] ALT [Catalytic activity/Vol] 39 U/L Normal 10-54 [facility] Comment on above: Order Comment: Speci men Type: BLOOD SPECIMEN [facility] Address: [address] [place] [address] Performed By: #### 5 5454-3 #### [facility] CLIA [id number] [address] [place] [address] [place] Anion gap [Moles/Vol] 11 mmol/L Normal 8-15 [facility] Comment on above: Order Comment: Speci men Type: BLOOD SPECIMEN [facility] Address: [address] [place] [address] Performed By: #### 5 5454-3 #### [facility] CLIA [id number] [address] [place] [address] [place] AST [Catalytic activity/Vol] 39 U/L Normal 14-40 [facility] Comment on above: Order Comment: Speci men Type: BLOOD SPECIMEN [facility] Address: [address] [place] [address] Performed By: #### 5 5454-3 #### [facility] CLIA [id number] [address] [place] [address] [place] Bilirubin [Mass/Vol] 0.3 mg/dL Normal 0.2-1.3 [facility] Comment on above: Order Comment: Speci men Type: BLOOD SPECIMEN [facility] Address: [address] [place] [address] Performed By: #### 5 5454-3 #### [facility] CLIA [id number] [address] [place] [address] [place] Calcium [Mass/Vol] 9.3 mg/dL Normal 8.5-10.2 [facility] Comment on above: Order Comment: Speci men Type: BLOOD SPECIMEN [facility] Address: [address] [place] [address] Performed By: #### 5 5454-3 #### [facility] CLIA [id number] [address] [place] [address] [place] Chloride [Moles/Vol] 105 mmol/L Normal 98-107 [facility] Comment on above: Order Comment: Speci men Type: BLOOD SPECIMEN [facility] Address: [address] [place] [address] Performed By: #### 5 5454-3 #### [facility] CLIA [id number] [address] [place] [address] [place] CO2 [Moles/Vol] 23 mmol/L Normal 22-30 [facility] Comment on above: Order Comment: Speci men Type: BLOOD SPECIMEN [facility] Address: [address] [place] [address] Performed By: #### 5 5454-3 #### [facility] CLIA [id number] [address] [place] [address] [place] Creatinine [Mass/Vol] 1.13 mg/dL Normal 0.73-1.22 [facility] Comment on above: Order Comment: Speci men Type: BLOOD SPECIMEN [facility] Address: [address] [place] [address] Performed By: #### 5 5454-3 #### [facility] CLIA [id number] [address] [place] [address] [place] Creatinine and Glomerular filtration rate.predicted panel (S/P/Bld) 73 mL/min/1.73m??? Normal >=60 [facility] Comment on above: Order Comment: Nilo roper Type: BLOOD SPECIMEN [facility] Address: [address] [place] [address] Result Comment: Evelyn mated Glomerular Filtration Rate (eGFR) is calculated using the 2020 CKD-EPI creatinine equation. This equation utilizes serum creatinine, sex, and age as parameters. The creatinine assay has traceable calibration to isotope dilution-mass spectrometry. Refer to KDIGO guidelines for clinical interpretation. In patients with unstable renal function, e.g. those with acute kidney injury, the eGFR may not accurately reflect actual GFR. Performed By: #### 5 5454-3 #### [facility] CLIA [id number] [address] [place] [address] [place] Glucose [Mass/Vol] 106 mg/dL High 74-99 [facility] Comment on above: Order Comment: Nilo roper Type: BLOOD SPECIMEN [facility] Address: [address] [place] [address] Result Comment: The [place] Diabetes [employer] (ADA) provides guidance for cutoff values for fasting glucose and random glucose. The ADA defines fasting as no caloric intake for at least 8 hours. Fasting plasma glucose results between 100 to 125 mg/dL indicate increased risk for diabetes (prediabetes). Fasting plasma glucose results greater than or equal to 126 mg/dL meet the criteria for diagnosis of diabetes. In the absence of unequivocal hyperglycemia, results should be confirmed by repeat testing. In a patient with classic symptoms of hyperglycemia or hyperglycemic crisis, random plasma glucose results greater than or equal to 200 mg/dL meet the criteria for diagnosis of diabetes. Reference: Standards of Medical Care in Diabetes 2016, [place] [employer]. Diabetes Care. 2016.39(Suppl 1). Performed By: #### 5 5454-3 #### [facility] CLIA [id number] [address] [place] [address] [place] Potassium [Moles/Vol] 4.7 mmol/L Normal 3.7-5.1 [facility] Comment on above: Order Comment: Speci men Type: BLOOD SPECIMEN [facility] Address: [address] [place] [address] Performed By: #### 5 5454-3 #### [facility] CLIA [id number] [address] [place] [address] [place] Protein [Mass/Vol] 6.5 g/dL Normal 6.3-8.0 [facility] Comment on above: Order Comment: Speci men Type: BLOOD SPECIMEN [facility] Address: [address] [place] [address] Performed By: #### 5 5454-3 #### [facility] CLIA [id number] [address] [place] [address] [place] Sodium [Moles/Vol] 139 mmol/L Normal 136-144 [facility] Comment on above: Order Comment: Speci men Type: BLOOD SPECIMEN [facility] Address: [address] [place] [address] Performed By: #### 5 5454-3 #### [facility] CLIA [id number] [address] [place] [address] [place] Urea nitrogen [Mass/Vol] 19 mg/dL Normal 9-24 [facility] Comment on above: Order Comment: Speci men Type: BLOOD SPECIMEN [facility] Address: [address] [place] [address] Performed By: #### 5 5454-3 #### [facility] CLIA [id number] [address] [place] [address] [place] Lipid 1996 panelon 4 Cholesterol [Mass/Vol] 237 mg/dL High <200 [facility] Comment on above: Order Comment: Speci men Type: BLOOD SPECIMENOrdering Facility: [facility] Address: [address] [place] [address] Result Comment: <200 mg/dL, Desirable 200-239 mg/dL, Borderline high >239 mg/dL, High Performed By: #### 2 4323-8, 27029-9, 3084-1, 3016-3 ####[facility] [id number] [address] [address] [place] Cholesterol in HDL [Mass/Vol] 46 mg/dL Normal >39 [facility] Comment on above: Order Comment: Speci men Type: BLOOD SPECIMENOrdering Facility: [facility] Address: [address] [place] [address] Result Comment: 40-5 9 mg/dL, Acceptable >59 mg/dL, High: Negative risk factor for coronary heart disease <40 mg/dL, Low: Positive risk factor for coronary heart disease Performed By: #### 2 4323-8, 81732-8, 308-1, 6-3 ####[facility] [id number] [place] [id number] [place] Cholesterol in LDL [Mass/Vol] 170 mg/dL High <100 [facility] Comment on above: Order Comment: Nilo men Type: BLOOD SPECIMENOrdering Facility: [facility] Address: [address] [place] [address] Result Comment: <100 mg/dL, Optimal 100-129 mg/dL, Near optimal/above optimal 130-159 mg/dL, Borderline high 160-189 mg/dL, High >189 mg/dL, Very high Secondary prevention optimal LDL Cholesterol levels are recommended to be < 70 mg/dL Performed By: #### 2 4323-8, 05697-7, 3084-1, 3016-3 ####[facility] [id number] [address] [address] [place] Cholesterol in LDL/Cholesterol in HDL [Mass ratio] 3.70 {ratio} High <2.54 [facility] Comment on above: Order Comment: Antwani men Type: BLOOD SPECIMENOrdering Facility: [facility] Address: [address] [place] [address] Result Comment: Alex peoples: 1. National Cholesterol Education Program ATP III Guideline At-A-Glance Quick Desk Reference: National Heart, Lung, and Blood [place]. National Institutes of Health. 2001: NIH Publication No. 01-3305. 2. An International Atherosclerosis Society position paper: global recommendations for the management of dyslipidemia: executive summary, Atherosclerosis. 2014: 232(2):410-413. Performed By: #### 2 4323-8, 38091-8, 3084-1, 3016-3 ####[facility] [id number] [place] [address] [place] Cholesterol in VLDL [Mass/Vol] 21 mg/dL Normal <30 [facility] Comment on above: Order Comment: Speci men Type: BLOOD SPECIMENOrdering Facility: [facility] Address: [address] [place] [address] Performed By: #### 2 4323-8, 94807-7, 3084-, 3016-3 ####[facility] [id number] [place] [address] [place] Cholesterol non HDL [Mass/Vol] 191 mg/dL High <130 [facility] Comment on above: Order Comment: Speci men Type: BLOOD SPECIMENOrdering Facility: [facility] Address: [address] [place] [address] Result Comment: <130 mg/dL, Optimal 130-159 mg/dL, Near optimal/above optimal 160-189 mg/dL, Borderline high 190-219 mg/dL, High >219 mg/dL, Very high Secondary prevention optimal non HDL Cholesterol levels are recommended to be <100 mg/dL Performed By: #### 2 4323-8, 70894-3, 3084-1, 3016-3 ####[facility] [id number] [address] [address] [place] Cholesterol.total/Chol esterol in HDL [Mass ratio] 5.15 {ratio} High <5.10 [facility] Comment on above: Order Comment: Speci men Type: BLOOD SPECIMENOrdering Facility: [facility] Address: [address] [place] [address] Performed By: #### 2 4323-8, 97800-5, 3084-1, 6-3 ####[facility] [id number] [place] [address] [place] FASTING TIME 12 hrs Normal [facility] Comment on above: Order Comment: Speci men Type: BLOOD SPECIMENOrdering Facility: [facility] Address: [address] [place] [address] Performed By: #### 2 4323-8, 53598-0, 308-, 3015-3 ####[facility] [id number] [place] [address] [place] Triglyceride [Mass/Vol] 105 mg/dL Normal <150 [facility] Comment on above: Order Comment: Speci men Type: BLOOD SPECIMENOrdering Facility: [facility] Address: [address] [place] [address] Result Comment: <150 mg/dL, Normal 150-199 mg/dL, Borderline high 200-499 mg/dL, High >499 mg/dL, Very high Performed By: #### 2 4323-8, 01557-4, 3084-1, 6-3 ####[facility] [id number] [place] [address] [place] TSH SerPl-aCncon 03-07-2024 TSH Qn 5.340 m[IU]/L High 0.270-4.200 [facility] Comment on above: Order Comment: Speci men Type: BLOOD SPECIMENOrdering Facility: [facility] Address: [address] [place] [address] Performed By: #### 2 4323-8, 31537-9, 3084-1, 6-3 ####[facility] [id number] [place] [address] [place] Urate SerPl-mCncon Urate [Mass/Vol] 4.8 mg/dL Normal 4.0-8.1 [facility] Comment on above: Order Comment: Speci men Type: BLOOD SPECIMENOrdering Facility: [facility] Address: [address] [place] [address] Performed By: #### 2 4323-8, 88364-1, 3084-1, 3016-3 ####[facility] [id number] [place] [address] [place] Absolute lymphocyte countOrd ered By: AASHISH TANNER on 06-29-2023 Lymphocytes Auto (Unsp spec) [#/Vol] 2.33 10*3/uL 0.83-4.51 [facility] Automated lymphocyte count a s percentage of total leukocytesOrdered By: AASHISH TANNER on 06-29-2023 Lymphocytes/100 WBC Auto (Unsp spec) 33.2 % 19-41 [facility] Basophil percentageOrdered B y: AASHISH TANNER on 06-29-2023 Basophils/100 WBC (Bld) 0.4 % 0-1 [facility] Bilirubin [Mass/Vol] 0.70 mg/dL 0.20-1.00 [facility] Comment on above: For patients on eltr ombopag therapy, use of Dimension [place] TBIL is not recommended. Chloride [Moles/Vol] 107 mmol/L 98-107 [facility] Cholesterol [Mass/Vol] 243 mg/dL <200 [facility] Comment on above: <200 mg/dL Desirable 200-240 mg/dL Borderline >240 mg/dL High Risk Eosinophils/100 WBC (Bld) 2.4 % 0-5 [facility] Glucose [Mass/Vol] 112 mg/dL 74-106 [facility] Comment on above: Fasting Glucose resu lt from 100 to 125 mg/dL suggests IMPAIRED HOMEOSTASIS per A.D.A. criteria. Hemoglobin (Bld) [Mass/Vol] 16.0 g/dL 13.0-16.5 [facility] Monocytes/100 WBC (Bld) 9.7 % 0-10 [facility] Neutrophils (Bld) [#/Vol] 3.8 10*3/uL 2.0-7.7 [facility] Neutrophils/100 WBC (Bld) 54.0 % 47-70 [facility] Potassium [Moles/Vol] 4.5 mmol/L 3.5-5.1 [facility] Protein [Mass/Vol] 6.9 g/dL 6.4-8.2 [facility] Sodium [Moles/Vol] 138 mmol/L 136-145 [facility] Triglyceride [Mass/Vol] 118 mg/dL <199 [facility] Comment on above: The drugs N-Acetylcy steine and Metamizole may falsely depress this assay.Serum Triglycerides Reference Interval Normal <150 mg/dL Borderline high 150 - 199 mg/dL High 200 - 499 mg/dL Very High > or = 500 mg/dL WBC (Bld) [#/Vol] 7.0 10*3/uL 4.4-11.0 [facility] Determination of erythrocyte mean corpuscular volume (MCV)Ordered By: AASHISH TANNER on 06-29-2023 MCV (RBC) [Entitic vol] 93.5 fL 80-94 [facility] Erythrocyte distribution wid th ratioOrdered By: AASHISH TANNER on 06-29-2023 Erythrocyte distribution width (RBC) [Ratio] 12.7 % 11.6-14.6 [facility] Erythrocyte distribution wid th standard deviationOrdered By: BREMERTON FLORES on 06-29-2023 Erythrocyte distribution width (RBC) [Entitic vol] 43.9 fL 35.1-43.9 [facility] Hematocrit Auto (Bld) [Volum e fraction]Ordered By: AASHISH TANNER on 06-29-2023 Hematocrit (Bld) [Volume fraction] 47.8 % 40-54 [facility] Immature granulocytes/100 WB C Auto (Bld)Ordered By: AASHISH TANNER on 06-29-2023 Immature granulocytes/100 WBC (Bld) 0.300 % 0.0-0.9 [facility] Comment on above: IG% - Immature Granu locytes (promyelocytes, myelocytes and metamyelocytes) > 1% indicates that a LEFT SHIFT is Present. Laboratory - Chemistry and C hemistry - challengeOrdered By: AASHISH TANNER on 06-29-2023 Albumin/Globulin [Mass ratio] 1.2 {ratio} 0.9-2.4 [facility] ALP [Catalytic activity/Vol] 43 U/L 45-117 [facility] ALT [Catalytic activity/Vol] 45 U/L 16-61 [facility] Cholesterol in HDL [Mass/Vol] 55 mg/dL >40 [facility] Comment on above: The drugs N-Acetylcy steine and Metamizole may falsely depress this assay. Reference Range HDL <40 mg/dL Low HDL Cholesterol HDL >or= 60 mg/dL High HDL Cholesterol Cholesterol in LDL [Mass/Vol] 164 mg/dL 0-130 [facility] CO2 [Moles/Vol] 28.0 mmol/L 21.0-32.0 [facility] Globulin (S) [Mass/Vol] 3.2 g/dL 2.2-4.2 [facility] Urea nitrogen/Creatinine [Mass ratio] 19.4 mg/mg 10-20 [facility] Laboratory - Hematology and Cell countsOrdered By: AASHISH TANNER on 06-29-2023 MCH (RBC) [Entitic mass] 31.3 pg 27.0-32.0 [facility] MCHC (RBC) [Mass/Vol] 33.5 g/dL 32-36 [facility] Nucleated RBC/100 WBC (Bld) [Ratio] 0 % 0-5 [facility] Platelet mean volume (Bld) [Entitic vol] 12.2 fL 6.2-12.0 [facility] Platelets (Bld) [#/Vol] 187 10*3/uL 150-450 [facility] No Panel InformationOrdered By: AASHISH TANNER on 06-29-2023 Estimated GFR (MDRD) Amer 89 mL/min >60 [facility] Comment on above: GFR Calc Estimated GFR (MDRD) Non-Af Amer 73 mL/min >60 [facility] Comment on above: Non- GFR Calc VLDL Cholesterol 24 mg/dL 5-40 [facility] RBC Auto (Bld) [#/Vol]Ordere d By: AASHISH TANNER on 06-29-2023 RBC (Bld) [#/Vol] 5.11 10*6/uL 4.6-6.2 [facility] Serum or plasma calcium ellis urement (mass/volume)Ordered By: AASHISH TANNER on 06-29-2023 Calcium [Mass/Vol] 9.4 mg/dL 8.5-10.1 [facility] Serum or plasma creatinine m easurement (mass/volume)Ordered By: AASHISH TANNER on 06-29-2023 Creatinine [Mass/Vol] 1.08 mg/dL 0.70-1.30 [facility] Comment on above: The validity of the calculated GFR & GFRAA in patients over 70 years has not been determined. Clinical correlation is essential. Serum or plasma thyroid stim ulating hormone (TSH) measurement (units/volume)Ordered By: AASHISH TANNER on 06-29-2023 TSH Qn 2.70 uIU/mL 0.358-3.74 [facility] Serum or plasma urea nitroge n measurement (mass/volume)Ordered By: AASHISH TANNER on 06-29-2023 Urea nitrogen [Mass/Vol] 21 mg/dL 7-18 [facility] Thin prep Papanicolaou smear with manual screeningOrdered By: AASHISHMADHURI TANNER on 06-29-2023 Thin prep Papanicolaou smear with manual screening 3.7 g/dL 3.2-5.0 [facility] Thin prep Papanicolaou smear with manual screening 31 U/L 15-37 [facility] Thin prep Papanicolaou smear with manual screening 3 5-15 [facility] Whole blood hemoglobin A1c/t otal hemoglobin ratio (mass fraction)Ordered By: AASHISH TANNER on 06-29-2023 HbA1c (Bld) [Mass fraction] 5.6 % 3.8-5.6 [facility] Comment on above: Normal < 5.7 % Predi abetic 5.7 - 6.4 % Diabetic >or= 6.5 % Please note range changes. ECG 12 lead - CLINIC PERFORM EDon 03-24-2023 Sinus Rhythm -Left axis -anterior fascicular block. ABNORMAL [facility] Office Visiton 03-24-2023 Follow-up visit [id number] Norma Ozuna 1960 Date Provider Department Center 03/24/2023 [id number] REYES [facility] [address] Family History Problem Relation Age of Onset Diabetes Mother Heart disease Mother Fibromyalgia Mother Heart disease Father Hyperlipidemia Father Thyroid disease Father Coronary artery disease Father Heart Surgery Father Heart attack Father 62 Prostate cancer Paternal Grandfather Family Status - Relation Status Age at Mother Father Alive Paternal Grandfather Level of Service:42918 [place] OFFICE/OUTPATIENT ESTABLISHED MOD MDM 30-39 MIN Reason for Visit and Comments: 3 Month Follow Up [[id number]] - PAF/PVI Cryo Normal [facility] PATINSon 03-24-2023 PATINS Follow with [place] [facility] Progress Noteon 03-24-2023 Progress Note He is exercising on a regular basis. Normal [facility] Progress Note He is status post cryo PVI on [...] a call. He wishes to follow in [place] unless EP services are needed. Normal [facility] Progress Note Compliant with his CPAP. Normal [facility] Progress Note [facility] [address] [facility] [facility] [address] Dept: [phone] Dept Visit type: Established : 1960 Reason [...] a call. He wishes to follow in [place] unless EP services are needed. Orders: - ECG 12 lead - CLINIC PERFORMED 2. Essential hypertension 3. JENIFER (obstructive sleep apnea) Assessment & Plan: Compliant with his CPAP. 4. Obesity (BMI 35.0-39.9 without comorbidity) Assessment & Plan: He is exercising on a regular basis. Follow up if symptoms worsen or fail to improve. Subjective Norma Ozuna is a 62 y.o. male known to [...] diagnosis. He has been followed at the [place] [facility] group. He was placed on Eliquis [...] rhythm. 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 He presents today for a 3-month post procedure follow-up Norma Ozuna presents for his follow-up post PVI I [...] 2 upper gi. Last Assessment & Plan: Formatting (more content not included)... Normal [facility] No Panel Informationon 12-17 Sinus Bradycardia -Left axis -anterior fascicular block. -Nonspecific T-abnormality. ABNORMAL [facility] Office Visiton 12-17-2022 Follow-up visit [id number] Norma Ozuna 1960 M Date Provider Department Center 12/17/2022 [id number] BIGGS [facility] [address] Family History Problem Relation Age of Onset Diabetes Mother Heart disease Mother Fibromyalgia Mother Heart disease Father Hyperlipidemia Father Thyroid disease Father Coronary artery disease Father Heart Surgery Father Heart attack Father 62 Prostate cancer Paternal Grandfather Family Status - Relation Status Age at Mother Father Alive Paternal Grandfather Level of Service:63588 [place] OFFICE/OUTPATIENT ESTABLISHED MOD MDM 30-39 MIN Reason for Visit and Comments: Follow-up [[id number]] - Ablation 2 weeks ago Normal [facility] Progress Noteon 12-17-2022 Progress Note [facility] [address] [place] [address] Dept: [phone] Dept Visit type: Established : 1960 Reason [...] pressure stable. He was seen by his [place] train gateman last week and following up in a year. He is contacting his insurance to inquire if a smart watch is covered. Follow-up [address] Mcnamara. Follow up in about 11 weeks (around 03/04/2023) for Follow up three months Dr Mcnamara. Subjective Norma Ozuna is a 62 y.o. male was referred to Dr Mcnamara for treatment of his atrial fibrillation. In 2019 he had atrial fibrillation with Covid.He tried to have knee surgery this year and couldn't because of atrial fibrillation in April. In retrospect he had symptoms of fatigue and exercise intolerance for couple weeks prior to that diagnosis. He has been followed at the [place] [facility] group since that time and seen [...] the ablation was completed He monitors via [employer] with heart rates 50-60s. He is walking daily about 10,000 steps per day. He reports no recurrence of atrial fibrillation. Denies any signs of bleeding Norma Callaway Review of Systems Constitutional: Negative for activity [...] and headaches. Hematological: Does not bruise/bleed easily. Psychiatric/Behaviora l: Negative for agitation and confusion. The patient [...] 12/04/2022 Performed by Williams Mcnamara MD at [facility] Cardiac Cath/EP Lab CARDIAC ELECTROPHYSIOLOGY PROCEDURE N/A 12/04/2022 Performed by Williams Mcnamara MD at (more content not included)... Normal [facility] ECG 12-LEADon 12-06-2022 ECG 12-LEAD IMPRESSION: Sinus arrhythmia Left anterior fascicular block Nonspecific T abnrm, anterolateral leads Electronically Signed On 12-06-2022 14:22:17 EDT by Lula Ortega Normal [facility] Basic metabolic 1998 panelon 12-05-2022 Anion gap [Moles/Vol] 10 mmol/L 3 - 13 mmol/L [facility] Calcium [Mass/Vol] 8.6 mg/dL 8.4 - 10. 4 mg/dL [facility] Chloride [Moles/Vol] 105 mmol/L 98 - 10 7 mmol/L [facility] CO2 [Moles/Vol] 19 mmol/L Low 22 - 30 mmol/L [facility] Creatinine [Mass/Vol] 0.83 mg/dL 0.66 - 1.25 mg/dL [facility] GFR/1.73 sq M.predicted MDRD (S/P/Bld) [Vol rate/Area] - PINF [facility] Comment on above: Calculation based on the Chronic Kidney Disease Epidemiology Collaboration (CKD-EPI) equation refit without adjustment for race Glucose [Mass/Vol] 134 mg/dL High 70 - 100 mg/dL [facility] Interpretation and review of laboratory results Abnormal [facility] Potassium [Moles/Vol] 4.3 mmol/L 3.5 - 5.1 mmol/L [facility] Sodium [Moles/Vol] 134 mmol/L Low 135 - 145 mmol/L [facility] Urea nitrogen [Mass/Vol] 27 mg/dL High 9 - 20 mg/dL [facility] CBC panel Auto (Bld)Ordered By: German Choi on 12-05-2022 Erythrocyte distribution width (RBC) [Ratio] 14.2 % 11.5 - 14.5 % [facility] Hematocrit (Bld) [Volume fraction] 42.7 % 40.0 - 52.0 % [facility] Hemoglobin (Bld) [Mass/Vol] 14.2 g/dL 13.0 - 18.0 g/dL [facility] Interpretation and review of laboratory results Abnormal [facility] MCH (RBC) [Entitic mass] 30.9 pg 26.0 - 34.0 pg [facility] MCHC (RBC) [Mass/Vol] 33.2 % 32.0 - 36.0 % [facility] MCV (RBC) [Entitic vol] 93.3 fL 80.0 - 98.0 fL [facility] Platelet mean volume (Bld) [Entitic vol] 10.9 fL 7.4 - 12.4 fL [facility] Platelets (Bld) [#/Vol] 177 10*3/uL 140 - 440 10*3/uL [facility] RBC (Bld) [#/Vol] 4.58 10*6/uL 4.40 - 5.9 0 10*6/uL [facility] WBC (Bld) [#/Vol] 14.7 10*3/uL High 3.6 - 10.7 10*3/uL [facility] Laboratory - Chemistry and C hemistry - challengeon 12-05-2022 Magnesium [Mass/Vol] 2.0 mg/dL 1.6 - 2 .3 mg/dL [facility] Magnesium [Mass/Vol]on 12-05 Interpretation and review of laboratory results Normal [facility] No Panel Informationon 12-05 [facility] Nursing Noteon 12-05-2022 Nursing Note Discharge paperwork reviewed with pt. Pt lamont is on the way. Normal [facility] SHS Electrophysiology studyon [facility] No Panel Informationon 12-04 Interpretation and review of laboratory results Abnormal [facility] POCT ACT 291 High [facility], [address] [address] CLIA ID: [id number] [facility] Interpretation and review of laboratory results Abnormal [facility] POCT ACT 357 High [facility] POCT ACT 314 High [facility] POCT ACT 351 High [facility] Performed by: [facility], [address] [address] CLIA ID: [id number] [facility] Nursing Noteon 12-04-2022 Nursing Note Updated Normal [facility] 36on 11-24-2022 36 Prep Proc Done Normal [facility] 36on 11-20-2022 36 I will work on this. Thanks [facility] 36 PVI scheduled 3 at 8:30 with MAP Case # [id number] Auth started 2 wk post 12/17 at 8:00 with Normal [facility] Basic metabolic 1998 panelon 11-19-2022 Anion gap [Moles/Vol] 7 mmol/L 3 - 13 mmol/L [facility] Calcium [Mass/Vol] 9.3 mg/dL 8.4 - 10. 4 mg/dL [facility] Chloride [Moles/Vol] 101 mmol/L 98 - 10 7 mmol/L [facility] CO2 [Moles/Vol] 28 mmol/L 22 - 30 mmol/L [facility] Creatinine [Mass/Vol] 1.00 mg/dL 0.66 - 1.25 mg/dL [facility] GFR/1.73 sq M.predicted MDRD (S/P/Bld) [Vol rate/Area] 85.1 mL/min/{1.73_m2} - PINF [facility] Comment on above: Calculation based on the Chronic Kidney Disease Epidemiology Collaboration (CKD-EPI) equation refit without adjustment for race Glucose [Mass/Vol] 92 mg/dL 70 - 100 mg/dL [facility] Interpretation and review of laboratory results Abnormal [facility] Potassium [Moles/Vol] 4.6 mmol/L 3.5 - 5.1 mmol/L [facility] Sodium [Moles/Vol] 135 mmol/L 135 - 145 mmol/L [facility] Urea nitrogen [Mass/Vol] 23 mg/dL High 9 - 20 mg/dL [facility] CBC panel Auto (Bld)Ordered By: Juarez Townsend on 11-19-2022 Erythrocyte distribution width (RBC) [Ratio] 14.4 % 11.5 - 14.5 % [facility] Hematocrit (Bld) [Volume fraction] 52.1 % High 40.0 - 52.0 % [facility] Hemoglobin (Bld) [Mass/Vol] 17.0 g/dL 13.0 - 18.0 g/dL [facility] Interpretation and review of laboratory results Abnormal [facility] MCH (RBC) [Entitic mass] 31.0 pg 26.0 - 34.0 pg [facility] MCHC (RBC) [Mass/Vol] 32.6 % 32.0 - 36.0 % [facility] MCV (RBC) [Entitic vol] 94.9 fL 80.0 - 98.0 fL [facility] Platelet mean volume (Bld) [Entitic vol] 10.7 fL 7.4 - 12.4 fL [facility] Platelets (Bld) [#/Vol] 208 10*3/uL 140 - 440 10*3/uL [facility] RBC (Bld) [#/Vol] 5.48 10*6/uL 4.40 - 5.9 0 10*6/uL [facility] WBC (Bld) [#/Vol] 12.3 10*3/uL High 3.6 - 10.7 10*3/uL [facility] ECG 12 lead - CLINIC PERFORM EDon 11-19-2022 Atrial fibrillation -irregular conduction -Left axis -anterior fascicular block. -Nonspecific T-abnormality. ABNORMAL [facility] Office Visiton 11-19-2022 Follow-up visit [id number] Norma Ozuna 1960 M Date Provider Department Center 11/19/2022 [id number] MCNAMARA [facility] [address] Family History Problem Relation Age of Onset Diabetes Mother Heart disease Mother Fibromyalgia Mother Heart disease Father Hyperlipidemia Father Thyroid disease Father Coronary artery disease Father Heart Surgery Father Heart attack Father 62 Prostate cancer Paternal Grandfather Family Status - Relation Status Age at Mother Father Alive Paternal Grandfather Level of Service:32871 [place] OFFICE/OUTPATIENT NEW MODERATE MDM 45-59 MINUTES Reason for Visit and Comments: New Patient [542] Normal [facility] Progress Noteon 11-19-2022 Progress Note [facility] [address] [place] [address] Dept: [phone] Dept Visit type: Established : 1960 Chief Complaint: Chief Complaint Patient presents with New Patient History of Present Illness: Norma Ozuna is a 62 y.o. male was referred [...] diagnosis. He has been followed at the [place] cardiology group since that time. He was [...] for dizziness and syncope. Hematological: Bruises/bleeds easily. Psychiatric/Behaviora l: Negative. Physical Examination: Vitals: Vitals: 11/19/22 0956 [...] rhythm. Heart sounds: Normal heart sounds. No mur (more content not included)... Normal [facility] Absolute lymphocyte countOrd ered By: Dr. Gibson on 10-16-2022 Lymphocytes Auto (Unsp spec) [#/Vol] 3.92 10*3/uL 0.83-4.51 [facility] Basophil percentageOrdered B y: Dr. Gibson on 10-16-2022 Basophils/100 WBC (Bld) 0.5 % 0-1 [facility] Chloride [Moles/Vol] 106 mmol/L 98-107 [facility] Eosinophils/100 WBC (Bld) 2.0 % 0-5 [facility] Glucose [Mass/Vol] 96 mg/dL 74-106 [facility] Neutrophils (Bld) [#/Vol] 4.7 10*3/uL 2.0-7.7 [facility] Neutrophils/100 WBC (Bld) 46.3 % 47-70 [facility] Potassium [Moles/Vol] 4.1 mmol/L 3.5-5.1 [facility] Comment on above: Slight Hemolysis, Re sult may be falsely increased. Sodium [Moles/Vol] 139 mmol/L 136-145 [facility] WBC (Bld) [#/Vol] 10.1 10*3/uL 4.4-11.0 [facility] Blood erythrocytes count (nu mber/volume)Ordered By: Dr. Gibson on 10-16-2022 RBC (Bld) [#/Vol] 5.04 10*6/uL 4.6-6.2 [facility] Blood hemoglobin measurement (mass/volume)Ordered By: Dr. Gibson on 10-16-2022 Hemoglobin (Bld) [Mass/Vol] 15.5 g/dL 13.0-16.5 [facility] Blood lymphocytes/100 leukoc ytesOrdered By: Dr. Gibson on 10-16-2022 Lymphocytes/100 WBC (Bld) 38.7 % 19-41 [facility] Blood monocytes/100 leukocyt esOrdered By: Dr. Gibson on 10-16-2022 Monocytes/100 WBC (Bld) 12.1 % 0-10 [facility] Blood platelet mean volumeOr dered By: Dr. Gibson on 10-16-2022 Platelet mean volume (Bld) [Entitic vol] 12.0 fL 6.2-12.0 [facility] Determination of erythrocyte mean corpuscular volume (MCV)Ordered By: Dr. Gibson on 10-16-2022 MCV (RBC) [Entitic vol] 94.4 fL 80-94 [facility] Hematocrit Auto (Bld) [Volum e fraction]Ordered By: Dr. Gibson on 10-16-2022 Hematocrit (Bld) [Volume fraction] 47.6 % 40-54 [facility] Laboratory - Chemistry and C hemistry - challengeOrdered By: Dr. Gibson on 10-16-2022 CO2 [Moles/Vol] 30.0 mmol/L 21.0-32.0 [facility] Urea nitrogen/Creatinine [Mass ratio] 19.0 mg/mg 10-20 [facility] Laboratory - Hematology and Cell countsOrdered By: Dr. Gibson on 10-16-2022 Erythrocyte distribution width (RBC) [Entitic vol] 46.6 fL 35.1-43.9 [facility] Erythrocyte distribution width (RBC) [Ratio] 13.5 % 11.6-14.6 [facility] Immature granulocytes/100 WBC (Bld) 0.400 % 0.0-0.9 [facility] Comment on above: IG% - Immature Granu locytes (promyelocytes, myelocytes and metamyelocytes) > 1% indicates that a LEFT SHIFT is Present. MCH (RBC) [Entitic mass] 30.8 pg 27.0-32.0 [facility] Nucleated RBC/100 WBC (Bld) [Ratio] 0 % 0-5 [facility] MCHC Auto (RBC) [Mass/Vol]Or dered By: Dr. Gibson on 2023 MCHC (RBC) [Mass/Vol] 32.6 g/dL 32-36 [facility] No Panel InformationOrdered By: Dr. Gibson on 10-16-2022 Estimated GFR (MDRD) Amer 82 mL/min >60 [facility] Comment on above: GFR Calc Estimated GFR (MDRD) Non-Af Amer 68 mL/min >60 [facility] Comment on above: Non- GFR Calc Platelets bldOrdered By: Dr. Gibson on 10-16-2022 Platelets (Bld) [#/Vol] 194 10*3/uL 150-450 [facility] Serum or plasma calcium ellis urement (mass/volume)Ordered By: Dr. Gibson on 10-16-2022 Calcium [Mass/Vol] 8.7 mg/dL 8.5-10.1 [facility] Serum or plasma creatinine m easurement (mass/volume)Ordered By: Dr. Gibson on 10-16-2022 Creatinine [Mass/Vol] 1.16 mg/dL 0.70-1.30 [facility] Comment on above: The validity of the calculated GFR & GFRAA in patients over 70 years has not been determined. Clinical correlation is essential. Serum or plasma urea nitroge n measurement (mass/volume)Ordered By: Dr. Gibson on 10-16-2022 Urea nitrogen [Mass/Vol] 22 mg/dL 7-18 [facility] Thin prep Papanicolaou smear with manual screeningOrdered By: Dr. Gibsno on 10-16-2022 Thin prep Papanicolaou smear with manual screening 3 5-15 [facility] Basophil percentageOrdered B y: Dr. Espinoza on 08-31-2022 Potassium [Moles/Vol] 5.0 mmol/L 3.5-5.1 [facility] Basophil percentageOrdered B y: Patti Dowd on 08-26-2022 Chloride [Moles/Vol] 107 mmol/L 98-107 [facility] Glucose [Mass/Vol] 90 mg/dL 74-106 [facility] Sodium [Moles/Vol] 140 mmol/L 136-145 [facility] Laboratory - Chemistry and C hemistry - challengeOrdered By: Patti Dowd on 08-26-2022 CO2 [Moles/Vol] 29.0 mmol/L 21.0-32.0 [facility] Urea nitrogen/Creatinine [Mass ratio] 17.6 mg/mg 10-20 [facility] No Panel InformationOrdered By: Patti Dowd on 08-26-2022 Estimated GFR (MDRD) Amer 75 mL/min >60 [facility] Comment on above: GFR Calc Estimated GFR (MDRD) Non-Af Amer 62 mL/min >60 [facility] Comment on above: Non- GFR Calc Serum or plasma calcium ellis urement (mass/volume)Ordered By: Patti Dowd on 08-26-2022 Calcium [Mass/Vol] 9.3 mg/dL 8.5-10.1 [facility] Serum or plasma creatinine m easurement (mass/volume)Ordered By: Patti Dowd on 08-26-2022 Creatinine [Mass/Vol] 1.25 mg/dL 0.70-1.30 [facility] Comment on above: The validity of the calculated GFR & GFRAA in patients over 70 years has not been determined. Clinical correlation is essential. Serum or plasma urea nitroge n measurement (mass/volume)Ordered By: Patti Dowd on 08-26-2022 Urea nitrogen [Mass/Vol] 22 mg/dL 7-18 [facility] Thin prep Papanicolaou smear with manual screeningOrdered By: Patti Dowd on 08-26-2022 Thin prep Papanicolaou smear with manual screening 4 5-15 [facility] Basophil percentageOrdered B y: Dr. Banks on 07-03-2022 Bilirubin [Mass/Vol] 0.50 mg/dL 0.20-1.00 [facility] Comment on above: For patients on eltr ombopag therapy, use of Dimension [place] TBIL is not recommended. Chloride [Moles/Vol] 107 mmol/L 98-107 [facility] Glucose [Mass/Vol] 114 mg/dL 74-106 [facility] Comment on above: Fasting Glucose resu lt from 100 to 125 mg/dL suggests IMPAIRED HOMEOSTASIS per A.D.A. criteria. Potassium [Moles/Vol] 4.9 mmol/L 3.5-5.1 [facility] Comment on above: Slight Hemolysis, Re sult may be falsely increased. Protein [Mass/Vol] 7.2 g/dL 6.4-8.2 [facility] Sodium [Moles/Vol] 140 mmol/L 136-145 [facility] Laboratory - Chemistry and C hemistry - challengeOrdered By: Dr. Banks on 07-03-2022 ALP [Catalytic activity/Vol] 53 U/L 45-117 [facility] ALT [Catalytic activity/Vol] 72 U/L 16-61 [facility] CO2 [Moles/Vol] 28.0 mmol/L 21.0-32.0 [facility] Globulin (S) [Mass/Vol] 3.3 g/dL 2.2-4.2 [facility] Urea nitrogen/Creatinine [Mass ratio] 14.5 mg/mg 10-20 [facility] No Panel InformationOrdered By: Dr. Banks on 07-03-2022 Estimated GFR (MDRD) Amer 71 mL/min >60 [facility] Comment on above: GFR Calc Estimated GFR (MDRD) Non-Af Amer 59 mL/min >60 [facility] Comment on above: Non- GFR Calc Thyroid Stimulating Hormone (TSH) 2.94 uIU/mL 0.358-3.74 [facility] Serum or plasma albumin ellis urement (mass/volume)Ordered By: Dr. Banks on 07-03-2022 Albumin [Mass/Vol] 3.9 g/dL 3.2-5.0 [facility] Serum or plasma albumin/glob ulin mass ratioOrdered By: Dr. Banks on 07-03-2022 Albumin/Globulin [Mass ratio] 1.2 {ratio} 0.9-2.4 [facility] Serum or plasma calcium ellis urement (mass/volume)Ordered By: Dr. Banks on 07-03-2022 Calcium [Mass/Vol] 9.4 mg/dL 8.5-10.1 [facility] Serum or plasma creatinine m easurement (mass/volume)Ordered By: Dr. Banks on 07-03-2022 Creatinine [Mass/Vol] 1.31 mg/dL 0.70-1.30 [facility] Comment on above: The validity of the calculated GFR & GFRAA in patients over 70 years has not been determined. Clinical correlation is essential. Serum or plasma urea nitroge n measurement (mass/volume)Ordered By: Dr. Banks on 07-03-2022 Urea nitrogen [Mass/Vol] 19 mg/dL 7-18 [facility] Thin prep Papanicolaou smear with manual screeningOrdered By: Dr. Banks on 07-03-2022 Thin prep Papanicolaou smear with manual screening 36 U/L 15-37 [facility] Comment on above: Slight Hemolysis, Re sult may be falsely increased. Thin prep Papanicolaou smear with manual screening 5 5-15 [facility] .Auto Diffon 05-29-2022 Basophil, Absolute 0.1 10 3/mcL Normal 0.0-0.2 [facility] ([place] Comment on above: Performed By: #### C BC, ADIFF, ANEU, BMP, GFR #### [address] [address] Basophils/100 WBC (Bld) 0.7 % Normal 0.0-2.5 [facility] ([place] Comment on above: Performed By: #### C BC, ADIFF, ANEU, BMP, GFR #### [address] [address] Eosinophil, Absolute 0.2 10 3/mcL Normal 0.0-0.4 [facility] [place] Comment on above: Performed By: #### C BC, ADIFF, ANEU, BMP, GFR #### [address] [address] Eosinophils/100 WBC (Bld) 1.8 % Normal 0.0-7.0 [facility] ([place] Comment on above: Performed By: #### C BC, ADIFF, ANEU, BMP, GFR #### [address] [address] Lymphocyte, Absolute 3.0 10 3/mcL Normal 0.8-3.9 [facility] [place] Comment on above: Performed By: #### C BC, ADIFF, ANEU, BMP, GFR #### [address] [address] Lymphocytes/100 WBC (Bld) 33.9 % Normal 10.0-50.0 [facility] ([place] Comment on above: Performed By: #### C BC, ADIFF, ANEU, BMP, GFR #### [address] [address] Monocyte, Absolute 1.0 10 3/mcL Normal 0.2-1.0 [facility] ([place] Comment on above: Performed By: #### C BC, ADIFF, ANEU, BMP, GFR #### [address] [address] Monocytes/100 WBC (Bld) 10.9 % Normal 1.7-13.0 [facility] [place] Comment on above: Performed By: #### C BC, ADIFF, ANEU, BMP, GFR #### [address] [address] Neutrophils/100 WBC (Bld) 52.7 % Normal 37.0-80.0 [facility] [place] Comment on above: Performed By: #### C BC, ADIFF, ANEU, BMP, GFR #### [address] [address] .GFRon 05-29-2022 GFR Non- 55 ml/min/1.73sqm Normal [facility] ([place] Comment on above: Result Comment: GFR Population mean for , Non- Americans Ages 20-29 = 116 mL/min/1.73 sq.m. Ages 30-39 = 107 mL/min/1.73 sq.m. Ages 40-49 = 99 mL/min/1.73 sq.m. Ages 50-59 = 93 mL/min/1.73 sq.m. Ages 60-69 = 85 mL/min/1.73 sq.m. Ages 70+ = 75 mL/min/1.73 sq.m. Chronic Kidney Disease: Less than 60 mL/min/1.73 square meters End Stage Renal Disease: Less than 15 mL/min/1.73 square meters Performed By: #### C BC, ADIFF, ANEU, BMP, GFR #### [address] [address] GFR 67 ml/min/1.73sqm Normal [facility] ([place] Comment on above: Result Comment: GFR Population mean for , Non- Americans Ages 20-29 = 116 mL/min/1.73 sq.m. Ages 30-39 = 107 mL/min/1.73 sq.m. Ages 40-49 = 99 mL/min/1.73 sq.m. Ages 50-59 = 93 mL/min/1.73 sq.m. Ages 60-69 = 85 mL/min/1.73 sq.m. Ages 70+ = 75 mL/min/1.73 sq.m. Chronic Kidney Disease: Less than 60 mL/min/1.73 square meters End Stage Renal Disease: Less than 15 mL/min/1.73 square meters Performed By: #### C BC, ADIFF, ANEU, BMP, GFR #### [address] [address] .NEUABSon 05-29-2022 Neutrophil, Absolute 4.7 10 3/mcL Normal 2.9-6.2 [facility] [place] Comment on above: Performed By: #### C BC, ADIFF, ANEU, BMP, GFR #### [address] [address] BMPon 05-29-2022 BUN/Creatinine Ratio 12 ratio Normal 7-27 [facility] ([place] Comment on above: Performed By: #### C BC, ADIFF, ANEU, BMP, GFR #### [address] [address] Calcium [Mass/Vol] 8.8 mg/dL Normal 8.4-10.2 [facility] ([place] Comment on above: Performed By: #### C BC, ADIFF, ANEU, BMP, GFR #### [address] [address] Chloride [Moles/Vol] 104 mmol/L Normal 98-107 [facility] ([place] Comment on above: Performed By: #### C BC, ADIFF, ANEU, BMP, GFR #### [address] [address] CO2 [Moles/Vol] 32 mmol/L High 23-31 [facility] ([place] Comment on above: Performed By: #### C BC, ADIFF, ANEU, BMP, GFR #### [address] [address] Creatinine [Mass/Vol] 1.32 mg/dL High 0.70-1.30 [facility] ([place]) Comment on above: Performed By: #### C BC, ADIFF, ANEU, BMP, GFR #### [address] [address] Electrolyte Balance 7.0 mEq/L Normal 4.0-15.0 [facility] ([place]) Comment on above: Performed By: #### C BC, ADIFF, ANEU, BMP, GFR #### [address] [address] Glucose [Mass/Vol] 111 mg/dL Normal 80-115 [facility] ([place] Comment on above: Performed By: #### C BC, ADIFF, ANEU, BMP, GFR #### [address] [address] Potassium [Moles/Vol] 5.5 mmol/L High 3.5-5.1 [facility] ([place]) Comment on above: Performed By: #### C BC, ADIFF, ANEU, BMP, GFR #### [address] [address] Sodium [Moles/Vol] 143 mmol/L Normal 136-145 [facility] ([place] Comment on above: Performed By: #### C BC, ADIFF, ANEU, BMP, GFR #### [address] [address] Urea nitrogen [Mass/Vol] 16 mg/dL Normal 7-18 [facility] ([place] Comment on above: Performed By: #### C BC, ADIFF, ANEU, BMP, GFR #### [address] [address] CBCon 05-29-2022 Erythrocyte distribution width (RBC) [Ratio] 14.7 % High 11.5-14.5 [facility] ([place] Comment on above: Performed By: #### C BC, ADIFF, ANEU, BMP, GFR #### [address] [address] Hematocrit (Bld) [Volume fraction] 48.2 % Normal 42.0-52.0 [facility] ([place] Comment on above: Performed By: #### C BC, ADIFF, ANEU, BMP, GFR #### [address] [address] Hgb 16.2 G/dL Normal 14.0-18.0 [facility] ([place] Comment on above: Performed By: #### C BC, ADIFF, ANEU, BMP, GFR #### [address] [address] MCH (RBC) [Entitic mass] 30.5 pg Normal 27.0-31.2 [facility] ([place] Comment on above: Performed By: #### C BC, ADIFF, ANEU, BMP, GFR #### [address] [address] MCHC 33.6 G/dL Normal 31.8-35.4 [facility] ([place] Comment on above: Performed By: #### C BC, ADIFF, ANEU, BMP, GFR #### [address] [address] MCV (RBC) [Entitic vol] 90.7 fL Normal 80.0-94.0 [facility] ([place] Comment on above: Performed By: #### C BC, ADIFF, ANEU, BMP, GFR #### [address] [address] Platelet 201 10 3/mcL Normal 130-400 [facility] ([place] Comment on above: Performed By: #### C BC, ADIFF, ANEU, BMP, GFR #### [address] [address] Platelet mean volume (Bld) [Entitic vol] 10.6 fL High 7.4-10.4 [facility] ([place] Comment on above: Performed By: #### C BC, ADIFF, ANEU, BMP, GFR #### Magali [address] [place], [place] [address] RBC 5.31 10 6/mcL Normal 4.04-6.13 [facility] ([place] Comment on above: Performed By: #### C BC, ADIFF, ANEU, BMP, GFR #### [address] [place] [address] [place], [place] [address] WBC 8.9 10 3/mcL Normal 4.6-10.8 [facility] ([place] Comment on above: Performed By: #### C BC, ADIFF, ANEU, BMP, GFR #### Magali [address] [address] MRI KNEE W/O CONTRAST RIGHTo n 05-17-2022 MRI KNEE W/O CONTRAST RIGHT ORIGINAL EXAMINATION: MRI OF THE RIGHT KNEE WITHOUT CONTRAST05/15/2022 10:54 am TECHNIQUE: Multiplanar multisequence MRI of the right knee was performed without the administration of intravenous contrast. COMPARISON: None HISTORY: ORDERING SYSTEM PROVIDED HISTORY: Reason for Exam: PAIN IN RT KNEE, no history of injury. FINDINGS: Bone marrow signal at the knee is normal. The medial femorotibial compartment shows irregularity and mild attenuation of articular cartilage in the posterior meniscal surface of the medial femoral condyle. There is a horizontal tear in the body of the medial meniscus with extension to the inferior articular surface and meniscal extrusion into the medial gutter. No para meniscal cyst. The medial collateral ligament is normal. The lateral femorotibial compartment shows normal cartilage thickness. The lateral meniscus is normal. The lateral collateral ligament and other major lateral supporting structures are also unremarkable. Normal cruciate ligaments. Normal extensor mechanism. Other muscles and tendons around the knee are also normal in appearance. Axial images show no patellar maltracking. There is high-grade chondromalacia in the medial facet with subchondral cystic changes. The patellar retinacula and medial patellofemoral ligament are normal. There is no obvious impingement of the suprapatellar or infrapatellar fat. There is small joint effusion. Prominent medial plica. Small medial popliteal cyst without rupture or other complication. Nonspecific anterior superficial soft tissue edema. IMPRESSION: Moderate degenerative changes in the medial compartment. There is a horizontal tear of the medial meniscus. High-grade medial patellar chondromalacia. Joint effusion and small medial popliteal cyst without rupture or other complication. Interpreted by: Jose Anton MD Preliminary Report By: Jose Anton MD Electronically signed By Jose Anton MD Dictated Date: 05/17/2022 6:27:40 PM Prelim Date: 05/17/2022 6:39:29 PM Sign Date: 05/17/2022 6:39:29 PM Ordering Provider: GABRIEL GIBSON [facility] ([place]) XR [place]NEE GENERAL 4V AP BOTH/P A BOTH/LAT/MERC RIGHTon 10-24-2021 [facility] Vital Signs Date Time Vital Sign Value Performing Clinician Faci lity 02-01-2025 11:33-0400 Body height 190.[address] Sammie Banks MD Work Phone: 8(981)433-883372 [place] [address] 02-01-2025 11:33-0400 Body mass index (BMI) [Ratio] 36.2 kg/m2 Dr. Sammie Banks MD Work Phone: 2(625)212-266072 [place] [address] 02-01-2025 11:33-0400 Body weight 131.[address] Sammie Banks MD Work Phone: 1(933)[phone] [place] [address] 02-01-2025 11:33-0400 Diastolic blood pressure 90 mm[Hg] Dr. Sammie Banks MD Work Phone: 9(387)843-797272 [place] [address] 02-01-2025 11:33-0400 Heart rate 59 /min Dr. Sammie Banks MD Work Phone: 8(265)668-136372 [place] [address] 02-01-2025 11:33-0400 Respiratory rate 18 /min Dr. Sammie Banks MD Work Phone: 1(942)877-259172 [place] [address] 02-01-2025 11:33-0400 SaO2% (BldA) [Mass fraction] 96 % Dr. Sammie Banks MD Work Phone: 1(211)298-838972 [place] [address] 02-01-2025 11:33-0400 Systolic blood pressure 156 mm[Hg] Dr. Sammie Banks MD Work Phone: [facility] 09-29-2024 08:30-0400 Body mass index (BMI) [Ratio] 34.75 kg/m2 Monique Gomez MD Work Phone: [facility] 09-29-2024 08:30-0400 Body weight 126.1 kg Monique Gomez MD Work Phone: [facility] 09-29-2024 08:30-0400 Diastolic blood pressure 66 mm[Hg] Monique Gomez MD Work Phone: [facility] 09-29-2024 08:30-0400 Heart rate 55 /min Monique Gomez MD Work Phone: [facility] 09-29-2024 08:30-0400 Respiratory rate 17 /min Monique Gomez MD Work Phone: [facility] 09-29-2024 08:30-0400 SaO2% (BldA) [Mass fraction] 97 % Monique Gomez MD Work Phone: [facility] 09-29-2024 08:30-0400 Systolic blood pressure 118 mm[Hg] Monique Gomez MD Work Phone: [facility] 08-28-2024 07:18-0400 Body mass index (BMI) [Ratio] 35.62 kg/m2 Bethany Older MANAGER LIFE.ENGINEERING SPECIALIST Work Phone: [facility] 08-28-2024 07:18-0400 Body weight 129.28 kg Bethany Older MANAGER LIFE.ENGINEERING SPECIALIST Work Phone: [facility] 08-28-2024 07:18-0400 Diastolic blood pressure 80 mm[Hg] Bethany Older MANAGER LIFE.ENGINEERING SPECIALIST Work Phone: [facility] 08-28-2024 07:18-0400 Heart rate 60 /min Bethany Older MANAGER LIFE.ENGINEERING SPECIALIST Work Phone: [facility] 08-28-2024 07:18-0400 Respiratory rate 16 /min Bethany Older MANAGER LIFE.ENGINEERING SPECIALIST Work Phone: [facility] 08-28-2024 07:18-0400 SaO2% (BldA) [Mass fraction] 98 % Bethany Older MANAGER LIFE.ENGINEERING SPECIALIST Work Phone: [facility] 08-28-2024 07:18-0400 Systolic blood pressure 118 mm[Hg] Bethany Older MANAGER LIFE.ENGINEERING SPECIALIST Work Phone: [facility] 06-27-2024 17:57-0500 Body mass index (BMI) [Ratio] 36.02 kg/m2 Krislyn Aberegg PA Work Phone: [facility] 06-27-2024 17:57-0500 Body temperature 97.7 [degF] Krislyn Aberegg PA Work Phone: [facility] 06-27-2024 17:57-0500 Body weight 130.7 kg Krislyn Aberegg PA Work Phone: [facility] 06-27-2024 17:57-0500 Diastolic blood pressure 84 mm[Hg] Krislyn Aberegg PA Work Phone: [facility] 06-27-2024 17:57-0500 Heart rate 76 /min Krislyn Aberegg PA Work Phone: [facility] 06-27-2024 17:57-0500 Respiratory rate 16 /min Krislyn Aberegg PA Work Phone: [facility] 06-27-2024 17:57-0500 SaO2% (BldA) [Mass fraction] 97 % Krislyn Aberegg PA Work Phone: [facility] 06-27-2024 17:57-0500 Systolic blood pressure 132 mm[Hg] Krislyn Aberegg PA Work Phone: [facility] 06-01-2024 15:25-0500 Body mass index (BMI) [Ratio] 35.9 kg/m2 Krislyn Aberegg PA Work Phone: [facility] 06-01-2024 15:25-0500 Body temperature 97.7 [degF] Krislyn Aberegg PA Work Phone: [facility] 06-01-2024 15:25-0500 Body weight 130.3 kg Krislyn Aberegg PA Work Phone: [facility] 06-01-2024 15:25-0500 Diastolic blood pressure 78 mm[Hg] Krislyn Aberegg PA Work Phone: [facility] 06-01-2024 15:25-0500 Heart rate 75 /min Krislyn Aberegg PA Work Phone: [facility] 06-01-2024 15:25-0500 Respiratory rate 18 /min Krislyn Aberegg PA Work Phone: [facility] 06-01-2024 15:25-0500 SaO2% (BldA) [Mass fraction] 96 % Krislyn Aberegg PA Work Phone: [facility] 06-01-2024 15:25-0500 Systolic blood pressure 129 mm[Hg] Krislyn Aberegg PA Work Phone: [facility] 04-23-2024 09:05-0500 Body mass index (BMI) [Ratio] 35.27 kg/m2 Bernadette Clutter PA-C Work Phone: [facility] 04-23-2024 09:05-0500 Body temperature 97.81 [degF] Bernadette Clutter PA-C Work Phone: [facility] 04-23-2024 09:05-0500 Body weight 128 kg Bernadette Clutter PA-C Work Phone: [facility] 04-23-2024 09:05-0500 Diastolic blood pressure 86 mm[Hg] Bernadette Clutter PA-C Work Phone: [facility] 04-23-2024 09:05-0500 Heart rate 71 /min Bernadette Clutter PA-C Work Phone: [facility] 04-23-2024 09:05-0500 Respiratory rate 16 /min Bernadette Clutter PA-C Work Phone: [facility] 04-23-2024 09:05-0500 SaO2% (BldA) [Mass fraction] 95 % Bernadette Chapa PA-C Work Phone: [facility] 04-23-2024 09:05-0500 Systolic blood pressure 141 mm[Hg] Bernadette Chapa PA-C Work Phone: [facility] 04-20-2024 08:57-0500 Body mass index (BMI) [Ratio] 35.33 kg/m2 Harriett Praisler-Wood MANAGER LIFE.ENGINEERING SPECIALIST Work Phone: [facility] 04-20-2024 08:57-0500 Body temperature 98.29 [degF] Harriett Praisler-Wood MANAGER LIFE.ENGINEERING SPECIALIST Work Phone: [facility] 04-20-2024 08:57-0500 Body weight 128.2 kg Harriett Praisler-Wood MANAGER LIFE.ENGINEERING SPECIALIST Work Phone: [facility] 04-20-2024 08:57-0500 Diastolic blood pressure 76 mm[Hg] Harriett Praisler-Wood MANAGER LIFE.ENGINEERING SPECIALIST Work Phone: [facility] 04-20-2024 08:57-0500 Heart rate 82 /min Harriett Praisler-Wood MANAGER LIFE.ENGINEERING SPECIALIST Work Phone: [facility] 04-20-2024 08:57-0500 Respiratory rate 16 /min Harriett Praisler-Wood MANAGER LIFE.ENGINEERING SPECIALIST Work Phone: [facility] 04-20-2024 08:57-0500 SaO2% (BldA) [Mass fraction] 96 % Harriett Praisler-Wood MANAGER LIFE.ENGINEERING SPECIALIST Work Phone: [facility] 04-20-2024 08:57-0500 Systolic blood pressure 126 mm[Hg] Harriett Praisler-Wood MANAGER LIFE.ENGINEERING SPECIALIST Work Phone: [facility] 02-28-2024 07:23-0500 Body mass index (BMI) [Ratio] 35.12 kg/m2 Bethany Fragoso MANAGER LIFE.ENGINEERING SPECIALIST Work Phone: [facility] 02-28-2024 07:23-0500 Body weight 127.46 kg Bethany Older MANAGER LIFE.ENGINEERING SPECIALIST Work Phone: [facility] 02-28-2024 07:23-0500 Diastolic blood pressure 78 mm[Hg] Bethany Older MANAGER LIFE.ENGINEERING SPECIALIST Work Phone: [facility] 02-28-2024 07:23-0500 Heart rate 60 /min Bethany Older MANAGER LIFE.ENGINEERING SPECIALIST Work Phone: [facility] 02-28-2024 07:23-0500 Respiratory rate 16 /min Bethany Older MANAGER LIFE.ENGINEERING SPECIALIST Work Phone: [facility] 02-28-2024 07:23-0500 SaO2% (BldA) [Mass fraction] 94 % Bethany Older MANAGER LIFE.ENGINEERING SPECIALIST Work Phone: [facility] 02-28-2024 07:23-0500 Systolic blood pressure 118 mm[Hg] Bethany Older MANAGER LIFE.ENGINEERING SPECIALIST Work Phone: [facility] 01-28-2024 07:14-0400 Body mass index (BMI) [Ratio] 35.22 kg/m2 Krislyn Aberegg PA Work Phone: [facility] 01-28-2024 07:14-0400 Body temperature 96.8 [degF] Krislyn Aberegg PA Work Phone: [facility] 01-28-2024 07:14-0400 Body weight 127.8 kg Krislyn Aberegg PA Work Phone: [facility] 01-28-2024 07:14-0400 Diastolic blood pressure 82 mm[Hg] Krislyn Aberegg PA Work Phone: [facility] 01-28-2024 07:14-0400 Heart rate 55 /min Krislyn Aberegg PA Work Phone: [facility] 01-28-2024 07:14-0400 Respiratory rate 20 /min Krislyn Aberegg PA Work Phone: [facility] 01-28-2024 07:14-0400 SaO2% (BldA) [Mass fraction] 97 % Krislyn Aberegg PA Work Phone: [facility] 01-28-2024 07:14-0400 Systolic blood pressure 122 mm[Hg] Krislyn Aberegg PA Work Phone: [facility] 07-05-2023 15:30-0400 Body height 190.5 cm Aashish Denbow PA-C Work Phone: [facility] 07-05-2023 15:30-0400 Body temperature 97.7 [degF] Aashish Denbow PA-C Work Phone: [facility] 07-05-2023 15:30-0400 Body weight 130.64 kg Aashish Denbow PA-C Work Phone: [facility] 07-05-2023 15:30-0400 Diastolic blood pressure 80 mm[Hg] Aashish Denbow PA-C Work Phone: [facility] 07-05-2023 15:30-0400 Heart rate 77 /min Aashish Denbow PA-C Work Phone: [facility] 07-05-2023 15:30-0400 Respiratory rate 12 /min Aashish Denbow PA-C Work Phone: [facility] 07-05-2023 15:30-0400 SaO2% (BldA) [Mass fraction] 96 % Aashish Denbow PA-C Work Phone: [facility] 07-05-2023 15:30-0400 Systolic blood pressure 126 mm[Hg] Aashish Denbow PA-C Work Phone: [facility] 03-24-2023 13:47-0500 Body mass index (BMI) [Ratio] 35.12 kg/m2 Latonya Reyes MANAGER LIFE - ENGINEERING SPECIALIST Work Phone: [facility] 03-24-2023 13:47-0500 Body weight 127.46 kg Latonya Reyes MANAGER LIFE - ENGINEERING SPECIALIST Work Phone: [facility] 03-24-2023 13:47-0500 Diastolic blood pressure 80 mm[Hg] Latonya O'Shell MANAGER LIFE - ENGINEERING SPECIALIST Work Phone: [facility] 03-24-2023 13:47-0500 Heart rate 71 /min Latonya O'Shell MANAGER LIFE - ENGINEERING SPECIALIST Work Phone: [facility] 03-24-2023 13:47-0500 SaO2% (BldA) [Mass fraction] 96 % Latonya O'Shell MANAGER LIFE - ENGINEERING SPECIALIST Work Phone: [facility] 03-24-2023 13:47-0500 Systolic blood pressure 120 mm[Hg] Latonya O'Shell MANAGER LIFE - ENGINEERING SPECIALIST Work Phone: [facility] 03-02-2023 15:44-0500 Body weight 126.55 kg Larissa Madhuri MANAGER LIFE.ENGINEERING SPECIALIST Work Phone: [facility] 03-02-2023 15:44-0500 Diastolic blood pressure 50 mm[Hg] Larissa Madhuri MANAGER LIFE.ENGINEERING SPECIALIST Work Phone: [facility] 03-02-2023 15:44-0500 Heart rate 76 /min Larissa Madhuri MANAGER LIFE.ENGINEERING SPECIALIST Work Phone: [facility] 03-02-2023 15:44-0500 SaO2% (BldA) [Mass fraction] 96 % Larissa Madhuri MANAGER LIFE.ENGINEERING SPECIALIST Work Phone: [facility] 03-02-2023 15:44-0500 Systolic blood pressure 100 mm[Hg] Larissa Madhuri MANAGER LIFE.ENGINEERING SPECIALIST Work Phone: [facility] 02-21-2023 11:10-0400 Body temperature 97.5 [degF] Harriett Praisler-Wood MANAGER LIFE.ENGINEERING SPECIALIST Work Phone: [facility] 02-21-2023 11:10-0400 Body weight 127.73 kg Harriett Pralinda-Wood MANAGER LIFE.ENGINEERING SPECIALIST Work Phone: [facility] 02-21-2023 11:10-0400 Diastolic blood pressure 80 mm[Hg] Harriett Praisler-Wood MANAGER LIFE.ENGINEERING SPECIALIST Work Phone: [facility] 02-21-2023 11:10-0400 Heart rate 60 /min Harriett Praisler-Wood MANAGER LIFE.ENGINEERING SPECIALIST Work Phone: [facility] 02-21-2023 11:10-0400 Respiratory rate 21 /min Harriett Praisler-Wood MANAGER LIFE.ENGINEERING SPECIALIST Work Phone: [facility] 02-21-2023 11:10-0400 SaO2% (BldA) [Mass fraction] 98 % Harriett Praisler-Wood MANAGER LIFE.ENGINEERING SPECIALIST Work Phone: [facility] 02-21-2023 11:10-0400 Systolic blood pressure 126 mm[Hg] Harriett Praisler-Wood MANAGER LIFE.ENGINEERING SPECIALIST Work Phone: [facility] 12-17-2022 07:54-0400 Body height 190.5 cm Niesha Biggs MANAGER LIFE - ENGINEERING SPECIALIST Work Phone: [facility] [employer] 12-17-2022 07:54-0400 Body mass index (BMI) [Ratio] 35.5 kg/m2 Niesha Biggs MANAGER LIFE - ENGINEERING SPECIALIST Work Phone: [facility] [employer] 12-17-2022 07:54-0400 Body weight 128.82 kg Niesha Biggs MANAGER LIFE - ENGINEERING SPECIALIST Work Phone: [facility] [employer] 12-17-2022 07:54-0400 Diastolic blood pressure 88 mm[Hg] Niesha Biggs MANAGER LIFE - ENGINEERING SPECIALIST Work Phone: [facility] [employer] 12-17-2022 07:54-0400 Heart rate 50 /min Niesha Biggs MANAGER LIFE - ENGINEERING SPECIALIST Work Phone: [facility] [employer] 12-17-2022 07:54-0400 SaO2% (BldA) [Mass fraction] 98 % Niesha Biggs MANAGER LIFE - ENGINEERING SPECIALIST Work Phone: [facility] [employer] 12-17-2022 07:54-0400 Systolic blood pressure 136 mm[Hg] Niesha Biggs MANAGER LIFE - ENGINEERING SPECIALIST Work Phone: [facility] [employer] 12-05-2022 05:32-0400 Body temperature 98.2 [degF] Williams Mcnamara MD Work Phone: [facility] [employer] 12-05-2022 05:32-0400 Diastolic blood pressure 66 mm[Hg] Williams Mcnamara MD Work Phone: [facility] [employer] 12-05-2022 05:32-0400 Heart rate 60 /min Williams Mcnamara MD Work Phone: [facility] [employer] 12-05-2022 05:32-0400 Respiratory rate 16 /min Williams Mcnamara MD Work Phone: [facility] [employer] 12-05-2022 05:32-0400 SaO2% (BldA) [Mass fraction] 94 % Williams Mcnamara MD Work Phone: [facility] [employer] 12-05-2022 05:32-0400 Systolic blood pressure 112 mm[Hg] Williams Mcnamara MD Work Phone: [facility] [employer] 12-04-2022 08:23-0400 Body height 190.5 cm Williams Mcnamara MD Work Phone: [facility] [employer] 12-04-2022 08:23-0400 Body mass index (BMI) [Ratio] 35 kg/m2 Williams Mcnamara MD Work Phone: [facility] [employer] 12-04-2022 08:23-0400 Body weight 127.01 kg Williams Mcnamara MD Work Phone: [facility] [employer] 11-19-2022 09:56-0400 Body weight 130.36 kg Williams Mcnamara MD Work Phone: [facility] [employer] 11-19-2022 09:56-0400 Diastolic blood pressure 90 mm[Hg] Williams Mcnamara MD Work Phone: [facility] [employer] 11-19-2022 09:56-0400 Heart rate 89 /min Williams Mcnamara MD Work Phone: [facility] [employer] 11-19-2022 09:56-0400 SaO2% (BldA) [Mass fraction] 97 % Williams Mcnamara MD Work Phone: [facility] 11-19-2022 09:56-0400 Systolic blood pressure 120 mm[Hg] Williams Mcnamara MD Work Phone: [facility] 09-11-2022 06:51-0400 Body height 190.[address] Sammie Banks Work Phone: 8(732)[phone] [address] 09-11-2022 06:51-0400 Body mass index (BMI) [Ratio] 36.5 kg/m2 Dr. Sammie Banks Work Phone: 8(422)748-006832 [place] [address] 09-11-2022 06:51-0400 Body weight 132.[address] Sammie Banks Work Phone: 7(133)212-940532 [place] [address] 09-11-2022 06:51-0400 Diastolic blood pressure 86 mm[Hg] Dr. Sammie Banks Work Phone: 7(548)276-164132 [place] [address] 09-11-2022 06:51-0400 Heart rate 96 /min Dr. Sammie Banks Work Phone: 3(730)871-597932 [place] [address] 09-11-2022 06:51-0400 Respiratory rate 16 /min Dr. Sammie Banks Work Phone: 3(151)765-269532 [place] [address] 09-11-2022 06:51-0400 Systolic blood pressure 134 mm[Hg] Dr. Sammie Banks Work Phone: 3(715)725-019032 [place] [address] 08-31-2022 11:14-0400 Body weight 127.[address] Sammie Banks Work Phone: 3(543)704-952332 [place] [address] 08-28-2022 09:51-0400 Body mass index (BMI) [Ratio] 35.1 kg/m2 Dr. Sammie Banks Work Phone: 0(826)112-462732 [place] [address] 07-29-2022 11:30-0400 Body height 190.[address] Sammie Banks Work Phone: 6(296)765-063232 [place] [address] 07-29-2022 11:30-0400 Body mass index (BMI) [Ratio] 3.4 kg/m2 Dr. Sammie Banks Work Phone: 5(601)817-487932 [place] [address] 07-29-2022 11:30-0400 Body weight 12.[address] Sammie Banks Work Phone: [facility] 07-29-2022 11:30-0400 Diastolic blood pressure 88 mm[Hg] Dr. Sammie Banks Work Phone: [facility] 07-29-2022 11:30-0400 Heart rate 61 /min Dr. Sammie Banks Work Phone: [facility] 07-29-2022 11:30-0400 Respiratory rate 18 /min Dr. Sammie Banks Work Phone: [facility] 07-29-2022 11:30-0400 SaO2% (BldA) [Mass fraction] 97 % Dr. Sammie Banks Work Phone: [facility] 07-29-2022 11:30-0400 Systolic blood pressure 143 mm[Hg] Dr. Sammie Banks Work Phone: [facility] 06-18-2022 10:25-0500 Diastolic blood pressure 87 mm[Hg] Sammie Banks MD Work Phone: [facility] 06-18-2022 10:25-0500 Heart rate 65 /min Sammie Banks MD Work Phone: [facility] 06-18-2022 10:25-0500 Systolic blood pressure 143 mm[Hg] Sammie Banks MD Work Phone: [facility] 06-18-2022 10:12-0500 Body weight 132 kg Sammie Banks MD Work Phone: [facility] 06-18-2022 10:12-0500 Respiratory rate 16 /min Sammie Banks MD Work Phone: [facility] 06-18-2022 10:12-0500 SaO2% (BldA) [Mass fraction] 97 % Sammie Banks MD Work Phone: [facility] Encounters Encounter Date Encounter Type Care Provider Facility Start: 02-28-2025 End: 02-28-2025 ambulatory SAMMIE BANKS Facility:[facility] Start: 02-28-2025 End: 02-28-2025 ambulatory [facility] Facility:[facility] Start: 02-23-2025 End: 02-23-2025 ambulatory [facility] Facility:[facility] Start: 02-01-2025 End: 02-01-2025 Patient encounter procedure [facility] Work Phone: Start: 02-01-2025 End: 02-01-2025 ambulatory [facility] Facility:[facility] Start: 12-20-2024 End: 12-22-2024 ambulatory Bethany Fragoso MANAGER LIFEKarimeENGINEERING SPECIALIST Work Phone: [facility] Comment on above: [employer] Start: 10-16-2024 End: 10-17-2024 Follow-up encounter Bethany Fragoso APRN.ENGINEERING SPECIALIST Work Phone: [facility] Comment on above: Results Start: 10-13-2024 End: 10-13-2024 ambulatory [facility] Facility:[facility] Start: 10-09-2024 End: 10-09-2024 Telephone encounter Sammie Banks MD Work Phone: [facility] Comment on above: Patient Update; Medi cation Request Start: 09-29-2024 End: 09-29-2024 Patient encounter procedure Pulm Lab [facility] Work Phone: [facility] Comment on above: Mild persistent asth ma without complication (HCC) (Primary Dx); H/O seasonal allergies; Gastroesophageal reflux disease, unspecified whether esophagitis present; Class 1 obesity Start: 09-29-2024 End: 09-29-2024 ambulatory Pulm Lab [facility] Work Phone: [facility] Comment on above: Spirometry Start: 09-24-2024 End: 09-25-2024 Follow-up encounter Bethany Fragoso APRN.ENGINEERING SPECIALIST Work Phone: [facility] Comment on above: Results Start: 09-11-2024 ambulatory [facility] Facility:[facility] Start: 09-11-2024 End: 09-11-2024 Subsequent hospital visit by physician [facility] 2 Work Phone: Radiology Comment on above: Mass on back [R22.2] Start: 08-30-2024 End: 10-30-2024 Follow-up encounter Bethany Fragoso APRN.CNP Work Phone: [facility] Start: 08-28-2024 End: 08-28-2024 ambulatory [facility] Facility:[facility] Start: 08-28-2024 End: 08-28-2024 Office outpatient visit 25 minutes Bethany Fragoso APRN.CNP Work Phone: [facility] [place] Comment on above: Paroxysmal atrial fi brillation (HCC) (Primary Dx); Mass on back; 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; Chronic obstructive pulmonary disease with (acute) exacerbation (HCC); Asthma without acute exacerbation (HCC); Gout, unspecified cause, unspecified chronicity, unspecified site; Essential hypertension; Hyperlipidemia, unspecified hyperlipidemia type; Hypothyroidism, unspecified type; Obstructive sleep apnea; Personal history of gout Start: 08-28-2024 End: 08-28-2024 [facility] Facility:[facility] Start: 08-22-2024 End: 08-24-2024 ambulatory Bethany Fragoso APRN.CNP Work Phone: [facility] [place] Comment on above: Blood work Start: 08-17-2024 End: 08-17-2024 [facility] Facility:[facility] Start: 06-27-2024 End: 06-27-2024 Subsequent hospital visit by physician Maikol [facility] Work Phone: Radiology Comment on above: Subacute cough [R05. 2] Start: 06-27-2024 End: 06-27-2024 [facility] Facility:[facility] Start: 06-27-2024 End: 06-27-2024 Patient encounter procedure Jatin CHRISTIANSON Work Phone: [facility] Comment on above: Subacute cough (Prim jose Dx); Chronic obstructive pulmonary disease, unspecified COPD type (HCC) Start: 2024 End: 2024 Refill Sammie Banks MD Work Phone: [facility] [place] Comment on above: Refill Request Start: 06-01-2024 End: 06-01-2024 [facility] Facility:[facility] Start: 06-01-2024 End: 06-01-2024 Patient encounter procedure Jatin CHRISTIANSON Work Phone: [facility] Comment on above: Bacterial sinusitis (Primary Dx); COPD with exacerbation (HCC) Start: 04-23-2024 End: 04-23-2024 [facility] Facility:[facility] Start: 04-23-2024 End: 04-23-2024 Office outpatient visit 25 minutes Bernadette Chapa PA-C Work Phone: [facility] Comment on above: Persistent cough (Pr imary Dx) Start: 04-20-2024 End: 04-20-2024 [facility] Facility:[facility] Start: 04-20-2024 End: 04-20-2024 Patient encounter procedure Harriett Mcgarry APRN.CNP Work Phone: [facility] Comment on above: Bacterial sinusitis (Primary Dx); Viral URI with cough Start: 04-11-2024 End: 04-12-2024 Refill Bethany Fragoso APRN.CNP Work Phone: [facility] [place] Comment on above: Refill Request Medication Request Start: 03-30-2024 End: 03-30-2024 Telephone encounter Bethany Fragoso APRN.CNP Work Phone: [facility] [place] Comment on above: Results Start: 03-29-2024 End: 03-29-2024 [facility] Facility:[facility] Start: 03-08-2024 End: 03-09-2024 Telephone encounter Bethany Fragoso APRN.CNP Work Phone: [facility] [place] Comment on above: Results Start: 03-07-2024 End: 03-07-2024 [facility] Facility:[facility] Start: 02-28-2024 End: 02-28-2024 Patient encounter procedure Bethany Fragoso APRN.ENGINEERING SPECIALIST Work Phone: [facility] [place] Comment on above: Essential hypertensi on (Primary Dx); Hypothyroidism, unspecified type; Obstructive sleep apnea syndrome; Asthma without acute exacerbation; Hyperlipidemia, unspecified hyperlipidemia type; Paroxysmal A-fib (HCC); Gout, unspecified cause, unspecified chronicity, unspecified site; Erectile dysfunction, unspecified erectile dysfunction type; Need for influenza vaccination Start: 02-12-2024 End: 02-14-2024 Refill Susy Nicole [address] Comment on above: Refill Request Start: 01-28-2024 End: 01-28-2024 Patient encounter procedure Jatin CHRISTIANSON Work Phone: [facility] Comment on above: Allergic contact inez matitis due to plants, except food (Primary Dx) Start: 09-10-2023 Telephone encounter Sammie rust MD Work Phone: [facility] [place] Comment on above: Medication Problem Start: 09-07-2023 Refill Sammie Hairston Work Phone: [facility] [place] Comment on above: Refill Request Start: 07-05-2023 End: 07-05-2023 Patient encounter procedure Aashish Tanner PA-C Work Phone: [facility] [place] Comment on above: Essential hypertensi on (Primary Dx); Obstructive sleep apnea syndrome; Hypothyroidism, unspecified type; Mixed hyperlipidemia; Gout, unspecified cause, unspecified chronicity, unspecified site; Gastroesophageal reflux disease without esophagitis; Mild persistent asthma with acute exacerbation; Paroxysmal A-fib (HCC) Start: 06-29-2023 End: 06-29-2023 ambulatory [facility] Work Phone: Start: 06-29-2023 End: 06-29-2023 Patient encounter procedure [facility] Work Phone: Start: 06-28-2023 Telephone encounter Sammie rust MD Work Phone: [facility] [place] Comment on above: Faxed orders to [facility] lab Start: 04-07-2023 ambulatory Larissa Allison PRN.CNP Work Phone: [facility] [place] Comment on above: chest congestion is back. Start: 03-24-2023 End: 03-24-2023 ambulatory [facility] Start: 03-24-2023 End: 03-24-2023 Office outpatient visit 25 minutes Latonya Reyes MANAGER LIFE - ENGINEERING SPECIALIST Work Phone: [facility] Comment on above: Atrial fibrillation with RVR (HCC) (Primary Dx); Essential hypertension; JENIFER (obstructive sleep apnea); Obesity (BMI 35.0-39.9 without comorbidity) Start: 03-02-2023 End: 03-02-2023 Patient encounter procedure Larissa Dhaliwal MANAGER LIFE.ENGINEERING SPECIALIST Work Phone: [facility] [place] Comment on above: Lower resp. tract in fection (Primary Dx); Mild persistent asthma with acute exacerbation; Essential hypertension Start: 03-02-2023 Telephone encounter Sammie rust MD Work Phone: [facility] [place] Comment on above: Patient Update Start: 02-21-2023 End: 02-21-2023 Patient encounter procedure Harriett Mcgarry MANAGER LIFE.ENGINEERING SPECIALIST Work Phone: [facility] Comment on above: Lower resp. tract in fection (Primary Dx) Start: 12-17-2022 End: 12-17-2022 ambulatory [facility] Start: 12-17-2022 End: 12-17-2022 Office outpatient visit 25 minutes Niesha Biggs MANAGER LIFE - ENGINEERING SPECIALIST Work Phone: [facility] Comment on above: Persistent atrial fi brillation (HCC) (Primary Dx); JENIFER (obstructive sleep apnea); Essential hypertension Start: 12-04-2022 End: 12-05-2022 Unknown [facility] Start: 12-04-2022 End: 12-05-2022 Subsequent hospital visit by physician Williams Mcnamara MD Work Phone: [facility] Comment on above: Atrial fibrillation with RVR (CMS/HCC) (HCC) Start: 11-24-2022 ambulatory Niesha ball MANAGER LIFE - ENGINEERING SPECIALIST Work Phone: [facility] Start: 11-19-2022 End: 11-20-2022 [facility] Start: 11-19-2022 End: 11-20-2022 Encounter for preprocedural cardiovascular examination [facility] Start: 11-19-2022 Patient encounter status Dallas Mcnamara MD Work Phone: [facility] Start: 11-19-2022 Telephone encounter Williams Mcnamara MD Work Phone: [facility] Comment on above: Procedure (PVI pre-p rocedure instructions) Encounter for prepro cedural cardiovascular examination (Primary Dx); Unspecified atrial fibrillation (HCC) Start: 11-19-2022 End: 11-19-2022 ambulatory [facility] Start: 11-19-2022 End: 11-19-2022 Office outpatient new 45 minutes Williams Mcnamara MD Work Phone: [facility] Comment on above: JENIFER (obstructive sle ep apnea) (Primary Dx); Atrial fibrillation with RVR (CMS/HCC) (HCC); Essential hypertension Start: 10-16-2022 End: 10-16-[address] Sammie Banks Work Phone: [facility] Work Phone: Start: 10-16-2022 End: 10-16-[address] Sammie Banks Work Phone: [facility]Laboratory Start: 09-11-2022 End: 09-11-[address] Sammie Banks Work Phone: [facility] Start: 08-31-2022 Non-patient / Non-visit Dr. Billie Banks Work Phone: [facility] Start: 08-31-2022 End: 08-31-2022 Non-patient / Non-visit Dr. Sammie Banks Work Phone: [phone] [place] [address] Start: 08-31-2022 End: 08-31-2022 Admission to same day surgery center Dr. Sammie Banks Work Phone: [facility]-Marketing Production Coordinator/Special Procedures Start: 08-21-2022 Non-patient / Non-visit Dr. Billie Banks Work Phone: [facility] Start: 08-19-2022 Non-patient / Non-visit Dr. Billie Banks Work Phone: [facility] Start: 08-18-2022 Non-patient / Non-visit Dr. Billie Banks Work Phone: [facility] Start: 08-18-2022 End: 08-18-[address] Sammie Banks Work Phone: [facility] Work Phone: Start: 08-18-2022 End: 08-18-[address] Sammie Banks Work Phone: [facility]-Cardiovascula r Services Start: 07-29-2022 End: 07-29-[address] Sammie Banks Work Phone: [facility] Start: 07-03-2022 Chart abstracting Sammie Banks MD Work Phone: [facility] [place] Comment on above: Outside Labs-[facility] Ord ered Start: 07-03-2022 End: 07-03-[address] Sammie Banks Work Phone: [facility] Start: 2022 ambulatory Sammie Hairston Work Phone: [facility] [place] Start: 06-19-2022 Telephone encounter Sammie rust MD Work Phone: [facility] [place] Comment on above: Orders Start: 06-18-2022 End: 06-18-2022 Patient encounter procedure Sammie Banks MD Work Phone: [facility] [place] Comment on above: Pre-operative cleara nce (Primary Dx); Acute LUCILLE (middle ear effusion), bilateral; Hypothyroidism, unspecified type; Essential hypertension; Gout, unspecified cause, unspecified chronicity, unspecified site; Gastroesophageal reflux disease without esophagitis; Moderate persistent asthma with exacerbation; Paroxysmal A-fib (HCC) Start: 06-18-2022 End: 06-18-2022 Preoperative state Sammie Banks MD Work Phone: [facility] [place] Start: 06-16-2022 Telephone encounter Sammie rust MD Work Phone: [facility] [place] Comment on above: EKG results Start: 05-29-2022 End: 05-30-2022 ambulatory GABRIEL GIBSON MD Facility:[facility] Start: 05-15-2022 End: 05-16-2022 ambulatory GABRIEL GIBSON MD Facility:[facility] Start: 05-15-2022 End: 05-15-2022 Patient encounter procedure GABRIEL GIBSON MD [facility] Start: 03-03-2022 Telephone encounter Sammie rust MD Work Phone: [facility] [place] Comment on above: Insurance Problem Start: 10-24-2021 End: 10-24-2021 Patient encounter procedure John Barba DO Work Phone: [facility] [place] Comment on above: Sprain of medial men iscus of right knee, initial encounter (Primary Dx) Start: 10-24-2021 End: 10-24-2021 Subsequent hospital visit by physician Maikol [facility] Work Phone: Radiology Comment on above: Right knee pain, uns pecified chronicity [M25.561] Start: 10-21-2021 Orders Only John Gibbs Work Phone: Orthopaedics Comment on above: Right knee pain, uns pecified chronicity (Primary Dx) Start: 10-02-2021 Refill Sammie Hairston Work Phone: [facility] [place] Comment on above: Refill Request Start: 08-27-2021 Refill Sammie Hairston Work Phone: [facility] [place] Comment on above: Prescription Refills Start: 07-29-2021 Telephone encounter Sammie rust MD Work Phone: [facility] [place] Comment on above: Advice on returning symptoms Procedures Date Procedure Procedure Detail Performing Clinician Start: 09-29-2024 Nitric oxide gas determination Monique Gomez MD Work Phone: Start: 09-29-2024 Brncdilat rspse spmtry pre&post-brncdilat admn Monique Gomez MD Work Phone: Start: 08-28-2024 Lipid 1996 panel - Serum or Plasma Us 2 Work Phone: Start: 06-27-2024 Radiologic exam chest 2 views Jatin Shaffer PA Work Phone: Start: 03-07-2024 Lipid 1996 panel - Serum or Plasma Bethany Fragoso APRN.ENGINEERING SPECIALIST Work Phone: Start: 03-24-2023 Ecg routine ecg w/least 12 lds w/i&r Williams Mncamara MD Work Phone: Start: 12-17-2022 Ecg routine ecg w/least 12 lds w/i&r Williams Mcnamara MD Work Phone: Start: 12-05-2022 Basic metabolic panel calcium total Niesha Biggs MANAGER LIFE - ENGINEERING SPECIALIST Work Phone: Start: 12-04-2022 Ecg routine ecg w/least 12 lds trcg only w/o i&r Niesha Biggs MANAGER LIFE - ENGINEERING SPECIALIST Work Phone: Start: 12-04-2022 Electrophysiology study Williams Mcnamara MD Work Phone: Start: 12-04-2022 End: 12-04-2022 POCT ACT Williams Mcnamara MD Work Phone: Start: 11-19-2022 Ecg routine ecg w/least 12 lds w/i&r Williams Mcnamara MD Work Phone: Start: 08-18-2022 Radionuclide imaging of perfusion of myocardium under exercise stress Dr. Sammie Banks Work Phone: Start: 10-24-2021 Radiologic exam knee complete 4/more views John Barba DO Work Phone: Start: 07-01-2021 Lipid 1996 panel - Serum or Plasma Harriett Mcgarry APRN.CNP Work Phone: Start: 03-03-2021 Colonoscopy Sammie Banks MD Work Phone: Start: 10-09-2020 Adult depression screening assessment Sammie Banks MD Work Phone: Plan of Treatment Date Care Activity Detail Author Start: 03-03-2031 Colonoscopy COLONOSCOPY [facility] Start: 03-03-2031 COLORECTAL CANCER SCREENING COLORECTAL CANCER SCREENING [facility] Start: 03-03-2031 Screening for malign ant neoplasm of colon [facility] Start: 08-28-2029 Lipid panel Lipid Screening [facility] Start: 03-07-2029 Lipid panel Lipid Screening [facility] Start: 08-29-2027 Diabetes Screening Diabetes Screenin [facility] Start: 03-29-2027 Diabetes Screening [facility] Start: 03-07-2027 Diabetes Screening Diabetes [facility] Start: 07-01-2026 Lipid 1996 panel - S galo or Plasma Lipid Screening [facility] Start: 07-01-2026 Lipid panel Lipid Screening [facility] Start: 07-01-2026 LIPID SCREEN LIPID SCREEN [facility] Start: 03-28-2026 PROSTATE CANCER SCRE ENING DISCUSSION PROSTATE CANCER SCREENING DISCUSSION [facility] Start: 03-28-2026 Prostate specific an tigen measurement Prostate Cancer Screening Discussion [facility] Start: 12-05-2025 Diabetes Screening Diabetes Screenin g [facility] Start: 09-29-2025 BP Controlled (<130/80) BP Controlle d (<130/80) [facility] Start: 08-28-2025 Annual PCP Team Senior Bi Architect roni Disease Visit Annual PCP Team Chronic Disease Visit [facility] Start: 08-28-2025 Pneumococcal Vaccine : 50+ (1 of 2 - PCV) Pneumococcal Vaccine: 50+ (1 of 2 - PCV) [facility] Comment on above: Postponed from 06/23 (Declined at this time) Start: 06-01-2025 BP Controlled (<130/80) BP Controlle d (<130/80) [facility] Start: 04-20-2025 BP Controlled (<130/80) BP Controlle d (<130/80) [facility] Start: 02-28-2025 End: 02-28-2025 Patient encounter procedure 02/28/2025 8:00 AM EST Office Visit [facility] [address] [facility] [place] [address] Sammie Banks MD [address] [place], [place] [id number] 6 month follow up [facility] [place] Comment on above: 6 month follow up Start: 02-27-2025 Annual PCP Team Senior Bi Architect roni Disease Visit Annual PCP Team Chronic Disease Visit [facility] Start: 02-27-2025 BP Controlled (<130/80) BP Controlle d (<130/80) [facility] Start: 02-27-2025 RSV Vaccine (1 - Ris k 60-74 years 1-dose series) RSV Vaccine (1 - Risk 60-74 years 1-dose series) [facility] Comment on above: Postponed from 06/23 (Declined at this time) Start: 02-27-2025 Shingrix Vaccine (1 of 2) Doe grix Vaccine (1 of 2) [facility] Comment on above: Postponed from 06/23 (Declined at this time) Start: 02-27-2025 Urine microalbumin profile DTa P,Tdap,Td Vaccine (2 - Td or Tdap) [facility] Comment on above: Postponed from 07/21 (Declined at this time) Start: 01-30-2025 End: 01-30-2025 Patient encounter procedure Pulmonary Medicine Comment on above: Mild persistent asth ma without complication (HCC) [J45.30] Start: 01-30-2025 End: 01-30-2025 ambulatory 01/30/2025 7:30 AM EDT Procedure PULM [facility] [address] [place], [place] [id number] W[facility], Pulm Lab [facility] [address] [place] [address] Mild persistent asthma without complication (HCC) [J45.30] [facility] Comment on above: Mild persistent asth ma without complication (HCC) [J45.30] Start: 12-25-2024 Influenza vaccination Influenza Vacc ine (#1) [facility] Start: 10-09-2024 End: 01-08-2025 Urate [Mass/volume] in Serum or Plasma URIC ACID Lab Routine Gout, unspecified cause, unspecified chronicity, unspecified site Expected: 10/09/2024, Expires: 01/08/2025 [facility] Work Phone: Comment on above: Expected: 10/09/2024 , Expires: 01/08/2025 Start: 09-29-2024 End: 09-29-2024 Patient encounter procedure 09/29/2024 8:45 AM EDT Office Visit Pulmonary Medicine [address] [place], [place] [id number] Monique Gomez MD [address] [place], [place] [id number] Dx: Subacute cough [R05.2]; Chronic obstructive pulmonary disease, unspecified COPD type (HCC) [J44.9] Pulmonary Medicine Comment on above: Dx: Subacute cough [ R05.2]; Chronic obstructive pulmonary disease, unspecified COPD type (HCC) [J44.9] Start: 09-29-2024 End: 09-29-2024 ambulatory [facility]ULM [facility] Comment on above: Dx: Subacute cough [ R05.2]; Chronic obstructive pulmonary disease, unspecified COPD type (HCC) [J44.9] Start: 09-11-2024 End: 09-11-2024 Patient encounter procedure 09/11/2024 7:00 AM EDT Appointment Radiology [address] [place] [id number] Dx: Mass on back [R22.2] Radiology Comment on above: Dx: Mass on back [R2 2.2] Start: 08-28-2024 End: 11-27-2024 Basic metabolic 2000 panel - Serum or Plasma [facility] Comment on above: Expected: 08/28/2024 , Expires: 11/27/2024 Start: 08-28-2024 End: 11-27-2024 Lipid 1996 panel - Serum or Plasma [facility] Comment on above: Expected: 08/28/2024 , Expires: 11/27/2024 Start: 08-28-2024 End: 11-27-2024 Thyrotropin [Units/volume] in Serum or Plasma [facility] Work Phone: Comment on above: Expected: 08/28/2024 , Expires: 11/27/2024 Start: 08-28-2024 End: 08-28-2024 Patient encounter procedure 08/28/2024 7:20 AM EDT Office Visit [facility] [place] [address] [place], [place] [id number] Bethany Fragoso APRN.ENGINEERING SPECIALIST [address] [place], [place] [id number] 6 month follow up [facility] [place] Comment on above: 6 month follow up Start: 07-04-2024 Annual PCP Team Senior Bi Architect roni Disease Visit Annual PCP Team Chronic Disease Visit [facility] Start: 04-30-2024 End: 07-30-2024 Thyrotropin [Units/volume] in Serum or Plasma THYROID STIMULATING HORMONE Lab Routine Hypothyroidism, unspecified type Medication management Expected: 04/30/2024 (Approximate), Expires: 07/30/2024 [facility] Work Phone: Comment on above: Expected: 04/30/2024 (Approximate), Expires: 07/30/2024 Start: 04-08-2024 End: 07-08-2024 Thyrotropin [Units/volume] in Serum or Plasma THYROID STIMULATING HORMONE Lab Routine Abnormal TSH Expected: 04/08/2024 (Approximate), Expires: 07/08/2024 [facility] Comment on above: Expected: 04/08/2024 (Approximate), Expires: 07/08/2024 Start: 04-08-2024 End: 07-08-2024 Thyroxine (T4) free [Mass/volume] in Serum or Plasma T4 FREE/FREE THYROXINE Lab Routine Abnormal TSH Expected: 04/08/2024 (Approximate), Expires: 07/08/2024 [facility] Comment on above: Expected: 04/08/2024 (Approximate), Expires: 07/08/2024 Start: 04-08-2024 End: 07-08-2024 Triiodothyronine (T3) Free [Mass/volume] in Serum or Plasma T3, FREE Lab Routine Abnormal TSH Expected: 04/08/2024 (Approximate), Expires: 07/08/2024 [facility] Comment on above: Expected: 04/08/2024 (Approximate), Expires: 07/08/2024 Start: 04-07-2024 BP Controlled (<130/80) BP Controlle d (<130/80) [facility] Start: 03-28-2024 DIABETES SCREEN DIABETES SCREEN [facility] Start: 03-28-2024 Diabetes Screening Diabetes Screenin g [facility] Start: 03-09-2024 End: 06-08-2024 Hemoglobin A1c in Blood HEMOGLOBIN A1C Lab Routine Elevated glucose Expected: 03/09/2024, Expires: 06/08/2024 [facility] Work Phone: Comment on above: Expected: 03/09/2024 , Expires: 06/08/2024 Start: 03-02-2024 Annual PCP Team Senior Bi Architect roni Disease Visit Annual PCP Team Chronic Disease Visit [facility] Start: 03-02-2024 BP Controlled (<130/80) BP Controlle d (<130/80) [facility] Start: 02-28-2024 End: 05-29-2024 CBC W Auto Differential panel - Blood COMPLETE BLOOD COUNT AND DIFFERENTIAL Lab Routine Essential hypertension Expected: 02/28/2024, Expires: 05/29/2024 [facility] Work Phone: Comment on above: Expected: 02/28/2024 , Expires: 05/29/2024 Start: 02-28-2024 End: 05-29-2024 Comprehensive metabolic 2000 panel - Serum or Plasma COMPREHENSIVE METABOLIC PANEL Lab Routine Essential hypertension Hyperlipidemia, unspecified hyperlipidemia type Gout, unspecified cause, unspecified chronicity, unspecified site Expected: 02/28/2024, Expires: 05/29/2024 [facility] Comment on above: Expected: 02/28/2024 , Expires: 05/29/2024 Start: 02-28-2024 End: 05-29-2024 Lipid 1996 panel - Serum or Plasma LIPID PANEL BASIC Lab Routine Hyperlipidemia, unspecified hyperlipidemia type Expected: 02/28/2024, Expires: 05/29/2024 [facility] Comment on above: Expected: 02/28/2024 , Expires: 05/29/2024 Start: 02-28-2024 End: 05-29-2024 Thyrotropin [Units/volume] in Serum or Plasma THYROID STIMULATING HORMONE Lab Routine Hypothyroidism, unspecified type Expected: 02/28/2024, Expires: 05/29/2024 [facility] Comment on above: Expected: 02/28/2024 , Expires: 05/29/2024 Start: 02-28-2024 End: 05-29-2024 Urate [Mass/volume] in Serum or Plasma URIC ACID Lab Routine Gout, unspecified cause, unspecified chronicity, unspecified site Expected: 02/28/2024, Expires: 05/29/2024 [facility] Comment on above: Expected: 02/28/2024 , Expires: 05/29/2024 Start: 12-26-2023 Covid-19 Vaccine ( season) Covid-19 Vaccine () [facility] Start: 12-26-2023 Influenza vaccination C [facility] Start: 07-10-2023 Annual PCP Team Senior Bi Architect roni Disease Visit Annual PCP Team Chronic Disease Visit [facility] Start: 06-18-2023 ANNUAL PCP TEAM PATTERN RULER RONI DISEASE VISIT ANNUAL PCP TEAM CHRONIC DISEASE VISIT [facility] Start: 06-18-2023 COVID-19 VACCINE (3 - Booster for Pfizer series) COVID-19 VACCINE (3 - Booster for Pfizer series) [facility] Comment on above: Postponed from 09/25 (Declined at this time) Start: 04-26-2023 Behavioral Health Screening Behavioral Health Screening [facility] Start: 04-26-2023 Depression Assessment Depression Ass essment [facility] Start: 03-17-2023 End: 03-17-2023 Patient encounter procedure 03/17/2023 9:15 AM EST Office Visit [facility] [address] [place] [phone] Williams Mcnamara MD 95 [facility] [address] [place], [place] [phone] [facility] Start: 12-25-2022 Covid-19 Vaccine ( season) Covid-19 Vaccine () [facility] Start: 12-25-2022 Influenza vaccination Influenza Vacc ine (#1) [facility] Start: 12-17-2022 End: 12-17-2022 Patient encounter procedure 12/17/2022 8:00 AM EDT Office Visit [facility] [address] [place] [address] Niesha Biggs, MANAGER LIFE - ENGINEERING SPECIALIST [address] [address] [facility] Start: 12-04-2022 End: 12-04-2022 Admission to same day surgery center 12/04/2022 8:30 AM EDT - 12/04/2022 11:30 AM EDT Surgery [facility] [address] [place] [address] Williams Mcnamara MD [address] [id number] Ablation a-fib paroxysmal [45031 (CPT )] [facility] Comment on above: Ablation a-fib parox ysmal [15970 (CPT )] Start: 12-04-2022 Subsequent hospital visit by physician 12/04/2022 8:30 AM EDT Hospital Encounter [facility] [address] [place] [address] Williams Mcnamara MD [address] [address] Atrial fibrillation with RVR (CMS/HCC) (HCC) [facility] Comment on above: Atrial fibrillation with RVR (CMS/HCC) (HCC) Start: 11-19-2022 End: 11-20-2023 Basic metabolic 1998 panel - Serum or Plasma Basic metabolic panel Lab Routine Preop cardiovascular exam Atrial fibrillation with RVR (CMS/HCC) (HCC) Expected: 11/19/2022 (Approximate), Expires: 11/20/2023 [facility] Work Phone: Comment on above: Expected: 11/19/2022 (Approximate), Expires: 11/20/2023 Start: 11-19-2022 End: 11-20-2023 CBC panel - Blood by Automated count CBC Lab Routine Preop cardiovascular exam Atrial fibrillation with RVR (CMS/HCC) (HCC) Expected: 11/19/2022 (Approximate), Expires: 11/20/2023 [facility] Comment on above: Expected: 11/19/2022 (Approximate), Expires: 11/20/2023 Start: 10-23-2022 Influenza vaccination INFLUENZA (#1) [facility] Comment on above: Postponed from 12/25 (Declined at this time) Start: 09-11-2022 Patient referral [facility] Work Phone: Start: 07-11-2022 ANNUAL PCP TEAM PATTERN RULER RONI DISEASE VISIT ANNUAL PCP TEAM CHRONIC DISEASE VISIT [facility] Start: 07-11-2022 BP CONTROLLED (<130/80) BP CONTROLLE D (<130/80) [facility] Start: 2022 End: 08-23-2022 CBC panel - Blood by Automated count CBC Lab Routine Medication management Expected: 2022, Expires: 08/23/2022 [facility] Work Phone: Comment on above: Expected: 2022 , Expires: 08/23/2022 Start: 2022 End: 08-23-2022 Hemoglobin A1c in Blood HGB A1C Lab Routine Obesity (BMI 35.0-39.9 without comorbidity) Expected: 2022, Expires: 08/23/2022 [facility] Work Phone: Comment on above: Expected: 2022 , Expires: 08/23/2022 Start: 2022 End: 08-23-2022 Lipid 1996 panel - Serum or Plasma LIPID PANEL BASIC Lab Routine Hyperlipidemia Expected: 2022, Expires: 08/23/2022 [facility] Work Phone: Comment on above: Expected: 2022 , Expires: 08/23/2022 Start: 2022 End: 08-23-2022 SCHEDULE LAB TESTING SCHEDULE LAB TESTING Lab Routine Expected: 2022, Expires: 08/23/2022 [facility] Work Phone: Comment on above: Expected: 2022 , Expires: 08/23/2022 Start: 06-18-2022 End: 08-18-2022 Comprehensive metabolic 2000 panel - Serum or Plasma COMP METABOLIC PANEL Lab Routine Essential hypertension Expected: 06/18/2022, Expires: 08/18/2022 [facility] Work Phone: Comment on above: Expected: 06/18/2022 , Expires: 08/18/2022 Start: 06-18-2022 End: 08-18-2022 Thyrotropin [Units/volume] in Serum or Plasma TSH BLD Lab Routine Hypothyroidism, unspecified type Expected: 06/18/2022, Expires: 08/18/2022 [facility] Work Phone: Comment on above: Expected: 06/18/2022 , Expires: 08/18/2022 Start: 04-26-2022 DEPRESSION ASSESSMENT DEPRESSION ASS ESSMENT [facility] Start: 12-25-2021 Influenza vaccination INFLUENZA (#1) [facility] Start: 10-09-2021 Adult depression scr eening assessment DEPRESSION SCREENING [facility] Start: 04-26-2021 DEPRESSION ASSESSMENT DEPRESSION ASS ESSMENT [facility] Start: 12-31-2020 COVID-19 VACCINE (3 - Booster for Pfizer series) COVID-19 VACCINE (3 - Booster for Pfizer series) [facility] Start: 09-25-2020 COVID-19 VACCINE (3 - Booster for Pfizer series) COVID-19 VACCINE (3 - Booster for Pfizer series) [facility] Start: 09-25-2020 COVID-19 Vaccine (3 - Pfizer series) COVID-19 Vaccine (3 - Pfizer series) [facility] Start: 2020 RSV Immunization age d 60 or older (1 - 1-dose 60+ series) RSV Immunization aged 60 or older (1 - 1-dose 60+ series) [facility] Start: 2020 RSV Vaccine (1 - 1-d ose 60+ series) RSV Vaccine (1 - 1-dose 60+ series) [facility] Start: 2020 RSV Vaccine (1 - Ris k 60-74 years 1-dose series) RSV Vaccine (1 - Risk 60-74 years 1-dose series) [facility] Start: 07-22-2015 DTaP/Tdap/Td Vaccine s (2 - Td or Tdap) DTaP/Tdap/Td Vaccines (2 - Td or Tdap) [facility] Start: 07-22-2015 Urine microalbumin profile [facility] Start: 2010 Pneumococcal Vaccine : 50+ (1 of 1 - PCV) Pneumococcal Vaccine: 50+ (1 of 1 - PCV) [facility] Start: 2010 SHINGRIX VACCINE (1 of 2) DOE GRIX VACCINE (1 of 2) [facility] Start: 2010 Zoster Vaccines (1 of 2) Zoste r Vaccines (1 of 2) [facility] Start: 2005 COLOGUARD (FIT-DNA) COLOGUARD (FIT-D NA) [facility] Start: [address] COLONOGRAPHY [facility] Start: 2005 FECAL OCCULT BLOOD FECAL OCCULT BLOO D [facility] Start: 2005 Screening for malign ant neoplasm of colon [facility] Start: 2005 SIGMOIDOSCOPY SIGMOIDOSCOPY [facility] Start: 1990 Zoledronic acid therapy Alpha- 1 Antitrypsin Deficiency Screening [facility] Start: 1979 Pneumococcal Vaccine : 50+ (1 of 2 - PCV) Pneumococcal Vaccine: 50+ (1 of 2 - PCV) [facility] Start: 1978 Anxiety Screening Anxiety Screening [facility] Start: 1978 BP CONTROLLED (<130/80) BP CONTROLLE D (<130/80) [facility] Start: 1978 Depression Screening Depression Scre ening [facility] Start: 1978 Diabetes mellitus screening Diabetes Screening [facility] Start: 1978 Hepatitis C screening Hepatitis C Sc reening [facility] Start: 1978 SPIROMETRY SPIROMETRY [facility] Start: 1972 Depression Screening Depression Scre ening [facility] Start: 1966 PNEUMOCOCCAL (1 - PCV) PNEUMOCOCCAL (1 - PCV) [facility] Start: 1966 Pneumococcal vaccination [facility] Start: 1961 MMR Vaccines (1 of 1 - Standard series) MMR Vaccines (1 of 1 - Standard series) [facility] Start: 1960 HIV screening HIV Screening [facility] Start: 1960 Lipid panel Lipid Panel [facility] Start: 1960 Screening for malign ant neoplasm of colon [facility] Start: 1960 Thyroid stimulating hormone measurement TSH Level [facility] End: 06-18-2023 ECG COMPLETE ECG COMPLETE ECG Routine Paroxysmal A-fib (HCC) 1 Occurrences starting 06/18/2022 until 06/18/2023 [facility] Work Phone: Comment on above: 1 Occurrences starti ng 06/18/2022 until 06/18/2023 Electrocardiogram, 12-lead Elect rocardiogram, 12-lead CV ECG Routine 12/04/2022 12:27 PM EDT [facility] Work Phone: Ephys evl trnsptl tx atrial fib isolat pulm vein ABLATION A-FIB PAROXYSMAL W COMPLETE EP STUDY Atrial fibrillation with RVR (CMS/HCC) (HCC) [facility] LUNG DIFFUSION CAPAC ITY (DLCO) LUNG DIFFUSION CAPACITY (DLCO) PFT Routine Mild persistent asthma without complication (HCC) 09/29/2024 8:09 AM EDT [facility] Work Phone: Patient referral [facility] Work Phone: SPIROMETRY WITH DILA TOR IF OBSTRUCTED SPIROMETRY WITH DILATOR IF OBSTRUCTED PFT Routine Mild persistent asthma without complication (HCC) 09/29/2024 8:09 AM EDT [facility] Work Phone: End: 10-29-2025 SPIROMETRY WITH DILATOR IF OBSTRUCTED SPIROMETRY WITH DILATOR IF OBSTRUCTED PFT Routine Mild persistent asthma without complication (HCC) 1 Occurrences starting 09/29/2024 until 10/29/2025 [facility] Work Phone: Comment on above: 1 Occurrences starti ng 09/29/2024 until 10/29/2025 US Chest wall US CHEST WALL/SO FT TISSUE Radiology Routine Mass on back 09/11/2024 7:17 AM EDT [facility] Work Phone: End: 09-27-2025 US Head and neck soft tissue US HEAD/NECK SOFT TISSUE OTHER Radiology Routine Mass on back 1 Occurrences starting 08/28/2024 until 09/27/2025 [facility] Comment on above: 1 Occurrences starti ng 08/28/2024 until 09/27/2025 End: 11-20-2022 XR KNEE GENERAL 4V AP BOTH/PA BOTH/LAT/MERC RIGHT XR KNEE GENERAL 4V AP BOTH/PA BOTH/LAT/MERC RIGHT Radiology Routine Right knee pain, unspecified chronicity 1 Occurrences starting 10/21/2021 until 11/20/2022 [facility] Work Phone: Comment on above: 1 Occurrences starti ng 10/21/2021 until 11/20/2022 [facility] Immunizations Immunization Date Immunization Notes Care Provider Trell jimenes 02-28-2024 influenza, seasonal, injectable Bethany Fragoso APRN.CNP Work Phone: [facility] 02-28-2024 influenza virus vaccine, unspecified formulation Bethany Fragoso APRN.CNP Work Phone: [facility] 02-19-2021 influenza, seasonal, injectable Sammie Banks MD Work Phone: [facility] Work Phone: 02-19-2021 influenza virus vaccine, unspecified formulation Williams Mcnamara MD Work Phone: [facility] 02-25-2016 influenza, injectabl e, quadrivalent, contains preservative Sammie Banks MD Work Phone: [facility] Work Phone: 02-24-2010 influenza virus vaccine, unspecified formulation Sammie Banks MD Work Phone: [facility] Work Phone: 01-24-2009 influenza virus vaccine, unspecified formulation Sammie Banks MD Work Phone: [facility] Work Phone: 03-08-2008 influenza virus vaccine, unspecified formulation Sammie Banks MD Work Phone: [facility] 07-21-2005 tetanus toxoid, redu taylor diphtheria toxoid, and acellular pertussis vaccine, adsorbed Sammie Banks MD Work Phone: [facility] Work Phone: Payers Date Payer Category Payer Self-pay [id number] 2023 Private Health Insurance [id number] 2023 Private Health Insurance [id number] 2021 Unknown [id number] 2021 Unknown [id number] 2021 Unknown [employer] PPO [id number] 2021-Present [phone] [address] [place] [address] PPO [id number] 2002 Unknown OUT OF STATE [id number] 1960 Unknown [id number] 1960 Unknown [id number] Private Health Insurance [facility] [id number] Unknown [id number] Social History Date Type Detail Facility Start: 01-29-2011 End: 12-11-2022 Tobacco smoking status NHIS Never smoked tobacco [facility] Work Phone: Start: 01-29-2011 End: 06-18-2022 Tobacco use and exposure Former smokeless tobacco user [facility] Work Phone: End: 04-26-2014 History of tobacco use Chews Tobacco [facility] Work Phone: Start: 07-11-2021 End: 09-29-2024 Alcohol intake Current drinker of alcohol (finding) [facility] Start: 07-11-2021 End: 07-05-2023 Alcohol intake [facility] Start: 04-10-2020 History SDOH Alcohol Frequency 4 [facility] Start: 04-10-2020 End: 04-09-2021 History SDOH Alcohol Std Drinks 2 [facility] Start: 02-17-2021 History SDOH Alcohol Comment per week [facility] Start: 04-10-2020 End: 04-09-2021 History SDOH Social Connections Nondenominational 1 [facility] Start: 04-10-2020 History SDOH Social Connections Meetings 3 [facility] Start: 04-10-2020 History SDOH Physical Activity DPW 5 [facility] Start: 04-10-2020 History SDOH Physical Activity MPS 6 [facility] Start: 04-10-2020 Education 21 [facility] Start: 1960 Sex Assigned At Not on file [facility] Start: 07-01-2021 End: 12-17-2022 Exposure to SARS-CoV-2 (event) Not sure [facility] Work Phone: Tobacco smoking status No Smokin g Status Entered [facility] Start: 1960 Sex Assigned At Male [facility] Start: 06-18-2022 Tobacco Comment none [facility] Start: 07-29-2022 End: 12-11-2022 Tobacco smoking status NHIS Unknown if ever smoked [facility] Start: 11-05-2019 None;Occasional [facility] Start: 11-05-2019 None [facility] Start: 11-05-2019 Spouse/ Significant Other [facility] Start: 11-05-2019 Non-smoker [facility] Start: 11-19-2022 End: 07-05-2023 Tobacco use panel [facility] Start: 11-19-2022 Alcohol Comment 3 or 4 days a week [facility] Within the last year , have you been afraid of your partner or ex-partner? No [facility] Do you belong to any clubs or organizations such as shinto groups, [employer], [employer] or athletic groups, or school groups? Yes [facility] Are you now , , , , never or living with a partner? [facility] How often to you hav e a drink containing alcohol? 4 or more times a week [facility] How many standard dr inks containing alcohol do you have on a typical day? 3 or 4 [facility] How often do you hav e 6 or more drinks on 1 occasion? Less than monthly [facility] Start: 03-27-2012 How hard is it for you to pay for the very basics like food, housing, medical care, and heating Not hard at all [facility] Do you feel stress - tense, restless, nervous, or anxious, or unable to sleep at night because your mind is troubled all the time - these days [OSQ] Not at all [facility] (I/We) worried wheth er (my/our) food would run out before (I/we) got money to buy more. Never true [facility] How often to you hav e a drink containing alcohol? 2-3 time sa week [facility] Do you feel stress - tense, restless, nervous, or anxious, or unable to sleep at night because your mind is troubled all the time - these days [OSQ] To some extent [facility] Functional Status Date Assessment Result Facility 10-09-2014 Are you deaf, or do you have serious difficulty hearing No 10/09/2014 7:20 PM Loida Wood RN No [facility] 10-09-2014 Are you blind, or do you have serious difficulty seeing, even when wearing glasses No 10/09/2014 7:20 PM Loida Wood RN No [facility] 10-09-2014 Do you have serious difficulty walking or climbing stairs No 10/09/2014 7:20 PM EDT Loida Nicholas RN No [facility] 10-09-2014 Do you have difficul ty dressing or bathing No 10/09/2014 7:20 PM EDT Loida Nicholas RN No [facility] 10-09-2014 Because of a physica l, mental, or emotional condition, do you have difficulty doing errands alone such as visiting a physician's office or shopping No 10/09/2014 7:20 PM EDT Loida Nicholas RN No [facility] Mental Status Date Assessment Result Facility 10-09-2014 Because of a physica l, mental, or emotional condition, do you have serious difficulty concentrating, remembering, or making decisions No 10/09/2014 7:20 PM EDT Loida Nicholas RN No [facility] Clinical Notes 11-05-2019 to 02-28-2025 Note Date & Type Note Facility 02-28-2025 Note HNO ID: [id number] Author: SAMMIE BANKS MD Service: ? Author Type: Physician Type: Progress Notes Filed: 02/28/2025 11:45 Note Text: Reason for Visit Follow up HPI Elia Ozuna is a 64-year-old male with HTN, pre-diabetes, gout, JENIFER, asthma, and paroxysmal atrial fibrillation presenting for follow-up. Elia was diagnosed with paroxysmal atrial fibrillation approximately 2 years ago during a pre-op evaluation for knee surgery. He underwent a single cardioversion that maintained sinus rhythm for about 1 week, followed by a catheter ablation just over a year ago. Since the ablation, he reports significant improvement in symptoms, including better sleep, improved breathing, and resolution of previously unexplained dyspnea with exertion. He continues to experience occasional episodes of elevated heart rate lasting about a day, which his train gateman has reassured him are normal. He denies palpitations. He reports two prior episodes of syncope: one while sitting on a barstool with minimal alcohol intake, and another while walking up a steep hill during golf, requiring 30 minutes to recover. He is not currently on anticoagulation and is following up with his train gateman for medication clarification. He was evaluated by pulmonology last winter after 3 urgent care visits for cough requiring steroids. He was diagnosed with asthma and started on a twice-daily inhaler. He reports improved symptoms and has not required urgent care visits this summer. He continues to use CPAP nightly for JENIFER, but his current machine does not collect data. He inquires about newer technologies for JENIFER management. He reports daily tingling and occasional burning in both feet, top and bottom, present upon waking and throughout the day. This has been occurring for the past 6-8 months. He also experiences intermittent severe pain in individual toes. He notes the symptoms are less bothersome with increased activity. He is concerned about neuropathy and denies back problems. He was previously on allopurinol 300 mg daily, which was reduced and then discontinued. After stopping, he developed tingling in his left ankle that progressed to aching, which improved with colchicine. He has since resumed allopurinol at a lower dose. He is interested in weight loss medications and reports a BMI of 36. He walks 8,000-10,000 steps daily and does light weight lifting. SOCIAL HISTORY[1] Past medical history, appointments, medications, allergies reviewed. Pertinent Lab/Diagnostic Studies are reviewed and discussed today Current Outpatient Medications: fluticasone (FLONASE) 50 mcg/actuation nasal spray colchicine 0.6 mg tablet budesonide-formoterol (SYMBICORT) 160-4.5 mcg/actuation inhaler losartan (COZAAR) 50 mg tablet sildenafil (VIAGRA) 50 mg tablet esomeprazole (NEXIUM) 40 mg capsule levothyroxine (LEVOXYL) 175 mcg tablet atenolol (TENORMIN) 25 mg tablet CPAP albuterol HFA (VENTOLIN HFA) 90 mcg/actuation inhaler allopurinol (ZYLOPRIM) 300 mg tablet tirzepatide (MOUNJARO) 2.5 mg/0.5 mL pen injector Health Maintenance Shingrix Vaccine(1 of 2) DTaP,Tdap,Td Vaccine(2 - Td or Tdap) RSV Vaccine(1 - Risk 60-74 years 1-dose series) Influenza Vaccine(1)@ Review Of Systems Constitutional: (+) unintentional weight loss Cardiovascular: (-) palpitations Musculoskeletal: (-) back pain Neurological: (+) bilateral foot paresthesias, (+) bilateral foot burning sensation Physical Exam BP 126/80 Pulse (!) 56 Resp 16 Wt 131.1 kg (289 lb) BMI 36.12 kg/m? GENERAL: NAD, alert and oriented. SKIN: Unremarkable, no rash or skin lesions. HEAD: Normocephalic. EYES: PERRLA, EOMI, conjunctiva clear. EARS: External ears normal, canals clear, TM's normal. NOSE/SINUSES: Nares normal. Septum midline. OROPHARYNX: Lips, mucosa, and tongue normal, good dentition. No oral lesions noted. NECK: Supple, no lymphadenopathy, normal thyroid, no carotid bruits. LUNGS: Clear to auscultation bilaterally, no wheezes/rhonchi/rales. HEART: Regular rate and rhythm, no murmurs. No ectopy. EXTREMITIES: Normal, no deformities, no skin discoloration, no edema. NEURO: Awake, alert and oriented x3, cranial nerves II-XII grossly intact, normal gait, no involuntary motions. Labs: - Uric Acid: 5.1 - Uric Acid: 5.6 - Uric Acid: 4.8 - Uric Acid: 4.6 - TSH: normal Tests AND Prior Procedures: - June 2022 [id number]: 1 (hypertension); thromboembolic risk 0.6% Assessment and Plan 1. JENIFER (obstructive sleep apnea) (G47.33) JENIFER managed with AutoPAP (5-20 cm H2O); patient inquires about newer technologies and expresses concern about lack of data tracking with current machine. - Advised patient to contact DME provider regarding data tracking; will consider new machine if current device cannot provide data. - Discussed potential for JENIFER improvement with weight loss. 2. Idiopathic chronic gout without tophus, unspecifi (more content not included)... [facility] 02-01-2025 Progress note [facility] 02-01-2025 Evaluation note Diagnosis Onset Date Resolution Obesity acute February 01, 025 2:28pm Sleep apnea acute February 01, 2025 2:28pm Essential hypertension chronic Oc tober 2024 2:28pm Hyperlipidemia chronic January 2:28pm Paroxysmal atrial fibrillation chronic February 01 2:28pm [facility] Work Phone: 1(332) 234-371510-09-2025 Progress note Author Abhi Avalos [facility] Note Date/Time February 01, 2025 3: 42pm [facility] [address] [place] [address] OFFICE VISIT Date of Service: 02/01/25 MR#: [id number] Acct: [id number] Name: NORMA OZUNA Rep #: [id number] : [id number] Provider: EDWAR Avalos Age/Sex: 64/M Location: [facility] Status: Signed HPI HPI History of Present Illness Details: Arian Ozuna is a 64-year-old gentleman that presents here today for a cardiovascular follow up.? He has a hx of post COVID atrial fibrillation with RVR (04/2020).? His echocardiogram at that time demonstrated preserved ejection fraction.? It was not felt that he needed to be anticoagulated at that time.? Yuli have a history of hypertension. In May of 2022, he was in the process of being scheduled for knee meniscus surgery.? He was initially cleared by his PCP.? He then when back to the Orthopedics and was told he needs to be seen by cardiology.? He notes that his initial EKG was done in May of 2022. He was noted to be in Afib at that time. He was started on atenolol and ASA by his PCP.? He did undergo a stress test in July of 2022 which was negative for ischemia at a high workload. Echocardiogram demonstrated an EF of 55% with normal atrium. He did undergo a cardioversion after he was anticoagulated for 30days. Unfortunately he did not maintain sinus rhythm. He was seen at [facility] with Dr. Mcnamara and underwent successful pulmonary vein isolation procedure and cardioversion on 12/04/2022. He denies chest, arm, jaw, or neck discomfort. He states palpitations. He denies bilateral lower extremity edema. He denies claudication. He denies shortness of breath with activity, shortness of breath at rest, orthopnea, or PND. He denies chronic cough. He denies significant, sudden weight gain. He denies lightheadedness, dizziness, near-syncope, or syncope. He denies blood inurine, blood in stool, or epistaxis. He denies fever with chills. He denies myalgia. He denies fatigue. His exercise level has remained stable. Intake Vital Signs 02/03/24 15:16 02/01/25 11:33 Height 6 ft 3 in 6 ft 3 in Weight: 290 lb BMI 36.2 BP 156/90 H Blood Pressure Location Lt brachial Position Sitting Respiration 18 Pulse 59 L Pulse Source Monitor Pulse Oximetry (%) 96 Intake Visit Reasons: 1 Y FU Belt Maker Required: No Is patient in pain?: No Allergies Penicillins (PCN) Allergy (Verified 02/01/25 14:42) PT UNSURE OF REACTION sertraline (From Zoloft) Adverse Reaction (Intermediate, Verified 02/01/25 14:42) Other Medications ?Medication ?Instructions ?Recorded ?Confirmed ?Type esomeprazole magnesium 40 mg 40 mg PO DAILY 06/04/18 1 History capsule,delayed release (Nexium) losartan 50 mg tablet 50 mg PO DAILY 06/04/1801/18 History albuterol sulfate 90 mcg/actuation 1 - 2 puff inhalati on Q4H PRN PRN 11/05/19 02/01/25 History aerosol inhaler Sob &/Or Wheezing allopurinol 300 mg tablet 300 mg PO DAILY 11/05/1901/18 History levothyroxine 175 mcg tablet 175 mcg PO DAILY 11/05/19 02/01/25 History Blood pressure cuff #1 ea 04/30/20 02/01/25 Rx budesonide-formoterol HFA 80 2 puff inhalation BID PRN 07/20/22 02/01/25 History mcg-4.5 mcg/actuation aerosol Shortness Of Breath inhaler (Symbicort) fluticasone propionate 50 2 spray intranasal DAILY 02/01/25 History mcg/actuation nasal spray,suspension sildenafil 50 mg tablet (Viagra) 50 mg PO DAILY PRN 02/01/25 History atenolol 50 mg tablet 50 mg PO DAILY #90 tabs 10/2502/01/25 Rx apixaban 5 mg tablet (Eliquis) 5 mg PO BID PRN Fax to 02/01/25 02/01/25 Rx [employer] #60 tabs semaglutide (weight loss) 0.25 0.25 mg (0.5 mL) subcut QWEEK #2 mL 02/01/25 02/01/25 Rx mg/0.5 mL subcutaneous pen injector (Wegovy) Ejection fraction %: 55 Have you fallen in the past year?: No PFSH Medical History (Updated 02/01/25 @ 15:34 by Abhi Avalos FRONT DESK COORDINATOR, FRONT DESK COORDINATOR-C) Paroxysmal atrial fibrillation Chondromalacia patellae of right knee Synovial cyst of popliteal space [Fofana], right knee Unilateral primary osteoarthritis, right knee Complex tear of medial meniscus as current injury Right knee pain Obesity (BMI 35.0-39.9 without comorbidity) Erectile dysfunction Insomnia Hyperlipidemia Hypothyroidism Sleep apnea Gout COPD (chronic obstructive pulmonary disease) Asthma GERD without esophagitis COVID-19 virus detected (11/05/19) Vitamin D deficiency Essential hypertension Gout Hypothyroidism Asthma Bronchospasm, acute Atrial fibrillation with rapid ventricular response (11/05/19) Surgical History History of cardiac radiofrequency ablation (12/04/22) History of arthroscopy of knee History of arthroscopy of left shoulder (~1999) History of arthroscopy of right shoulder History of radial keratotomy History of vasectomy Family History Mother Diabetes Heart disease Fibromyalgia Father Heart disease Hyperlipidemia Thyroid disorder CAD (coronary artery disease) CABG Myocardial infarction, Onset Age: 62 OR-CABG Grandfather Cancer prostate Father Arthritis Hypertension Mother Diabetes Arthritis Social History Smoking Status: Never smoker Smokeless tobacco user: chewing tobacco how long ago did patient quit smokin alcohol intake: current alcohol intake frequency: a few times a week substance use type: does not use ROS Const Const: Negative for fatigue, weakness, headache(s) or frequent falls Eyes Eyes: Negative for blurry vision ENT ENT: Negative for headache(s), dizziness or Nosebleed/epistaxis Cardio Chest Pain: No Palpitations: No Edema: None Muscle aches with walking: None Resp Respiratory: Negative for SOB with activity, SOB at rest or SOB orthopnea\SOB lying down GI GI: Positive for heartburn; Negative nausea, vomiting, bright, red blood in stools or black,tarry stools : Negative for hematuria Musc Musc: Negative for muscle aches/ myalgia Skin Skin: Negative non-healing lesions or rash Neuro Neuro: Negative for dizziness, lightheadedness, near syncope, syncope, frequent falls, headache(s), weakness or blurry vision Endo Endo: Negative for fatigue Allergy Allergy/Immunology: Negative for rash Cardiology Exam Const Appearance: cooperative, healthy appearing, comfortable and no acute distress Nutritional Appearance: well nourished and obese Orientation: alert, awake and oriented x3 Head Head: normal to inspection Ears: hearing grossly normal bilaterally Nose: external nose normal Face and Sinus: face symmetric Mouth: moist mucous membranes Eyes General: appearance normal, both eyes and all related structures Eyelids: eyelids normal EOM: EOM intact bilaterally Neck Neck: normal visual inspection and no JVD Carotids: normal carotid upstroke Chest Chest inspection: normal inspection of the chest, symmetric chest movement and normal respiratory effort; Negative cough Auscultation: Bilateral: Clear to Auscultation Cardio Rate: regular rate Rhythm: regular rhythm Heart sounds: S1 normal and S2 normal; Negative rub, gallop or murmur GI GI: normal to inspection and obese Neuro General: patient alert, patient awake, patient oriented x3 and CN's II-XI intact bilaterally Skin Skin: no rashes or lesions noted Extremities Pulses: Normal: Right Posterior Tibial Pulse, Left Posterior Tibial Pulse, Right Radial Pulse and Left Radial Pulse Lower Extremity Edema: None: Bilateral Psych Psychological: normal affect Supplemental Info Supplemental Information ECHOCARDIOGRAM 08/19/22 Interpretation Summary Normal LV size. Left ventricular systolic function is normal. The estimated ejection fraction is 55 %. Contrast injection was performed. The study was technically difficult. Echocardiogram 11/05/2019: Normal LV size. Mild concentric left ventricular hypertrophy. Left ventricular systolic function is normal. The estimated ejection fraction is 65 %. Contrast injection was performed. Stress Test Report: 08/19/22 Conclusion: Normal exercise myocardial perfusion stress test at a high workload Preserved ejection fraction. Atrial fibrillation Labs: LDL Cholesterol, (0-130) 164 mg/dL H HDL Cholesterol, (40-) 55 mg/dL Cholesterol, (200) 243 mg/dL H Triglycerides, (-199) 118 mg/dL Diagnostics: Electrocardiogram Echocardiogram Stress Test Stress Test Nuclear Medicine Chest X-Ray Past Visits: Cardiology Visit 02/01/25 Assessment and Plan Assessment and Plan (1) Paroxysmal atrial fibrillation: Status: Chronic Comment: S/p ablation on 12/04/2022 at [facility]; Plan: He states that all of his previous symptoms have completely resolved since ablation.. He appears to be in a regular rhythm on exam. He will continue atenolol for rate control. He will continue Eliquis for CVA protection. As he had in sinus rhythm and is considered low risk for CVA, we opted to discontinue Eliquis. (2) Essential hypertension: Status: Chronic Plan: Patient's blood pressure is well-controlled. We will continue to monitor. We will not make any medication regimen changes. (3) Hyperlipidemia: Status: Chronic Qualifiers: Hyperlipidemia type: unspecified Qualified Code(s): E78.5 - Hyperlipidemia, unspecified Plan: This is being followed with primary care provider. He will continue risk factor and lifestyle modification. (4) Sleep apnea: Status: Acute Comment: CPAP therapy; Plan: Will consider Zepbound if Wegovy is not covered. He has appointment with community support specialist. (5) Obesity: Status: Acute Plan: Will send prescription for GLP-1 medication. Medications: New 2 semaglutide (weight loss) (Wegovy) administer weeks 1 through 4 of therapy 0.25 mg (0.5 mL) subcut QWEEK 2 mL 0RF Changed From apixaban (Eliquis) 5 mg PO BID 60 tabs 11RF Fax to [employer] To apixaban (Eliquis) 5 mg PO BID PRN 60 tabs 11RF Fax to [employer] Plan Details Additional Comments: Thank you for allowing us to participate in the patients plan of care, if you have any questions please do not hesitate to call. Plan was reviewed with patient/family member along with red flag symptoms. Understanding was acknowledged. Questions were answered to apparent satisfaction. This note was generated using a voice recognition system and there may be incorrect words, spelling or punctuation that were not noted when reviewing the office note prior to saving. Portions of this documentation were copied and pasted from previous office visit notes to provide a cohesive continuity of the history. The note has been reviewed, edited, and updated, as necessary. Follow Up: 12-15 Months ([facility]) Coding Level of Care Code Off vis,est,level 4 Diagnoses Paroxysmal atrial fibrillation I48.0 Essential hypertension I10 Hyperlipidemia, unspecified hyperlipidemia type E78.5 Hyperlipidemia type: unspecified Sleep apnea G47.30 Obesity E66.9 Coding Level of Care Code Off vis,est,level 4 Diagnoses Paroxysmal atrial fibrillation I48.0 Essential hypertension I10 Hyperlipidemia, unspecified hyperlipidemia type E78.5 Hyperlipidemia type: unspecified Sleep apnea G47.30 Obesity E66.9 Clinical Quality Measures Falls Risk Screening/Assistive Devices Have you fallen in the past year?: No Cardiac Ejection fraction %: 55 02/08/25 1206 <Electronically signed by Abhi Pinto FRONT DESK COORDINATOR-C> Date _ Abhi Avalos NP FRONT DESK COORDINATOR-C Cosigner Signature: Date (if applicable) CC: Dr. Sammie Banks MD; Dr. Moniqeu Gomez MD ~ [facility] [employer] Work Phone: 1(646) 860-623806-24-2025 Telephone encounter Note* Telephone Encounter - Gaby Syed LPN - 10/17/2024 4:12 PM EDT Phoned patient left detailed message on voicemail that Bethany Fragoso FRONT DESK COORDINATOR said if he is still having concerns would need to be evaluated again. To call back to schedule an appt. [facility]06-24-2025 Miscellaneous Notes* Telephone Encounter - Gaby Syed LPN - 10/17/2024 4:12 PM EDT Phoned patient left detailed message on voicemail that Bethany Older FRONT DESK COORDINATOR said if he is still having concerns would need to be evaluated again. To call back to schedule an appt. * Telephone Encounter - Gaby Syed LPN - 10/17/2024 4:09 PM EDT ----- Message from Bethany Fragoso APRN.CNP sent at 10/16/2024 9:59 AM EDT ----- ----- Message from Susana Duval MA sent at 10/16/2024 9:39 AM EDT ----- Uric acid is in normal range. Is he still having symptoms? Have they resolved? If so, continue current dose of allopurinol. Thank you Bethany Fragoso APRN.CNP * Telephone Encounter - Bethany Fragoso APRN.CNP - 10/16/2024 9:59 AM EDT If he is still having concerns he needs evaluated. Thank you Bethany Fragoso APRN.ENGINEERING SPECIALIST * Telephone Encounter - Susana Duval MA - 10/16/2024 9:38 AM EDT Spoke with patient, pain in ankle went away with medication. Toes feel numb and stiff, unsure if itis arthritis is something else? * Telephone Encounter - Susana Duval MA - 10/16/2024 9:36 AM EDT ----- Message from Bethany Fragoso APRN.CNP sent at 10/16/2024 7:26 AM EDT ----- Uric acid is in normal range. Is he still having symptoms? Have they resolved? If so, continue current dose of allopurinol. Thank you Bethany Fragoso APRN.ENGINEERING SPECIALIST [facility] Telephone encounter Note * Telephone Encounter - Gaby Syed LPN - 10/17/2024 4:09 PM EDT ----- Message from Bethany Fragoso APRN.CNP sent at 10/16/2024 9:59 AM EDT ----- ----- Message from Susana Duval MA sent at 10/16/2024 9:39 AM EDT ----- Uric acid is in normal range. Is he still having symptoms? Have they resolved? If so, continue current dose of allopurinol. Thank you Bethany Fragoso APRN.ENGINEERING SPECIALIST [facility]2025 Telephone encounter Note* Telephone Encounter - Bethany Fragoso APRN.CNP - 10/16/2024 9:59 AM EDT If he is still having concerns he needs evaluated. Thank you Bethany Fragoso APRN.ENGINEERING SPECIALIST [facility]2025 Telephone encounter Note* Telephone Encounter - Susana Duval MA - 10/16/2024 9:38 AM EDT Spoke with patient, pain in ankle went away with medication. Toes feel numb and stiff, unsure if itis arthritis is something else? [facility]2025 Telephone encounter Note* Telephone Encounter - Susana Duval MA - 10/16/2024 9:36 AM EDT ----- Message from Bethany Fragoso APRN.CNP sent at 10/16/2024 7:26 AM EDT ----- Uric acid is in normal range. Is he still having symptoms? Have they resolved? If so, continue current dose of allopurinol. Thank you Bethany Fragoso APRN.ENGINEERING SPECIALIST [facility]06-16-2025 Telephone encounter Note* Telephone Encounter - Susana Duval MA - 10/09/2024 4:15 PM EDT Left detailed message on secure VM. [facility]06-16-2025 Miscellaneous Notes* Telephone Encounter - Susana Duval MA - 10/09/2024 4:15 PM EDT Left detailed message on secure VM. * Telephone Encounter - Bethany Fragoso APRN.CNP - 10/09/2024 1:37 PM EDT Colchicine ordered. Take 2 tablets received then 1 tablet twice a day until gone. Follow up if no improvement or wrosening symptoms in case this is not gout and something else. Once resolved restart the 300mg dose of allopurinol. He got his answer and needs to continue this medication unfortunately. I reordered for his uric acid to be rechecked. Thank you Bethany Fragoso APRN.ENGINEERING SPECIALIST * Telephone Encounter - Ginette Callahan RN - 10/09/2024 11:03 AM EDT Pt's called in to report general sx's pt was having. This nurse informed that this nurse would call patient to gain further specific information from him. During call, pt states he believes he is having a gout flare-up in his left foot. Pt takes allopurinol. Pt saw Yun Fragoso CNP on 08/28/24 and due to no recent gout flares and normal recent uric acid level, he was advised to reduce it to a lower dose of 100 mg daily, which he did about 3-4 weeks ago. Reports last week he noticed his left foot exhibiting his usual gout sx's. Reports some of his toes are red and swollen and he can feel the flare into his left ankle as well, which he states is typical of his past gout flare-ups. Pt asking if provider would advise him, and also prescribe other gout medication for his flare. Call patient at [phone] Ginette Callahan RN documented [facility] Telephone encounter Note * Telephone Encounter - Bethany Fragoso APRN.CNP - 10/09/2024 1:37 PM EDT Colchicine ordered. Take 2 tablets received then 1 tablet twice a day until gone. Follow up if no improvement or wrosening symptoms in case this is not gout and something else. Once resolved restart the 300mg dose of allopurinol. He got his answer and needs to continue this medication unfortunately. I reordered for his uric acid to be rechecked. Thank you Bethany Fragoso APRN.BRANDON [facility]06-16-2025 Telephone encounter Note* Telephone Encounter - Ginette Callahan RN - 10/09/2024 11:03 AM EDT Pt's called in to report general sx's pt was having. This nurse informed that this nurse would call patient to gain further specific information from him. During call, pt states he believes he is having a gout flare-up in his left foot. Pt takes allopurinol. Pt saw Yun Fragoso CNP on 08/28/24 and due to no recent gout flares and normal recent uric acid level, he was advised to reduce it to a lower dose of 100 mg daily, which he did about 3-4 weeks ago. Reports last week he noticed his left foot exhibiting his usual gout sx's. Reports some of his toes are red and swollen and he can feel the flare into his left ankle as well, which he states is typical of his past gout flare-ups. Pt asking if provider would advise him, and also prescribe other gout medication for his flare. Call patient at [phone] Ginette Callahan RN [facility]06-06-2025 History of Present illness Narrative* Monique Gomez MD - 09/29/2024 8:45 AM EDT Images from the original note were not included. . Respiratory [place] Note Patient name: Norma Ozuna PCP: Sammie Banks MD Referring Physician: Jatin Shaffer PA-C Consultation requested by Jatin Shaffer for an opinion regarding cough. My final recommendations will be communicated back to the requesting physician by way of shared Medical record or letter to requesting physician via US mail. Recording using [employer] software for draft documentation of the visit was discussed with the patient/authorized claims service representative; all questions welcomed and answered. Patient/authorized claims service representative agreed to proceed CC: Cough HPI: Norma Ozuna 64 year old male non-smoker with PMH significant for obesity, history of asthma with COPD (no PFTs on file), GERD, HTN, HLD, AF s/p ablation being seen for evaluation of chronic cough. Elia reports a chronic cough and dyspnea that have been ongoing for several years. He is currently using Symbicort 80/4.5 once daily in the morning. He denies any history of oral thrush. Elia describes his cough as persistent, with increased sputum production in the mornings. He notes thathis cough is more pronounced in the mornings and sputum is slightly discolored. He has SOB that is exacerbated by physical exertion. He also experiences occasional wheezing. He denies any nocturnal aw akenings due to cough or SOB. He reports that his symptoms worsen during the winter months, particularly when he contracts a URI, stating, I cannot get rid of it. He underwent three courses of steroids this past winter. He denies any exacerbation of symptoms with exposure to cold air, heat, humidity, strong odors, fumes, smoke, or cleaning chemicals. His current respiratory issues worsened after COVID infection. He has a history of allergies and received allergy shots for several years in theremote past. He denies any family history of asthma, allergies, or eczema or personal history of childhood asthma. Patient has known acid reflux disease but reports that his GERD is well-controlled with medication and denies any late-night snacking. DATA: SERVICE DATE: 09/29/2024 SERVICE TIME: 8:18 AM Oral Exhaled Nitric Oxide measurement: 21.0 (ppb) PFT: Mild obstruction that improves with bronchodilator. Diffusion is normal Labs: Component Ref Range & Units 6 mo ago 3 yr ago 6 yr ago WBC 3.70 - 11.00 k/uL 8.48 10.58 7.97 RBC 4.20 - 6.00 m/uL 4.97 5.78 5.30 Hemoglobin 13.0 - 17.0 g/dL 15.5 17.6 High 15.7 Hematocrit 39.0 - 51.0 % 47.3 53.7 High 48.2 MCV 80.0 - 100.0 fL 95.2 92.9 90.9 MCH 26.0 - 34.0 pg 31.2 30.4 R 29.6 R MCHC 30.5 - 36.0 g/dL 32.8 32.8 32.6 RDW-CV 11.5 - 15.0 % 12.8 12.6 13.0 Platelet Count 150 - 400 k/uL 205 254 234 MPV 9.0 - 12.7 fL 12.3 13.0 High 12.2 Neutrophils % % 55.5 53.0 56.4 Abs Neut 1.45 - 7.50 k/uL 4.70 5.61 4.49 Lymphocytes % % 32.4 33.9 30.4 Abs Lymph 1.00 - 4.00 k/uL 2.75 3.59 2.42 Monocytes % % 8.8 10.6 11.5 Abs Steele <0.87 k/uL 0.75 1.12 High 0.92 High Eosinophils % % 2.2 1.7 1.1 Abs Eosin <0.46 k/uL 0.19 0.18 0.09 Basophils % % 0.7 0.8 0.6 Abs Baso <0.11 k/uL 0.06 0.08 0.05 Immature Granulocytes % % 0.4 Abs Immature Gran <0.10 k/uL 0.03 NRBC /100 WBC 0.0 Absolute nRBC <0.01 k/uL <0.01 <0.01 <0.01 Diff Type Auto Imaging / Diagnostic Studies: DATE OF EXAM: Jun 27 2024 6:15PM WOX 5291 - XR CHEST 2V FRONTAL/LAT / PROCEDURE REASON: Subacute cough EXAM DATE/TIME: 06/27/2024 6:15 PM COMPARISON: No relevant prior studies available. RESULT: Lines, tubes, and devices: None. Lungs and pleura: No consolidation. No lung mass. No pleural effusion. No pneumothorax. Cardiomediastinal silhouette: Normal cardiomediastinal silhouette. Bones and soft tissues: Degenerative changes are present within the thoracic spine. DISH is noted in the thoracic spine. Chest xray reviewed and is unremarkable PAST MEDICAL HISTORY Diagnosis Date COPD (chronic obstructive pulmonary disease) (HCC) Esophageal reflux Gastroesophageal reflux Essential hypertension Gout High cholesterol Hypothyroidism Unspecified asthma(493.90) ALLERGIES Allergen Reactions Penicillins Zoloft [Sertraline * Intolerance Sleepiness budesonide-formoterol (SYMBICORT) 80-4.5 mcg/actuation inhaler Inhale 2 puffs as instructed two times a day. losartan (COZAAR) 50 mg tablet Take 0.5 tablets by mouth once daily. sildenafil (VIAGRA) 50 mg tablet Take 1 to 2 pills one hour prior to sexual activity esomeprazole (NEXIUM) 40 mg capsule Take 1 capsule by mouth once daily. levothyroxine (LEVOXYL) 175 mcg tablet Take 1 tablet by mouth once daily. Except take 1.5 tablets on Sundays. Take on empty stomach. For thyroid. atenolol (TENORMIN) 25 mg tablet Take 0.5 tablets by mouth once daily. fluticasone (FLONASE) 50 mcg/actuation nasal spray Use 1 [place] in each nostril once daily. allopurinol (ZYLOPRIM) 100 mg tablet Take 1 tablet by mouth once daily. (Patient not taking: Reported on 09/29/2024) allopurinol (ZYLOPRIM) 300 mg tablet TAKE ONE TABLET BY MOUTH EVERY DAY FOR FOR GOUT (Patient not taking: Reported on 09/29/2024) CPAP Initiate Auto PAP @ 5-20 cm of water with humidification. Mask (per patient preference) optional chin strap (if indicated) , filters, tubing, humidifier and lifetime supplies. albuterol HFA (VENTOLIN HFA) 90 mcg/actuation inhaler Inhale 2 Puffs as instructed every 4 hours asneeded for wheezing/shortness of breath. Social History Tobacco Use Smoking status: Never Smokeless tobacco: Former Types: Chew Quit date: 04/26/2014 Tobacco comments: none Substance Use Topics Alcohol use: Yes Alcohol/week: 10.0 standard drinks of alcohol Types: 10 Cans of Beer (12oz) per week Comment: per week Drug use: No Pets: None 2-year occupational exposure history to PVC pipe dust FAMILY HISTORY Problem Relation Age of Onset Diabetes Mother Heart Mother other (fibramylgia) Mother Heart Father Lipids Father Thyroid Father Prostate Cancer Paternal Grandfather age 92 PAST SURGICAL HISTORY Procedure Laterality Date COLONOSCOPY FLX DX W/COLLJ SPEC WHEN PFRMD 03/04/2011 Colonoscopy-repeat in COLONOSCOPY FLX DX W/COLLJ SPEC WHEN PFRMD 03/03/2021 ESOPHAGOGASTRODUODENOSCOPY TRANSORAL DIAGNOSTIC 03/04/2011 EGD EYE SURGERY HX PAST SURGICAL HISTORY OF SHOULDER ARTHROSCOPY right RADIAL KERATOTOMY VASECTOMY UNI/BI SPX W/POSTOP SEMEN EXAMS PMH, Social history, family history and surgical history reviewed and updated in EMR REVIEW OF SYSTEMS: CONSTITUTIONAL: No fevers, chills, nightsweats, unintended weight loss HEENT: Some nasal congestion/sinus symptoms. History of seasonal allergies CARDIOVASCULAR: No chest pain, dyspnea, palpitations, orthopnea, edema. PULM: See HPI GI: No dysphagia/odynophagia, problematic reflux NEURO: No balance problems, peripheral weakness/paresthesias or numbness of concern. MUSC-SKEL: No joint pain, swelling, or erythema. PSY: No concerns regarding depression, anxiety INTEGUMENTARY: No new skin changes, hives, eczema PHYSICAL EXAMINATION: BP 118/66 Pulse 55 Resp 17 SpO2 97% General Appearance: Obese male, NAD Skin: Skin color, texture, turgor normal, no suspicious rashes or lesions. Head: Normocephalic, no masses, lesions, tenderness or abnormalities. Oropharynx: No oral lesions, erythema or cobblestoning. Neck: No masses or adenopathy. Lungs: Not labored, normal to percussion, no wheezes or crackles. Heart: Regular rate and rhythm, no murmurs gallops. Extremities: No edema or clubbing. Assessment/Plan: 1. Mild persistent asthma, uncomplicated -Clinical history and pulmonary function testing consistent with asthma that is not well-controlled -Changed inhaled therapy to Symbicort 160/4.52 puffs twice daily with spacing device -Patient instructed to pretreat with albuterol prior to exercise -Repeat spirometry at next visit 2. History of seasonal allergies -History of seasonal allergies that do not seem to be problematic at this time -Continue Flonase and consider OTC antihistamine if needed 3. Gastroesophageal reflux -Discussed the correlation of GERD and asthma -Antireflux measures -Continue proton pump inhibitor -Weight loss would be helpful 4. Class I obesity -BMI 34 -Weight loss advised Monique Gomez MD [facility] [place] [facility] NoteHNO ID: [id number] Author: MONIQUE GOMEZ MD Service: ? Author Type: Physician Type: Progress Notes Filed: 09/29/2024 09:16 Note Text: . [facility] [place] Note Patient name: Norma Ozuna PCP: Sammie Banks MD Referring Physician: Jatin Shaffer PA-C Consultation requested by Jatin Shaffer for an opinion regarding cough. My final recommendations will be communicated back to the requesting physician by way of shared Medical record or letter to requesting physician via US mail. Recording using [employer] software for draft documentation of the visit was discussed with the patient/authorized claims service representative; all questions welcomed and answered. Patient/authorized claims service representative agreed to proceed CC: Cough HPI: Norma Ozuna 64 year old male non-smoker with PMH significant for obesity, history of asthma with COPD (no PFTs on file), GERD, HTN, HLD, AF s/p ablation being seen for evaluation of chronic cough. Elia reports a chronic cough and dyspnea that have been ongoing for several years. He is currently using Symbicort 80/4.5 once daily in the morning. He denies any history of oral thrush. Elia describes his cough as persistent, with increased sputum production in the mornings. He notes that his cough is more pronounced in the mornings and sputum is slightly discolored. He has SOB that is exacerbated by physical exertion. He also experiences occasional wheezing. He denies any nocturnal awakenings due to cough or SOB. He reports that his symptoms worsen during the winter months, particularly when he contracts a URI, stating, I cannot get rid of it. He underwent three courses of steroids this past winter. He denies any exacerbation of symptoms with exposure to cold air, heat, humidity, strong odors, fumes, smoke, or cleaning chemicals. His current respiratory issues worsened after COVID infection. He has a history of allergies and received allergy shots for several years in the remote past. He denies any family history of asthma, allergies, or eczema or personal history of childhood asthma. Patient has known acid reflux disease but reports that his GERD is well-controlled with medication and denies any late-night snacking. DATA: SERVICE DATE: 09/29/2024 SERVICE TIME: 8:18 AM Oral Exhaled Nitric Oxide measurement: 21.0 (ppb) PFT: Mild obstruction that improves with bronchodilator. Diffusion is normal Labs: Component Ref Range AND Units 6 mo ago 3 yr ago 6 yr ago WBC 3.70 - 11.00 k/uL 8.48 10.58 7.97 RBC 4.20 - 6.00 m/uL 4.97 5.78 5.30 Hemoglobin 13.0 - 17.0 g/dL 15.5 17.6 High 15.7 Hematocrit 39.0 - 51.0 % 47.3 53.7 High 48.2 MCV 80.0 - 100.0 fL 95.2 92.9 90.9 MCH 26.0 - 34.0 pg 31.2 30.4 R 29.6 R MCHC 30.5 - 36.0 g/dL 32.8 32.8 32.6 RDW-CV 11.5 - 15.0 % 12.8 12.6 13.0 Platelet Count 150 - 400 k/uL 205 254 234 MPV 9.0 - 12.7 fL 12.3 13.0 High 12.2 Neutrophils % % 55.5 53.0 56.4 Abs Neut 1.45 - 7.50 k/uL 4.70 5.61 4.49 Lymphocytes % % 32.4 33.9 30.4 Abs Lymph 1.00 - 4.00 k/uL 2.75 3.59 2.42 Monocytes % % 8.8 10.6 11.5 Abs Steele <0.87 k/uL 0.75 1.12 High 0.92 High Eosinophils % % 2.2 1.7 1.1 Abs Eosin <0.46 k/uL 0.19 0.18 0.09 Basophils % % 0.7 0.8 0.6 Abs Baso <0.11 k/uL 0.06 0.08 0.05 Immature Granulocytes % % 0.4 Abs Immature Gran <0.10 k/uL 0.03 NRBC /100 WBC 0.0 Absolute nRBC <0.01 k/uL <0.01 <0.01 <0.01 Diff Type Auto Imaging / Diagnostic Studies: DATE OF EXAM: Jun 27 2024 6:15PM WOX [id number] - XR CHEST 2V FRONTAL/LAT / PROCEDURE REASON: Subacute cough EXAM DATE/TIME: 06/27/2024 6:15 PM COMPARISON: No relevant prior studies available. RESULT: Lines, tubes, and devices: None. Lungs and pleura: No consolidation. No lung mass. No pleural effusion. No pneumothorax. Cardiomediastinal silhouette: Normal cardiomediastinal silhouette. Bones and soft tissues: Degenerative changes are present within the thoracic spine. DISH is noted in the thoracic spine. Chest xray reviewed and is unremarkable PAST MEDICAL HISTORY Diagnosis Date COPD (chronic obstructive pulmonary disease) (HCC) Esophageal reflux Gastroesophageal reflux Essential hypertension Gout High cholesterol Hypothyroidism Unspecified asthma(493.90) ALLERGIES Allergen Reactions Penicillins Zoloft [Sertraline * Intolerance Sleepiness budesonide-formoterol (SYMBICORT) 80-4.5 mcg/actuation inhaler Inhale 2 puffs as instructed two times a day. losartan (COZAAR) 50 mg tablet Take 0.5 tablets by mouth once daily. sildenafil (VIAGRA) 50 mg tablet Take 1 to 2 pills one hour prior to sexual activity esomeprazole (NEXIUM) 40 mg capsule Take 1 capsule by mouth once daily. levothyroxine (LEVOXYL) 175 mcg tablet Take 1 tablet by mouth once daily. Except take 1.5 tablets on Sundays. Take on empty stomach. For thyroid. atenolol (TENORMIN) 25 mg tablet Take 0.5 tabl (more content not included)... [facility]06-06-[facility]25 NoteHNO ID: [id number] Author: GERMAN ART, NAT Service: ? Author Type: Registered Resp Therapist Type: Procedures Filed: 09/29/2024 08:18 Note Text: RESPIRATORY THERAPY ORAL EXHALED NITRIC OXIDE SERVICE DATE: 09/29/2024 SERVICE TIME: 8:18 AM Oral Exhaled Nitric Oxide measurement: 21.0 (ppb) Normal: Adult <25 ppb, pediatric (<12 years) <20 ppb High Normal / Increased: Adult 25-50 ppb, pediatric (<12 years) 20-35 ppb Moderately raised exhaled Nitric Oxide may indicate underlying inflammation, but note that: Cold and influenza can raise exhaled Nitric Oxide and some patients have higher baseline exhaled Nitric Oxide levels than others. High: Adult >50 ppb, pediatric (<12 years) >35 ppb Indicative of ongoing eosinophilic inflammation. Symptomatic patient likely to respond to steroids. Possible causes (if already on steroids): Poor compliance, recent allergen exposure, steroid dose inadequate, and steroid resistance. Note that not all patients with high exhaled nitric oxide levels display symptoms. Oral Exhaled Nitric Oxide measurement (Previous Encounters) Test Date Oral Exhaled Nitric Oxide (ppb) 09/29/2024 21.0 NAME: German Art RRT PATIENT NAME: Norma Ozuna DATE: September 29, 2024 TIME: 8:18 [facility]06-06-2025 Procedure note* German Art RRT - 09/29/2024 8:18 AM EDTAssociated Order(s): NITRIC OXIDE, EXHALED RESPIRATORY THERAPY ORAL EXHALED NITRIC OXIDE SERVICE DATE: 09/29/2024 SERVICE TIME: 8:18 AM Oral Exhaled Nitric Oxide measurement: 21.0 (ppb) Normal: Adult <25 ppb, pediatric (<12 years) <20 ppb High Normal / Increased: Adult 25-50 ppb, pediatric (<12 years) 20-35 ppb Moderately raised exhaled Nitric Oxide may indicate underlying inflammation, but note that: Cold and influenza can raise exhaled Nitric Oxide and some patients have higher baseline exhaled Nitric Oxide levels than others. High: Adult >50 ppb, pediatric (<12 years) >35 ppb Indicative of ongoing eosinophilic inflammation. Symptomatic patient likely to respond to steroids. Possible causes (if already on steroids): Poor compliance, recent allergen exposure, steroid dose inadequate, and steroid resistance. Note that not all patients with high exhaled nitric oxide levels display symptoms. Oral Exhaled Nitric Oxide measurement (Previous Encounters) Test Date Oral Exhaled Nitric Oxide (ppb) 09/29/2024 21.0 NAME: German Art RRT PATIENT NAME: Norma Ozuna DATE: September 29, 2024 TIME: 8:18 AM [facility] Procedure note* German Art RRT - 09/29/2024 8:18 AM EDTAssociated Order(s): NITRIC OXIDE, EXHALED RESPIRATORY THERAPY ORAL EXHALED NITRIC OXIDE SERVICE DATE: 09/29/2024 SERVICE TIME: 8:18 AM Oral Exhaled Nitric Oxide measurement: 21.0 (ppb) Normal: Adult <25 ppb, pediatric (<12 years) <20 ppb High Normal / Increased: Adult 25-50 ppb, pediatric (<12 years) 20-35 ppb Moderately raised exhaled Nitric Oxide may indicate underlying inflammation, but note that: Cold and influenza can raise exhaled Nitric Oxide and some patients have higher baseline exhaled Nitric Oxide levels than others. High: Adult >50 ppb, pediatric (<12 years) >35 ppb Indicative of ongoing eosinophilic inflammation. Symptomatic patient likely to respond to steroids. Possible causes (if already on steroids): Poor compliance, recent allergen exposure, steroid dose inadequate, and steroid resistance. Note that not all patients with high exhaled nitric oxide levels display symptoms. Oral Exhaled Nitric Oxide measurement (Previous Encounters) Test Date Oral Exhaled Nitric Oxide (ppb) 09/29/2024 21.0 NAME: German Art RRT PATIENT NAME: Norma Ozuna DATE: September 29, 2024 TIME: 8:18 AM documented in [facility]06-[facility] Telephone encounter Note * Telephone Encounter - Susana Duval MA - 09/25/2024 10:30 AM EDT Patient notified and will let office know if general surgery referral is wanted. [facility]06-02-[facility] Miscellaneous Notes* Telephone Encounter - Susana Duval MA - 09/25/2024 10:30 AM EDT Patient notified and will let office know if general surgery referral is wanted. * Telephone Encounter - Susana Duval MA - 09/25/2024 10:29 AM EDT ----- Message from Bethany Fragoso APRN.ENGINEERING SPECIALIST sent at 09/24/2024 12:15 PM EDT ----- Mass is most likely a fatty tumor which is not concerning but if it is tender and he would like this removed, I can send him to general surgery. Would he like this? Thank you Bethany Fragoso APRN.ENGINEERING SPECIALIST documented in this encounterBu[facility]06-[facility] Telephone encounter Note * Telephone Encounter - Susana Duval MA - 09/25/2024 10:29 AM EDT ----- Message from Bethany Fragoso APRN.ENGINEERING SPECIALIST sent at 09/24/2024 12:15 PM EDT ----- Mass is most likely a fatty tumor which is not concerning but if it is tender and he would like this removed, I can send him to general surgery. Would he like this? Thank you Bethany Fragoso APRN.ENGINEERING SPECIALIST [facility]05-19-[facility] History of Present illness Narrative* Brigid Arriaga RDMS - 09/11/2024 7:00 AM EDT Radiology Service Progress Note PATIENT NAME: Norma Ozuna DATE OF SERVICE: September 11, 2024 TIME: 10:10 AM PATIENT IDENTITY VERIFICATION COMPLETED USING TWO (2) IDENTIFIERS: Name and Date of confirmedby patient verbally. FALL SCREENING: Has the patient had 2 falls in the last year or 1 fall with injury or currently using an Ambulatory Assistive Device (Walker, Cane, Wheelchair, Crutches, etc.)? No PATIENT GENDER DATA: Assigned male at PATIENT RELEVANT IMPLANT DATA REVIEWED: Not Applicable PATIENT PRESENTS WITH AN IMPLANTABLE OR ATTACHED J2EE DEVELOPER: No RADIOLOGY DEPARTMENT: Ultrasound PERIPHERAL IV DATA: Not applicable SIGNED BY: Brigid Arriaga RDMS RVT September 11, 2024 10:10 AM documented in this encounterBucyrus [facility]05-19-2025 NoteHNO ID: [id number] Author: BRIGID ARRIAGA RDMS Service: ? Author Type: Crawler Dragline Operator Type: Progress Notes Filed: 09/11/2024 10:10 Note Text: Radiology Service Progress Note PATIENT NAME: Norma Ozuna DATE OF SERVICE: September 11, 2024 TIME: 10:10 AM PATIENT IDENTITY VERIFICATION COMPLETED USING TWO (2) IDENTIFIERS: Name and Date of confirmed by patient verbally. FALL SCREENING: Has the patient had 2 falls in the last year or 1 fall with injury or currently using an Ambulatory Assistive Device (Walker, Cane, Wheelchair, Crutches, etc.)? No PATIENT GENDER DATA: Assigned male at PATIENT RELEVANT IMPLANT DATA REVIEWED: Not Applicable PATIENT PRESENTS WITH AN IMPLANTABLE OR ATTACHED J2EE DEVELOPER: No RADIOLOGY DEPARTMENT: Ultrasound PERIPHERAL IV DATA: Not applicable SIGNED BY: Brigid Arriaga RDMS RVT September 11, 2024 10:10 [facility]05-05-2025 Instructions* Patient Instructions* Bethany Fragoso APRN.CNP - 08/28/2024 7:56 AM EDT Continue taking levothyroxine 175 mcg every day (taking 1.5 pills on Sundays) as you have been. For your gout management, continue your current allopurinol (300 mg) supply for your upcoming motorcycle trip. After your trip, switch to a lower dose of 100 mg daily as discussed; please let us knowonce you ve made the change. Get blood work done as ordered. This should include: - Thyroid-stimulating hormone (TSH) - Cholesterol levels - Basic metabolic panel (kidney function and electrolytes) Schedule an appointment with a community support specialist (preferably with [facility] [place]). At that visit, you will have pulmonary function tests (breathing tests) performed to helpassess your COPD/asthma issues. Have an ultrasound scheduled for the painful area on your back (near the scar below your scapula) to evaluate the possible fatty tumor. Consider getting the pneumonia vaccine in the near future, as it is recommended to help protect your breathing health, especially given your COPD/asthma history. Be cautious with the use of steroids, as they can increase the risk of arrhythmia. Follow up with your providers if you have any concerns regarding steroid use. Remember to follow through with these steps after leaving the clinic. documented in this encounterBu[facility]05-[facility]-2025 NoteHNO ID: [id number] Author: BETHANY FRAGOSO APRN.CNP Service: ? Author Type: Nurse Practitioner Type: Progress Notes Filed: 08/28/2024 08:03 Note Text: CC: Patient presents with: Recheck: 6 month follow up HPI Norma Ozuna is a 64 year old male who presents today for routine follow up. Recording using [employer] software for draft documentation of the visit was discussed with the patient/authorized claims service representative; all questions welcomed and answered. Patient/authorized claims service representative agreed to proceed Hypothyroidism: - Last TSH check was in March; Elia did not complete the most recent order. - Taking levothyroxine 175 mcg daily, 1.5 tablets on Sundays. - Denies changes in weight, energy, hair, or skin. Hyperlipidemia: - Last LDL was 170 in February. Not on statin therapy - Denies chest pain or dyspnea with exercise. Walks for exercise. - Adheres to a low-fat, low-salt diet. Paroxysmal Atrial Fibrillation: - One episode of arrhythmia approximately one month ago, with heart rate reaching 160 bpm. Was symptomatic - Episode occurred after eating; associated with palpitations and dyspnea. - Denies other palpitations, abnormal sweating, or headaches. - Denies dyspnea or chest pressure during exercise. - Taking atenolol as prescribed. - Episode occurred while on prednisone. Hypertension: - Blood pressure reportedly well-controlled. - Takes losartan as prescribed. - Checks blood pressure at home occasionally with good readings. Obstructive Sleep Apnea: - Uses CPAP nightly when not sick, for 5-8 hours. Gets restful sleep with use. - Recent illness with chest congestion prevented CPAP use. Gout: - No recent episodes. - Taking allopurinol 300 mg daily. - Considering discontinuing allopurinol since he has not had a flare up in years COPD and asthma: - Recent exacerbations; seen at [facility] 3-4 times since March for sinus issues and COPD exacerbations. Last episode required prednisone usage which caused an episode of his a-fib - Denies current cough, wheezing, fever, or chills. Lipoma: - Noticed soreness in the area of a previously removed lipoma on the back about a month ago. - Denies known trauma or drainage. - Unsure if the lipoma is getting larger but is very tender. REVIEW OF SYSTEMS See HPI PAST MEDICAL HISTORY Diagnosis Date COPD (chronic [...] ALLERGIES Penicillins and Zoloft [Sertraline Hcl] MEDICATIONS budesonide-formoterol (SYMBICORT) 80-4.5 mcg/actuation inhaler Inhale 2 puffs as instructed two times a day. losartan (COZAAR) 50 mg tablet Take 0.5 tablets by mouth once daily. sildenafil (VIAGRA) 50 mg tablet Take 1 to 2 pills one hour prior to sexual activity allopurinol (ZYLOPRIM) 100 mg tablet Take 1 tablet by mouth once daily. esomeprazole (NEXIUM) 40 mg capsule Take 1 capsule by mouth once daily. levothyroxine (LEVOXYL) 175 mcg tablet Take 1 tablet by mouth once daily. Except take 1.5 tablets on Sundays. Take on empty stomach. For thyroid. atenolol (TENORMIN) 25 mg tablet Take 0.5 tablets by mouth once daily. allopurinol (ZYLOPRIM) 300 mg tablet TAKE ONE TABLET BY MOUTH EVERY DAY FOR FOR GOUT fluticasone (FLONASE) 50 mcg/actuation nasal spray Use 1 [place] in each nostril once daily. CPAP Initiate Auto PAP @ 5-20 cm of water with humidification. Mask (per patient preference) optional chin strap (if indicated) , filters, tubing, humidifier and lifetime supplies. albuterol HFA (VENTOLIN HFA) 90 mcg/actuation inhaler Inhale 2 Puffs as instructed every 4 hours as needed for wheezing/shortness of breath. FAMILY HISTORY Problem Relation Age of Onset [...] week Comment: per week Drug use: No PHYSICAL EXAM BP 118/80 Pulse 60 Resp 16 Wt 129.3 kg (285 lb) SpO2 98% BMI 35.62 kg/m? General Appearance: well appearing, in no acute distress, alert Skin: small tender mass noted near old healed scar to right side of mid back. Eyes: conjunctiva pink and (more content not included)...[facility]05-05-2025 History of Present illness Narrative* Bethany Fragoso APRN.[facility] - 08/28/2024 7:55 AM EDT CC: Patient presents with: Recheck: 6 month follow up HPI Norma Ozuna is a 64 year old male who presents today for routine follow up. Recording using [employer] software for draft documentation of the visit was discussed with the patient/authorized claims service representative; all questions welcomed and answered. Patient/authorized claims service representative agreed to proceed Hypothyroidism: - Last TSH check was in March; Elia did not complete the most recent order. - Taking levothyroxine 175 mcg daily, 1.5 tablets on Sundays. - Denies changes in weight, energy, hair, or skin. Hyperlipidemia: - Last LDL was 170 in February. Not on statin therapy - Denies chest pain or dyspnea with exercise. Walks for exercise. - Adheres to a low-fat, low-salt diet. Paroxysmal Atrial Fibrillation: - One episode of arrhythmia approximately one month ago, with heart rate reaching 160 bpm. Was symptomatic - Episode occurred after eating; associated with palpitations and dyspnea. - Denies other palpitations, abnormal sweating, or headaches. - Denies dyspnea or chest pressure during exercise. - Taking atenolol as prescribed. - Episode occurred while on prednisone. Hypertension: - Blood pressure reportedly well-controlled. - Takes losartan as prescribed. - Checks blood pressure at home occasionally with good readings. Obstructive Sleep Apnea: - Uses CPAP nightly when not sick, for 5-8 hours. Gets restful sleep with use. - Recent illness with chest congestion prevented CPAP use. Gout: - No recent episodes. - Taking allopurinol 300 mg daily. - Considering discontinuing allopurinol since he has not had a flare up in years COPD and asthma: - Recent exacerbations; seen at [facility] 3-4 times since March for sinus issues and COPD exacerbations. Last episode required prednisone usage which caused an episode of his a-fib - Denies current cough, wheezing, fever, or chills. Lipoma: - Noticed soreness in the area of a previously removed lipoma on the back about a month ago. - Denies known trauma or drainage. - Unsure if the lipoma is getting larger but is very tender. REVIEW OF SYSTEMS See HPI PAST MEDICAL HISTORY Diagnosis Date COPD (chronic [...] ALLERGIES Penicillins and Zoloft [Sertraline Hcl] MEDICATIONS budesonide-formoterol (SYMBICORT) 80-4.5 mcg/actuation inhaler Inhale 2 puffs as instructed two times a day. losartan (COZAAR) 50 mg tablet Take 0.5 tablets by mouth once daily. sildenafil (VIAGRA) 50 mg tablet Take 1 to 2 pills one hour prior to sexual activity allopurinol (ZYLOPRIM) 100 mg tablet Take 1 tablet by mouth once daily. esomeprazole (NEXIUM) 40 mg capsule Take 1 capsule by mouth once daily. levothyroxine (LEVOXYL) 175 mcg tablet Take 1 tablet by mouth once daily. Except take 1.5 tablets on Sundays. Take on empty stomach. For thyroid. atenolol (TENORMIN) 25 mg tablet Take 0.5 tablets by mouth once daily. allopurinol (ZYLOPRIM) 300 mg tablet TAKE ONE TABLET BY MOUTH EVERY DAY FOR FOR GOUT fluticasone (FLONASE) 50 mcg/actuation nasal spray Use 1 [place] in each nostril once daily. CPAP Initiate Auto PAP @ 5-20 cm of water with humidification. Mask (per patient preference) optional chin strap (if indicated) , filters, tubing, humidifier and lifetime supplies. albuterol HFA (VENTOLIN HFA) 90 mcg/actuation inhaler Inhale 2 Puffs as instructed every 4 hours asneeded for wheezing/shortness of breath. FAMILY HISTORY Problem Relation Age of Onset [...] week Comment: per week Drug use: No PHYSICAL EXAM BP 118/80 Pulse 60 Resp 16 Wt 129.3 kg (285 lb) SpO2 98% BMI 35.62 kg/m General Appearance: well appearing, in no acute distress, alert Skin: small tender mass noted near old healed scar to right side of mid back. Eyes: conjunctiva pink and moist, no icterus, sclera white, non-injected Neck: Neck supple, No adenopathy Lymph nodes: No cervical lymphadenopathy and No supraclavicular lymphadenopathy Lungs: Lungs clear to auscultation. No wheezing, rhonchi, rales. Heart: RRR without murmur, gallop, or rubs. No ectopy Health maintenance reviewed with patient: Depression Screening Never done Anxiety Screening Never done DTaP,Tdap,Td Vaccine(2 - Td or Tdap) due on 02/27/2025 RSV Vaccine(1 - Risk 60-74 years 1-dose series) due on 02/27/2025 Shingrix Vaccine(1 of 2) due on 02/27/2025 Pneumococcal Vaccine: 50+(1 of 2 - PCV) due on 08/28/2025 BP Controlled (<130/80) due on 02/27/2025 Annual PCP Team Chronic Disease Visit due on 08/28/2025 Prostate Cancer Screening Discussion due on 03/28/2026 Diabetes Screening due on 03/29/2027 Lipid Screening due on 03/07/2029 Colorectal Cancer Screening due on 03/03/2031 Influenza Vaccine Completed Hepatitis C Screening Completed HIV Screening Completed Covid-19 Vaccine Discontinued DATA REVIEWED: No new labs Assessment/Plan 1. Paroxysmal atrial fibrillation (HCC) (I48.0) - Recent episode of paroxysmal atrial fibrillation approximately one month ago with heart rate reaching 160 bpm, associated with shortness of breath and palpitations. - Episode occurred postprandially; no other episodes of palpitations reported. - Discussed potential trigger from recent prednisone use; advised caution with future steroid use due to increased risk of arrhythmias. - Continue current medication regimen including atenolol and losartan. - Blood pressure well-controlled; monitor at home. 2. Mass on back (R22.2) 3. 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 (D17.1) - Palpable mass on the back, consistent with a lipoma, noted on examination. - Mass is located below the scapula and is associated with tenderness. - Ordered ultrasound to evaluate the mass further. 4. Chronic obstructive pulmonary disease with (acute) exacerbation (HCC) (J44.1) 5. Asthma without acute exacerbation (HCC) (J45.909) - [facility] and COPD exacerbations. - No current symptoms of cough, wheezing, fever, or chills. - Referred to pulmonology for further evaluation and management to minimize steroid use. - Discussed the importance of using CPAP consistently for obstructive sleep apnea. - Recommended pneumococcal vaccine to reduce the risk of respiratory infections. 6. Gout, unspecified cause, unspecified chronicity, unspecified site (M10.9) 7. Personal history of gout (Z87.39) - No recent gout flares; uric acid levels previously normal. - Discussed potential to taper allopurinol from 300 mg to 100 mg daily. - Will monitor uric acid levels after a few months on the lower dose. Patient to call or message once he has been on the 100mg for a few motnhs 8. Essential hypertension (I10) - Blood pressure well-controlled on current regimen. - Continue losartan as prescribed. - Monitor blood pressure at home. 9. Hyperlipidemia, unspecified hyperlipidemia type (E78.5) - Previous LDL levels fluctuating between 130s and 170s. - Ordered fasting lipid panel to reassess cholesterol levels. - Discussed potential need for medication if LDL levels remain elevated. 10. Hypothyroidism, unspecified type (E03.9) - Previous TSH levels abnormal; recheck ordered. - Continue current levothyroxine dosage of 175 mcg daily, with 1.5 tablets on Sundays. - No reported changes in weight, energy, hair, or skin. 11. Obstructive sleep apnea (G47.33) - Using CPAP regularly, except during recent illness. - Typically uses CPAP for 5-8 hours per night. - Reinforced the importance of consistent CPAP use. Prescription instructions reviewed with patient as applicable. Potential red flag symptoms discussed with the patient. Reviewed appropriate action plan to take if red flag symptoms occur. Patient agreeable to treatment plan. Bethany Fragoso APRN.BRANDON documented in this encounterBu[facility]04-[facility]25 NoteHNO ID: [id number] Author: CRISTI FARRIS MD Service: ? Author Type: Physician Type: Progress Notes Filed: 08/17/2024 07:29 Note Text: [facility] Subjective Norma Ozuna is a 64 year old male. Patient presents with: Cough: Chest congestion x3 weeks Patient presents with 3 weeks of chest congestion. He has had cough, wheezing, shortness of breath, and production with his cough. He denies fever, chills, chest pain, nasal congestion, rhinorrhea. Symptoms are similar to multiple exacerbations he has had (March X2, May, and June). He has been using Symbicort and Mucinex. He denies a preceding viral illness and suspects his COPD was exacerbated by environmental allergies. Cough Review of Systems Respiratory: Positive for cough. Objective BP 136/87 Pulse (!) 53 Temp 36.3 ?C (97.4 ?F) Resp 18 Wt 128.8 kg (283 lb 15.2 oz) SpO2 97% BMI 35.49 kg/m? Physical Exam Constitutional: General: He is not in acute distress. Appearance: He is not ill-appearing. HENT: Right Ear: Tympanic membrane and ear canal normal. Left Ear: Tympanic membrane and ear canal normal. Nose: Congestion present. Mouth/Throat: Pharynx: Posterior oropharyngeal erythema present. No oropharyngeal exudate. Eyes: Extraocular Movements: Extraocular movements intact. Conjunctiva/sclera: Conjunctivae normal. Pupils: Pupils are equal, round, and reactive to light. Cardiovascular: Rate and Rhythm: Normal rate and regular rhythm. Heart sounds: No murmur heard. Pulmonary: Effort: No respiratory distress. Breath sounds: No wheezing, rhonchi or rales. Musculoskeletal: Cervical back: Neck supple. Lymphadenopathy: Cervical: No cervical adenopathy. Neurological: Mental Status: He is alert. {ASSESSMENT/PLAN: 1. COPD with exacerbation (HCC) - ICD9: 491.21, ICD10: J44.1 Treat COPD exacerbation with prednisone which has been effective. - PREDNISONE 10 MG TABLET 9-day taper (reports 5-day taper was insufficient at his initial visit in March). Chest x-ray was performed 06/27/2024 with no acute findings. He has not scheduled consult with pulmonology but has follow-up with internal medicine in a week and a half and will discuss adjustments to COPD medications then. Cristi Farris MD History and Record Review External record(s) reviewed: prior outpatient record. Findings from review of outpatient records: Office visit and chest x-ray 06/27/2024 Differential Diagnoses - COPD exacerbation is more likely for the following reason(s): suggested by HANDP [facility] History of Present illness Narrative* Lyn Garcia Tech - 06/27/2024 6:20 PM EST Radiology Service Progress Note PATIENT NAME: Norma Ozuna DATE OF SERVICE: June 27, 2024 TIME: 6:08 PM PATIENT IDENTITY VERIFICATION COMPLETED USING TWO (2) IDENTIFIERS: Name and Date of confirmedby patient verbally. FALL SCREENING: Has the patient had 2 falls in the last year or 1 fall with injury or currently using an Ambulatory Assistive Device (Walker, Cane, Wheelchair, Crutches, etc.)? No PATIENT GENDER DATA: Assigned male at PATIENT RELEVANT IMPLANT DATA REVIEWED: Not Applicable PATIENT PRESENTS WITH AN IMPLANTABLE OR ATTACHED J2EE DEVELOPER: No RADIOLOGY DEPARTMENT: General X-ray: Exam(s) Completed: Chest X-Ray PERIPHERAL IV DATA: Not applicable SIGNED BY: Ed Garcia June 27, 2024 6:08 PM documented in this encounterBucyrus [facility]03-04-2025 NoteHNO ID: [id number] Author: LYN GARCIA Tech Service: ? Author Type: Technologist Type: Progress Notes Filed: 06/27/2024 18:15 Note Text: Radiology Service Progress Note PATIENT NAME: Norma Ozuna DATE OF SERVICE: June 27, 2024 TIME: 6:08 PM PATIENT IDENTITY VERIFICATION COMPLETED USING TWO (2) IDENTIFIERS: Name and Date of confirmed by patient verbally. FALL SCREENING: Has the patient had 2 falls in the last year or 1 fall with injury or currently using an Ambulatory Assistive Device (Walker, Cane, Wheelchair, Crutches, etc.)? No PATIENT GENDER DATA: Assigned male at PATIENT RELEVANT IMPLANT DATA REVIEWED: Not Applicable PATIENT PRESENTS WITH AN IMPLANTABLE OR ATTACHED J2EE DEVELOPER: No RADIOLOGY DEPARTMENT: General X-ray: Exam(s) Completed: Chest X-Ray PERIPHERAL IV DATA: Not applicable SIGNED BY: dE Garcia June 27, 2024 6:08 [facility]03-04-2025 NoteHNO ID: [id number] Author: JATIN SHAFFER PA Service: ? Author Type: Physician Authorizer Type: Progress Notes Filed: 06/27/2024 18:27 Note Text: [facility] Subjective Norma Ozuna is a 64 year old male. HPI 64-year-old male with PMH of COPD presents for cough. Patient states he has had a cough on and off for the past 3 months. He was seen here back in March, given antibiotic and steroid which helped with symptoms. Symptoms returned last month. He was given a prednisone taper which resolved symptoms. Patient states that he started getting a cough again about a week ago. He is coughing up thick green phlegm. States he does not usually have a cough at baseline with his COPD, but states he feels like his COPD is flared up. He denies any chest pain. He does have some shortness of breath and wheezing. He is on Symbicort daily and also has albuterol, but this has not really been helping with symptoms. He thinks he needs prednisone again. he denies any fevers. He has never seen pulmonology in the past. No other complaint. PAST MEDICAL HISTORY Diagnosis Date COPD (chronic [...] ALLERGIES Penicillins and Zoloft [Sertraline Hcl] MEDICATIONS esomeprazole (NEXIUM) 40 mg capsule Take 1 capsule by mouth once daily. levothyroxine (LEVOXYL) 175 mcg tablet Take 1 tablet by mouth once daily. Except take 1.5 tablets on Sundays. Take on empty stomach. For thyroid. atenolol (TENORMIN) 25 mg tablet Take 0.5 tablets by mouth once daily. budesonide-formoterol (SYMBICORT) 80-4.5 mcg/actuation inhaler Inhale 2 Puffs as instructed two times a day. losartan (COZAAR) 50 mg tablet Take 0.5 tablets by mouth once daily. sildenafil (VIAGRA) 50 mg tablet Take 1 to 2 pills one hour prior to sexual activity allopurinol (ZYLOPRIM) 300 mg tablet TAKE ONE TABLET BY MOUTH EVERY DAY FOR FOR GOUT fluticasone (FLONASE) 50 mcg/actuation nasal spray Use 1 [place] in each nostril once daily. CPAP Initiate Auto PAP @ 5-20 cm of water with humidification. Mask (per patient preference) optional chin strap (if indicated) , filters, tubing, humidifier and lifetime supplies. albuterol HFA (VENTOLIN HFA) 90 mcg/actuation inhaler Inhale 2 Puffs as instructed every 4 hours as needed for wheezing/shortness of breath. FAMILY HISTORY Problem Relation Age of Onset [...] No Review of Systems Constitutional: Negative for chills and fever. HENT: Negative for congestion and sore throat. Respiratory: Positive for cough, shortness of breath and wheezing. Gastrointestinal: Negative for diarrhea and vomiting. Objective BP 132/84 Pulse 76 Temp 36.5 ?C (97.7 ?F) Resp 16 Wt 130.7 kg (288 lb 2.3 oz) SpO2 97% BMI 36.02 kg/m? Physical Exam Vitals and nursing note reviewed. Constitutional: General: He is not in acute distress. Appearance: Normal appearance. He is not toxic-appearing. HENT: Right Ear: Tympanic membrane and ear canal normal. Left Ear: Tympanic membrane and ear canal normal. Nose: Nose normal. Mouth/Throat: Mouth: Mucous membranes are moist. Eyes: Conjunctiva/sclera: Conjunctivae normal. Cardiovascular: Rate and Rhythm: Normal rate and regular rhythm. Pulmonary: Effort: Pulmonary effort is normal. Breath sounds: Wheezing (Mild) present. Skin: General: Skin is warm and dry. Neurological: Mental Status: He is alert. Assessment and Plan History and Record Review External record(s) reviewed: prior outpatient record. Findings from review of outpatient records: Seen in March, given antibiotic and prednisone burst. Seen 06/01/2024, given prednisone taper. Differential Diagnoses - Viral URI is more likely for the following reason(s): suggested by HANDP - COPD exacerbation is more likely for the following reason(s): suggested by HANDP - Pneumonia is less likely for the following reason(s): no evidence on imaging Contributing Factors Chronic conditions aff (more content not included)...[facility] History of Present illness Narrative* Jatin Shaffer PA - 06/27/2024 6:06 PM EST [facility] Subjective Norma Ozuna is a 64 year old male. HPI 64-year-old male with PMH of COPD presents for cough. Patient states he has had a cough on and off for the past 3 months. He was seen here back in March, given antibiotic and steroid which helped with symptoms. Symptoms returned last month. He was given a prednisone taper which resolved symptoms. Patient states that he started getting a cough again about a week ago. He is coughing up thick green phlegm. States he does not usually have a cough at baseline with his COPD, but states he feels like his COPD is flared up. He denies any chest pain. He does have some shortness of breath and wheezing. He is on Symbicort daily and also has albuterol, but this has not really been helping with symptoms. He thinks he needs prednisone again. he denies any fevers. He has never seen pulmonology inthe past. No other complaint. PAST MEDICAL HISTORY Diagnosis Date COPD (chronic obstructive pulmonary disease) (HCC) Esophageal reflux Gastroesophageal reflux Essential hypertension Gout High cholesterol Hypothyroidism Unspecified asthma(493.90) PAST SURGICAL HISTORY Procedure Laterality Date COLONOSCOPY FLX DX W/COLLJ SPEC WHEN PFRMD 03/04/2011 Colonoscopy-repeat in -2020 COLONOSCOPY FLX DX W/COLLJ SPEC WHEN PFRMD 03/03/2021 ESOPHAGOGASTRODUODENOSCOPY TRANSORAL DIAGNOSTIC 03/04/2011 EGD EYE SURGERY HX PAST SURGICAL HISTORY OF SHOULDER ARTHROSCOPY right RADIAL KERATOTOMY VASECTOMY UNI/BI SPX W/POSTOP SEMEN EXAMS ALLERGIES Penicillins and Zoloft [Sertraline Hcl] MEDICATIONS esomeprazole (NEXIUM) 40 mg capsule Take 1 capsule by mouth once daily. levothyroxine (LEVOXYL) 175 mcg tablet Take 1 tablet by mouth once daily. Except take 1.5 tablets on Sundays. Take on empty stomach. For thyroid. atenolol (TENORMIN) 25 mg tablet Take 0.5 tablets by mouth once daily. budesonide-formoterol (SYMBICORT) 80-4.5 mcg/actuation inhaler Inhale 2 Puffs as instructed two times a day. losartan (COZAAR) 50 mg tablet Take 0.5 tablets by mouth once daily. sildenafil (VIAGRA) 50 mg tablet Take 1 to 2 pills one hour prior to sexual activity allopurinol (ZYLOPRIM) 300 mg tablet TAKE ONE TABLET BY MOUTH EVERY DAY FOR FOR GOUT fluticasone (FLONASE) 50 mcg/actuation nasal spray Use 1 [place] in each nostril once daily. CPAP Initiate Auto PAP @ 5-20 cm of water with humidification. Mask (per patient preference) optional chin strap (if indicated) , filters, tubing, humidifier and lifetime supplies. albuterol HFA (VENTOLIN HFA) 90 mcg/actuation inhaler Inhale 2 Puffs as instructed every 4 hours asneeded for wheezing/shortness of breath. FAMILY HISTORY Problem Relation Age of Onset [...] No Review of Systems Constitutional: Negative for chills and fever. HENT: Negative for congestion and sore throat. Respiratory: Positive for cough, shortness of breath and wheezing. Gastrointestinal: Negative for diarrhea and vomiting. Objective BP 132/84 Pulse 76 Temp 36.5 C (97.7 F) Resp 16 Wt 130.7 kg (288 lb 2.3 oz) SpO2 97% BMI 36.02 kg/m Physical Exam Vitals and nursing note reviewed. Constitutional: General: He is not in acute distress. Appearance: Normal appearance. He is not toxic-appearing. HENT: Right Ear: Tympanic membrane and ear canal normal. Left Ear: Tympanic membrane and ear canal normal. Nose: Nose normal. Mouth/Throat: Mouth: Mucous membranes are moist. Eyes: Conjunctiva/sclera: Conjunctivae normal. Cardiovascular: Rate and Rhythm: Normal rate and regular rhythm. Pulmonary: Effort: Pulmonary effort is normal. Breath sounds: Wheezing (Mild) present. Skin: General: Skin is warm and dry. Neurological: Mental Status: He is alert. Assessment and Plan History and Record Review External record(s) reviewed: prior outpatient record. Findings from review of outpatient records: Seen in March x 2, given antibiotic and prednisone burst. Seen 06/01/2024, given prednisone taper. Differential Diagnoses - Viral URI is more likely for the following reason(s): suggested by H&P - COPD exacerbation is more likely for the following reason(s): suggested by H&P - Pneumonia is less likely for the following reason(s): no evidence on imaging Contributing Factors Chronic conditions affecting care: copd Chronic conditions addressed by: referral to pulmonology Disposition The patient was discharged. Procedures ASSESSMENT/PLAN: 1. Subacute cough - ICD9: 786.2, ICD10: R05.2 (primary diagnosis) - XR CHEST 2V FRONTAL/LAT-no acute radiographic abnormality. -Discussed with patient's symptoms may be [id number] viral illnesses, worsened by his COPD. -Patient had prednisone about a month ago and states symptoms resolved, but have now returned. He reports increase in wheezing, productive cough and shortness of breath. Will give prescription for prednisone taper again. Did discuss with patient side effects of using prednisone frequently. He understands. He declines antibiotic as he states this has not helped him in the past with his COPD exacerbations. -Discussed with patient due to recurrent symptoms and multiple visits for similar symptoms, he really needs to see pulmonology or primary care. Patient agreeable - CONSULT TO PULMONARY MEDICINE 2. Chronic obstructive pulmonary disease, unspecified COPD type (HCC) - ICD9: 496, ICD10: J44.9 -See above - CONSULT TO PULMONARY MEDICINE Diagnosis and treatment plan were discussed and questions were answered to the patient's satisfaction. Pt acknowledged understanding of concepts and follow up plan. Specific signs and symptoms that would indicate the need for higher level of care were discussed in detail warranting prompt ER evaluation. SAMMY Chawla documented in this encounterBu[facility]02-28-[facility]25 Telephone encounter Note * Telephone Encounter - Ginette Callahan RN - 2024 12:49 PM EST The patient has been identified by name and date of : Yes Caregiver verified no other encounters exist for this prescription request: Yes Caregiver confirmed with patient/requestor that no other refills are due, in the near future, with this provider at this time: Yes The last office visit in the department: 02/28/2024 Does the patient have a future office visit with this provider/department: Yes 08/28/2024 Requested Prescriptions Pending Prescriptions Disp Refills esomeprazole (NEXIUM) 40 mg capsule 90 capsule 3 Sig: Take 1 capsule by mouth once daily. Ginette Callahan RN [facility]02-[facility] Miscellaneous Notes* Telephone Encounter - Ginette Callahan RN - 2024 12:49 PM EST The patient has been identified by name and date of : Yes Caregiver verified no other encounters exist for this prescription request: Yes Caregiver confirmed with patient/requestor that no other refills are due, in the near future, with this provider at this time: Yes The last office visit in the department: 02/28/2024 Does the patient have a future office visit with this provider/department: Yes 08/28/2024 Requested Prescriptions Pending Prescriptions Disp Refills esomeprazole (NEXIUM) 40 mg capsule 90 capsule 3 Sig: Take 1 capsule by mouth once daily. Ginette Callahan RN documented in this encounterBucyrus [facility]02-06-2025 NoteHNO ID: [id number] Author: JATIN SHAFFER PA Service: ? Author Type: Physician Authorizer Type: Progress Notes Filed: 06/01/2024 15:40 Note Text: This note was created using [employer]. Subjective Norma Ozuna is a 63 year old male. HPI 63-year-old male presents for cough, chest congestion, wheezing, nasal congestion, sinus pressure, sinus pain fevers for about a week and a half. Patient states he started getting sick a little over a week ago. He does have history of COPD. He states he has daily inhalers. He does not typically have a daily cough at baseline, but has had a cough for the past few weeks. Cough is productive. He has nasal congestion, sinus pressure, sinus pain. He was sick at the end of March and was given prednisone which helped with symptoms. He was also given an antibiotic at that time, but he did not notice much difference with the antibiotic. No other complaint. PAST MEDICAL HISTORY Diagnosis Date COPD (chronic [...] ALLERGIES Penicillins and Zoloft [Sertraline Hcl] MEDICATIONS levothyroxine (LEVOXYL) 175 mcg tablet Take 1 tablet by mouth once daily. Except take 1.5 tablets on Sundays. Take on empty stomach. For thyroid. atenolol (TENORMIN) 25 mg tablet Take 0.5 tablets by mouth once daily. losartan (COZAAR) 50 mg tablet Take 0.5 tablets by mouth once daily. sildenafil (VIAGRA) 50 mg tablet Take 1 to 2 pills one hour prior to sexual activity allopurinol (ZYLOPRIM) 300 mg tablet TAKE ONE TABLET BY MOUTH EVERY DAY FOR FOR GOUT esomeprazole (NEXIUM) 40 mg capsule Take 1 capsule by mouth once daily. fluticasone (FLONASE) 50 mcg/actuation nasal spray Use 1 [place] in each nostril once daily. CPAP Initiate Auto PAP @ 5-20 cm of water with humidification. Mask (per patient preference) optional chin strap (if indicated) , filters, tubing, humidifier and lifetime supplies. albuterol HFA (VENTOLIN HFA) 90 mcg/actuation inhaler Inhale 2 Puffs as instructed every 4 hours as needed for wheezing/shortness of breath. predniSONE (DELTASONE) 10 mg tablet Take 4 tabs daily for 3 days, then 2 tabs daily for 3 days, then 1 tab daily for 3 days with food. doxycycline (VIBRA-TABS) 100 mg tablet Take 1 tablet by mouth two times a day for 7 days. budesonide-formoterol (SYMBICORT) 80-4.5 mcg/actuation inhaler Inhale 2 Puffs as instructed two times a day. FAMILY HISTORY Problem Relation Age of Onset [...] Drug use: No Review of Systems Constitutional: Positive for fever. Negative for chills. HENT: Positive for congestion, sinus pressure and sinus pain. Negative for sore throat. Respiratory: Positive for cough and wheezing. Negative for shortness of breath. Gastrointestinal: Negative for diarrhea and vomiting. Objective BP 129/78 Pulse 75 Temp 36.5 ?C (97.7 ?F) Resp 18 Wt 130.3 kg (287 lb 4.2 oz) SpO2 96% BMI 35.90 kg/m? Physical Exam Vitals and nursing note reviewed. Constitutional: General: He is not in acute distress. Appearance: Normal appearance. He is not toxic-appearing. HENT: Right Ear: Tympanic membrane and ear canal normal. Left Ear: Tympanic membrane and ear canal normal. Nose: Mucosal edema and congestion present. Mouth/Throat: Mouth: Mucous membranes are moist. Eyes: Conjunctiva/sclera: Conjunctivae normal. Cardiovascular: Rate and Rhythm: Normal rate and regular rhythm. Pulmonary: Effort: Pulmonary effort is normal. Breath sounds: Normal breath sounds. No wheezing, rhonchi or rales. Skin: General: Skin is warm and dry. Neurological: Mental Status: He is alert. Assessment and Plan ASSESSMENT/PLAN: 1. Bacterial sinusitis - ICD9: 473.9, 041.9, ICD10: J32.9, B96.89 (primary diagnosis) - Will begin treatment with Doxycycline - Supportive care with plenty of fluids, rest, and analgesia prn. 2. COPD with exacerbation (HCC) - ICD9: 491.21, ICD10: J44.1 -Rx doxycycline -Rx prednisone taper -Continue inhalers - (more content not included)...[facility]02-06-2025 History of Present illness Narrative* Jatin Shaffer PA - 06/01/2024 3:37 PM EST This note was created using [employer]Work[employer]Bit[employer]. Subjective Norma Ozuna is a 63 year old male. HPI 63-year-old male presents for cough, chest congestion, wheezing, nasal congestion, sinus pressure, sinus pain fevers for about a week and a half. Patient states he started getting sick a little over a week ago. He does have history of COPD. He states he has daily inhalers. He does not typicallyhave a daily cough at baseline, but has had a cough for the past few weeks. Cough is productive. Hehas nasal congestion, sinus pressure, sinus pain. He was sick at the end of March and was given prednisone which helped with symptoms. He was also given an antibiotic at that time, but he did not notice much difference with the antibiotic. No other complaint. PAST MEDICAL HISTORY Diagnosis Date COPD (chronic [...] ALLERGIES Penicillins and Zoloft [Sertraline Hcl] MEDICATIONS levothyroxine (LEVOXYL) 175 mcg tablet Take 1 tablet by mouth once daily. Except take 1.5 tablets on Sundays. Take on empty stomach. For thyroid. atenolol (TENORMIN) 25 mg tablet Take 0.5 tablets by mouth once daily. losartan (COZAAR) 50 mg tablet Take 0.5 tablets by mouth once daily. sildenafil (VIAGRA) 50 mg tablet Take 1 to 2 pills one hour prior to sexual activity allopurinol (ZYLOPRIM) 300 mg tablet TAKE ONE TABLET BY MOUTH EVERY DAY FOR FOR GOUT esomeprazole (NEXIUM) 40 mg capsule Take 1 capsule by mouth once daily. fluticasone (FLONASE) 50 mcg/actuation nasal spray Use 1 [place] in each nostril once daily. CPAP Initiate Auto PAP @ 5-20 cm of water with humidification. Mask (per patient preference) optional chin strap (if indicated) , filters, tubing, humidifier and lifetime supplies. albuterol HFA (VENTOLIN HFA) 90 mcg/actuation inhaler Inhale 2 Puffs as instructed every 4 hours asneeded for wheezing/shortness of breath. predniSONE (DELTASONE) 10 mg tablet Take 4 tabs daily for 3 days, then 2 tabs daily for 3 days, then 1 tab daily for 3 days with food. doxycycline (VIBRA-TABS) 100 mg tablet Take 1 tablet by mouth two times a day for 7 days. budesonide-formoterol (SYMBICORT) 80-4.5 mcg/actuation inhaler Inhale 2 Puffs as instructed two times a day. FAMILY HISTORY Problem Relation Age of Onset [...] Drug use: No Review of Systems Constitutional: Positive for fever. Negative for chills. HENT: Positive for congestion, sinus pressure and sinus pain. Negative for sore throat. Respiratory: Positive for cough and wheezing. Negative for shortness of breath. Gastrointestinal: Negative for diarrhea and vomiting. Objective BP 129/78 Pulse 75 Temp 36.5 C (97.7 F) Resp 18 Wt 130.3 kg (287 lb 4.2 oz) SpO2 96% BMI 35.90 kg/m Physical Exam Vitals and nursing note reviewed. Constitutional: General: He is not in acute distress. Appearance: Normal appearance. He is not toxic-appearing. HENT: Right Ear: Tympanic membrane and ear canal normal. Left Ear: Tympanic membrane and ear canal normal. Nose: Mucosal edema and congestion present. Mouth/Throat: Mouth: Mucous membranes are moist. Eyes: Conjunctiva/sclera: Conjunctivae normal. Cardiovascular: Rate and Rhythm: Normal rate and regular rhythm. Pulmonary: Effort: Pulmonary effort is normal. Breath sounds: Normal breath sounds. No wheezing, rhonchi or rales. Skin: General: Skin is warm and dry. Neurological: Mental Status: He is alert. Assessment and Plan ASSESSMENT/PLAN: 1. Bacterial sinusitis - ICD9: 473.9, 041.9, ICD10: J32.9, B96.89 (primary diagnosis) - Will begin treatment with Doxycycline - Supportive care with plenty of fluids, rest, and analgesia prn. 2. COPD with exacerbation (HCC) - ICD9: 491.21, ICD10: J44.1 -Rx doxycycline -Rx prednisone taper -Continue inhalers -Advise close follow-up with PCP for persistent symptoms Diagnosis and treatment plan were discussed and questions were answered to the patient's satisfaction. Pt acknowledged understanding of concepts and follow up plan. Specific signs and symptoms that would indicate the need for higher level of care were discussed in detail warranting prompt ER evaluation. SAMMY Chawla documented [facility] NoteHNO ID: [id number] Author: BERNADETTE CHAPA PA-C Service: ? Author Type: Physician Authorizer Type: Progress Notes Filed: 04/23/2024 09:18 Note Text: This note was created using [employer]. Subjective Norma Ozuna is a 63 year old male. Patient is a 63-year-old male who complains of ongoing dry, nonproductive cough that he has been experiencing for the past 1 week. Patient denies fever, chills or myalgia. Patient reports no congestion, sinus pressure, ear pain or sore throat. Patient has no history of asthma but does have a history of mild COPD and does not smoke. Patient was seen and evaluated at this facility on 20 April 2024 at which time he was diagnosed with a sinus infection and prescribed doxycycline 100 mg and Tessalon 100 mg. Patient states he is taking the medication as directed. Patient reports that with his history of COPD he typically also requires prednisone which has worked well in the past. Patient denies acute episodes of wheezing, dyspnea or shortness of breath but states that he does have a current albuterol MDI. Cough Review of Systems Respiratory: Positive for cough. All other systems reviewed and are negative. Objective BP 141/86 Pulse 71 Temp 36.6 ?C (97.8 ?F) (Left Tympanic) Resp 16 Wt 128 kg (282 lb 3 oz) SpO2 95% BMI 35.27 kg/m? Physical Exam Vitals and nursing note reviewed. Constitutional: Appearance: Normal appearance. He is normal weight. HENT: Head: Normocephalic and atraumatic. Right Ear: Tympanic membrane, ear canal and external ear normal. Left Ear: Tympanic membrane, ear canal and external ear normal. Nose: Nose normal. Mouth/Throat: Mouth: Mucous membranes are moist. Pharynx: Oropharynx is clear. Eyes: Extraocular Movements: Extraocular movements intact. Conjunctiva/sclera: Conjunctivae normal. Pupils: Pupils are equal, round, and reactive to light. Cardiovascular: Rate and Rhythm: Normal rate and regular rhythm. Pulses: Normal pulses. Heart sounds: Normal heart sounds. Pulmonary: Effort: Pulmonary effort is normal. Breath sounds: Normal breath sounds. Musculoskeletal: Cervical back: Normal range of motion and neck supple. Skin: General: Skin is warm and dry. Capillary Refill: Capillary refill takes less than 2 seconds. Neurological: General: No focal deficit present. Mental Status: He is alert and oriented to person, place, and time. Psychiatric: Mood and Affect: Mood normal. Behavior: Behavior normal. Thought Content: Thought content normal. Judgment: Judgment normal. Assessment and Plan Physical exam findings as noted above. Patient was provided with a prescription for prednisone 20 mg and advised to continue the additional medication as directed. Patient verbalizes excellent understanding of the instructions. CLINICAL IMPRESSION: Persistent Cough; COPD; Acute Sinusitis ASSESSMENT/PLAN: 1. Persistent cough - ICD9: 786.2, ICD10: R05.3 - PREDNISONE 20 MG TABLET SAMMY [facility]12-29-2024 History of Present illness Narrative* Bernadette Chapa PA-C - 04/23/2024 9:15 AM EST This note was created using [employer]Work[employer]. Subjective Norma Ozuna is a 63 year old male. Patient is a 63-year-old male who complains of ongoing dry, nonproductive cough that he has been experiencing for the past 1 week. Patient denies fever, chills or myalgia. Patient reports no congestion, sinus pressure, ear pain or sore throat. Patient has no history of asthma but does have a history of mild COPD and does not smoke. Patient was seen and evaluated at this facility on 20 April 2024 at which time he was diagnosed with a sinus infection and prescribed doxycycline 100 mg and Tessalon 100 mg. Patient states he is taking the medication as directed. Patient reports that with his history of COPD he typically also requires prednisone which has worked well in the past. Patient denies acute episodes of wheezing, dyspnea or shortness of breath but states that he does have a current albuterol MDI. Cough Review of Systems Respiratory: Positive for cough. All other systems reviewed and are negative. Objective BP 141/86 Pulse 71 Temp 36.6 C (97.8 F) (Left Tympanic) Resp 16 Wt 128 kg (282 lb 3 oz) SpO2 95% BMI 35.27 kg/m Physical Exam Vitals and nursing note reviewed. Constitutional: Appearance: Normal appearance. He is normal weight. HENT: Head: Normocephalic and atraumatic. Right Ear: Tympanic membrane, ear canal and external ear normal. Left Ear: Tympanic membrane, ear canal and external ear normal. Nose: Nose normal. Mouth/Throat: Mouth: Mucous membranes are moist. Pharynx: Oropharynx is clear. Eyes: Extraocular Movements: Extraocular movements intact. Conjunctiva/sclera: Conjunctivae normal. Pupils: Pupils are equal, round, and reactive to light. Cardiovascular: Rate and Rhythm: Normal rate and regular rhythm. Pulses: Normal pulses. Heart sounds: Normal heart sounds. Pulmonary: Effort: Pulmonary effort is normal. Breath sounds: Normal breath sounds. Musculoskeletal: Cervical back: Normal range of motion and neck supple. Skin: General: Skin is warm and dry. Capillary Refill: Capillary refill takes less than 2 seconds. Neurological: General: No focal deficit present. Mental Status: He is alert and oriented to person, place, and time. Psychiatric: Mood and Affect: Mood normal. Behavior: Behavior normal. Thought Content: Thought content normal. Judgment: Judgment normal. Assessment and Plan Physical exam findings as noted above. Patient was provided with a prescription for prednisone 20 mg and advised to continue the additional medication as directed. Patient verbalizes excellent understanding of the instructions. CLINICAL IMPRESSION: Persistent Cough; COPD; Acute Sinusitis ASSESSMENT/PLAN: 1. Persistent cough - ICD9: 786.2, ICD10: R05.3 - PREDNISONE 20 MG TABLET Bernadette Chapa PA-C documented in this encounterBu[facility]12-26-[facility]24 Instructions* Patient Instructions* Harriett Mcgarry APRN.BRANDON - 04/20/2024 9:09 AM EST Images from the original note were not included. ASSESSMENT/PLAN: 1. Bacterial sinusitis - ICD9: 473.9, 041.9, ICD10: J32.9, B96.89 (primary diagnosis) - Will begin treatment with as per antibiotic as written, see orders - Supportive care with plenty of fluids, rest, and analgesia prn. - DOXYCYCLINE HYCLATE 100 MG TABLET 2. Viral URI with cough - ICD9: 465.9, ICD10: J06.9 - Discussed viral etiology and rationale for treatment. - Symptomatic treatment with prn analgesia - Supportive care with fluids and rest - BENZONATATE 100 MG CAPSULE - Follow-up with your PCP in 3-5 days if symptoms have not improved or sooner if symptoms worsen - Discussed red flags and need for immediate medical evaluation if any occur. - Discussed supportive care treatment with fluids, rest and analgesia. - Discussed expected course of illness Harriett Mcgarry APRN.ENGINEERING SPECIALIST Adult Sinusitis Patient Education What is Sinusitis? Sinusitis [[id number]] is inflammation of the sinuses or swelling of the lining of the sinus cavity or nose. During an infection the sinuses become blocked with fluid causing swelling of the lining of the sinuses. Symptoms: (viral and bacterial infections) Stuffy nose Runny nose Postnasal drip Fever Toothache Headache Tiredness Cough Sore throat Face and head pressure and or pain Common causes: 98% of sinus infections are viral caused by viruses. Risk Factors of Sinusitis Include: Allergies, air pollution, indoor humidity and outdoor temperature changes, andstructural changes inthe nose may contribute to sinus pain, pressure and congestion. When to get help? Temperature greater than 100.4 F Symptoms lasting more than 10 days or worsening symptoms greater than 7-10 days. If you do not improve or worsen after a course of antibiotics, you should be re-examined. Diagnosis and Treatment: Your healthcare provider will ask a number of questions about your symptoms and how long they have occurred. If symptoms of sinusitis persist greater than 10 days, it is possible you have a bacterial sinus infection and an antibiotic is prescribed. If it is viral, antibiotics will not help. You may be instructed to take [id number] medications for symptoms. including fever reducers acetaminophen or ibuprofen, nasal saline spray, cough and cold preparations and decongestants as prescribed by the physician, nurse practitioner or physician trust operations assistant. Self-Care and Prevention: Rest Fluids for hydration Good hand washing Humidifier Avoid smoking and exposure to second hand smoke Avoid sick contacts documented in this encounterBu[facility]12-26-2024 NoteHNO ID: [id number] Author: HARRIETT MCGARRY APRN.ENGINEERING SPECIALIST Service: ? Author Type: Nurse Practitioner Type: Progress Notes Filed: 04/20/2024 09:10 Note Text: Subjective HPI Norma Ozuna is a 63 year old male who presents with cough, chest and nasal congestion, and feeling feverish for the past week. He states he had body aches and chills and headache so figured he had a fever. It seems like the fever has broke today He has been taking tylenol and tessalon perles for symptoms. Review of Systems Constitutional: Positive for chills. Negative for fever and malaise/fatigue. HENT: Positive for congestion. Negative for ear pain and sore throat. Respiratory: Positive for cough, sputum production and shortness of breath. Cardiovascular: Negative for chest pain. Gastrointestinal: Negative for diarrhea, nausea and vomiting. Musculoskeletal: Positive for myalgias. Neurological: Positive for headaches. BP 126/76 Pulse 82 Temp 36.8 ?C (98.3 ?F) Resp 16 Wt 128.2 kg (282 lb 10.1 oz) SpO2 96% BMI 35.33 kg/m? PAST MEDICAL HISTORY Diagnosis Date COPD [...] ALLERGIES Penicillins and Zoloft [Sertraline Hcl] MEDICATIONS levothyroxine (LEVOXYL) 175 mcg tablet Take 1 tablet by mouth once daily. Except take 1.5 tablets on Sundays. Take on empty stomach. For thyroid. atenolol (TENORMIN) 25 mg tablet Take 0.5 tablets by mouth once daily. budesonide-formoterol (SYMBICORT) 80-4.5 mcg/actuation inhaler Inhale 2 Puffs as instructed two times a day. losartan (COZAAR) 50 mg tablet Take 0.5 tablets by mouth once daily. sildenafil (VIAGRA) 50 mg tablet Take 1 to 2 pills one hour prior to sexual activity allopurinol (ZYLOPRIM) 300 mg tablet TAKE ONE TABLET BY MOUTH EVERY DAY FOR FOR GOUT esomeprazole (NEXIUM) 40 mg capsule Take 1 capsule by mouth once daily. fluticasone (FLONASE) 50 mcg/actuation nasal spray Use 1 [place] in each nostril once daily. CPAP Initiate Auto PAP @ 5-20 cm of water with humidification. Mask (per patient preference) optional chin strap (if indicated) , filters, tubing, humidifier and lifetime supplies. albuterol HFA (VENTOLIN HFA) 90 mcg/actuation inhaler Inhale 2 Puffs as instructed every 4 hours as needed for wheezing/shortness of breath. doxycycline (VIBRA-TABS) 100 mg tablet Take 1 tablet by mouth two times a day for 7 days. benzonatate (TESSALON PERLE) 100 mg capsule [...] Appearance: Normal appearance. He is not ill-appearing. HENT: Right Ear: Tympanic membrane, ear canal and external ear normal. Left Ear: Tympanic membrane, ear canal and external ear normal. Nose: Mucosal edema, congestion and rhinorrhea present. Mouth/Throat: Pharynx: Uvula midline. No oropharyngeal exudate or posterior oropharyngeal erythema. Cardiovascular: Rate and Rhythm: Normal rate and regular rhythm. Heart sounds: Normal heart sounds. Pulmonary: Effort: Pulmonary effort is normal. No respiratory distress. Breath sounds: Normal breath sounds. No wheezing or rales. Musculoskeletal: Cervical back: Neck supple. Lymphadenopathy: Cervical: No cervical adenopathy. Skin: General: Skin is warm and dry. Findings: No erythema or rash. Neurological: Mental Status: He is alert. ASSESSMENT/PLAN: 1. Bacterial sinusitis - ICD9: 473.9, 041.9, ICD10: J32.9, B96.89 (primary diagnosis) - Will begin treatment with as per antibiotic as written, see orders - Supportive care with plenty of fluids, rest, and analgesia prn. - DOXYCYCLINE HYCLATE 100 MG TABLET 2. Viral URI with cough - ICD9: 465.9, ICD10: J06.9 - Discussed viral etiology and rationale for treatment. - Symptomatic treatment with prn analgesia - Supportiv (more content not included)...[facility]12-26-2024 History of Present illness Narrative* Harriett Mcgarry, KEITH.ENGINEERING SPECIALIST - 04/20/2024 9:07 AM EST Subjective HPI Norma Ozuna is a 63 year old male who presents with cough, chest and nasal congestion, and feeling feverish for the past week. He states he had body aches and chills and headache so figured he had a fever. It seems like the fever has broke today He has been taking tylenol and tessalon perles for symptoms. Review of Systems Constitutional: Positive for chills. Negative for fever and malaise/fatigue. HENT: Positive for congestion. Negative for ear pain and sore throat. Respiratory: Positive for cough, sputum production and shortness of breath. Cardiovascular: Negative for chest pain. Gastrointestinal: Negative for diarrhea, nausea and vomiting. Musculoskeletal: Positive for myalgias. Neurological: Positive for headaches. BP 126/76 Pulse 82 Temp 36.8 C (98.3 F) Resp 16 Wt 128.2 kg (282 lb 10.1 oz) SpO2 96% BMI 35.33 kg/m PAST MEDICAL HISTORY Diagnosis Date COPD [...] ALLERGIES Penicillins and Zoloft [Sertraline Hcl] MEDICATIONS levothyroxine (LEVOXYL) 175 mcg tablet Take 1 tablet by mouth once daily. Except take 1.5 tablets on Sundays. Take on empty stomach. For thyroid. atenolol (TENORMIN) 25 mg tablet Take 0.5 tablets by mouth once daily. budesonide-formoterol (SYMBICORT) 80-4.5 mcg/actuation inhaler Inhale 2 Puffs as instructed two times a day. losartan (COZAAR) 50 mg tablet Take 0.5 tablets by mouth once daily. sildenafil (VIAGRA) 50 mg tablet Take 1 to 2 pills one hour prior to sexual activity allopurinol (ZYLOPRIM) 300 mg tablet TAKE ONE TABLET BY MOUTH EVERY DAY FOR FOR GOUT esomeprazole (NEXIUM) 40 mg capsule Take 1 capsule by mouth once daily. fluticasone (FLONASE) 50 mcg/actuation nasal spray Use 1 [place] in each nostril once daily. CPAP Initiate Auto PAP @ 5-20 cm of water with humidification. Mask (per patient preference) optional chin strap (if indicated) , filters, tubing, humidifier and lifetime supplies. albuterol HFA (VENTOLIN HFA) 90 mcg/actuation inhaler Inhale 2 Puffs as instructed every 4 hours asneeded for wheezing/shortness of breath. doxycycline (VIBRA-TABS) 100 mg tablet Take 1 tablet by mouth two times a day for 7 days. benzonatate (TESSALON PERLE) 100 mg capsule [...] Appearance: Normal appearance. He is not ill-appearing. HENT: Right Ear: Tympanic membrane, ear canal and external ear normal. Left Ear: Tympanic membrane, ear canal and external ear normal. Nose: Mucosal edema, congestion and rhinorrhea present. Mouth/Throat: Pharynx: Uvula midline. No oropharyngeal exudate or posterior oropharyngeal erythema. Cardiovascular: Rate and Rhythm: Normal rate and regular rhythm. Heart sounds: Normal heart sounds. Pulmonary: Effort: Pulmonary effort is normal. No respiratory distress. Breath sounds: Normal breath sounds. No wheezing or rales. Musculoskeletal: Cervical back: Neck supple. Lymphadenopathy: Cervical: No cervical adenopathy. Skin: General: Skin is warm and dry. Findings: No erythema or rash. Neurological: Mental Status: He is alert. ASSESSMENT/PLAN: 1. Bacterial sinusitis - ICD9: 473.9, 041.9, ICD10: J32.9, B96.89 (primary diagnosis) - Will begin treatment with as per antibiotic as written, see orders - Supportive care with plenty of fluids, rest, and analgesia prn. - DOXYCYCLINE HYCLATE 100 MG TABLET 2. Viral URI with cough - ICD9: 465.9, ICD10: J06.9 - Discussed viral etiology and rationale for treatment. - Symptomatic treatment with prn analgesia - Supportive care with fluids and rest - BENZONATATE 100 MG CAPSULE - Follow-up with your PCP in 3-5 days if symptoms have not improved or sooner if symptoms worsen - Discussed red flags and need for immediate medical evaluation if any occur. - Discussed supportive care treatment with fluids, rest and analgesia. - Discussed expected course of illness Harriett Mcgarry APRN.ENGINEERING SPECIALIST documented in this encounterBu[facility]12-17-2024 Telephone encounter Note * Telephone Encounter - Ginette Callahan RN - 04/11/2024 2:10 PM EST Patient calling in and states his pharmacy, [facility], states they did not receive his prescription for levothyroxine 175 mcg on 03/30/24. Pharmacy asking for provider to resend it please. Pended. Thank you. [facility]12-17-[facility] Miscellaneous Notes* Telephone Encounter - Ginette Callahan RN - 04/11/2024 2:10 PM EST Patient calling in and states his pharmacy, [facility], states they did not receive his prescription for levothyroxine 175 mcg on 03/30/24. Pharmacy asking for provider to resend it please. Pended. Thank you. documented in this encounterBu[facility]12-05-2024 Telephone encounter Note * Telephone Encounter - Catia Minor LPN - 03/30/2024 8:39 AM EST Called and updated patient, voiced understanding. Catia Minor LPN March 30, 2024 8:41 AM [facility]12-[facility] Miscellaneous Notes* Telephone Encounter - Catia Minor LPN - 03/30/2024 8:39 AM EST Called and updated patient, voiced understanding. Catia Minor LPN March 30, 2024 8:41 AM * Telephone Encounter - Bethany Fragoso APRN.BRANDON - 03/30/2024 7:26 AM EST Thyroid stimulating hormone continues to increase. I recommend we slightly increase levothyroxine to 1 tablet daily except take 1.5 tablets on Sundays. Recheck level in 4-6 weeks. HgbA1c is also in prediabetic range but stable. Regular exercise, healthy well balanced diet, and weight loss will helpimprove this. Thank you Bethany Fragoso APRN.BRANDON documented in this encounterBucyrus Community [facility] Telephone encounter Note * Telephone Encounter - Bethany Fragoso APRN.BRANDON - 03/30/2024 7:26 AM EST Thyroid stimulating hormone continues to increase. I recommend we slightly increase levothyroxine to 1 tablet daily except take 1.5 tablets on Sundays. Recheck level in 4-6 weeks. HgbA1c is also in prediabetic range but stable. Regular exercise, healthy well balanced diet, and weight loss will helpimprove this. Thank you Bethany Fraogso APRN.ENGINEERING SPECIALIST [facility]11-14-2024 Telephone encounter Note* Telephone Encounter - Catia Minor LPN - 03/09/2024 10:36 AM EST Patient updated via Vator. Catia Minor LPN March 09, 2024 10:36 AM [facility]11-14-2024 Miscellaneous Notes* Telephone Encounter - Catia Minor LPN - 03/09/2024 10:36 AM EST Patient updated via Vator. Catia Minor LPN March 09, 2024 10:36 AM * Telephone Encounter - Bethany Fragoso APRN.CNP - 03/09/2024 7:17 AM EST We need to check a HgbA1c to further evaluate the elevated glucose. Cholesterol is too high which has increased his risk of heart attack and stroke. To lower this risk, I recommend starting a cholesterol lowering medication like simvastatin. Number one side effect is muscle aches but we will start at lowest dose and increase as needed. Also, Thyroid level was slightly off. I would like to recheckthis plus other thyroid hormone levels in 4 weeks. Thank you Bethany Fragoso APRN.CNP The 10-year ASCVD risk score (Drake CARMEN, et al., 2019) is: 13.3% Values used to calculate the score: Age: 63 years Sex: Male Is Non- : No Diabetic: No Tobacco smoker: No Systolic Blood Pressure: 118 mmHg Is BP treated: Yes HDL Cholesterol: 46 mg/dL Total Cholesterol: 237 mg/dL * Telephone Encounter - Kristie Ward RN - 03/08/2024 4:23 PM EST Lab notes say fasting for 12 hours. Call to patient and verified that he was fasting for 12 hours. Kristie Ward RN * Telephone Encounter - Bethany Fragoso APRN.CNP - 03/08/2024 3:22 PM EST Was this a fasting sample? Her glucose and cholesterol were higher then usual. Thank you Bethany Fragoso APRN.CNP documented in [facility] Telephone encounter Note * Telephone Encounter - Bethany Fragoso APRN.CNP - 03/09/2024 7:17 AM EST We need to check a HgbA1c to further evaluate the elevated glucose. Cholesterol is too high which has increased his risk of heart attack and stroke. To lower this risk, I recommend starting a cholesterol lowering medication like simvastatin. Number one side effect is muscle aches but we will start at lowest dose and increase as needed. Also, Thyroid level was slightly off. I would like to recheckthis plus other thyroid hormone levels in 4 weeks. Thank you Bethany Fragoso APRN.CNP The 10-year ASCVD risk score (Drake CARMEN, et al., 2019) is: 13.3% Values used to calculate the score: Age: 63 years Sex: Male Is Non- : No Diabetic: No Tobacco smoker: No Systolic Blood Pressure: 118 mmHg Is BP treated: Yes HDL Cholesterol: 46 mg/dL Total Cholesterol: 237 mg/dL [facility]11-13-2024 Telephone encounter Note* Telephone Encounter - Kristie Ward RN - 03/08/2024 4:23 PM EST Lab notes say fasting for 12 hours. Call to patient and verified that he was fasting for 12 hours. Kristie Ward RN [facility]11-13-2024 Telephone encounter Note* Telephone Encounter - Bethany Fragoso APRN.CNP - 03/08/2024 3:22 PM EST Was this a fasting sample? Her glucose and cholesterol were higher then usual. Thank you Bethany Fragoso APRN.CNP [facility]11-04-2024 History of Present illness Narrative* Bethany Fragoso APRN.CNP - 02/28/2024 7:25 AM EST CC: Patient presents with: Recheck: 6 month follow up Immunizations: Flu vaccination HPI Norma Ozuna is a 63 year old male who presents today for routine follow up and medication refills. Asthma: Only needs albuterol a few times a year. Does not smoke. Denies cough, wheezing, shortness of breath, recent exacerbation, or night time symptoms. JENIFER: Wears CPAP every night for average of 8 hours. Wakes up feeling refreshed. HTN Hx of a-fib with ablation 1 year ago, HLD: Mr. Ozuna indicates that he is feeling well anddenies any symptoms referable to elevated blood pressure. Specifically denies headache, chest pain,palpitations, dyspnea, and peripheral edema. Patient denies any side effects of his medication(s) and is compliant with their regimen. He does not check BP's generally. Norma works out regularly 5 times per week with walking and light weights. He watches his diet for sodium, low fat and low cholesterol most of the time. Follows with [facility]. Last 3 Encounter BP Readings: Date: BP: 02/28/2024 118/78 01/28/2024 122/82 07/05/2023 126/80 ED: controlled well with current treatment and reports tolerating it well Hypothyroidism: takes medication as ordered. Denies and fatigue, changes in weight, changes in hair/nails, or any other concerns at this time. Gout: Years since last gout attack. Tolerating allopurinol well REVIEW OF SYSTEMS See HPI PAST MEDICAL HISTORY Diagnosis Date COPD (chronic obstructive pulmonary disease) (HCC) Esophageal reflux Gastroesophageal reflux Essential hypertension Gout High cholesterol Hypothyroidism Unspecified asthma(493.90) PAST SURGICAL HISTORY Procedure Laterality Date COLONOSCOPY FLX DX W/COLLJ SPEC WHEN PFRMD 03/04/2011 Colonoscopy-repeat in -2020 COLONOSCOPY FLX DX W/COLLJ SPEC WHEN PFRMD 03/03/2021 ESOPHAGOGASTRODUODENOSCOPY TRANSORAL DIAGNOSTIC 03/04/2011 EGD EYE SURGERY HX PAST SURGICAL HISTORY OF SHOULDER ARTHROSCOPY right RADIAL KERATOTOMY VASECTOMY UNI/BI SPX W/POSTOP SEMEN EXAMS ALLERGIES Penicillins and Zoloft [Sertraline Hcl] MEDICATIONS losartan (COZAAR) 50 mg tablet Take 0.5 tablets by mouth once daily. budesonide-formoterol (SYMBICORT) 80-4.5 mcg/actuation inhaler Inhale 2 Puffs as instructed two times a day. levothyroxine (LEVOXYL) 175 mcg tablet Take 1 tablet by mouth once daily. Take on empty stomach. For thyroid. sildenafil (VIAGRA) 50 mg tablet Take 1 to 2 pills one hour prior to sexual activity allopurinol (ZYLOPRIM) 300 mg tablet TAKE ONE TABLET BY MOUTH EVERY DAY FOR FOR GOUT esomeprazole (NEXIUM) 40 mg capsule Take 1 capsule by mouth once daily. fluticasone (FLONASE) 50 mcg/actuation nasal spray Use 1 [place] in each nostril once daily. atenolol (TENORMIN) 25 mg tablet Take 1 tablet by mouth once daily. CPAP Initiate Auto PAP @ 5-20 cm of water with humidification. Mask (per patient preference) optional chin strap (if indicated) , filters, tubing, humidifier and lifetime supplies. albuterol HFA (VENTOLIN HFA) 90 mcg/actuation inhaler Inhale 2 Puffs as instructed every 4 hours asneeded for wheezing/shortness of breath. FAMILY HISTORY Problem Relation Age of Onset [...] week Comment: per week Drug use: No PHYSICAL EXAM BP 118/78 Pulse 60 Resp 16 Wt 127.5 kg (281 lb) SpO2 94% BMI 35.12 kg/m General Appearance: well appearing, in no acute distress, alert Pysch: mood and affect broad and appropriate Eyes: conjunctiva pink and moist, no icterus, sclera white, non-injected Lungs: Lungs clear to auscultation. No wheezing, rhonchi, rales. Heart: RRR without murmur, gallop, or rubs. No ectopy Health maintenance reviewed with patient: Spirometry Never done Depression Screening Never done Anxiety Screening Never done BP Controlled (<130/80) Never done Shingrix Vaccine(1 of 2) Never done DTaP,Tdap,Td Vaccine(2 - Td or Tdap) due on 07/22/2015 RSV Vaccine(1 - Risk 60-74 years 1-dose series) Never done Influenza Vaccine(1) due on 12/26/2023 Covid-19 Vaccine(3 - 2023- season) due on 12/26/2023 Annual PCP Team Chronic Disease Visit due on 07/04/2024 Diabetes Screening due on 12/05/2025 Prostate Cancer Screening Discussion due on 03/28/2026 Lipid Screening due on 07/01/2026 Colorectal Cancer Screening due on 03/03/2031 Hepatitis C Screening Completed HIV Screening Completed DATA REVIEWED: No new labs ASSESSMENT/PLAN: 1. Essential hypertension - ICD9: 401.9, ICD10: I10 (primary diagnosis) - Controlled - Continue current medications - Recommend home blood pressure monitoring, to bring results to next visit - Encouraged sodium restriction, DASH or Mediterranean diet - Recommend regular aerobic exercise - COMPLETE BLOOD COUNT AND DIFFERENTIAL - COMPREHENSIVE METABOLIC PANEL 2. Hypothyroidism, unspecified type - ICD9: 244.9, ICD10: E03.9 - Instructed patient on importance of taking on an empty stomach either first thing in the morning or at bedtime. - LEVOTHYROXINE 175 MCG TABLET - THYROID STIMULATING HORMONE 3. Obstructive sleep apnea syndrome - ICD9: 327.23, ICD10: G47.33 Compliant with cpap use and gets restful sleep 4. Asthma without acute exacerbation - ICD9: 493.90, ICD10: J45.909 - Mild intermittent asthma stable - Continue current medications - Avoidance of triggers recommended - BUDESONIDE-FORMOTEROL HFA 80 MCG-4.5 MCG/ACTUATION AEROSOL INHALER 5. Hyperlipidemia, unspecified hyperlipidemia type - ICD9: 272.4, ICD10: E78.5 - Control undetermined, due for labs - Counseled on healthy diet and regular exercise - Discussed need for and benefit of weight loss. BMI 35.12 kg/(m^2) - COMPREHENSIVE METABOLIC PANEL - LIPID PANEL BASIC 6. Paroxysmal A-fib (HCC) - ICD9: 427.31, ICD10: I48.0 Resolved after ablation Continue with recommendations by cardiology 7. Gout, unspecified cause, unspecified chronicity, unspecified site - ICD9: 274.9, ICD10: M10.9 Controlled with current treatment - COMPREHENSIVE METABOLIC PANEL - URIC ACID 8. Erectile dysfunction, unspecified erectile dysfunction type - ICD9: 607.84, ICD10: N52.9 Controlled with current treatment 9. Need for influenza vaccination - ICD9: V04.81, ICD10: Z23 - INFLUENZA VACCINE, AGE 6MO-64YR, TRIVALENT (AFLURIA, FLULAVAL, FLUVIRIN, FLUZONE) Prescription instructions reviewed with patient as applicable. Potential red flag symptoms discussed with the patient. Reviewed appropriate action plan to take if red flag symptoms occur. Patient agreeable to treatment plan. Bethany Fragoso APRN.CNP documented in this encounterBu[facility]10-[facility] Telephone encounter Note * Telephone Encounter - Ginette Huff - 02/14/2024 2:07 PM EDT Patient returned call to schedule has an OON insurance so referral has been placed and gave patientPFA phone number to call to start this process of been cleared. [facility]10-21-2024 Miscellaneous Notes* Telephone Encounter - Ginette Huff - 02/14/2024 2:07 PM EDT Patient returned call to schedule has an OON insurance so referral has been placed and gave patientPFA phone number to call to start this process of been cleared. * Telephone Encounter - Verna Meade LPN - 02/12/2024 10:58 AM EDT Left message for Patient to call to schedule f/u appt w/PCP. Verna Meade LPN * Telephone Encounter - Susy Nicole PSS - 02/12/2024 8:54 AM EDT Prescription Refill Information The patient has been identified by name and date of : Yes Caregiver verified no other encounters exist for this prescription request: Yes Caregiver confirmed with patient/requestor that no other refills are due, in the near future, with this provider at this time: Yes The last office visit in the department: 07/05/2023 Does the patient have a future office visit with this provider/department: No Requested Prescriptions Pending Prescriptions Disp Refills losartan (COZAAR) 50 mg tablet 90 tablet 0 Sig: Take 0.5 tablets by mouth once daily. budesonide-formoterol (SYMBICORT) 80-4.5 mcg/actuation inhaler 10.2 g 5 Sig: Inhale 2 Puffs as instructed two times a day. GREY Parker February 12, 2024 8:56 AM documented in this encounterBucy[facility]10-19-2024 Telephone encounter Note * Telephone Encounter - Verna Meade LPN - 02/12/2024 10:58 AM EDT Left message for Patient to call to schedule f/u appt w/PCP. Verna Meade LPN [facility]10-19-2024 Telephone encounter Note* Telephone Encounter - Susy Nicole PSS - 02/12/2024 8:54 AM EDT Prescription Refill Information The patient has been identified by name and date of : Yes Caregiver verified no other encounters exist for this prescription request: Yes Caregiver confirmed with patient/requestor that no other refills are due, in the near future, with this provider at this time: Yes The last office visit in the department: 07/05/2023 Does the patient have a future office visit with this provider/department: No Requested Prescriptions Pending Prescriptions Disp Refills losartan (COZAAR) 50 mg tablet 90 tablet 0 Sig: Take 0.5 tablets by mouth once daily. budesonide-formoterol (SYMBICORT) 80-4.5 mcg/actuation inhaler 10.2 g 5 Sig: Inhale 2 Puffs as instructed two times a day. GREY Parker February 12, 2024 8:56 AM [facility]10-04-2024 History of Present illness Narrative* Jatin Shaffer PA - 01/28/2024 7:18 AM EDT Images from the original note were not included. This note was created using [employer]. Subjective Norma Ozuna is a 63 year old male. HPI 63-year-old male presents for poison maliha. Patient states that he was picking up sticks in his yard a few days ago and now he noticed he has a rash to both arms. States the rash is itchy. He thinks itmight be poison maliha. He has had it in the past. He denies any drainage from the area. No fevers. Nodifficulty breathing or swallowing. No other complaint. Has not tried anything [id number] for symptom PAST MEDICAL HISTORY Diagnosis Date COPD (chronic [...] Take 0.5 tablets by mouth once daily. levothyroxine (LEVOXYL) 175 mcg tablet Take 1 tablet by mouth once daily. Take on empty stomach. For thyroid. sildenafil (VIAGRA) 50 mg tablet Take 1 to 2 pills one hour prior to sexual activity allopurinol (ZYLOPRIM) 300 mg tablet TAKE ONE TABLET BY MOUTH EVERY DAY FOR FOR GOUT esomeprazole (NEXIUM) 40 mg capsule Take 1 capsule by mouth once daily. fluticasone (FLONASE) 50 mcg/actuation nasal spray Use 1 [place] in each nostril once daily. atenolol (TENORMIN) 25 mg tablet [...] 2 Puffs as instructed every 4 hours asneeded for wheezing/shortness of breath. triamcinolone acetonide (KENALOG) 0.1 % cream Apply 1 application to affected area two times a day for 7 days. Apply to affected area. Use sparingly. FAMILY HISTORY Problem Relation Age of Onset [...] No Review of Systems Constitutional: Negative for chills and fever. HENT: Negative for congestion and sore throat. Respiratory: Negative for cough and shortness of breath. Gastrointestinal: Negative for diarrhea and vomiting. Skin: Positive for rash. Objective BP 122/82 Pulse (!) 55 Temp 36 C (96.8 F) Resp 20 Wt 127.8 kg (281 lb 12 oz) SpO2 97% BMI 35.22 kg/m Physical Exam Vitals and nursing note reviewed. Constitutional: General: He is not in acute distress. Appearance: Normal appearance. He is not toxic-appearing. HENT: Nose: Nose normal. Mouth/Throat: Mouth: Mucous membranes are moist. Eyes: Conjunctiva/sclera: Conjunctivae normal. Cardiovascular: Rate and Rhythm: Normal rate and regular rhythm. Pulmonary: Effort: Pulmonary effort is normal. Breath sounds: Normal breath sounds. Skin: General: Skin is warm and dry. Findings: Rash present. Comments: Vesicular erythematous rash in linear line noted to bilateral forearms. No drainage. No fluctuance or abscess. No rash anywhere else. Neurological: Mental Status: He is alert. Assessment and Plan ASSESSMENT/PLAN: 1. Allergic contact dermatitis due to plants, except food - ICD9: 692.6, ICD10: L23.7 - Topical steriod tx with Rx for steriod cream/ointment- see orders - Anti itch therapy of Calomine lotion and Oral Benydryl recommended prn - discussed skin care of rash - follow up if symptoms persist or worsen. Diagnosis and treatment plan were discussed and questions were answered to the patient's satisfaction. Pt acknowledged understanding of concepts and follow up plan. Specific signs and symptoms that would indicate the need for higher level of care were discussed in detail warranting prompt ER evaluation. SAMMY Chawla documented in this encounterBucy[facility]05-18-[facility]24 Telephone encounter Note * Telephone Encounter - Ginette Callahan RN - 09/11/2023 11:17 AM EDT Pt's calling and states patient is completely out of losartan as of yesterday. Requesting it to be sent to her pharmacy today, along with other refill request, if On-Call provider could completethis. Thank you. [facility]05-18-2024 Miscellaneous Notes* Telephone Encounter - Ginette Callahan RN - 09/11/2023 11:17 AM EDT Pt's calling and states patient is completely out of losartan as of yesterday. Requesting it to be sent to her pharmacy today, along with other refill request, if On-Call provider could completethis. Thank you. * Telephone Encounter - Nupur Caba LPN - 09/10/2023 3:18 PM EDT Patient has been identified by name and date of : Yes, Patient phones for refill(s): Requested Prescriptions Pending Prescriptions Disp Refills losartan (COZAAR) 50 mg tablet 90 tablet 3 Sig: Take 0.5 tablets by mouth once daily. levothyroxine (LEVOXYL) 175 mcg tablet 90 tablet 3 Sig: Take 1 tablet by mouth once daily. Take on empty stomach. For thyroid. Date of last office visit in primary care: 07/05/2023 Date of next office visit in primary care: Visit date not found Please advise. Thank you. Nupur Caba LPN. * Telephone Encounter - Alexandra Morillo - 09/10/2023 3:09 PM EDT Elia's is calling Sammie Banks MD today. She spoke directly to [facility] and they donot current scripts on file for two of his medications. Losartan 50 mg tablets- In February a medication update was done but not sent to pharmacy Levothyroxine - Pharmacy did not receive the script sent on 07/04- please resend Patient is out of both medications. losartan (COZAAR) 50 mg tablet 90 tablet 3 03/02/2023 -- Sig: Take 0.5 tablets by mouth once daily. Class: Med Update Route: ORAL Order: [id number] evothyroxine (LEVOXYL) 175 mcg tablet 90 tablet 3 07/05/2023 -- Sig: Take 1 tablet by mouth once daily. Take on empty stomach. For thyroid. Sent to pharmacy as: levothyroxine (LEVOXYL) 175 mcg tablet Class: Normal Route: ORAL Order: [id number] E-Prescribing Status: Receipt confirmed by pharmacy (07/05/2023 3:44 PM EDT) documented in this encounterBucyrus [facility] Hospital05-17-2024 Telephone encounter Note * Telephone Encounter - Nupur Caba LPN - 09/10/2023 3:18 PM EDT Patient has been identified by name and date of : Yes, Patient phones for refill(s): Requested Prescriptions Pending Prescriptions Disp Refills losartan (COZAAR) 50 mg tablet 90 tablet 3 Sig: Take 0.5 tablets by mouth once daily. levothyroxine (LEVOXYL) 175 mcg tablet 90 tablet 3 Sig: Take 1 tablet by mouth once daily. Take on empty stomach. For thyroid. Date of last office visit in primary care: 07/05/2023 Date of next office visit in primary care: Visit date not found Please advise. Thank you. Nupur Caba LPN. [facility]05-17-2024 Telephone encounter Note* Telephone Encounter - Alexandra Morillo - 09/10/2023 3:09 PM EDT Elia's is calling Sammie Banks MD today. She spoke directly to [facility] and they donot current scripts on file for two of his medications. Losartan 50 mg tablets- In February a medication update was done but not sent to pharmacy Levothyroxine - Pharmacy did not receive the script sent on 07/04- please resend Patient is out of both medications. losartan (COZAAR) 50 mg tablet 90 tablet 3 03/02/2023 -- Sig: Take 0.5 tablets by mouth once daily. Class: Med Update Route: ORAL Order: [id number] evothyroxine (LEVOXYL) 175 mcg tablet 90 tablet 3 07/05/2023 -- Sig: Take 1 tablet by mouth once daily. Take on empty stomach. For thyroid. Sent to pharmacy as: levothyroxine (LEVOXYL) 175 mcg tablet Class: Normal Route: ORAL Order: [id number] E-Prescribing Status: Receipt confirmed by pharmacy (07/05/2023 3:44 PM EDT) [facility]05-14-[facility] Telephone encounter Note* Telephone Encounter - Verna Meade LPN - 09/07/2023 3:18 PM EDT Left message on Identified vm, Losartan (Cozaar) written 03/02/2023 for 90 tablets, 3 refills and Levothyroxine 175 mcg written 07/05/2023 for 90 tablets, 3 refills. Will have provider review RX for Viagra, check with pharmacy in next 24-48 hours. Patient has been identified by name and date of : Yes Patient phones for refill(s): Requested Prescriptions Pending Prescriptions Disp Refills sildenafil (VIAGRA) 50 mg tablet 30 tablet 2 Sig: Take 1 to 2 pills one hour prior to sexual activity Date of last office visit in primary care: 07/05/2023 Date of next office visit in primary care: Visit date not found Please advise. Thank you. Verna Meade LPN. [facility]05-14-2024 Miscellaneous Notes* Telephone Encounter - Verna Meade LPN - 09/07/2023 3:18 PM EDT Left message on Identified vm, Losartan (Cozaar) written 03/02/2023 for 90 tablets, 3 refills and Levothyroxine 175 mcg written 07/05/2023 for 90 tablets, 3 refills. Will have provider review RX for Viagra, check with pharmacy in next 24-48 hours. Patient has been identified by name and date of : Yes Patient phones for refill(s): Requested Prescriptions Pending Prescriptions Disp Refills sildenafil (VIAGRA) 50 mg tablet 30 tablet 2 Sig: Take 1 to 2 pills one hour prior to sexual activity Date of last office visit in primary care: 07/05/2023 Date of next office visit in primary care: Visit date not found Please advise. Thank you. Verna Meade LPN. * Telephone Encounter - Aashish Cox - 09/07/2023 3:07 PM EDT Prescription Refill Information The patient has been identified by name and date of : Yes Caregiver verified no other encounters exist for this prescription request: No Caregiver confirmed with patient/requestor that no other refills are due, in the near future, with this provider at this time: Yes The last office visit in the department: 07/04/22 Does the patient have a future office visit with this provider/department: No Requested Prescriptions Pending Prescriptions Disp Refills losartan (COZAAR) 50 mg tablet 90 tablet 3 Sig: Take 0.5 tablets by mouth once daily. levothyroxine (LEVOXYL) 175 mcg tablet 90 tablet 3 Sig: Take 1 tablet by mouth once daily. Take on empty stomach. For thyroid. sildenafil (VIAGRA) 50 mg tablet 30 tablet 2 Sig: Take 1 to 2 pills one hour prior to sexual activity Aashish Ramirez September 07, 2023 3:07 PM documented in this encounterBucyrus Community Hospital05-14-2024 Telephone encounter Note * Telephone Encounter - Aashish Cox - 09/07/2023 3:07 PM EDT Prescription Refill Information The patient has been identified by name and date of : Yes Caregiver verified no other encounters exist for this prescription request: No Caregiver confirmed with patient/requestor that no other refills are due, in the near future, with this provider at this time: Yes The last office visit in the department: 07/04/22 Does the patient have a future office visit with this provider/department: No Requested Prescriptions Pending Prescriptions Disp Refills losartan (COZAAR) 50 mg tablet 90 tablet 3 Sig: Take 0.5 tablets by mouth once daily. levothyroxine (LEVOXYL) 175 mcg tablet 90 tablet 3 Sig: Take 1 tablet by mouth once daily. Take on empty stomach. For thyroid. sildenafil (VIAGRA) 50 mg tablet 30 tablet 2 Sig: Take 1 to 2 pills one hour prior to sexual activity Aashish Ramirez September 07, 2023 3:07 PM [facility]03-11-2024 History of Present illness Narrative* Aashish Tanner PA-C - 07/05/2023 3:34 PM EDT CC: Patient presents with: Follow Up: med refills needed HPI Norma Ozuna is a 63 year old male who presents today for routine follow- up and medication refills. A Fib, HTN: Ablation was done by Dr. Head through [facility]. Follows with Dr. Espinoza once/year. Denies any symptoms referable to elevated blood pressure. Specifically denies headache, chest pain, palpitations, dyspnea, and peripheral edema. Patient denies any side effects of his medication(s) and is compliant wit h their regimen. Since last visit, had Losartan 120-125/70-80 on avg. He does watches their diet for sodium, low fat and low cholesterol most of the time. Tries to get 10,000 steps a day, walks dailyand lifts a bit. Last 3 Encounter BP Readings: Date: BP: 07/05/2023 126/80 04/07/2023 122/68 03/02/2023 100/50 JENIFER: Wears CPAP nightly. Denies any issues with leaks, mask not fitting properly, snoring, un-refreshed sleep, or excessive daytime drowsiness. Gout - stable on allopurinol COPD/asthma - only tends to be an issue when he has respiratory infections. No longer has SOB, so wonders if it could all be A Fib related. Hypothyroidism. He is doing well on his current dose of Synthroid. Denies fatigue, cold intolerance, constipation, swelling in feet, weight gain, hair loss, and dry skin. TSH (uU/mL) Date Value 03/28/2021 1.760 04/01/2020 1.880 ) REVIEW OF SYSTEMS See HPI All other systems negative. PAST MEDICAL HISTORY Diagnosis Date COPD (chronic [...] (FLONASE) 50 mcg/actuation nasal spray Use 1 Portage in each nostril once daily. levothyroxine (LEVOXYL) [...] 2 Puffs as instructed every 4 hours asneeded for wheezing/shortness of breath. predniSONE (DELTASONE) 10 mg tablet Take 2 tabs po BID for 2 days then 1 tab po BID for 2 days then1/2 tab po BID for 2 days then 1/2 tab daily for 2 days then stop (Patient not taking: Reported on 04/07/2023) aspirin, enteric coated (ASPIRIN, ENTERIC COATED) 81 [...] week Comment: per week Drug use: No PHYSICAL EXAM BP 126/80 (BP Site: Left Arm, BP Position: Sitting, BP Cuff Size: Large Adult) Pulse 77 Temp 36.5 C (97.7 F) Resp 12 Ht 190.5 cm (6' 3) Wt 130.6 kg (288 lb) SpO2 96% BMI 36.00 kg/m General Appearance: well appearing, in no acute distress, alert Psych: mood and affect broad and appropriate Skin: Skin color, texture, turgor normal for age Lungs: Lungs clear to auscultation. No wheezing, rhonchi, rales. Heart: RRR without murmur, gallop, or rubs. Extremities: No gross deformities, significant edema, skin discoloration, clubbing or cyanosis. Neurological: Gait normal. No focal neurological deficits. Sensation grossly intact. ASSESSMENT/PLAN: 1. Essential hypertension - ICD9: 401.9, ICD10: I10 (primary diagnosis) - Controlled - Continue current medications - Recommend home blood pressure monitoring, to bring results to next visit - Encouraged sodium restriction, DASH or Mediterranean diet - Recommend regular aerobic exercise 2. Obstructive sleep apnea syndrome - ICD9: 327.23, ICD10: G47.33 JENIFER: Wears CPAP nightly. Denies any issues with leaks, mask not fitting properly, snoring, un-refreshed sleep, or excessive daytime drowsiness. 3. Hypothyroidism, unspecified type - ICD9: 244.9, ICD10: E03.9 - Instructed patient on importance of taking on an empty stomach either first thing in the morning or at bedtime. - continue current dose of Synthroid 175 mcg - LEVOTHYROXINE 175 MCG TABLET 4. Mixed hyperlipidemia - ICD9: 272.2, ICD10: E78.2 - Worsening control; CV risk score 12.2%-patient opting not to start on statin medication at this point in time, as he is really been working on his diet and exercise - Counseled on healthy diet and regular exercise - Discussed need for and benefit of weight loss. BMI 36.00 kg/(m^2) 5. Gout, unspecified cause, unspecified chronicity, unspecified site - ICD9: 274.9, ICD10: M10.9 Stable; Refills provided per patient request - ALLOPURINOL 300 MG TABLET 6. Gastroesophageal reflux disease without esophagitis - ICD9: 530.81, ICD10: K21.9 -Stable; refills provided per patient request - ESOMEPRAZOLE MAGNESIUM 40 MG CAPSULE,DELAYED RELEASE 7. Mild persistent asthma with acute exacerbation - ICD9: 493.92, ICD10: J45.31 Currently on Symbicort, but seems to be far less problematic after ablation, so wonders if symptomsmay have been secondary to cardiac rather than pulmonary - Continue current medications for the time being 8. Paroxysmal A-fib (HCC) - ICD9: 427.31, ICD10: I48.0 Status post ablation; Continue current management per [place] [facility] Follow-up 1 year routine issues Prescription instructions reviewed with patient as applicable. Potential red flag symptoms discussed with the patient. Reviewed appropriate action plan to take if red flag symptoms occur. Patient agreeable to treatment plan. Aashish Tanner PA-C documented in this encounterBucyrus [facility]03-04-2024 Miscellaneous Notes* Telephone Encounter - Sharla Rose RN - 06/28/2023 9:10 AM EST Faxed lab orders to [facility] lab, per pt request. documented in this encounterBucyrus [facility] Hospital11-29-2023 Evaluation + Plan note* Assessment & Plan Note - KEITH Clark CNP - 03/24/2023 2:30 PM EST Associated Problem(s): Obesity (BMI 35.0-39.9 without comorbidity) He is exercising on a regular basis. [facility] [id number] Miscellaneous Notes* Assessment & Plan Note - KEITH Clark CNP - 03/24/2023 2:30 PM ESTAssociated Problem(s): Obesity (BMI 35.0-39.9 without comorbidity) He is exercising on a regular basis. * Assessment & Plan Note - KEITH Clark CNP - 03/24/2023 2:29 PM EST Associated Problem(s): Atrial fibrillation with RVR (HCC) He is status post cryo PVI on December 04, 2022. He has had 2 episodes that he feels are likely A-fibalthough his rate was only in the 70s. He has a watch but it only monitors his heart rate. He is going to continue to monitor for A-fib and I have advised if he senses that he is out of rhythm and it lasts longer than 12 hours to give us a call. He wishes to follow in [place] unless EP services are needed. * Assessment & Plan Note - KEITH Clark CNP - 03/24/2023 2:28 PM EST Associated Problem(s): JENIFER (obstructive sleep apnea) Compliant with his CPAP. documented in this [facility]11-29-2023 Evaluation + Plan note* Assessment & Plan Note - KEITH Clark CNP - 03/24/2023 2:29 PM EST Associated Problem(s): Atrial fibrillation with RVR (HCC) He is status post cryo PVI on December 04, 2022. He has had 2 episodes that he feels are likely A-fibalthough his rate was only in the 70s. He has a watch but it only monitors his heart rate. He is going to continue to monitor for A-fib and I have advised if he senses that he is out of rhythm and it lasts longer than 12 hours to give us a call. He wishes to follow in [place] unless EP services are needed. [facility] [id number] Evaluation + Plan note* Assessment & Plan Note - KEITH Clark CNP - 03/24/2023 2:28 PM ESTAssociated Problem(s): JENIFER (obstructive sleep apnea) Compliant with his CPAP. [facility] [id number] History of Present illness Narrative* KEITH Clark CNP - 03/24/2023 2:00 PM EST Images from the original note were not included. [facility] [address] [facility] [address] Dept: [phone] Dept Visit type: Established : 1960 Reason for Visit: 3 Month Follow Up (PAF/PVI Cryo) Assessment and Plan 1. Atrial fibrillation with RVR (HCC) Assessment & Plan: He is status post cryo PVI on December 04, 2022. He has had 2 episodes that he feels are likely A-fibalthough his rate was only in the 70s. He has a watch but it only monitors his heart rate. He is going to continue to monitor for A-fib and I have advised if he senses that he is out of rhythm and it lasts longer than 12 hours to give us a call. He wishes to follow in [place] unless EP services are needed. Orders: - ECG 12 lead - CLINIC PERFORMED 2. Essential hypertension 3. JENIFER (obstructive sleep apnea) Assessment & Plan: Compliant with his CPAP. 4. Obesity (BMI 35.0-39.9 without comorbidity) Assessment & Plan: He is exercising on a regular basis. Follow up if symptoms worsen or fail to improve. Subjective Norma Ozuna is a 62 y.o. male known to [...] diagnosis. He has been followed at the [place] [facility]. He was placed on Eliquis and atenolol. In August he underwent cardioversion. He said he stayed in sinus rhythm about 2 weeks and then had recurrence of atrial fibrillation. When heis in atrial fibrillation he has symptoms of [...] he postprocedure and was maintaining a normal sinusrhythm. 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 He presents today for a 3-month post procedure follow-up Norma Ozuna presents for his follow-up post PVI I [...] 09/07/2008 Dx:20 years ago. He takes xyloric forgout, He usually stays on a good diet and does well. Last Assessment & Plan: Formatting of thisnote might be different from the original. Dx:20 years ago. He takes xyloric for gout, He usually stays on a good diet and does well. He has not stopped taking the gout medication Hypothyroidism 11/17/2013 Dx; 2013, Patient was not loosing weight, Exercising and eating well and tsh was mildly elevated, He was started on the smallest dose andthen stopped when he ran out, 3 weeks ago Last Assessment & Plan: Formatting of this note mightbe different from the original. Dx; 2013, Patient was not loosing weight, [...] Cryoablation Performed by Williams Mcnamara MD at [facility] Cardiac Cath/EP Lab CARDIAC ELECTROPHYSIOLOGY PROCEDURE N/A 12/04/2022 Performed by Williams Mcnamara MD at [facility] Cardiac Cath/EP Lab CARDIOVERSION 08/2022 Done at [facility]; AFib recurrence 2 wks post-op; referral to [facility] [place] ABLATION N/A A fib paroxysmal KNEE [...] tests: KEITH Clark CNP documented in this [facility]11-29-2023 Instructions* Patient Instructions* KEITH Clark CNP - 03/24/2023 2:00 PM EST Follow with [place] [facility] documented in this [facility]11-07-2023 History of Present illness Narrative* Larissa Dhaliwal APRN.BRANDON - 03/02/2023 3:46 PM EST SUBJECTIVE Norma Ouzna is a 62 year old male here today for acute concern. Chief Complaint Patient presents with: Cough: was seen in [facility] on 02/21/2023 and treated with doxycycline and benzonatate. Had some improvement but cough had worsened in the last 2 days HPI Norma Ozuna is a 62 year old male. Here today for follow up from [facility]. He was seen in our [facility] 02/21/2023 and diagnosed with lower resp tract infection. Started on tessalon and doxycycline. Symptoms of cough, some shortness of breath. History of asthma. Done with doxy but still having s ymptoms. Increased sputum, some shortness of breath but no chest pain or chest tightness. His medications were reviewed today and his list is now up to date. Medications Current Outpatient Medications Medication Sig losartan (COZAAR) 50 mg tablet Take 0.5 tablets by mouth once daily. fluticasone (FLONASE) 50 mcg/actuation nasal spray Use 1 Portage in each nostril once daily. levothyroxine (LEVOXYL) [...] 2 Puffs as instructed every 4 hours asneeded for wheezing/shortness of breath. predniSONE (DELTASONE) 10 mg tablet Take 2 tabs po BID for 2 days then 1 tab po BID for 2 days then1/2 tab po BID for 2 days then [...] from today's visit and in agreement with treatmentplan. Questions answered. Agrees to call the office [...] as well as compliance with taking medications. Age- appropriate health preventative measures were discussed. Return in about 4 months (around 07/01/2023) for Follow up on chronic conditions and medications.. Larissa Dhaliwal APRN-BRANDON documented in this encounterBu[facility]rus [facility]11-07-2023 Miscellaneous Notes* Telephone Encounter - Larissa Dhaliwal APRN.CNP - 03/02/2023 11:54 AM EST Noted. * Telephone Encounter - Amanda Jon RN - 03/02/2023 11:33 AM EST Patient calls and states that he has been on antibiotics since 2 Sundays ago. Patient states that normally when he gets like this Dr. Banks normally orders him a steroid. Patient was seen in [facility] on 02/21/2023. Patient asking if provider can order a steroid? Patient scheduled with Larissa today to discuss. Amanda Jon RN documented in this encounterBucyrus [facility] Hospital10-29-2023 History of Present illness Narrative* Harriett Mcgarry APRN.CNP - 02/21/2023 11:23 AM EDT Subjective Cough Associated symptoms include shortness of breath. Pertinent negatives include no chills and no myalgias. Norma Ozuna is a 62 year old male who [...] (FLONASE) 50 mcg/actuation nasal spray Use 1 Portage in each nostril once daily. levothyroxine (LEVOXYL) [...] 2 Puffs as instructed every 4 hours asneeded for wheezing/shortness of breath. doxycycline hyclate (VIBRAMYCIN) [...] Discussed expected course of illness Harriett Mcgarry APRN.ENGINEERING SPECIALIST documented in this encounterBucyrus Community Hospital10-29-2023 Instructions* Patient Instructions* Harriett Mcgarry APRN.CNP - 02/21/2023 11:22 AM [...] illness Harriett Mcgarry APRN.CNP documented in this encounterBucyrus [facility] Hospital08-24-2023 History of Present illness Narrative* KEITH Casiano CNP - 12/17/2022 8:00 AM EDT Images from the original note were not included. [facility] [address] [facility] [address] Dept: [phone] Dept Visit type: Established : 1960 Reason [...] Dr. Mcnamara. He will continue Eliquis 5 mgtwice a day for anticoagulation for stroke for two months post procedure. Continue atenolol and losartan daily. He is compliant with CPAP therapy. Blood pressure stable. He was seen by his [place] train gateman last week and following up in a year. He is contacting his insurance to inquire if a smart watch is covered. Follow-up [address] Mcnamara. Follow up in about 11 weeks (around 03/04/2023) for Follow up three months Dr Mcnamara. Subjective Norma Ozuna is a 62 y.o. male was referred to Dr Mcnamara for treatment of his atrial fibrillation. In 2019 he had atrial fibrillation with Covid.He tried to have knee surgery this year and couldn't because of atrial fibrillation in April. In retrospect he had symptoms of fatigue and exercise intolerance for couple weeks prior to that diagnosis. [facility] [place] [facility] and seen last week. [...] the ablation was completed He monitors via [employer] with heart rates 50-60s. He is walking daily about 10,000 steps per day. He reports no recurrence of atrial fibrillation. Denies any signs of bleeding Norma Ozuna Review of Systems Constitutional: Negative for activity [...] 12/04/2022 Performed by Williams Mcnamara MD at [facility] Cardiac Cath/EP Lab CARDIAC ELECTROPHYSIOLOGY PROCEDURE N/A 12/04/2022 Performed by Williams Mcnamara MD at [facility] Cardiac Cath/EP Lab [facility] [place] ABLATION N/A [...] done/ordered within my specialty: EKG in office: [id number] Score for Atrial Fibrillation Stroke Risk Risk Factors C CHF No, 0 H HTN Yes, 1 A2 Age >= 75 No, 0 D DM No, 0 S2 Prior Stroke/TIA No, 0 V Vascular Disease No, 0 A Age 65-74 No, 0 Sc Sex Male, 0 [id number] Score 1 Calculator: [id number] risk stratification score for estimation of stroke risk for nonvalvular atrial fibrillation in adults - UpToDate Atrial fibrillation in adults: Use of oral anticoagulants - UpToDate Review of tests/labs done/ordered outside my specialty: Independent interpretation of tests: KEITH Casiano CNP documented in this [facility]08-12-2023 NoteDischarge Summary Norma Ozuna : 1960 ADMIT DATE: 12/04/2022 DISCHARGE DATE: 12/05/2022 PRIMARY CARE PHYSICIAN: Sammie Banks VISIT STATUS: Observation CODE STATUS: Full Code DISCHARGE DIAGNOSES: Principal Problem: Atrial fibrillation with RVR (CMS/HCC) (HCC) Active Problems: Atrial fibrillation (CMS/HCC) ([facility]) HOSPITAL COURSE: Norma Ozuna is a 62 y.o. male was referred [...] diagnosis. He has been followed at the [place] [facility] since that time. He was [...] Complexity: follow up within 7-14 calendar days (33514) [] Severe Complexity: follow up within 7 calendar days (41252) FOLLOW UP TESTING, PENDING RESULTS OR REFERRALS AT TRANSITIONAL CARE VISIT: [] Yes [] No PENDING STUDIES: NOne DISPOSITION: Home FACILITY/HOME CARE AGENCY NAME: N/A Follow up with KEITH Caisano CNP [address] [place] [address] Follow up on 12/17/2022 Time 8:00 INSTRUCTIONS [...] minutes SIGNED: KEITH Bryant CNP 12/05/2022, 8:08 [facility]08-12-2023 Nurse Note* Slime Gamez RN - 12/05/2022 8:45 AM EDT Discharge paperwork reviewed with pt. [place] miguel is on the way. [facility] [id number] Nurse Note* Slime Gamez RN - 12/05/2022 8:45 AM EDT Discharge paperwork reviewed with pt. [place] miguel is on the way. documented in this [facility]08-12-2023 Hospital course Narrative* Tracy Sheth APRN - ENGINEERING SPECIALIST - 12/05/2022 7:48 AM EDT Discharge Summary Norma Ozuna : 1960 ADMIT DATE: 12/04/2022 DISCHARGE DATE: 12/05/2022 PRIMARY CARE PHYSICIAN: Sammie Banks VISIT STATUS: Observation CODE STATUS: Full Code DISCHARGE DIAGNOSES: Principal Problem: Atrial fibrillation with RVR (CMS/HCC) (HCC) Active Problems: Atrial fibrillation (CMS/HCC) (HCC) HOSPITAL COURSE: Norma Ozuna is a 62 y.o. male was referred [...] diagnosis. He has been followed at the [place] [facility] since that time. He was placed on Eliquis and atenolol. In August he underwent cardioversion. He said hestayed in sinus rhythm about 2 weeks and [...] his blood pressures at home have been controlledwell. He has had no other bleeding issues [...] Complexity: follow up within 7-14 calendar days (50934) [] Severe Complexity: follow up within 7 calendar days (38283) FOLLOW UP TESTING, PENDING RESULTS OR REFERRALS AT TRANSITIONAL CARE VISIT: [] Yes [] No PENDING STUDIES: NOne DISPOSITION: Home FACILITY/HOME CARE AGENCY NAME: N/A Follow up with KEITH Casiano CNP [address] [place] [id number] Follow up on 12/17/2022 Time 8:00 INSTRUCTIONS [...] CNP 12/05/2022, 8:08 AM documented in this [facility]08-11-2023 NoteSuccessful pulmonary vein isolation procedure. Successful cardioversion of [...] Seldinger technique an 8 and a 7 Lao sheath were placed in the right femoral vein and a 6 and long 9 Lao sheath in the left femoral vein. A decapolar cath was placed in the coronary sinus. A quadripolar cath was placed in the RV apex. An intracardiac echocardiography catheter was advanced through the 9 Lao sheath into the right atrium. A versa cross wire was advanced through the 8 Lao sheath into the superior vena cava. Half [...] advanced through the sheath and used to obtaina three-dimensional electroanatomic map of the left atrium [...] veins continuous pacing of the phrenic nerve wasperformed and the CMAP recorded. Following the final lesion the patient was cardioverted to sinus rhythm. At the completion of the procedure the spiral was placed into all the pulmonary veins and exit and entrance block confirmed. The sheath was withdrawn into the right atrium. Heparin was reversedwith protamine. Sheaths were removed and hemostasis obtained with manual compression and the use ofa pursestring suture. The patient left the lab [...] achieved: 32 C Average (more content not included)...CV CPACS [id number] NotePatient: Norma Ozuna Procedure Summary Date: 12/04/22 Room / Location: [facility] EP LAB 1 / [facility] Cardiac Cath Labs Anesthesia Start: 951 Anesthesia Stop: 120 Procedures: Ablation a-fib paroxysmal Cardioversion Diagnosis: Atrial [...] discharged once all PACU criteria has been met.[facility] [id number] NotePatient: Norma Sueingham Procedure Summary Date: 12/04/22 Room / Location: [facility] EP LAB / [facility] Cardiac Cath Labs Anesthesia Start: 951 [...] Allowed opportunity for questions and acknowledgement of understanding.[facility]08-11-2023 Miscellaneous Notes* Perioperative Nursing Note - Chanelle Moreno RN - 12/04/2022 1:40 PM EDT Updated documented in this encounterSChildren's Hospital for RehabilitationElcnpd11-34-2355 Note* Perioperative Nursing Note - Chanlele Moreno RN - 12/04/2022 1:40 PM EDT Updated [place] [id number] Note* Perioperative Nursing Note - Chanelle Moreno RN - 12/04/2022 1:40 PM EDT Updated [place] [id number] NoteAirway Date/Time: 12/04/2022 10:11 AM Urgency: scheduled General Information and Staff Patient location during procedure: Procedural Resident/CABLE TOOL DRILLER: KEITH Morales CRNA Performed: CABLE TOOL DRILLER Performed by: KEITH Morales CRNA Authorized by: [...] stylet Endotracheal tube insertion site: oral Blade: Gibson Blade size: #2 ETT size (mm): 8.0 Cormack-Lehane Classification: grade I - full view of glottis Placement verified by: chest auscultation and capnometry Measured from: lips ETT to lips (cm): 23 Number of attempts at approach: 1 Additional Comments Atraumatic placement of ETT, dentition [facility]08-11-2023 Hospital Discharge instructions* Discharge Instructions* KEITH Bryant CNP - 12/04/2022 11:50 AM [...] prescribed by your doctor documented in this [facility]08-11-2023 NotePatient: Norma Ozuna Procedure Information Date/Time: 12/04/22 1000 Procedure: Ablation a-fib paroxysmal Location: [facility] EP LAB / [facility] Cardiac Cath Labs Providers: Williams Mcnamara [...] diagnosis. He has been followed at the [place] [facility] since that time. He was [...] by: Williams Mcnamara MD on 11/19/2022 10:39 [facility] 11-24-2022 NoteOffice Visit 11/19/2022 [facility] Cardiology Williams Mcnamara MD Cardiology JENIFER (obstructive sleep apnea) +2 more Dx New Patient Reason for Visit Progress Notes Williams Mcnamara MD (Physician) Cardiology Expand All Collapse All [facility] Cardiology [facility] [address] [facility] [address] Dept: [phone] Dept Visit type: Established : 1960 Chief Complaint: Chief Complaint Patient presents with New Patient History of Present Illness: Norma Ozuna is a 62 y.o. male was referred [...] diagnosis. He has been followed at the [place] [facility] since that time. He was [...] is obese. He (more content not included)... [facility] [id number] NoteOffice Visit 11/19/2022 [facility] Cardiology Williams Mcnamara MD Cardiology JENIFER (obstructive sleep apnea) +2 more Dx New Patient Reason for Visit Progress Notes Williams Mcnamara MD (Physician) Cardiology Expand All Collapse All [facility] Cardiology [facility] [address] [facility] [address] Dept: [phone] Dept Visit type: Established : 1960 Chief Complaint: Chief Complaint Patient presents with New Patient History of Present Illness: Norma Ozuna is a 62 y.o. male was referred [...] diagnosis. He has been followed at the [place] [facility] since that time. He was [...] is obese. He (more content not included)... [facility] [id number] Telephone encounter Note* Telephone Encounter - KEITH Casiano CNP - 11/24/2022 12:50 PM EDT Prep Proc Done [place] Work Phone: 1(696) 430-607608-01-2023 Miscellaneous Notes* Telephone Encounter - KEITH Casiano CNP - 11/24/2022 12:50 PM EDT Prep Proc Done * Telephone Encounter - Loida Christine - 11/20/2022 10:34 AM EDT I will work on this. Thanks * Telephone Encounter - Alexandra Quezada - 11/20/2022 9:44 AM EDT PVI scheduled 12/04/22 at 8:30 with [facility] Case # [id number] Auth started 2 wk post 12/17 at 8:00 with SM * Telephone Encounter - Eleni Vaughan RN - 11/19/2022 10:39 AM EDT Procedure: PVI Date: 12.04.22 NKA to Iodine base contrast Hold 2 doses of Eliquis Last dose on 8.10 AM Pre-procedure instructions provided @ OV with MAP 11.19.22 NPO at midnight prior to procedure Hold all AM medications day of procedure Use Manager General parking or [address] Deck Enter the hospital @ [address] Take E Elevators to the Central Lounge to check in Designated party bus driver needed post procedure Be prepared to spend the night Bring CPAP machine Will need a designated party bus driver at next day discharge. Pending: CBC & BMP to be completed today at [address] Prep/proc orders 2 week FU with Niesha 12.17.22 @ 8 am documented in this [facility]08-01-2023 History and physical note* Niesha Biggs APRN - BRANDON - 11/24/2022 12:49 PM EDT Images from the original note were not included. Office Visit 11/19/2022 [facility] Cardiology Williams Mcnamara MD Cardiology JENIFER (obstructive sleep apnea) +2 more Dx New Patient Reason for Visit Progress Notes Williams Mcnamara MD (Physician) Cardiology Expand All Collapse All [facility] Cardiology [facility] [address] [facility] [address] Dept: [phone] Dept Visit type: Established : 1960 Chief Complaint: Chief Complaint Patient presents with New Patient History of Present Illness: Norma Ozuna is a 62 y.o. male was referred [...] diagnosis. He has been followed at the [facility] since that time. He was placed on Eliquis and atenolol. In August he underwent cardioversion. He said hestayed in sinus rhythm about 2 weeks and [...] his blood pressures at home have been controlledwell. He has had no other bleeding issues [...] 2 puffs in the morning and 2 puffsin the evening., Disp: , Rfl: esomeprazole (NexIUM) [...] of the pulmonary vein isolation were discussed andhe agrees to proceed. H+ P copied to chart from Dr Williams Mcnamara progress note dated 11/19/[address] Williams Mcnamara [facility] [employer] Phone: [phone]) 692-420608-01-2023 History and physical note* Niesha Biggs APRN - ENGINEERING SPECIALIST - 11/24/2022 12:49 PM EDT Images from the original note were not included. Office Visit 11/19/2022 [facility] Cardiology Williams Mcnamara MD Cardiology JENIFER (obstructive sleep apnea) +2 more Dx New Patient Reason for Visit Progress Notes Williams Mcnamara MD (Physician) Cardiology Expand All Collapse All [facility] Cardiology [facility] [address] [facility] [address] Dept: [phone] Dept Visit type: Established : 1960 Chief Complaint: Chief Complaint Patient presents with New Patient History of Present Illness: Nomra Ozuna is a 62 y.o. male was referred [...] diagnosis. He has been followed at the [facility] since that time. He was placed on Eliquis and atenolol. In August he underwent cardioversion. He said hestayed in sinus rhythm about 2 weeks and [...] his blood pressures at home have been controlledwell. He has had no other bleeding issues [...] 2 puffs in the morning and 2 puffsin the evening., Disp: , Rfl: esomeprazole (NexIUM) [...] of the pulmonary vein isolation were discussed andhe agrees to proceed. H+ P copied to chart from Dr Williams Mcnamara progress note dated 11/19/[address] Williams Mcnamara documented in this encounterSChildren's Hospital for [id number] Telephone encounter Note* Telephone Encounter - Loida Christine - 11/20/2022 10:34 AM EDT I will work on this. Thanks [facility] [id number] Telephone encounter Note* Telephone Encounter - Alexandra Quezada - 11/20/2022 9:44 AM EDT PVI scheduled 12/04/22 at 8:30 with [facility] Case # [id number] Auth started 2 wk post 12/17 at 8:00 with [facility] [id number] NoteProcedure: PVI Date: 12.04.22 NKA to Iodine base contrast Hold 2 doses of Eliquis Last dose on 8.10 AM Pre-procedure instructions provided @ with [facility] 11.19.22 NPO at midnight prior to procedure Hold all AM medications day of procedure Use Manager General parking or [address] Deck Enter the hospital @ [address] Take E Elevators to the Central Lounge to check in Designated party bus driver needed post procedure Be prepared to spend the night Bring CPAP machine Will need a designated party bus driver at next day discharge. Pending: CBC & BMP to be completed today at [address] Prep/proc orders 2 week FU with Niesha 8.24.23 @ [address] [facility]07-27-2023 Telephone encounter Note* Telephone Encounter - Eleni Vaughan RN - 11/19/2022 10:39 AM EDT Procedure: PVI Date: 12.04.22 NKA to Iodine base contrast Hold 2 doses of Eliquis Last dose on 8.10 AM Pre-procedure instructions provided @ OV with MAP 11.19.22 NPO at midnight prior to procedure Hold all AM medications day of procedure Use Manager General parking or [address] Deck Enter the hospital @ [address] Take E Elevators to the Central Lounge to check in Designated party bus driver needed post procedure Be prepared to spend the night Bring CPAP machine Will need a designated party bus driver at next day discharge. Pending: CBC & BMP to be completed today at [address] Prep/proc orders 2 week FU with Niesha 8.24.23 @ 8 am [facility] [id number] History of Present illness Narrative* Williams Mcnamara MD - 11/19/2022 10:00 AM EDT [facility] Cardiology [facility] [address] [facility] [address] Dept: [phone] Dept Visit type: Established : 1960 Chief Complaint: Chief Complaint Patient presents with New Patient History of Present Illness: Norma Ozuna is a 62 y.o. male was referred [...] diagnosis. He has been followed at the [facility] since that time. He was placed on Eliquis and atenolol. In August he underwent cardioversion. He said hestayed in sinus rhythm about 2 weeks and [...] his blood pressures at home have been controlledwell. He has had no other bleeding issues [...] 2 puffs in the morning and 2 puffsin the evening., Disp: , Rfl: esomeprazole (NexIUM) [...] of the pulmonary vein isolation were discussed andhe agrees to proceed. documented in this [facility]03-10-2023 History of Present illness Narrative* Grace Esqueda LPN - 07/03/2022 10:28 AM EST Scan on 07/03/2022 8:20 AM by External Provider: Miscellaneous Lab Erendira Esqueda LPN documented in this encounterBucyrus Community Hospital02-24-2023 Miscellaneous Notes* Telephone Encounter - Kristie Ward RN - 06/19/2022 3:24 PM EST Spouse (Akila) calls to request labs be faxed to [facility] [employer] [facility]. Faxed to [phone] per request. Kristie Ward RN documented in this encounterBucyrus Community Hospital02-23-2023 History of Present illness Narrative* Sammie Banks MD - 06/18/2022 10:40 AM EST Reason for Visit Patient presents with: Pre-Op Exam: Right knee Arthroscopy medial meniscus repair. Surgery date to be determined Norma Ozuna is a 61 year old male who [...] it did not work well. Dr Gabriel Gibson is doing it. His labs and ekg was concerning. His creat was high and so his gfr was low, also had potassium elevation. Patient takes daily creatinine supplements. Stop supplements for 2 weeks and get blood work Ekg showed afib. His CHADS2 had only 1 point for Hypertension. Not based on age, he prefers not to be anticoagulatedat this point, his risk is only 0.6 [...] such as golf, bowling, dancing, doubles tennis, orthrowing a baseball or football (6.00 METs): yes. [...] V72.84, ICD10: Z01.818 (primary diagnosis) Started b wilbreto due to afib and uncontrolled Hypertension, patient [...] etc Sammie Banks MD documented in this encounterBucyrus Community Hospital02-22-2023 Miscellaneous Notes* Telephone Encounter - Bethany Fragoso APRN.BRANDON - 06/17/2022 7:05 PM EST Noted Bethayn Fragoso APRN.CNP * Telephone Encounter - Pricila Meier LPN - 06/17/2022 3:22 PM EST Phoned patient and advised him that he is needing an appointment. Patient stated that he needs EKG for surgery with [facility]. Patient was then advised that we need an appointment for a preop clearance to be cleared for surgery. Patient has h/o afib. Appt made for tomorrow at 06/18/22 at 9:40 am with . Pricila Meier LPN * Telephone Encounter - Bethany Fragoso APRN.CNP - 06/17/2022 2:14 PM EST Please request EKG from [facility] and place on providers desk for review. Lso patient has not been seen in almost a year needs appointment scheduled. Thank you Bethany Fragoso APRN.CNP * Telephone Encounter - Susana Duval Ma - 06/17/2022 1:13 PM EST EKG results not received at this time. * Telephone Encounter - Kristie Ward RN - 06/17/2022 11:48 AM EST Patient calls to request EKG results. Patient reports completed at [facility]. No orders notedfrom PCP. Patient didn't specify who ordered the EKG just that Christos Rey was sending results for PCP to review. Kristie Ward RN * Telephone Encounter - Belle Meeks LPN - 06/16/2022 11:23 AM EST Pt reports he was supposed to have ortho surgery tomorrow but is was cancelled by Christos Rey because of something seen on EKG. Pt reports he had EKG done at [facility] in [place]. Pt reports Christos Rey said they were going to fax EKG to pcp. Pt is asking what the EKG results are. Please review and advise. Belle Meeks LPN documented in this encounterBucyrus Community Hospital12-14-2022 Miscellaneous Notes* Telephone Encounter - Susana Duval Ma - 04/08/2022 11:33 AM EST Faxed as requested. * Telephone Encounter - Sammie Banks MD - 04/02/2022 4:36 PM EST I printed order Please fax as requested Regards, Sammie Banks MD * Telephone Encounter - Usha Graham RN - 03/26/2022 3:27 PM EST Patient's calling to say she spoke with [facility] and was told that patient can order his CPAP equipment/supplies from [facility]. Please fax CPAP script, test results, and clinical notes to . Usha Graham RN * Telephone Encounter - Latonya Zuniga LPN - 03/03/2022 9:19 AM EST Pt's Mara calling. Mara states pt previously had [employer], he now has [employer] [place]. Pt had home sleep test & got supplies while he had [employer] [place]. He is now getting charged the full amount for the monthly use of CPAP use since his insurance changed. Pt told by [employer] that he did not have a prior auth for the cpap supplies. Pt was told to have his pcp call [employer], the company that handles prior auths & such. AIMM: [phone] or [phone] ID# [id number] Group # [id number] Insurance is under pt's spouse Sara Ozuna. Latonya Zuniga LPN documented in this encounterBucyrus Community Hospital07-01-2022 Instructions* Patient Instructions* John Barba V, DO - 10/24/2021 11:51 AM EDT Thank you for choosing the [facility] for your acute care needs. [...] physician or booking an appointment, please call [phone] or speak with any Patient Franchise Field Consultant. Hours: Wednesday through Wednesday 7:30 am to 7:00 pm. Wednesday and Wednesday: 8:00 am to 2:30 pm. documented in this encounterBucyrus Community Hospital07-01-2022 History of Present illness Narrative* John Barba V, DO - 10/24/2021 11:47 AM EDT Norma Ozuna presents with pain, swelling and painful movement [...] (FLONASE) 50 mcg/actuation nasal spray Use 1 [place] in each nostril once daily. CPAP Initiate Auto PAP @ 5-20 cm of water with humidification. Mask (per patient preference) optional chin strap (if indicated) , filters, tubing, humidifier and lifetime supplies. budesonide-formoterol (SYMBICORT) 80-4.5 mcg/actuation inhaler Inhale 2 Puffs as instructed twice daily. albuterol HFA (VENTOLIN HFA) 90 mcg/actuation inhaler Inhale 2 Puffs as instructed every 4 hours asneeded for wheezing/shortness of breath. No current facility-administered [...] discussed with patient who consents to proceed. Patientwished to proceed. 6mg celestone with 4cc, 1% lidocaine and 4cc .5% marcaine was injected. Injection was carried out under sterile conditions through a LATERAL PARAPATELLAR site into the knee joint. Patient had no immediate complications and tolerated the procedure well. documented in this encounterCleveland [id number] History of Present illness Narrative* RT Joaquina(R) - 10/24/2021 10:40 AM EDT Radiology Service Progress Note PATIENT NAME: Norma Ozuna DATE OF SERVICE: October 24, 2021 TIME: 10:56 AM PATIENT IDENTITY VERIFICATION COMPLETED USING TWO (2) IDENTIFIERS: Name and Date of confirmedby patient verbally. FALL SCREENING: Has the patient had 2 falls in the last year or 1 fall with injury or currently using an Ambulatory Assistive Device (Walker, Cane, Wheelchair, Crutches, etc.)? No PATIENT GENDER DATA: Male PATIENT RELEVANT IMPLANT DATA REVIEWED: Not Applicable RADIOLOGY DEPARTMENT: General X-ray: Exam(s) Completed: Lower Extremity X- Ray(s): Knee, AP / Lat / Tunne / Merchant Right and Wt. Bearing PERIPHERAL IV DATA: Not applicable SIGNED BY: RT Joaquina(R) October 24, 2021 10:56 AM documented in this encounterBucyrus Community Hospital06-09-2022 Miscellaneous Notes* Telephone Encounter - Gaby Syed LPN - 10/02/2021 4:54 PM EDT Patient has been identified by name and [...] you. Gaby Syed LPN documented in this encounterBucyrus Community Hospital05-04-2022 Miscellaneous Notes* Telephone Encounter - Barb Leos Pss - 08/27/2021 4:24 PM EDT Patient's called they filled the medication already. A Pharmacy can fill less but not more; quantity will be banked. * Telephone Encounter - Monica Victoria LPN - 08/27/2021 9:45 AM EDT Last seen pcp 07/01/21 Next appt with pcp 01/16/22. 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 LAURO: No RX INSTRUCTIONS: Patient aware RX will be sent to pharmacy. No need to notify patient. Mary Ellen Mello Pss documented in this encounterBucyrus Community Hospital04-07-2022 Miscellaneous Notes* Telephone Encounter - Sammie Banks MD - 07/31/2021 10:16 PM EDT Noted and thanks * Telephone Encounter - Gaby Syed LPN - 07/30/2021 3:57 PM EDT Patient returned call and went over notes below from Dr Banks with understanding. Patient had picked up the rx's already. Patient has chosen [facility] for DME. Patient said he will call back after he completes rx's to get lung testing appts set up. * Telephone Encounter - Rachelle Mccracken RN - 07/29/2021 4:45 PM EDT Called and left a voicemail for the Patient to call back and ask for a nurse to receive the providers message. Rachelle Mccracken RN * Telephone Encounter - Sammie Banks MD - 07/29/2021 2:50 PM EDT Which DME did he choose for his cpap? Last year I had asked him to get xome lung volumes and spirometry. He did not get them done, I would like for him to get them done For now I will give some prednisone and doxy * Telephone Encounter - Sharla Rose RN - 07/29/2021 8:35 AM EDT Patient reports pcp treated him with AB [...] or prednisone? AILEEN Sher documented in this encounterBucyrus Community Hospital11-08-2021 History of Past illness Narrative* Problem Noted Date Resolved Date Screening for colon cancer 03/03/202103/03 Esophageal reflux 07/21/2005 04/10/2020 HYPERLIPIDEMIA NEC/NOS 07/21/2005 5 documented as of this encounter (statuses as of 08/27/2021) [facility] History of Past illness Narrative* Problem Noted Date Resolved Date Screening for colon cancer 03/03/202103/03 Esophageal reflux 07/21/2005 04/10/2020 HYPERLIPIDEMIA NEC/NOS 07/21/2005 5 documented as of this encounter (statuses as of 10/03/2021) [facility] of Past illness Narrative* Problem Noted Date Resolved Date Screening for colon cancer 03/03/202103/03 Esophageal reflux 07/21/2005 04/10/2020 HYPERLIPIDEMIA NEC/NOS 07/21/2005 5 documented as of this encounter (statuses as of 10/10/2021) [facility] of Past illness Narrative* Problem Noted Date Resolved Date Screening for colon cancer 03/03/202103/03 Esophageal reflux 07/21/2005 04/10/2020 HYPERLIPIDEMIA NEC/NOS 07/21/2005 5 documented as of this encounter (statuses as of 10/21/2021) [facility] of Past illness Narrative* Problem Noted Date Resolved Date Screening for colon cancer 03/03/202103/03 Esophageal reflux 07/21/2005 04/10/2020 HYPERLIPIDEMIA NEC/NOS 07/21/2005 5 documented as of this encounter (statuses as of 10/24/2021) [facility] of Past illness Narrative* Problem Noted Date Resolved Date Screening for colon cancer 03/03/202103/03 Esophageal reflux 07/21/2005 04/10/2020 HYPERLIPIDEMIA NEC/NOS 07/21/2005 5 documented as of this encounter (statuses as of 10/25/2021) [facility] of Past illness Narrative* Problem Noted Date Resolved Date Screening for colon cancer 03/03/202103/03 Esophageal reflux 07/21/2005 04/10/2020 HYPERLIPIDEMIA NEC/NOS 07/21/2005 5 documented as of this encounter (statuses as of 04/08/2022) [facility] of Past illness Narrative* Problem Noted Date Resolved Date Screening for colon cancer 03/03/202103/03 Esophageal reflux 07/21/2005 04/10/2020 HYPERLIPIDEMIA NEC/NOS 07/21/2005 5 documented as of this encounter (statuses as of 06/18/2022) [address]08-2021 History of Past illness Narrative* Problem Noted Date Resolved Date Screening for colon cancer 03/03/202103/03 Esophageal reflux 07/21/2005 04/10/2020 HYPERLIPIDEMIA NEC/NOS 07/21/2005 5 documented as of this encounter (statuses as of 06/18/2022) [facility] Narrative* Problem Noted Date Resolved Date Screening for colon cancer 03/03/202103/03 Esophageal reflux 07/21/2005 04/10/2020 HYPERLIPIDEMIA NEC/NOS 07/21/2005 5 documented as of this encounter (statuses as of 06/19/2022) [facility] of Past illness Narrative* Problem Noted Date Resolved Date Screening for colon cancer 03/03/202103/03 Esophageal reflux 07/21/2005 04/10/2020 HYPERLIPIDEMIA NEC/NOS 07/21/2005 5 documented as of this encounter (statuses as of 06/26/2022) [facility] of Past illness Narrative* Problem Noted Date Resolved Date Screening for colon cancer 03/03/202103/03 Esophageal reflux 07/21/2005 04/10/2020 HYPERLIPIDEMIA NEC/NOS 07/21/2005 5 documented as of this encounter (statuses as of 07/03/2022) [address]08-2021 History of Past illness Narrative* Problem Noted Date Diagnosed Date Resolved Date Screening for colon cancer 03/03/2021 1 05/03/2020 Esophageal reflux 07/21/2005 04/10/2020 HYPERLIPIDEMIA NEC/NOS 07/21/200510/09 documented as of this encounter (statuses as of 02/21/2023) [facility] of Past illness Narrative* Problem Noted Date Diagnosed Date Resolved Date Screening for colon cancer 03/03/2021 1 05/03/2020 Esophageal reflux 07/21/2005 04/10/2020 HYPERLIPIDEMIA NEC/NOS 07/21/200510/09 documented as of this encounter (statuses as of 03/03/2023) [address]08-2021 History of Past illness Narrative* Problem Noted Date Diagnosed Date Resolved Date Screening for colon cancer 03/03/2021 1 05/03/2020 Esophageal reflux 07/21/2005 04/10/2020 HYPERLIPIDEMIA NEC/NOS 07/21/200510/09 documented as of this encounter (statuses as of 03/03/2023) [address]08-2021 History of Past illness Narrative* Problem Noted Date Diagnosed Date Resolved Date Screening for colon cancer 03/03/2021 1 05/03/2020 Esophageal reflux 07/21/2005 04/10/2020 HYPERLIPIDEMIA NEC/NOS 07/21/200510/09 documented as of this encounter (statuses as of 04/10/2023) [facility] of Past illness Narrative* Problem Noted Date Diagnosed Date Resolved Date Screening for colon cancer 03/03/2021 1 05/03/2020 Esophageal reflux 07/21/2005 04/10/2020 HYPERLIPIDEMIA NEC/NOS 07/21/200510/09 documented as of this encounter (statuses as of 06/28/2023) [facility] of Past illness Narrative* Problem Noted Date Diagnosed Date Resolved Date Screening for colon cancer 03/03/2021 1 05/03/2020 Esophageal reflux 07/21/2005 04/10/2020 HYPERLIPIDEMIA NEC/NOS 07/21/200510/09 documented as of this encounter (statuses as of 07/06/2023) [facility] Evaluation note* Diagnosis Onset Date Resolution Status Abnormal EKG acute Essential hypertension chron ic Atrial fibrillation with rap id ventricular response November 05, 2019 resolved [facility] Work Phone: [phone]) 628-884707-12-2020 Evaluation note* Diagnosis Onset Date Resolution Status Abnormal EKG acute Essential hypertension chron ic Atrial fibrillation with rap id ventricular response November 05, 2019 resolved Persistent atrial fibrillation acute Essential hypertension chron ic Abnormal EKG acute Persistent atrial fibrillation acute Essential hypertension chron ic Atrial fibrillation with rap id ventricular response November 05, 2019 resolved [facility] Work Phone: Evaluation + Plan note No data available for this section [facility] Evaluation note* Diagnosis Gastroesophageal reflux disease without esophagitis Esophageal reflux documented in this encounter [facility] note* Diagnosis Bronchitis- Primary Bronchitis, not specified as acute or chronic documented in this encounter [facility] note* Diagnosis Right knee pain, unspecified chronicity- Primary documented in this encounter [facility] note* Diagnosis Sprain of medial meniscus of right knee, initial encounter- Primary documented in this encounter [facility] note* Diagnosis Right knee pain, unspecified chronicity documented in this encounter [facility] note* Diagnosis Pre-operative clearance- Primary Preoperative examination, unspecified Acute LUCILLE (middle ear effusion), bilateral Hypothyroidism, unspecified type Essential hypertension Unspecified essential hypertension Gout, unspecified cause, unspecified chronicity, unspecified site Gastroesophageal reflux disease without esophagitis Esophageal reflux Moderate persistent asthma with exacerbation Unspecified asthma, with exacerbation Paroxysmal A-fib (HCC) Atrial fibrillation documented in this encounter [facility] note* Diagnosis Obesity (BMI 35.0-39.9 without comorbidity) Obesity, unspecified Hyperlipidemia Other and unspecified hyperlipidemia Medication management Encounter for long-term (current) use of other medications documented in this encounter [facility] note* Diagnosis JENIFER (obstructive sleep apnea)- Primary Obstructive sleep apnea (adult) (pediatric) Atrial fibrillation with RVR (CMS/HCC) (HCC) Essential hypertension Unspecified essential hypertension documented in this encounter [facility] note* Diagnosis Preop cardiovascular exam- Primary Pre-operative cardiovascular examination Atrial fibrillation with RVR (CMS/HCC) (HCC) Atrial fibrillation with RVR (CMS/HCC) (HCC)- Primary Atrial fibrillation with RVR (CMS/HCC) (HCC) documented in this encounter [facility] note* Diagnosis Atrial fibrillation with RVR (CMS/HCC) (HCC)- Primary Atrial fibrillation (CMS/HCC) (HCC) Atrial fibrillation Atrial fibrillation with RVR (CMS/HCC) (HCC) documented in this encounter [facility] note* Diagnosis Persistent atrial fibrillation (HCC)- Primary Atrial fibrillation JENIFER (obstructive sleep apnea) Obstructive sleep apnea (adult) (pediatric) Essential hypertension Unspecified essential hypertension documented in this encounter [facility] note* Diagnosis Encounter for preprocedural cardiovascular examination- Primary Unspecified atrial fibrillation (HCC) documented in this encounter [facility] note* Diagnosis Lower resp. tract infection- Primary Other diseases of respiratory system, not elsewhere classified documented in this encounter [facility] note* Diagnosis Lower resp. tract infection- Primary Other diseases of respiratory system, not elsewhere classified Mild persistent asthma with acute exacerbation Unspecified asthma, with exacerbation Essential hypertension Unspecified essential hypertension documented in this encounter [facility] note* Diagnosis Atrial fibrillation with RVR (HCC)- Primary Essential hypertension Unspecified essential hypertension JENIFER (obstructive sleep apnea) Obstructive sleep apnea (adult) (pediatric) Obesity (BMI 35.0-39.9 without comorbidity) documented in this encounter [facility] noteNo assessment information availableWBrown [facility] Work Phone: Evaluation note* Diagnosis Essential hypertension- Primary Unspecified essential hypertension Obstructive sleep apnea syndrome Obstructive sleep apnea (adult) (pediatric) Hypothyroidism, unspecified type Mixed hyperlipidemia Gout, unspecified cause, unspecified chronicity, unspecified site Gastroesophageal reflux disease without esophagitis Esophageal reflux Mild persistent asthma with acute exacerbation Unspecified asthma, with exacerbation Paroxysmal A-fib (HCC) Atrial fibrillation documented in this encounter [facility] note* Diagnosis Essential hypertension Unspecified essential hypertension Hypothyroidism, unspecified type documented in this encounter [facility] note* Diagnosis Essential hypertension Unspecified essential hypertension Hypothyroidism, unspecified type documented in this encounter [facility] note* Diagnosis Encounter to establish care- Primary Other reasons for seeking consultation Hypothyroidism Unspecified hypothyroidism INSOMNIA NOS Insomnia, unspecified GOUT NOS Gout, unspecified GERD (gastroesophageal reflux disease) Esophageal reflux Esophageal reflux Obesity (BMI 30-39.9) Obesity, unspecified Allergic contact dermatitis due to plants, except food- Primary Contact dermatitis and other eczema due to plants (except food) documented in this encounter [facility] note* Diagnosis Encounter to establish care- Primary Other reasons for seeking consultation Hypothyroidism Unspecified hypothyroidism INSOMNIA NOS Insomnia, unspecified GOUT NOS Gout, unspecified GERD (gastroesophageal reflux disease) Esophageal reflux Esophageal reflux Obesity (BMI 30-39.9) Obesity, unspecified Essential hypertension Unspecified essential hypertension Moderate persistent asthma with exacerbation Unspecified asthma, with exacerbation documented in this encounter [facility] note* Diagnosis Encounter to establish care- Primary Other reasons for seeking consultation Hypothyroidism Unspecified hypothyroidism INSOMNIA NOS Insomnia, unspecified GOUT NOS Gout, unspecified GERD (gastroesophageal reflux disease) Esophageal reflux Esophageal reflux Obesity (BMI 30-39.9) Obesity, unspecified Essential hypertension- Primary Unspecified essential hypertension Hypothyroidism, unspecified type Obstructive sleep apnea syndrome Obstructive sleep apnea (adult) (pediatric) Asthma without acute exacerbation Hyperlipidemia, unspecified hyperlipidemia type Paroxysmal A-fib (HCC) Atrial fibrillation Gout, unspecified cause, unspecified chronicity, unspecified site Erectile dysfunction, unspecified erectile dysfunction type Need for influenza vaccination Need for prophylactic vaccination and inoculation against influenza documented in this encounter [facility] note* Diagnosis Encounter to establish care- Primary Other reasons for seeking consultation Hypothyroidism Unspecified hypothyroidism INSOMNIA NOS Insomnia, unspecified GOUT NOS Gout, unspecified GERD (gastroesophageal reflux disease) Esophageal reflux Esophageal reflux Obesity (BMI 30-39.9) Obesity, unspecified Elevated glucose- Primary Other abnormal glucose Abnormal TSH Other abnormal clinical finding documented in this encounter [facility] note* Diagnosis Encounter to establish care- Primary Other reasons for seeking consultation Hypothyroidism Unspecified hypothyroidism INSOMNIA NOS Insomnia, unspecified GOUT NOS Gout, unspecified GERD (gastroesophageal reflux disease) Esophageal reflux Esophageal reflux Obesity (BMI 30-39.9) Obesity, unspecified Hypothyroidism, unspecified type- Primary Medication management Encounter for long-term (current) use of other medications documented in this encounter [facility] note* Diagnosis Encounter to establish care- Primary Other reasons for seeking consultation Hypothyroidism Unspecified hypothyroidism INSOMNIA NOS Insomnia, unspecified GOUT NOS Gout, unspecified GERD (gastroesophageal reflux disease) Esophageal reflux Esophageal reflux Obesity (BMI 30-39.9) Obesity, unspecified Hypothyroidism, unspecified type documented in this encounter [facility] note* Diagnosis Encounter to establish care- Primary Other reasons for seeking consultation Hypothyroidism Unspecified hypothyroidism INSOMNIA NOS Insomnia, unspecified GOUT NOS Gout, unspecified GERD (gastroesophageal reflux disease) Esophageal reflux Esophageal reflux Obesity (BMI 30-39.9) Obesity, unspecified Hypothyroidism, unspecified type documented in this encounter [facility] note* Diagnosis Encounter to establish care- Primary Other reasons for seeking consultation Hypothyroidism Unspecified hypothyroidism INSOMNIA NOS Insomnia, unspecified GOUT NOS Gout, unspecified GERD (gastroesophageal reflux disease) Esophageal reflux Esophageal reflux Obesity (BMI 30-39.9) Obesity, unspecified Bacterial sinusitis- Primary Unspecified sinusitis (chronic) Viral URI with cough Acute upper respiratory infections of unspecified site documented in this encounter [facility] note* Diagnosis Encounter to establish care- Primary Other reasons for seeking consultation Hypothyroidism Unspecified hypothyroidism INSOMNIA NOS Insomnia, unspecified GOUT NOS Gout, unspecified GERD (gastroesophageal reflux disease) Esophageal reflux Esophageal reflux Obesity (BMI 30-39.9) Obesity, unspecified Persistent cough- Primary Cough documented in this encounter [facility] note* Diagnosis Encounter to establish care- Primary Other reasons for seeking consultation Hypothyroidism Unspecified hypothyroidism INSOMNIA NOS Insomnia, unspecified GOUT NOS Gout, unspecified GERD (gastroesophageal reflux disease) Esophageal reflux Esophageal reflux Obesity (BMI 30-39.9) Obesity, unspecified Bacterial sinusitis- Primary Unspecified sinusitis (chronic) COPD with exacerbation (HCC) Obstructive chronic bronchitis with exacerbation documented in this encounter [facility] note* Diagnosis Encounter to establish care- Primary Other reasons for seeking consultation Hypothyroidism Unspecified hypothyroidism INSOMNIA NOS Insomnia, unspecified GOUT NOS Gout, unspecified GERD (gastroesophageal reflux disease) Esophageal reflux Esophageal reflux Obesity (BMI 30-39.9) Obesity, unspecified Gastroesophageal reflux disease without esophagitis Esophageal reflux documented in this encounter [facility] note* Diagnosis Encounter to establish care- Primary Other reasons for seeking consultation Hypothyroidism Unspecified hypothyroidism INSOMNIA NOS Insomnia, unspecified GOUT NOS Gout, unspecified GERD (gastroesophageal reflux disease) Esophageal reflux Esophageal reflux Obesity (BMI 30-39.9) Obesity, unspecified Subacute cough- Primary Cough Chronic obstructive pulmonary disease, unspecified COPD type (HCC) Subacute cough Cough documented in this encounter [facility] note* Diagnosis Encounter to establish care- Primary Other reasons for seeking consultation Hypothyroidism Unspecified hypothyroidism INSOMNIA NOS Insomnia, unspecified GOUT NOS Gout, unspecified GERD (gastroesophageal reflux disease) Esophageal reflux Esophageal reflux Obesity (BMI 30-39.9) Obesity, unspecified Subacute cough Cough documented in this encounter [facility] note* Diagnosis Encounter to establish care- Primary Other reasons for seeking consultation Hypothyroidism Unspecified hypothyroidism INSOMNIA NOS Insomnia, unspecified GOUT NOS Gout, unspecified GERD (gastroesophageal reflux disease) Esophageal reflux Esophageal reflux Obesity (BMI 30-39.9) Obesity, unspecified Paroxysmal atrial fibrillation (HCC)- Primary Atrial fibrillation Mass on back Localized superficial swelling, mass, or lump 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 Lipoma of other skin and subcutaneous tissue Chronic obstructive pulmonary disease with (acute) exacerbation (HCC) Asthma without acute exacerbation (HCC) Gout, unspecified cause, unspecified chronicity, unspecified site Essential hypertension Unspecified essential hypertension Hyperlipidemia, unspecified hyperlipidemia type Hypothyroidism, unspecified type Obstructive sleep apnea Obstructive sleep apnea (adult) (pediatric) Personal history of gout Personal history of other endocrine, metabolic, and immunity disorders documented in this encounter [facility] note* Diagnosis Encounter to establish care- Primary Other reasons for seeking consultation Hypothyroidism Unspecified hypothyroidism INSOMNIA NOS Insomnia, unspecified GOUT NOS Gout, unspecified GERD (gastroesophageal reflux disease) Esophageal reflux Esophageal reflux Obesity (BMI 30-39.9) Obesity, unspecified Mass on back Localized superficial swelling, mass, or lump documented in this encounter [facility] note* Diagnosis Encounter to establish care- Primary Other reasons for seeking consultation Hypothyroidism Unspecified hypothyroidism INSOMNIA NOS Insomnia, unspecified GOUT NOS Gout, unspecified GERD (gastroesophageal reflux disease) Esophageal reflux Esophageal reflux Obesity (BMI 30-39.9) Obesity, unspecified Mild persistent asthma without complication (HCC)- Primary Unspecified asthma documented in this encounter [facility] note* Diagnosis Encounter to establish care- Primary Other reasons for seeking consultation Hypothyroidism Unspecified hypothyroidism INSOMNIA NOS Insomnia, unspecified GOUT NOS Gout, unspecified GERD (gastroesophageal reflux disease) Esophageal reflux Esophageal reflux Obesity (BMI 30-39.9) Obesity, unspecified Chronic cough- Primary Cough documented in this encounter [facility] note* Diagnosis Encounter to establish care- Primary Other reasons for seeking consultation Hypothyroidism Unspecified hypothyroidism INSOMNIA NOS Insomnia, unspecified GOUT NOS Gout, unspecified GERD (gastroesophageal reflux disease) Esophageal reflux Esophageal reflux Obesity (BMI 30-39.9) Obesity, unspecified Mild persistent asthma without complication (HCC)- Primary Unspecified asthma H/O seasonal allergies Other allergy, other than to medicinal agents Gastroesophageal reflux disease, unspecified whether esophagitis present Class 1 obesity Chronic cough- Primary Cough documented in this encounter [facility] note* Diagnosis Encounter to establish care- Primary Other reasons for seeking consultation Hypothyroidism Unspecified hypothyroidism INSOMNIA NOS Insomnia, unspecified GOUT NOS Gout, unspecified GERD (gastroesophageal reflux disease) Esophageal reflux Esophageal reflux Obesity (BMI 30-39.9) Obesity, unspecified Gout, unspecified cause, unspecified chronicity, unspecified site- Primary documented in this encounter [facility] Discharge instructions No data available for this section [facility] Progress note No data available for this section [facility] for [facility] (narrative)* Diagnostic Procedure Only (Routine) - Pending Review Specialty Diagnoses / Procedures Referred By Maribell t Referred To Contact XR IMAGING Diagnoses Right knee pain, unspecified chronicity Procedures XR KNEE GENERAL 4V AP BOTH/PA BOTH/LAT/MERC RIGHT RADIOLOGIC EXAM KNEE COMPLETE 4/MORE VIEWS John Barba V, DO [address] [place] [address] Xr Imaging Referral ID Status Reason Start Date Expiration Date Visits Requested Visits Authorized [id number] Pending Review Auto-Generat ed Referral 10/21/2021 11/20/2022 1 1 [facility] for referral (narrative)* Diagnostic Procedure Only (Routine) - Closed Specialty Diagnoses / Procedures Referred By Maribell brewer Referred To Contact XR IMAGING Diagnoses Right knee pain, unspecified chronicity Procedures XR KNEE GENERAL 4V AP BOTH/PA BOTH/LAT/MERC RIGHT RADIOLOGIC EXAM KNEE COMPLETE 4/MORE VIEWS John Barba V DO [address] [place] [address] Xr Imaging Referral ID Status Reason Start Date Expiration Date V isits Requested Visits Authorized [id number] Closed Auto-Generate d Referral 10/21/2021 11/20/2022 1 1 T [facility] for referral (narrative)* Outpatient Procedure (Routine) - Pending Review Specialty Diagnoses / Procedures Referred By Maribell t Referred To Contact [facility] Diagnoses Paroxysmal A-fib (HCC) Procedures ECG COMPLETE ECG ROUTINE ECG W/LEAST 12 LDS W/I&R Sammie Banks MD [address] [place] [address] [facility] [address] [place] [address] Referral ID Status Reason Start Date Expiration Date Visits Requested Visits Authorized [id number] Pending Review Auto-Generat ed Referral 06/18/2022 06/18/2023 [facility]No reason for referral information availableG[facility] Work Phone: Reason for visit Narrative* Diagnostic Procedure Only (Routine) - Closed Specialty Diagnoses / Procedures Referred By Maribell t Referred To Contact XR IMAGING Diagnoses Right knee pain, unspecified chronicity Procedures XR KNEE GENERAL 4V AP BOTH/PA BOTH/LAT/MERC RIGHT RADIOLOGIC EXAM KNEE COMPLETE 4/MORE VIEWS John Barba, V, DO [address] [place] [address] Xr Imaging Referral ID Status Reason Start Date Expiration Date V isits Requested Visits Authorized [id number] Closed Auto-Generate d Referral 10/21/2021 11/20/2022 1 1 [facility] Advance Directives No Advanced Directives Records FoundDocuments on File Type Date Recorded Patient [employer] Expl anation Advance Directive(s) Advance Directive(s) 02/19/2021 9:23 AM Documents on File Type Date Recorded Patient [employer] Expl anation Advance Directive(s) Advance Directive(s) 02/19/2021 9:23 AM Advance Directive Response Recorded Date/ Time Living Will No November 05, 2019 12:59pm Power of Seo Expert No November 04 12:59pm Advance Directive Response Recorded Date/ Time Advance Directives on File No August 312022 11:14am Name of Medical Power of Seo Expert mara jordan am August 31, 2022 11:14am Advance Directives Yes August 31, 2022 11:14am Living Will No August 28, 2022 9: 55am Power of Seo Expert Yes August 31, 2022 11:14am Latest Code Status on File Code Status Date Activated Date Inactivated Comments Full Code 12/04/2022 8:16 AM 12/05/2022 12:56 PM Latest Code Status on File Code Status Date Activated Date Inactivated Comments Full Code 12/04/2022 8:16 AM 12/05/2022 12:56 PM Advance Directive Response Recorded Date/ Time Advance Directives Yes August 31, 2022 10:14am Living Will No August 28, 2022 8: 55am Power of Seo Expert Yes August 31, 2022 10:14am Advance Directive Response Recorded Date/ Time Living Will No August 28, 2022 9: 55am Do you have a Healthcare Power of Seo Expert? Yes August 31, 2022 11:14am Advance Directives Yes August 31, 2022 11:14am Medications Administered Section Inactive Administered Medications - up to 3 most recent administrations Medication Order MAR Action Action Date Dose Rate Site betamethasone acetate-betamethasone sodium phosphate 6 mg injection (CELESTONE) 6 mg, OTHER, ONCE, 1 dose, On Wed10/24/21 at 1200, Intra-Articular Protect From Light. Given 10/24/2021 11:48 AM EDT 6 mg Summary Purpose Family History No Family History Records Found Relationship Condition Age at Onset Recorded Date/T jamir mother Diabetes mellitus Unknown Cardiac disease Unknown Fibromyalgia Unknown father Cardiac disease Unknown Hyperlipidemia Unknown Disorder of thyroid Unknown Coronary artery disease Unknown Myocardial infarction 62 grandfather Malignant neoplasm Unknown father Arthritis Unknown Hypertension Unknown Arthritis Unknown Chief Complaint and Reason for Visit Chief Complaint SURG CLEARANCE ABN E KG Abnormal electrocardiogram [ECG] [EKG] Abnormal electrocardiogram [ECG] [EKG] Amb Documentation Reason for Visit Abnormal EKG Essential hypertension Atrial fibrillation with rapid ventricular response Chief Complaint SURG CLEARANCE ABN E KG Abnormal electrocardiogram [ECG] [EKG] Abnormal electrocardiogram [ECG] [EKG] Amb Documentation AFIB PREDCCV Atrial fibrillation A-FIB 6 wk FU NEED ORDER Reason for Visit Abnormal EKG Essential hypertension Atrial fibrillation with rapid ventricular response Persistent atrial fibrillation Essential hypertension Abnormal EKG Persistent atrial fibrillation Essential hypertension Atrial fibrillation with rapid ventricular response Chief Complaint Admit Date 1 Y FU February 01, 2025 2: 28pm Reason for Visit Admit Date Obesity February 01, 2025 2: 28pm Sleep apnea February 01, 2025 2: 28pm Essential hypertension February 01, 2025 2:28pm Hyperlipidemia February 01, 2025 2: 28pm Paroxysmal atrial fibrillation February 012024 2:28pm Additional Source Comments Source Comments (unrecognize d section and content) In the event this informatio n is protected by the Federal Confidentiality of Alcohol and Drug Abuse Patient Records regulations: The Federal rules restrict any use of the information to criminally investigate or prosecute any alcohol or drug abuse patient.[facility] the event this information is protected by the Federal Confidentiality of Alcohol and Drug Abuse Patient Records regulations: The Federal rules restrict any use of the information to criminally investigate or prosecute any alcohol or drug abuse patient.[facility] Hospital[facility] the event this information is protected by the Federal Confidentiality of Alcohol and Drug Abuse Patient Records regulations: The Federal rules restrict any use of the information to criminally investigate or prosecute any alcohol or drug abuse patient.[facility] Hospital[facility] the event this information is protected by the Federal Confidentiality of Alcohol and Drug Abuse Patient Records regulations: The Federal rules restrict any use of the information to criminally investigate or prosecute any alcohol or drug abuse patient.[facility] the event this information is protected by the Federal Confidentiality of Alcohol and Drug Abuse Patient Records regulations: The Federal rules restrict any use of the information to criminally investigate or prosecute any alcohol or drug abuse patient.[facility] the event this information is protected by the Federal Confidentiality of Alcohol and Drug Abuse Patient Records regulations: The Federal rules restrict any use of the information to criminally investigate or prosecute any alcohol or drug abuse patient.[facility] Hospital[facility] the event this information is protected by the Federal Confidentiality of Alcohol and Drug Abuse Patient Records regulations: The Federal rules restrict any use of the information to criminally investigate or prosecute any alcohol or drug abuse patient.[facility] Hospital[facility] the event this information is protected by the Federal Confidentiality of Alcohol and Drug Abuse Patient Records regulations: The Federal rules restrict any use of the information to criminally investigate or prosecute any alcohol or drug abuse patient.[facility] the event this information is protected by the Federal Confidentiality of Alcohol and Drug Abuse Patient Records regulations: The Federal rules restrict any use of the information to criminally investigate or prosecute any alcohol or drug abuse patient.[facility] the event this information is protected by the Federal Confidentiality of Alcohol and Drug Abuse Patient Records regulations: The Federal rules restrict any use of the information to criminally investigate or prosecute any alcohol or drug abuse patient.[facility] the event this information is protected by the Federal Confidentiality of Alcohol and Drug Abuse Patient Records regulations: The Federal rules restrict any use of the information to criminally investigate or prosecute any alcohol or drug abuse patient.[facility] the event this information is protected by the Federal Confidentiality of Alcohol and Drug Abuse Patient Records regulations: The Federal rules restrict any use of the information to criminally investigate or prosecute any alcohol or drug abuse patient.[facility] the event this information is protected by the Federal Confidentiality of Alcohol and Drug Abuse Patient Records regulations: The Federal rules restrict any use of the information to criminally investigate or prosecute any alcohol or drug abuse patient.[facility] HospitalIn the event this information is protected by the Federal Confidentiality of Alcohol and Drug Abuse Patient Records regulations: The Federal rules restrict any use of the information to criminally investigate or prosecute any alcohol or drug abuse patient.[facility] Hospital[facility] the event this information is protected by the Federal Confidentiality of Alcohol and Drug Abuse Patient Records regulations: The Federal rules restrict any use of the information to criminally investigate or prosecute any alcohol or drug abuse patient.[facility] Hospital[facility] the event this information is protected by the Federal Confidentiality of Alcohol and Drug Abuse Patient Records regulations: The Federal rules restrict any use of the information to criminally investigate or prosecute any alcohol or drug abuse patient.[facility] Hospital[facility] the event this information is protected by the Federal Confidentiality of Alcohol and Drug Abuse Patient Records regulations: The Federal rules restrict any use of the information to criminally investigate or prosecute any alcohol or drug abuse patient.[facility] Hospital[facility] the event this information is protected by the Federal Confidentiality of Alcohol and Drug Abuse Patient Records regulations: The Federal rules restrict any use of the information to criminally investigate or prosecute any alcohol or drug abuse patient.[facility] Hospital[facility] the event this information is protected by the Federal Confidentiality of Alcohol and Drug Abuse Patient Records regulations: The Federal rules restrict any use of the information to criminally investigate or prosecute any alcohol or drug abuse patient.[facility] HospitalIn the event this information is protected by the Federal Confidentiality of Alcohol and Drug Abuse Patient Records regulations: The Federal rules restrict any use of the information to criminally investigate or prosecute any alcohol or drug abuse patient.[facility] HospitalIn the event this information is protected by the Federal Confidentiality of Alcohol and Drug Abuse Patient Records regulations: The Federal rules restrict any use of the information to criminally investigate or prosecute any alcohol or drug abuse patient.[facility] HospitalIn the event this information is protected by the Federal Confidentiality of Alcohol and Drug Abuse Patient Records regulations: The Federal rules restrict any use of the information to criminally investigate or prosecute any alcohol or drug abuse patient.[facility] Hospital[facility] the event this information is protected by the Federal Confidentiality of Alcohol and Drug Abuse Patient Records regulations: The Federal rules restrict any use of the information to criminally investigate or prosecute any alcohol or drug abuse patient.[facility]In the event this information is protected by the Federal Confidentiality of Alcohol and Drug Abuse Patient Records regulations: The Federal rules restrict any use of the information to criminally investigate or prosecute any alcohol or drug abuse patient.[facility] Hospital[facility] the event this information is protected by the Federal Confidentiality of Alcohol and Drug Abuse Patient Records regulations: The Federal rules restrict any use of the information to criminally investigate or prosecute any alcohol or drug abuse patient.[facility] HospitalIn the event this information is protected by the Federal Confidentiality of Alcohol and Drug Abuse Patient Records regulations: The Federal rules restrict any use of the information to criminally investigate or prosecute any alcohol or drug abuse patient.[facility] the event this information is protected by the Federal Confidentiality of Alcohol and Drug Abuse Patient Records regulations: The Federal rules restrict any use of the information to criminally investigate or prosecute any alcohol or drug abuse patient.[facility] HospitalIn the event this information is protected by the Federal Confidentiality of Alcohol and Drug Abuse Patient Records regulations: The Federal rules restrict any use of the information to criminally investigate or prosecute any alcohol or drug abuse patient.[facility] HospitalIn the event this information is protected by the Federal Confidentiality of Alcohol and Drug Abuse Patient Records regulations: The Federal rules restrict any use of the information to criminally investigate or prosecute any alcohol or drug abuse patient.[facility] HospitalIn the event this information is protected by the Federal Confidentiality of Alcohol and Drug Abuse Patient Records regulations: The Federal rules restrict any use of the information to criminally investigate or prosecute any alcohol or drug abuse patient.[facility] HospitalIn the event this information is protected by the Federal Confidentiality of Alcohol and Drug Abuse Patient Records regulations: The Federal rules restrict any use of the information to criminally investigate or prosecute any alcohol or drug abuse patient.[facility]In the event this information is protected by the Federal Confidentiality of Alcohol and Drug Abuse Patient Records regulations: The Federal rules restrict any use of the information to criminally investigate or prosecute any alcohol or drug abuse patient.[facility] HospitalIn the event this information is protected by the Federal Confidentiality of Alcohol and Drug Abuse Patient Records regulations: The Federal rules restrict any use of the information to criminally investigate or prosecute any alcohol or drug abuse patient.[facility]In the event this information is protected by the Federal Confidentiality of Alcohol and Drug Abuse Patient Records regulations: The Federal rules restrict any use of the information to criminally investigate or prosecute any alcohol or drug abuse patient.[facility]In the event this information is protected by the Federal Confidentiality of Alcohol and Drug Abuse Patient Records regulations: The Federal rules restrict any use of the information to criminally investigate or prosecute any alcohol or drug abuse patient.[facility] HospitalIn the event this information is protected by the Federal Confidentiality of Alcohol and Drug Abuse Patient Records regulations: The Federal rules restrict any use of the information to criminally investigate or prosecute any alcohol or drug abuse patient.[facility] HospitalIn the event this information is protected by the Federal Confidentiality of Alcohol and Drug Abuse Patient Records regulations: The Federal rules restrict any use of the information to criminally investigate or prosecute any alcohol or drug abuse patient.[facility] HospitalIn the event this information is protected by the Federal Confidentiality of Alcohol and Drug Abuse Patient Records regulations: The Federal rules restrict any use of the information to criminally investigate or prosecute any alcohol or drug abuse patient.[facility] HospitalIn the event this information is protected by the Federal Confidentiality of Alcohol and Drug Abuse Patient Records regulations: The Federal rules restrict any use of the information to criminally investigate or prosecute any alcohol or drug abuse patient.[facility] HospitalIn the event this information is protected by the Federal Confidentiality of Alcohol and Drug Abuse Patient Records regulations: The Federal rules restrict any use of the information to criminally investigate or prosecute any alcohol or drug abuse patient.[facility] HospitalIn the event this information is protected by the Federal Confidentiality of Alcohol and Drug Abuse Patient Records regulations: The Federal rules restrict any use of the information to criminally investigate or prosecute any alcohol or drug abuse patient.[facility] HospitalIn the event this information is protected by the Federal Confidentiality of Alcohol and Drug Abuse Patient Records regulations: The Federal rules restrict any use of the information to criminally investigate or prosecute any alcohol or drug abuse patient.[facility] HospitalIn the event this information is protected by the Federal Confidentiality of Alcohol and Drug Abuse Patient Records regulations: The Federal rules restrict any use of the information to criminally investigate or prosecute any alcohol or drug abuse patient.[facility] HospitalIn the event this information is protected by the Federal Confidentiality of Alcohol and Drug Abuse Patient Records regulations: The Federal rules restrict any use of the information to criminally investigate or prosecute any alcohol or drug abuse patient.[facility] HospitalIn the event this information is protected by the Federal Confidentiality of Alcohol and Drug Abuse Patient Records regulations: The Federal rules restrict any use of the information to criminally investigate or prosecute any alcohol or drug abuse patient.[facility] Reason for Visit (unrecogniz ed section and content) Reason Comments Prescription Refills Reason Onset Date Comments Refill Request 10/02/2021 [...] instructions Specialty Diagnoses / Procedures Referred By Contac t Referred To Contact Diagnoses Atrial fibrillation with RVR (CMS/HCC) (HCC) Atrial fibrillation with RVR (CMS/HCC) (HCC) [I48.91] Procedures Ablation a-fib paroxysmal Williams Mcnamara MD [address] [address] [facility] Cardiac Cath/Ep Lab [address] [place] [id number] Referral ID Status Reason Start Date Expiration Date Visits Re quested Visits Authorized [id number] 1 1 Reason Comments Follow-up Ablation 2 weeks ago Reason Comments Cough X 2 weeks Reason Comments Patient Update Reason Comments Cough was seen in [facility]2023 and treated with doxycycline and benzonatate. Had some improvement but cough had worsened in the last 2 days Reason Comments 3 Month Follow Up PAF/PVI Cryo Reason Comments Faxed orders to [facility] lab Reason Comments Follow Up med refills needed Reason Onset Date Comments Refill Request 09/07/2023 Reason Comments Medication Problem Reason Comments Rash Poison maliha on ESA ar ms x 3 days Reason Onset Date Comments Refill Request 02/12/2024 Reason Onset Date Comments Recheck 6 month follow u p Immunizations 02/28/2024 Flu vaccination Specialty Diagnoses / Procedures Referred By Maribell brewer Referred To Contact INTERNAL MEDICINE Diagnoses Allergic contact dermatitis due to plants, except food MEDICALLY NECESSARY SERVICES Procedures OFFICE/OUTPATIENT ESTABLISHED MOD [facility] 30 MIN MEDICALLY NECESSARY SERVICES Sammie Banks MD [address] [place] [address] [facility] [address] [phone] Referral ID Status Reason Start Date Expiration Date Visits Re quested Visits Authorized [id number] Closed 02/28/2024 04/25/2024 1 1 Reason Comments Results Reason Onset Date Comments Refill Request 04/11/2024 Reason Comments Medication Request Reason Comments Chest Congestion cough, fever x 1 wee k Reason Comments Cough Persisting x 4 days Reason Comments Cough Head Congestion Headache Reason Onset Date Comments Refill Request 2024 Reason Comments Chest Congestion cough x 3 months Reason Comments Recheck 6 month follow up Specialty Diagnoses / Procedures Referred By Maribell brewer Referred To Contact Internal Medicine / INTERNAL MEDICINE Diagnoses Follow-up exam 6 month follow up Procedures OFFICE/OUTPATIENT ESTABLISHED MOD [facility] 30 MIN 4C EST Sammie Banks MD [address] [place] [address] Phone: tel: fax: Bethany Fragoso APRN.ENGINEERING SPECIALIST [address] [place] [address] Phone: tel: fax: Referral ID Status Reason Start Date Expiration Date Visits Re quested Visits Authorized [id number] Closed 08/28/2024 04/25/2025 1 1 Reason Comments Radiology US Specialty Diagnoses / Procedures Referred By Contac t Referred To Contact US IMAGING Diagnoses Mass on back Procedures US HEAD/NECK SOFT TISSUE OTHER US SOFT TISSUE HEAD & NECK REAL TIME IMGE Bethany Isidro APRN.ENGINEERING SPECIALIST [address] [place] [address] Phone: tel: fax: US IMAGING [id number] Referral ID Status Reason Start Date Expiration Date V isits Requested Visits Authorized [id number] Closed Auto-Generate d Referral 09/11/2024 04/25/2025 1 1 Reason Onset Date Comments Results 09/24/2024 Reason Comments Spirometry Specialty Diagnoses / Procedures Referred By Contac t Referred To Contact [facility] Diagnoses Mild persistent asthma without complication (HCC) Procedures SPIROMETRY WITH DILATOR IF OBSTRUCTED BRNCDILAT RSPSE SPMTRY PRE&POST-BRNCDILAT ADMN Monique Gomez MD [address] [place] [address] Phone: tel: fax: [facility] [address] [place] [id number] Referral ID Status Reason Start Date Expiration Date V isits Requested Visits Authorized [id number] Closed Auto-Generate d Referral 09/05/2024 10/05/2025 1 1 Specialty Diagnoses / Procedures Referred By Contac t Referred To Contact [facility] Diagnoses Chronic cough Procedures NITRIC OXIDE, EXHALED NITRIC OXIDE GAS DETERMINATION Monique Gomez MD [address] [place] [address] Phone: tel: fax: [facility] [address] [place] [phone] Referral ID Status Reason Start Date Expiration Date V isits Requested Visits Authorized [id number] Closed Auto-Generate d Referral 09/29/2024 10/29/2025 1 1 Specialty Diagnoses / Procedures Referred By Contac t Referred To Contact [facility] Diagnoses Mild persistent asthma without complication (HCC) Procedures LUNG DIFFUSION CAPACITY (DLCO) DIFFUSING CAPACITY Monique Gomez MD [address] [place] [address] Phone: tel: fax: [facility] [address] [place] [address] Referral ID Status Reason Start Date Expiration Date V isits Requested Visits Authorized [id number] Closed Auto-Generate d Referral 09/05/2024 10/05/2025 1 1 Reason Comments New Patient Cough Specialty Diagnoses / Procedures Referred By Contac t Referred To Contact Pulmonary and Critical Care Medicine / PULMONARY MEDICINE Diagnoses Subacute cough Chronic obstructive pulmonary disease, unspecified COPD type (HCC) Dx: Subacute cough [R05.2]; Chronic obstructive pulmonary disease, unspecified COPD type (HCC) [J44.9] Procedures OFFICE/OUTPATIENT NEW MODERATE MDM 45 MINUTES RI NEW COPD Jatin Shaffer PA [address] [place] [address] Phone: tel: fax: Monique Gomez MD [address] [place] [address] Phone: tel: fax: Referral ID Status Reason Start Date Expiration Date Visits Re quested Visits Authorized [id number] Closed 09/29/2024 04/25/2025 1 1 Reason Comments Patient Update Medication Request Reason Onset Date Comments Results 10/16/2024 Care Teams (unrecognized sec tion and content) Shingle Trimmer Relationship Specialty Start Date End Date Sammie Banks MD [address] [place], [place] [address] [phone] PCP - General Internal Medicine 10/09/14 Shingle Trimmer Relationship Specialty Start Date End Date Sammie Banks MD [address] [place], [place] [id number] [phone] PCP - General Internal Medicine 10/09/14 Shingle Trimmer Relationship Specialty Start Date End Date Sammie Banks MD [address] [place], [place] [id number] [phone] PCP - General Internal Medicine 10/09/14 Shingle Trimmer Relationship Specialty Start Date End Date Sammie Banks MD [address] [place] [address] PCP - General Internal Medicine 10/09/14 Shingle Trimmer Relationship Specialty Start Date End Date Sammie Banks MD [address] [place] [address] PCP - General Internal Medicine 10/09/14 Shingle Trimmer Relationship Specialty Start Date End Date Sammie Banks MD [address] [place] [address] PCP - General Internal Medicine 10/09/14 Shingle Trimmer Relationship Specialty Start Date End Date Sammie Banks MD [address] [place] [address] PCP - General Internal Medicine 10/09/14 Shingle Trimmer Relationship Specialty Start Date End Date Sammie Banks MD [address] [place] [address] PCP - General Internal Medicine 10/09/14 Shingle Trimmer Relationship Specialty Start Date End Date Sammie Banks MD [address] [place] [address] PCP - General Internal Medicine 10/09/14 Shingle Trimmer Relationship Specialty Start Date End Date Sammie Banks MD [address] [place] [address] PCP - General Internal Medicine 10/09/14 Team Status: Active Member Role Status Dates Dr. Sammie Banks MD Primary Care Provider Active Team Status: Inactive Member Role Status Dates Dr. Sammie Banks MD Primary Care Provider, Referring Provider Active Patti [place]IAN[place], PA Attending Provider Active Team Status: Active Member Role Status Dates Dr. Sammie Banks MD Primary Care Provider Active Dr. Cornel Espinoza MD Attending Provider Active Team Status: Active Member Role Status Dates Dr. Sammie Banks MD Primary Care Provider Active Patti [place], PA Referring Provider, Other Provider Active Dr. Cornel Espinoza MD Attending Provider Active Team Status: Active Member Role Status Dates Dr. Sammie Banks MD Primary Care Provider Active Patti Mercado Attending Provider Active Team Status: Inactive Member Role Status Dates Dr. Sammie Banks MD Primary Care Provi inez, Attending Provider, Referring Provider Active Team Status: Inactive Member Role Status Dates Dr. Sammie Banks MD Primary Care Provider Active Patti [place]IAN[place], PA Attending Provider, Referr ing Provider Active Team Status: Active Member Role Status Dates Dr. Sammie Banks MD Primary Care Provider Active Dr. Cornel Espinoza MD Referring Provider, Other Provide r Active Patti [place]IAN[place], PA Attending Provider, Other Provider Active Team Status: Active Member Role Status Dates Dr. Sammie Banks MD Primary Care Provider Active Dr. Cornel Espinoza MD Other Provider Active Dr. Fernie Candelaria MD Attending Provider, Referring Pr ovider Active Team Status: Active Member Role Status Dates Dr. Sammie Banks MD Primary Care Provider Active Dr. Cornel Espinoza MD Attending Provider, Referring Pro vider Active Team Status: Inactive Member Role Status Dates Dr. Sammie Banks MD Primary Care Provider Active Dr. Cornel Espinoza MD Attending Provider, Referring Pro vider Active Patti [place]IAN[place], PA Other Provider Active Team Status: Inactive Member Role Status Dates Dr. Sammie Banks MD Primary Care Provider Active Dr. Gabriel Gibson MD Attending Provider Active Shingle Trimmer Relationship Specialty Start Date End Date Sammie Banks MD [address] [place] [address] PCP - General Internal Medicine 11/19/22 Shingle Trimmer Relationship Specialty Start Date End Date Sammie Banks MD [address] [place], [place] [address] PCP - General Internal Medicine 11/19/22 Shingle Trimmer Relationship Specialty Start Date End Date Sammie Banks MD [address] [place] [address] PCP - General Internal Medicine 11/19/22 Shingle Trimmer Relationship Specialty Start Date End Date Sammie Banks MD [address] [facility] [place] [address] PCP - General Internal Medicine 11/19/22 Shingle Trimmer Relationship Specialty Start Date End Date Sammie Banks MD [address] [facility] [place] [address] PCP - General Internal Medicine 11/19/22 Shingle Trimmer Relationship Specialty Start Date End Date Sammie Banks MD [address] [facility] [place] [address] PCP - General Internal Medicine 11/19/22 Shingle Trimmer Relationship Specialty Start Date End Date Sammie Banks MD [address] [facility] [place] [address] PCP - General Internal Medicine 11/19/22 Shingle Trimmer Relationship Specialty Start Date End Date Sammie Banks MD [address] [facility] [place] [address] PCP - General Internal Medicine 10/09/14 Shingle Trimmer Relationship Specialty Start Date End Date Sammie Banks MD [address] [facility] [place] [address] PCP - General Internal Medicine 10/09/14 Shingle Trimmer Relationship Specialty Start Date End Date Sammie Banks MD [address] [facility] [place] [address] PCP - General Internal Medicine 10/09/14 Shingle Trimmer Relationship Specialty Start Date End Date Sammie Banks MD [address] [facility] [place] [address] PCP - General Internal Medicine 11/19/22 Shingle Trimmer Relationship Specialty Start Date End Date Sammie Banks MD [address] [facility] [place] [address] PCP - General Internal Medicine 10/09/14 Team Status: Inactive Member Role Status Dates Dr. Sammie Banks MD Primary Care Provider Active SAMMY CALERO Attending Provider, Referring Provi inez Active Shingle Trimmer Relationship Specialty Start Date End Date Sammie Banks MD [address] [place] [address] PCP - General Internal Medicine 10/09/14 Shingle Trimmer Relationship Specialty Start Date End Date Sammie Banks MD [address] [facility] [place] [address] PCP - General Internal Medicine 10/09/14 Shingle Trimmer Relationship Specialty Start Date End Date Sammie Banks MD [address] [place] [address] PCP - General Internal Medicine 10/09/14 Shingle Trimmer Relationship Specialty Start Date End Date Sammie Banks MD [address] [facility] [place] [address] PCP - General Internal Medicine 10/09/14 Shingle Trimmer Relationship Specialty Start Date End Date Sammie Banks MD [address] [place] [address] PCP - General Internal Medicine 10/09/14 Shingle Trimmer Relationship Specialty Start Date End Date Sammie Banks MD [address] [place] [address] PCP - General Internal Medicine 10/09/14 Aashish Tanner PA-C [address] [place] [address] [facility] 04/02/24 Bethany Fragoso APRN.ENGINEERING SPECIALIST [address] [place] [address] [facility] 04/02/24 Pauly Ramos PA-C [address] [place] [address] [facility] 04/02/24 Shingle Trimmer Relationship Specialty Start Date End Date Sammie Banks MD [address] [place] [address] PCP - General Internal Medicine 10/09/14 Aashish Tanner PA-C [address] [place] [address] [facility] 04/02/24 Bethany Fragoso, KEITH.ENGINEERING SPECIALIST [address] [place] [address] [facility] 04/02/24 Pauly Ramos PA-C [address] [place] [address] [facility] 04/02/24 Shingle Trimmer Relationship Specialty Start Date End Date Sammie Banks MD [address] [place] [address] PCP - General Internal Medicine 10/09/14 Aashish Tanner PA-C [address] [place] [address] [facility] 04/02/24 Bethany Fragoso APRN.ENGINEERING SPECIALIST [address] [facility] [place] [address] [facility] 04/02/24 Pauly Ramos PA-C [address] [place] [address] [facility] 04/02/24 Shingle Trimmer Relationship Specialty Start Date End Date Sammie Banks MD [address] [place] [address] PCP - General Internal Medicine 10/09/14 Aashish Tanner PA-C [address] [place] [address] [facility] 04/02/24 Bethany Fragoso APRN.ENGINEERING SPECIALIST [address] [place] [address] [facility] 04/02/24 Pauly Ramos PA-C [address] [place] [address] [facility] 04/02/24 Shingle Trimmer Relationship Specialty Start Date End Date Sammie Banks MD [address] [place] [address] PCP - General Internal Medicine 10/09/14 Aashish Tanner PA-C [address] [place] [address] [facility] 04/02/24 Bethany Fragoso APRN.ENGINEERING SPECIALIST [address] [place] [address] [facility] 04/02/24 Pauly Ramos PA-C [address] [facility] [place] [address] [facility] 04/02/24 Shingle Trimmer Relationship Specialty Start Date End Date Sammie Banks MD [address] [place] [address] PCP - General Internal Medicine 10/09/14 Aashish Tanner PA-C [address] [place] [address] [facility] 04/02/24 Bethany Fragoso APRN.ENGINEERING SPECIALIST [address] [facility] [place] [address] [facility] 04/02/24 Pauly Ramos PA-C [address] [facility] [place] [address] [facility] 04/02/24 Shingle Trimmer Relationship Specialty Start Date End Date Sammie Banks MD [address] [place] [address] PCP - General Internal Medicine 10/09/14 Bethany Fragoso APRN.ENGINEERING SPECIALIST [address] [facility] [place] [address] [facility] 04/02/24 Shingle Trimmer Relationship Specialty Start Date End Date Sammie Banks MD [address] [place] [address] PCP - General Internal Medicine 10/09/14 Bethany Fragoso APRN.ENGINEERING SPECIALIST [address] [facility] [place] [address] [facility] 04/02/24 Shingle Trimmer Relationship Specialty Start Date End Date Sammie Banks MD [address] [facility] [place] [address] PCP - General Internal Medicine 10/09/14 Bethany Fragoso APRN.ENGINEERING SPECIALIST [address] [facility] [place] [address] [facility] 04/02/24 Shingle Trimmer Relationship Specialty Start Date End Date Sammie Banks MD [address] [facility] [place] [address] PCP - General Internal Medicine 10/09/14 Bethany Fragoso APRN.ENGINEERING SPECIALIST [address] [facility] [place] [address] [facility] 04/02/24 Shingle Trimmer Relationship Specialty Start Date End Date Sammie Banks MD [address] [facility] [place] [address] PCP - General Internal Medicine 10/09/14 Bethany Fragoso APRN.ENGINEERING SPECIALIST [address] [facility] [place] [address] [facility] 04/02/24 Shingle Trimmer Relationship Specialty Start Date End Date Sammie Banks MD [address] [place] [address] PCP - General Internal Medicine 10/09/14 Bethany Frgaoso APRN.ENGINEERING SPECIALIST [address] [place] [address] [facility] 04/02/24 Shingle Trimmer Relationship Specialty Start Date End Date Sammie Banks MD [address] [place] [address] PCP - General Internal Medicine 10/09/14 Bethany Fragoso APRN.ENGINEERING SPECIALIST [address] [place] [address] [facility] 04/02/24 Shingle Trimmer Relationship Specialty Start Date End Date Sammie Banks MD [address] [place] [address] PCP - General Internal Medicine 10/09/14 Bethany Fragoso APRN.ENGINEERING SPECIALIST [address] [place] [address] [facility] 04/02/24 Shingle Trimmer Relationship Specialty Start Date End Date Sammie Banks MD [address] [place] [address] PCP - General Internal Medicine 10/09/14 Bethany Fragoso APRN.ENGINEERING SPECIALIST [address] [place] [address] [facility] 04/02/24 Shingle Trimmer Relationship Specialty Start Date End Date Sammie Banks MD [address] [place] [address] PCP - General Internal Medicine 10/09/14 Bethany Fragoso APRN.ENGINEERING SPECIALIST [address] [place] [address] [facility] 04/02/24 Team Status: Active Member Role/Relationship Status Dates Dr. Sammie Banks MD Primary care physician Active Team Status: Inactive Member Role/Relationship Status Dates Dr. Sammie Banks MD Primary care physician Active Start: February 01, 2025 End: February 01, 2025 Dr. Sammie Banks MD Referring Provider Active Start: February 01, 2025 End: February 01, 2025 Abhi Avalos FRONT DESK COORDINATOR, FRONT DESK COORDINATOR-C Attending physician Active Start: February 01, 2025 End: February 01, 2025 Care Team (unrecognized sect ion and content) Care Team Personnel Name: SAMMIE BANKS MD Member Role: Primary Care Physician Address: Address: [address] [place] [address]- (unrecognized sect ion and content) No Status Records FoundNo Status Records FoundNo Status Records FoundNo Status Records Found INFORMATION SOURCE (unrecogn ized section and content) DATE CREATED AUTHOR 06/20/2022 [facility] ([place] DATE CREATED AUTHOR AUTHOR'S ORGANIZ ATION 03/27/2023 [facility] DATE CREATED AUTHOR AUTHOR'S ORGANIZ ATION 02/10/2025 [facility] DATE CREATED AUTHOR AUTHOR'S ORGANIZ ATION 03/03/2025 [facility] Goals (unrecognized section and content) Goals may be documented in a n alternate section Scheduled Active and Recently Administ ered Medications (unrecognized section and content) Medication Order 12/03/2022 12/04/2022 12/05/2022 allopurinol (Zyloprim) tablet 300 mg 300 mg, Oral, Daily, First dose on Wed12/04/22 at 1500 1602 (Given - Provider: Kelly Navarro RN) 0829 (Not Given - Provider: Slime Gamez RN - Reason: Other - Comment: pt takes at night) apixaban (Eliquis) tablet 5 mg 5 mg, Oral, 2 times daily, First dose on Wed12/04/22 at 1800, Anticoagulant 1711 (Given - Provider: Kelly Navarro RN) 0828 (Given - Provider: Slime Gamez, ERIKA) atenolol (Tenormin) tablet 50 mg 50 mg, Oral, Daily, First dose on Wed12/04/22 at 1500 1602 (Given - Provider: eKlly Navarro RN) 0829 (Not Given - Provider: Slime Gamez RN - Reason: Other - Comment: pt takes at night) levothyroxine (Synthroid, Levoxyl) tablet 175 mcg 175 mcg, Oral, Daily, First dose on Wed12/04/22 at 1500, Tube feeding (TF) interaction, obtain physician order to manage, recommend holding TF for 30 minutes before and after dose. 1500 (Not Given - Provider: Kelly Navarro RN - Reason: Patient/family refused) 0829 (Given - Provider: Slime Gamez RN) losartan (Cozaar) tablet 50 mg 50 mg, Oral, Daily, First dose on Wed12/04/22 at 1345 1602 (Given - Provider: Kelyl Navarro RN) 0828 (Given - Provider: Slime Gamez RN) mometasone-formoterol (Dulera 100) 100-5 MCG/ACT inhaler 2 puff 2 puff, Inhalation, 2 times daily, First dose on Wed12/04/22 at 1500, Rinse mouth with water after use to reduce aftertaste and incidence of candidiasis. Do not swallow. 1500 (Not Given - Provider: Kelly Navarro RN - Reason: Patient/family refused) 0829 (Given - Provider: Slime Gamez RN) pantoprazole (ProtoNix) EC tablet 40 mg 40 mg, Oral, Daily before breakfast, First dose on Wed12/05/22 at 0700, Substituted for esomeprazole (Nexium). Do not crush, chew, or split. 0614 (Given - Provid er: Nirav Bender RN) PRN Medication Order 12/03/2022 12/04/2022 12/05/2022 acetaminophen [...] therapy medications. 1232 (Given - Provider: Chanelle Moreno RN)1243 (Given - Provider: Chanelle Moreno RN) iopamidol (Isovue-300) 61 % injection (CANCELED) As needed, Starting on Wed12/04/22 at 1151, Intraprocedure 1151 (Given - Provider: Williams Mcnamara MD) lidocaine (Xylocaine) 1 % injection (CANCELED) Infiltration, As needed, Starting on Wed12/04/22 at 1015, Intraprocedure 1015 (Given - Provider: Willaims Mcnamara MD) lidocaine (Xylocaine) 1 % injection [...] of order. 0951 (New Bag - Provider: KEITH Morales CRNA)1115 (Anesthesia Volume Adjustment - Provider: KEITH Morales CRNA)1149 (Anesthesia Volume Adjustment - Provider: KEITH Morales CRNA) FOR RECORDS PERTAINING TO PATIENTS WHO ARE [...] BE BASED ON THE PRIMARY CLINICAL RECORDS. [email or web address] provides no warranty or guarantee of the accuracy or completeness of information in this document.
[2025-03-31 10:49] VITALS: BP 148/67; PULSE 54; RESP 18; TEMP 37.1; O2SAT 97
== END 2025-03-31 10:51 | disposition home or self-care (01) ==
PROVIDERS: Emergency Provider Emergency Medicine; PCP Internal Medicine; Visit Provider Emergency Medicine
DX: J06.9 Acute upper respiratory infection, unspecified (principal); J44.9 Chronic obstructive pulmonary disease, unspecified; R09.A2 Foreign body sensation, throat; E78.5 Hyperlipidemia, unspecified; I10 Essential (primary) hypertension; F17.220 Nicotine dependence, chewing tobacco, uncomplicated; E03.9 Hypothyroidism, unspecified; Z86.16 Personal history of COVID-19; K21.9 Gastro-esophageal reflux disease without esophagitis
CPT/HCPCS: 70490; 71045; 99282